=== PATIENT | female | born 1975 | race Caucasian/White ===

== ENCOUNTER 2021-01-06 14:20 | Observation (INO) ==
[2021-01-06] MEDS ORDERED: OPTIRAY 350 500ml IV ONE (14:44)
--- NOTE | 2021-01-06 14:44 | CT Scan Report ---
CT head/brain wo con CLINICAL HISTORY: Stroke Like Symptoms COMPARISON STUDY: No previous studies for comparison. TECHNIQUE: Axial CT of the brain is performed from the vertex to the skull base. IV contrast was not administered for this examination. A dose lowering technique was utilized adhering to the principles of ALARA. CT DOSE: 614.27 mGy.cm FINDINGS: No intra or extra-axial mass lesions are visualized. There is no CT evidence of acute cortical infarc tion. There is no evidence of midline shift. There is no acute hemorrhage. No calvarial fractures ar e visualized. There is no evidence of pathologic ventricular dilatation. There is no evidence of acute sinusitis IMPRESSION: No acute intracranial findings ACT 112: Negative or not required by law. Electronically signed by: Bruno Helm M.D. 01/06/2021 2:42 PM
--- NOTE | 2021-01-06 15:11 | CT Scan Report ---
CT angio neck with con, CT angio head w con CLINICAL HISTORY: 45 years-old Female with Stroke Like Symptoms. Acute strokelike symptoms COMPARISON STUDY: Head CT of same day TECHNIQUE: Following the IV administration of 106 mL of Optiray, CT angiogram of the head and neck wa s performed from the aortic arch to the skull apex. Images are reviewed in the axial, sagittal, and c oronal planes. 3-D MIPS images are created and assessed. IV contrast was administered without complic ation. All measurements were calculated based on NASCET criteria. A dose lowering technique was util ized adhering to the principles of ALARA. CT DOSE: 619.07 mGy.cm FINDINGS: Imaged opacified pulmonary artery is unremarkable. Three-vessel morphology of the thoracic aortic arc h. Patency of the innominate and imaged subclavian arteries. The common and internal carotid arteries are also widely patent. The middle and anterior cerebral arteries are patent. Codominant and widely patent vertebral arteries. The basilar and posterior cerebral arteries are also patent. Cerebral veno us sinuses are patent. There is no abnormal intracranial enhancement. No pneumothorax. Unremarkable soft tissues. Mild polypoid mucosal thickening of the left maxillary si nus. No acute fracture. IMPRESSION:Unremarkable CTA of the head and neck. ACT 112: Negative or not required by law. The above report was generated using voice recognition software. It may contain grammatical, syntax o r spelling errors. Electronically signed by: Bob Molina M.D. 01/06/2021 3:09 PM
[2021-01-06] MEDS ORDERED: ONDANSETRON INJ 2 MG/ML 2 ML VIAL IV STA (15:40)
[2021-01-06] MEDS ORDERED: SODIUM CHLORIDE 0.9% 1000ML 1,000 ML IV ONE (15:40)
[2021-01-06] MEDS ORDERED: VALPROIC ACID SOLN 500 MG/10 ML UDC PO STA (15:40)
[2021-01-06] MEDS ORDERED: DEXAMETHASONE SOD INJ 4 MG/ML VIAL IV STA (15:40)
[2021-01-06 15:54] LABS: Basophils # (auto) 0.02 K/uL (0-0.2); Basophils % (auto) 0.3 %; Eosinophils # (auto) 0.11 K/uL (0-0.5); Eosinophils % (auto) 1.8 %; Hematocrit (blood only) 34.6 % (37-47); Hemoglobin 11.3 g/dL (12.0-16.0); Immature Granulocytes # (auto) 0.02 K/uL (0.00-0.02); Immature Granulocytes % (auto) 0.3 %; Lymphocytes # (auto) 1.25 K/uL (1.2-3.4); Mean Corpuscular Hemoglobin 27.7 pg (25-34); Mean Corpuscular Hgb Conc 32.7 g/dL (32-36); Mean Corpuscular Volume 84.8 fL (80-100); Mean Platelet Volume 9.9 fL (7.4-10.4); Monocytes # (auto) 0.36 K/uL (0.11-0.59); Monocytes % (auto) 5.8 %; Neutrophils # (auto) 4.48 K/uL (1.4-6.5); Neutrophils % (auto) 71.8 %; Platelet Count 168 K/uL (130-400); RDW Coefficient of Variation 16.2 % (11.5-14.5); RDW Standard Deviation 50.5 fL (36.4-46.3); Red Blood Count 4.08 M/uL (4.2-5.4); White Blood Count 6.24 K/uL (4.8-10.8)
[2021-01-06 16:06] LABS: INR 2.9 (0.9-1.1); Partial Thromboplastin Ratio 1.6; Partial Thromboplastin Time 40.8 Seconds (21.0-31.0); Prothrombin Time 27.1 Seconds (9.0-12.0)
[2021-01-06 16:11] LABS: Alanine Aminotransferase 31 U/L (12-78); Aspartate Aminotransferase 14 U/L (15-37); BUN Creatinine Ratio 9.8 (10-20); Blood Urea Nitrogen 12 mg/dl (7-18); Calcium 8.5 mg/dl (8.5-10.1); Carbon Dioxide 26 mmol/L (21-32); Chloride 107 mmol/L (98-107); Creatinine Clr Calc Pharmacy 69.5 ml/min; Est GFR (African American) 62.4; Est GFR (Non-African American) 53.8; Glucose 144 mg/dl (70-99); Magnesium 1.9 mg/dl (1.8-2.4); Potassium 3.7 mmol/L (3.5-5.1); Sodium 137 mmol/L (136-145)
[2021-01-06 16:16] LABS: Albumin Globulin Ratio 0.8 (0.9-2); Alkaline Phosphatase 80 U/L (45-117); Bilirubin,Total 0.2 mg/dl (0.2-1); Globulin 3.7 gm/dl (2.5-4.0); Total Protein 6.7 gm/dl (6.4-8.2); Troponin I < 0.015 ng/ml (0-0.045)
[2021-01-06] MEDS ORDERED: MoRPHine SULFATE 2 MG/ML CARP IV STA (18:11)
--- NOTE | 2021-01-06 18:33 | History & Physical Report ---
Date of Service January 06, 2021 Assessment & Plan (1) Migraine: Classic migraine with associated left hemiparesis. No evidence of CVA on head CT scan. Head and neck CTA also unremarkable. IV magnesium ordered. Parenteral narcotics as needed. If symptoms persist, will obtain neurological c onsultation and brain MRI Present on Admission?: Yes (2) History of pulmonary embolism: Continue Coumadin therapy. Currently therapeutic with INR 2.9 (3) History of DVT (deep vein thrombosis): Continue Coumadin therapy (4) Hypothyroidism: Synthroid replacement (5) GERD (gastroesophageal reflux disease): Treated with H2 saurav and PPI (6) PTSD (post-traumatic stress disorder): Supportive care DVT prophylaxis: Coumadin therapy Disposition: Hopefully home tomorrowJanuary 07 History of Present Illness Chief Complaint: Migraine headache Primary Care Provider: EVY RICCI 45-year-old female with a history of PFO, old CVA, DVT and PE, Coumadin coagulopathy, hypothyroidism. She presented with a migraine headache that she said is her typical migraine headache but she had some associated left-sided weakness and right facial droop. She was seen in the ED. Head CT scan was negative as was the head and neck CTA. She is therapeutically anticoagulated on Coumadin with INR 2.9. Intravenous magnesium is ordered in the ED along with parenteral narcotics. She is admitted to observation for further evaluation. If her symptoms persist, neurology consultation and brain MRI will be ordered. Hopefully she will improve and she can go home tomorrowJanuary 07. Allergies Allergy/AdvReac Type Severity Reaction Status Date / Time metoclopramide [From Reglan] AdvReac Intermediate CAUSED Verified 01/06/21 15:58 RESTLESS LEG SYNDROME prochlorperazine AdvReac Intermediate caused Unverified 01/06/21 15:58 [From Compazine] restless leg syndrome promethazine [From Phenergan] AdvReac restless Unverified 01/06/21 15:58 leg syndrome Home Medications Medication Instructions Recorded Confirmed Type famotidine 10 mg PO HS 10/07/20 01/06/21 History levothyroxine 75 mcg PO DAILYBB 10/07/20 01/06/21 History pantoprazole [Protonix] 20 mg PO HS 10/07/20 01/06/21 History topiramate 200 mg PO HS 10/07/20 01/06/21 History venlafaxine [Effexor XR] 300 mg PO HS 10/07/20 01/06/21 History lurasidone [Latuda] 20 mg PO PM 01/06/21 01/06/21 History warfarin 5 mg PO 5XWK 01/06/21 01/06/21 History warfarin 15 mg PO 2XWK 01/06/21 01/06/21 History Past Med/Surg History Medical History C. difficile colitis CVA (cerebral vascular accident) GERD (gastroesophageal reflux disease) History of DVT (deep vein thrombosis) History of pulmonary embolism Hypothyroidism Migraine PTSD (post-traumatic stress disorder) Surgical History History of appendectomy History of cholecystectomy S/P patent foramen ovale closure Social History Smoking Status: Never smoker Feels Safe at Home: Yes Review of Systems Review of Systems: All systems reviewed & are unremarkable except as noted in HPI & below Physical Exam Physical Exam: General-alert and oriented x3, no fevers, no chills HEENT-head atraumatic and normocephalic, pupils equal and reactive to light, extraocular muscles intact Neck-no lymphadenopathy or thyromegaly, trachea midline Chest-clear to auscultation percussion. No rales wheezing or rhonchi Cardiac-regular rate and rhythm, normal S1 and S2, no murmurs Abdomen-normal bowel sounds, nontender, no hepatosplenomegaly Extremities-no cyanosis, clubbing, or edema Neuro-no discernible right facial droop at the time of my examination. She does have a mild left hemiparesis which she says is common with her migraine headaches and usually resolves as the headache resolves. Psych-normal affect, normal mood Results & Data Results & Data ([facility]) Vital Signs (Past 12 Hours) Vital Signs Temp Pulse Pulse Resp BP BP Pulse Ox 01/06/21 17:51 100 H 18 100/70 96 01/06/21 16:01 97 H 17 01/06/21 16:00 96 H 17 113/79 01/06/21 15:53 99 H 18 01/06/21 15:46 102 H 18 94/78 L 98 01/06/21 15:31 96 H 16 94/78 L 98 01/06/21 14:25 36.8 C 118 H 20 112/79 97 Laboratory Results 01/06/21 15:43 01/06/21 15:43 Code Status & VTE Plan VTE Prophylaxis Plan VTE Prophylaxis will be ordered: Yes PG Care Time/CCT Total # of Minutes Spent Total Time Spent with Patient: Total time spent is greater than 50% in coor dination of care (as documented) at patient's floor/unit and/or counseling patient: Coding Level of Care Code 37814 OBS Care - Level 3 Diagnoses Migraine G43.901 Intractability: not intractable Migraine type: unspecified Status migrainosus presence: with status migrainosus History of pulmonary embolism Z86.711 History of DVT (deep vein thrombosis) Z86.718 Hypothyroidism E03.9 GERD (gastroesophageal reflux disease) K21.9 PTSD (post-traumatic stress disorder) F43.10 (1) Migraine Intractability: not intractable Migraine type: unspecified Status migrainosus presence: with status migrainosus Qualified Code(s): G43.901 - Migraine, unspecified, not intractable, with status migrainosus
[2021-01-06] MEDS: MAGNESIUM SULFATE / D5W 1 GM/100 ML BAG IV SCH ×2 (18:41→20:57)
--- NOTE | 2021-01-06 20:48 | Emergency Department Note ---
History of Present Illness General Chief complaint: Neuro Symptoms/Deficit Stated complaint: MIGRAINE, LEFT LEG WEAKNESS Time Seen by Provider: 01/06/21 14:28 History of Present Illness Provider complaint: Headache left-sided weakness Onset (ago): minute(s) 30 Location: head, upper extremity, lower extremity and left Radiation: non-radiation Severity: severe Pain Consistency: + constant Maximum Pain Intensity: 9 Current Pain Intensity: 9 Quality: + stabbing, + aching, + sharp and + dull Relieved By: + none Exacerbated By: + none Associated symptoms: + headaches and + weakness; no chest pain, no cough, no fever/chills, no nausea/vomiting, no seizure, no shortness of breath and no syncope 45-year-old female presents emergency department for headache and left-sided weakness. Patient also reports left eye has blurry vision. Patient reports her symptoms began 30 minutes ago while she was shopping at [employer]. Patient is also reporting that she thought she had a facial droop. Patient states she has a history of complex migraines. Patient is on Coumadin. Patient denies any fall. Home Medications Medication Instructions Recorded Confirmed Type famotidine 10 mg PO HS 10/07/20 01/06/21 History levothyroxine 75 mcg PO DAILYBB 10/07/20 01/06/21 History pantoprazole [Protonix] 20 mg PO HS 10/07/20 01/06/21 History topiramate 200 mg PO HS 10/07/20 01/06/21 History venlafaxine [Effexor XR] 300 mg PO HS 10/07/20 01/06/21 History lurasidone [Latuda] 20 mg PO PM 01/06/21 01/06/21 History warfarin 5 mg PO [id number] 01/06/21 01/06/21 History warfarin 15 mg PO 2XWK 01/06/21 01/06/21 History Allergies Allergy/AdvReac Type Severity Reaction Status Date / Time metoclopramide [From Reglan] AdvReac Intermediate CAUSED Verified 01/06/21 15:58 RESTLESS LEG SYNDROME prochlorperazine AdvReac Intermediate caused Unverified 01/06/21 15:58 [From Compazine] restless leg syndrome promethazine [From Phenergan] AdvReac restless Unverified 01/06/21 15:58 leg syndrome Past Med/Surg History Medical History C. difficile colitis CVA (cerebral vascular accident) GERD (gastroesophageal reflux disease) History of DVT (deep vein thrombosis) History of pulmonary embolism Hypothyroidism Migraine PTSD (post-traumatic stress disorder) Surgical History History of appendectomy History of cholecystectomy S/P patent foramen ovale closure Social History Smoking Status: Never smoker Hx Alcohol Use: No Hx Substance Use: No Preferred Language: [place] Communication Ability: Effective Molecular Physicist Required: No Beliefs That Will Affect Care: None Current Living Situation: Spouse Current Living Situation Comment: Feels Safe at Home: Yes Assistive Devices: Contacts, Hearing Aid - Bilateral and Walker Review of Systems A total of 10 systems reviewed and were otherwise negative Physical Exam Vital Signs Vital Signs - 24 hr 01/06/21 14:25 01/06/21 15:31 01/06/21 15:46 Temperature 36.8 C Temperature Source Temporal Artery Scan Pulse Rate 118 H 96 H Pulse Rate [Right Brachial] 102 H Pulse Rate from SpO2 Sensor 95 H Pulse Rhythm [Right Brachial] Regular Respiratory Rate 20 16 18 Respiratory Effort / Characteristics Non-Labored Respiratory Depth Normal Blood Pressure 112/79 94/78 L Blood Pressure [Left Radial Artery] 94/78 L Blood Pressure Mean 90 83 Blood Pressure Mean [Left Radial Artery] 83 Blood Pressure Position [Left Radial Artery] Pulse Oximetry 97 98 98 Oxygen Delivery Method Room Air Room Air Sepsis Recent Fever Within 48 Hours No Sepsis New/Unexplained Change in Mental Status No Sepsis Action Taken by Nursing No Action Required 01/06/21 15:53 01/06/21 16:00 01/06/21 16:01 Temperature Temperature Source Pulse Rate 99 H 96 H 97 H Pulse Rate [Right Brachial] Pulse Rate from SpO2 Sensor Pulse Rhythm [Right Brachial] Respiratory Rate 18 17 17 Respiratory Effort / Characteristics Respiratory Depth Blood Pressure 113/79 Blood Pressure [Left Radial Artery] Blood Pressure Mean 90 Blood Pressure Mean [Left Radial Artery] Blood Pressure Position [Left Radial Artery] Pulse Oximetry Oxygen Delivery Method Sepsis Recent Fever Within 48 Hours Sepsis New/Unexplained Change in Mental Status Sepsis Action Taken by Nursing 01/06/21 17:51 Temperature Temperature Source Pulse Rate Pulse Rate [Right Brachial] 100 H Pulse Rate from SpO2 Sensor Pulse Rhythm [Right Brachial] Respiratory Rate 18 Respiratory Effort / Characteristics Non-Labored Spontaneous Respiratory Depth Normal Blood Pressure Blood Pressure [Left Radial Artery] 100/70 Blood Pressure Mean Blood Pressure Mean [Left Radial Artery] 80 Blood Pressure Position [Left Radial Artery] Lying Pulse Oximetry 96 Oxygen Delivery Method Room Air Sepsis Recent Fever Within 48 Hours Sepsis New/Unexplained Change in Mental Status Sepsis Action Taken by Nursing Physical Exam HENT: Exam performed. -Head: Normocephalic and atraumatic. -Right Ear: External ear normal. No mastoid tenderness. -Left Ear: External ear normal. No mastoid tenderness. -Mouth/Throat: The oropharynx is clear and moist. No trismus in the jaw. No dental abscesses or uvula swelling. No oropharyngeal exudate or tonsillar abscesses. EYES: Conjunctivae and EOM are normal. Pupils are equal, round, and reactive to light. Right eye exhibits no discharge. Left eye exhibits no discharge. No scleral icterus. NECK: Normal range of motion. Neck supple. No JVD present. No spinous process tenderness present. No carotid bruit present. No rigidity. No tracheal deviation and normal range of motion present. No Brudzinski's sign and no Kernig's sign noted. CV: Normal rate, regular rhythm, normal heart sounds and intact distal pulses. There is no peripheral edema. Palpable radial pulses bue. PULM/CHEST: Effort normal and breath sounds normal. No respiratory distress. No stridor. She has no wheezes. She has no rales. -Chest Wall: She exhibits no tenderness. ABD: The abdomen is soft. Bowel sounds are normal. She has no distension. No mass is present. There is no tenderness. There is no rebound, no guarding, no Real's sign and no tenderness at McBurney's point. Rovsig negative MUSC/SKEL: Normal range of motion. There is no peripheral edema, tenderness or deformity. LYMPH: No cervical adenopathy. NEURO:NIHSS: 6 (5a:1 6a:3 7:2) SKIN: Skin is warm and dry. She is not diaphoretic. PSYCH: She has a normal mood and affect. Behavior is normal. Judgment and thought content normal. Course Course 1428: The patient was evaluated in room B5. A complete history and physical exam was performed Cardiac monitoring: An order was placed for continuous cardiac monitoring. The monitor shows a rate of 90 and sinus rhythm Code stroke called on the patient. Patient is saying she does not want a CT scan but I explained to her that given her symptoms started 30 minutes ago, she is on anticoagulation and has a history of stroke, and she has an NIH stroke scale of [address] would be performed. 1500: CT of the head within normal limits. Dr. Maddy Decker teleneurology will evaluate the patient. 1534: Dr. Maddy Decker teleneurology recommends no TPA at this time given the patient's elevated INR. He also thinks that the patient is most likely suffering from a complex migraine. He does recommend that the patient be admitted to the hospital though for continued evaluation. He does recommend given the patient's Decadron 10 mg now and then 6 mg every 8 hours until the headache resolved. He also recommends valproic acid 500 mg every 8 hours. Patient will be admitted to the [facility]ist team. 1820: Patient's is at bedside and states she is very upset that the patient got CT scans of her head when she stated she did not want them. I explained to her given the patient's symptoms CT scans were indicated to make sure that the patient not have an acute stroke. The states that "we know when she is having a stroke and when she is not". Patient awaiting bed placement. Administered Medications Discontinued Medications Dexamethasone (Dexamethasone Sod Inj 4 Mg/Ml Vial) 10 mg IV NOW STA Stop: 01/06/21 15:41 Last Admin: 01/06/21 15:58 Dose: 10 mg Documented by: [id number] Sodium Chloride (Nss 1000ml) 1,000 mls @ 999 mls/hr IV .Q1H1M ONE Stop: 01/06/21 16:40 Last Infusion: 01/06/21 17:13 Dose: 0 mls/hr Documented by: [id number] Admin: 01/06/21 15:58 Dose: 999 mls/hr Documented by: [id number] Magnesium Sulfate/Dextrose (Magnesium Sulfate / D5w) 1 gm in 100 mls @ 50 mls/hr IV Q2H EVELIN Stop: 01/06/21 22:14 Last Infusion: 01/06/21 22:46 Dose: 0 mls/hr Documented by: [id number] Admin: 01/06/21 20:57 Dose: 50 mls/hr Documented by: [id number] Infusion: 01/06/21 20:57 Dose: 0 mls/hr Documented by: [id number] Admin: 01/06/21 18:41 Dose: 50 mls/hr Documented by: [id number] Ioversol (Optiray 350 500ml) 106 ml IV ONCE ONE Stop: 01/06/21 14:45 Last Admin: 01/06/21 14:45 Dose: 106 ml Documented by: [id number] Morphine Sulfate (Morphine Sulfate 2 Mg/Ml Carp) 2 mg IV NOW STA Stop: 01/06/21 18:12 Last Admin: 01/06/21 18:41 Dose: 2 mg Documented by: [id number] Ondansetron HCl (Ondansetron Inj 2 Mg/Ml 2 Ml Vial) 4 mg IV NOW STA Stop: 01/06/21 15:41 Last Admin: 01/06/21 15:58 Dose: 4 mg Documented by: [id number] Valproic Acid (Valproic Acid Soln 500 Mg/10 Ml Udc) 500 mg PO NOW STA Stop: 01/06/21 15:41 Last Admin: 01/06/21 16:03 Dose: 500 mg Documented by: [id number] Critical Care Time Critical Care Time: Yes Total Critical Care Time: 66 I have personally spent greater than 66 minutes of critical care time in the direct management of this patient. This includes bedside care, interpretation of diagnostic studies, and testing, discussion with consultants, patient, and family members, and other required patient management activities. This 66 minutes is in excess of all separately billable procedures. Medical Decision Making Laboratory Data Result diagrams: 01/06/21 15:43 01/06/21 15:43 Lab Results 01/06/21 01/06/21 01/06/21 Range/Units 15:02 15:43 15:43 WBC 6.24 (4.8-10.8) K/uL RBC 4.08 L (4.2-5.4) M/uL Hgb 11.3 L (12.0-16.0) g/dL Hct 34.6 L (37-47) % MCV 84.8 (80-100) fL MCH 27.7 (25-34) pg MCHC 32.7 (32-36) g/dL RDW Std Deviation 50.5 H (36.4-46.3) fL RDW Coeff of Wilmer 16.2 H (11.5-14.5) % Plt Count 168 (130-400) K/uL MPV 9.9 (7.4-10.4) fL Immature Gran % (Auto) 0.3 % Neut % (Auto) 71.8 % Lymph % (Auto) 20.0 % [place] % (Auto) 5.8 % Eos % (Auto) 1.8 % Baso % (Auto) 0.3 % Neut # (Auto) 4.48 (1.4-6.5) K/uL Lymph # (Auto) 1.25 (1.2-3.4) K/uL [place] # (Auto) 0.36 (0.11-0.59) K/uL Eos # (Auto) 0.11 (0-0.5) K/uL Baso # (Auto) 0.02 (0-0.2) K/uL Immature Gran # (Auto) 0.02 (0.00-0.02) K/uL PT (9.0-12.0) Seconds POC INR 3.9 H (0.9-1.1) INR (0.9-1.1) APTT (21.0-31.0) Seconds PTT Ratio Sodium (136-145) mmol/L Potassium (3.5-5.1) mmol/L Chloride (98-107) mmol/L Carbon Dioxide (21-32) mmol/L Anion Gap (3-11) BUN (7-18) mg/dl Creatinine (0.6-1.2) mg/dl Est Cr Clr Drug Dosing ml/min Est GFR ( Amer) Est GFR (Non-Af Amer) BUN/Creatinine Ratio (10-20) Glucose (70-99) mg/dl Calcium (8.5-10.1) mg/dl Magnesium (1.8-2.4) mg/dl Total Bilirubin (0.2-1) mg/dl AST (15-37) U/L ALT (12-78) U/L Alkaline Phosphatase (45-117) U/L Troponin I (0-0.045) ng/ml Total Protein (6.4-8.2) gm/dl Albumin (3.4-5.0) gm/dl Globulin (2.5-4.0) gm/dl Albumin/Globulin Ratio (0.9-2) Blood Type O Positive Antibody Screen NEGATIVE 01/06/21 01/06/21 Range/Units 15:43 15:43 WBC (4.8-10.8) K/uL RBC (4.2-5.4) M/uL Hgb (12.0-16.0) g/dL Hct (37-47) % MCV (80-100) fL MCH (25-34) pg MCHC (32-36) g/dL RDW Std Deviation (36.4-46.3) fL RDW Coeff of Wilmer (11.5-14.5) % Plt Count (130-400) K/uL MPV (7.4-10.4) fL Immature Gran % (Auto) % Neut % (Auto) % Lymph % (Auto) % [place] % (Auto) % Eos % (Auto) % Baso % (Auto) % Neut # (Auto) (1.4-6.5) K/uL Lymph # (Auto) (1.2-3.4) K/uL [place] # (Auto) (0.11-0.59) K/uL Eos # (Auto) (0-0.5) K/uL Baso # (Auto) (0-0.2) K/uL Immature Gran # (Auto) (0.00-0.02) K/uL PT 27.1 H (9.0-12.0) Seconds POC INR (0.9-1.1) INR 2.9 H (0.9-1.1) APTT 40.8 H (21.0-31.0) Seconds PTT Ratio 1.6 Sodium 137 (136-145) mmol/L Potassium 3.7 (3.5-5.1) mmol/L Chloride 107 (98-107) mmol/L Carbon Dioxide 26 (21-32) mmol/L Anion Gap 4.0 (3-11) BUN 12 (7-18) mg/dl Creatinine 1.22 H (0.6-1.2) mg/dl Est Cr Clr Drug Dosing 69.5 ml/min Est GFR ( Amer) 62.4 Est GFR (Non-Af Amer) 53.8 BUN/Creatinine Ratio 9.8 L (10-20) Glucose 144 H (70-99) mg/dl Calcium 8.5 (8.5-10.1) mg/dl Magnesium 1.9 (1.8-2.4) mg/dl Total Bilirubin 0.2 (0.2-1) mg/dl AST 14 L (15-37) U/L ALT 31 (12-78) U/L Alkaline Phosphatase 80 (45-117) U/L Troponin I < 0.015 (0-0.045) ng/ml Total Protein 6.7 (6.4-8.2) gm/dl Albumin 3.0 L (3.4-5.0) gm/dl Globulin 3.7 (2.5-4.0) gm/dl Albumin/Globulin Ratio 0.8 L (0.9-2) Blood Type Antibody Screen Imaging Data Radiologist's Impression: Head CT 01/06/21 14:33 CT head/brain wo con CLINICAL HISTORY: Stroke Like Symptoms COMPARISON STUDY: No previous studies for comparison. TECHNIQUE: Axial CT of the brain is performed from the vertex to the skull base. IV contrast was not administered for this examination. A dose lowering technique was utilized adhering to the principles of ALARA. CT DOSE: 614.27 mGy.cm FINDINGS: No intra or extra-axial mass lesions are visualized. There is no CT evidence of acute cortical infarction. There is no evidence of midline shift. There is no acute hemorrhage. No calvarial fractures are visualized. There is no evidence of pathologic ventricular dilatation. There is no evidence of acute sinusitis IMPRESSION: No acute intracranial findings ACT 112: Negative or not required by law. Electronically signed by: Bruno Helm M.D. 01/06/2021 2:42 PM Head CTA 01/06/21 14:33 CT angio neck with con, CT angio head w con CLINICAL HISTORY: 45 years-old Female with Stroke Like Symptoms. Acute strokelike symptoms COMPARISON STUDY: Head CT of same day TECHNIQUE: Following the IV administration of 106 mL of Optiray, CT angiogram of the head and neck was performed from the aortic arch to the skull apex. Images are reviewed in the axial, sagittal, and coronal planes. 3-D MIPS images are created and assessed. IV contrast was administered without complication. All measurements were calculated based on NASCET criteria. A dose lowering technique was utilized adhering to the principles of ALARA. CT DOSE: 619.07 mGy.cm FINDINGS: Imaged opacified pulmonary artery is unremarkable. Three-vessel morphology of the thoracic aortic arch. Patency of the innominate and imaged subclavian arteries. The common and internal carotid arteries are also widely patent. The middle and anterior cerebral arteries are patent. Codominant and widely patent vertebral arteries. The basilar and posterior cerebral arteries are also patent. Cerebral venous sinuses are patent. There is no abnormal intracranial enhancement. No pneumothorax. Unremarkable soft tissues. Mild polypoid mucosal thickening of the left maxillary sinus. No acute fracture. IMPRESSION:Unremarkable CTA of the head and neck. ACT 112: Negative or not required by law. The above report was generated using voice recognition software. It may contain grammatical, syntax or spelling errors. Electronically signed by: Bob Molina M.D. 01/06/2021 3:09 PM Neck CTA 01/06/21 14:33 CT angio neck with con, CT angio head w con CLINICAL HISTORY: 45 years-old Female with Stroke Like Symptoms. Acute strokelike symptoms COMPARISON STUDY: Head CT of same day TECHNIQUE: Following the IV administration of 106 mL of Optiray, CT angiogram of the head and neck was performed from the aortic arch to the skull apex. Images are reviewed in the axial, sagittal, and coronal planes. 3-D MIPS images are created and assessed. IV contrast was administered without complication. All measurements were calculated based on NASCET criteria. A dose lowering technique was utilized adhering to the principles of ALARA. CT DOSE: 619.07 mGy.cm FINDINGS: Imaged opacified pulmonary artery is unremarkable. Three-vessel morphology of the thoracic aortic arch. Patency of the innominate and imaged subclavian arteries. The common and internal carotid arteries are also widely patent. The middle and anterior cerebral arteries are patent. Codominant and widely patent vertebral arteries. The basilar and posterior cerebral arteries are also patent. Cerebral venous sinuses are patent. There is no abnormal intracranial enhancement. No pneumothorax. Unremarkable soft tissues. Mild polypoid mucosal thickening of the left maxillary sinus. No acute fracture. IMPRESSION:Unremarkable CTA of the head and neck. ACT 112: Negative or not required by law. The above report was generated using voice recognition software. It may contain grammatical, syntax or spelling errors. Electronically signed by: Bob Molina M.D. 01/06/2021 3:09 PM ECG Data Indication: + other (code stroke) Rate (beats per minute): 96 Rhythm: + normal sinus ECG Intervals/blocks: + Normal QRS, + Normal [place] and + Normal QT-c ECG ST segments: + Normal ST segments [facility] Narrative 1428: The patient was evaluated in room B5. A complete history and physical exam was performed Cardiac monitoring: An order was placed for continuous cardiac monitoring. The monitor shows a rate of 90 and sinus rhythm Code stroke called on the patient. Patient is saying she does not want a CT scan but I explained to her that given her symptoms started 30 minutes ago, she is on anticoagulation and has a history of stroke, and she has an NIH stroke scale of [address] would be performed. 1500: CT of the head within normal limits. Dr. Maddy Decker teleneurology will evaluate the patient. 1534: Dr. Maddy Decker teleneurology recommends no TPA at this time given the patient's elevated INR. He also thinks that the patient is most likely suffering from a complex migraine. He does recommend that the patient be admitted to the hospital though for continued evaluation. He does recommend given the patient's Decadron 10 mg now and then 6 mg every 8 hours until the headache resolved. He also recommends valproic acid 500 mg every 8 hours. Patient will be admitted to the [facility] hospitalist team. 1820: Patient's is at bedside and states she is very upset that the patient got CT scans of her head when she stated she did not want them. I explained to her given the patient's symptoms CT scans were indicated to make sure that the patient not have an acute stroke. The states that "we know when she is having a stroke and when she is not". Patient awaiting bed placement. Impression & Plan Migraine, Acute left-sided weakness Discharge Plan Visit Data Chief Complaint: Neuro Symptoms/Deficit Stated Complaint: MIGRAINE, LEFT LEG WEAKNESS ED Provider: Rajesh Durbin Discharge Problem: Migraine, Acute left-sided weakness Patient Disposition: Admitted As Inpatient Discharge Instructions Interventions: ED Discharge Assessment Last Done: 01/06/21 21:54 Discharge Problem: Migraine Qualifiers: Migraine type: unspecified Status migrainosus presence: without status migrainosus Intractability: intractable Qualified Code(s): G43.919 - Migraine, unspecified, intractable, without status migrainosus
[2021-01-06 21:09] LABS: Influenza A virus by PCR Negative (Neg); Influenza B virus by PCR Negative (Neg); RSV by PCR Negative (Neg); SARS CoV2 RNA(COVID-19) InHosp NEGATIVE (Negative)
[2021-01-06] MEDS ORDERED: VENLAFAXINE HCL XR 150 MG CAPXR PO SCH (22:20)
[2021-01-06] MEDS ORDERED: ACETAMINOPHEN 325 MG TAB PO PRN (22:20)
[2021-01-06] MEDS ORDERED: PANTOprazole 40 MG TAB PO SCH (22:20)
[2021-01-06] MEDS ORDERED: FAMOTIDINE 10 MG TABLET PO SCH (22:20)
[2021-01-06] MEDS ORDERED: MoRPHine SULFATE 2 MG/ML CARP IV PRN (22:20)
[2021-01-06] MEDS ORDERED: ALUMINUM/MAGNESIUM SUSP 30 ML UDC PO PRN (22:20)
[2021-01-06] MEDS ORDERED: ONDANSETRON INJ 2 MG/ML 2 ML VIAL IV PRN (22:20)
[2021-01-06] MEDS ORDERED: LURASIDONE HCL 40 MG TAB PO SCH (22:46)
[2021-01-06] MEDS ORDERED: WARFARIN SOD 10 MG TAB PO SCH (22:51)
[2021-01-06] MEDS ORDERED: diphenhydrAMINE 50 MG/ML VIAL IV STA (23:37)
[2021-01-06] MEDS ORDERED: traZODone HCL 100 MG TAB PO SCH (23:50)
[2021-01-07] MEDS: DIVALPROEX EXTENDED RELEASE 500 MG TAB PO SCH ×2 (00:02→07:49)
[2021-01-07] MEDS: dexAMETHasone 6 MG in SYRINGE 0 ML IV SCH ×2 (00:03→07:49)
[2021-01-07] MEDS ORDERED: LEVOTHYROXINE SODIUM 75 MCG TABLET PO SCH (06:30)
[2021-01-07 08:17] LABS: Prothrombin Time 27.6 Seconds (9.0-12.0)
--- NOTE | 2021-01-07 10:06 | Hospitalist Progress Note ---
Date of Service January 07, 2021 Assessment & Plan (1) Migraine: Classic migraine with associated left hemiparesis. No evidence of CVA on head CT scan. Head and neck CTA also unremarkable. Resolved with IV magnesium o. Parenteral narcotics as needed. (2) History of pulmonary embolism: Continue Coumadin therapy. Currently therapeutic with INR 3.0 (3) History of DVT (deep vein thrombosis): Continue Coumadin therapy (4) Hypothyroidism: Synthroid replacement (5) GERD (gastroesophageal reflux disease): Treated with H2 saurav and PPI (6) PTSD (post-traumatic stress disorder): Supportive care DVT prophylaxis: Coumadin therapy Disposition: Home today, January 07 Admission and Anticipated Discharge Date Admission Date: January 06, 2021 Subjective Alert and oriented. Migraine headache has resolved. Left hemiparesis has completely resolved. She is now back to baseline and ready for discharge home. Review of Systems Review of Systems: All systems reviewed & are unremarkable except as noted in HPI & below Physical Exam Physical Exam: General-alert and oriented x3, no fevers, no chills HEENT-head atraumatic and normocephalic, pupils equal and reactive to light, extraocular muscles intact Neck-no lymphadenopathy or thyromegaly, trachea midline Chest-clear to auscultation percussion. No rales wheezing or rhonchi Cardiac-regular rate and rhythm, normal S1 and S2 Abdomen-normal bowel sounds, nontender, no hepatosplenomegaly Extremities-no cyanosis, clubbing, or edema Neuro-cranial nerves II through XII intact, motor and sensory function within normal limits, strength symmetrical , no focal deficits Psych-normal affect, normal mood Results & Data Results & Data ([facility]) Vital Signs (Past 12 Hours) Vital Signs Temp Pulse Pulse Pulse Resp BP BP 01/07/21 07:54 36.8 C 99 H 20 97/64 L 01/07/21 07:42 90 01/07/21 04:12 36.7 C 86 18 106/71 01/07/21 00:44 93 H 01/06/21 22:22 36.7 C 95 H 18 110/72 Pulse Ox 01/07/21 07:54 93 01/07/21 07:42 01/07/21 04:12 94 01/07/21 00:44 01/06/21 22:22 95 Laboratory Results 01/06/21 15:43 01/06/21 15:43 PG Care Time/CCT Total # of Minutes Spent Total Time Spent with Patient: Total time spent is greater than 50% in c oordination of care (as documented) at patient's floor/unit and/or counseling patient: Coding Level of Care Code 04437 Subseq Obs Care Lvl 3 Diagnoses Migraine G43.919 Intractability: intractable Migraine type: unspecified Status migrainosus presence: without status migrainosus History of pulmonary embolism Z86.711 History of DVT (deep vein thrombosis) Z86.718 Hypothyroidism E03.9 GERD (gastroesophageal reflux disease) K21.9 PTSD (post-traumatic stress disorder) F43.10 (1) Migraine Intractability: intractable Migraine type: unspecified Status migrainosus presence: without status migrainosus Qualified Code(s): G43.919 - Migraine, unspecified, intractable, without status migrainosus
--- NOTE | 2021-01-07 13:21 | Discharge Summary ---
Date of Service January 07, 2021 Admission HPI Per Admitting Provider 45-year-old female with a history of PFO, old CVA, DVT and PE, Coumadin coagulopathy, hypothyroidism. She presented with a migraine headache that she said is her typical migraine headache but she had some associated left-sided weakness and right facial droop. She was seen in the ED. Head CT scan was negative as was the head and neck CTA. She is therapeutically anticoagulated on Coumadin with INR 2.9. Intravenous magnesium is ordered in the ED along with parenteral narcotics. She is admitted to observation for further evaluation. If her symptoms persist, neurology consultation and brain MRI will be ordered. Hopefully she will improve and she can go home tomorrow, January 07. Principal Diagnosis Migraine headache with hemiparesis Discharge Data Allergies Allergy/AdvReac Type Severity Reaction Status Date / Time metoclopramide [From Reglan] AdvReac Intermediate CAUSED Verified 01/06/21 15:58 RESTLESS LEG SYNDROME prochlorperazine AdvReac Intermediate caused Unverified 01/06/21 15:58 [From Compazine] restless leg syndrome promethazine [From Phenergan] AdvReac restless Unverified 01/06/21 15:58 leg syndrome Consultations 01/06/21 15:42 ED Decision to Admit Stat Ordered Studies 01/06/21 14:33 CT angio head w con Stat CT angio neck with con Stat CT head/brain wo con Stat Hospital Course (1) Migraine: Classic migraine with associated left hemiparesis. No evidence of CVA on head CT scan. Head and neck CTA also unremarkable. Resolved with IV magnesium o. Parenteral narcotics as needed. (2) History of pulmonary embolism: Continue Coumadin therapy. Currently therapeutic with INR 3.0 (3) History of DVT (deep vein thrombosis): Continue Coumadin therapy (4) Hypothyroidism: Synthroid replacement (5) GERD (gastroesophageal reflux disease): Treated with H2 saurav and PPI (6) PTSD (post-traumatic stress disorder): Supportive care DVT prophylaxis: Coumadin therapy Disposition: Home today, January 07 Total Time Total Time Spent Total Time Spent (In Minutes): 35 minutes Total Time Includes: Examination of the Patient, Discharge Planning and Medic ation Reconciliation Discharge Plan Discharge Items Patient Disposition: Home - Self-Care Reason For Visit: MIGRAINE, DUVAL Discharge Diagnosis: migraine headache with hemiparesis Activity: Resume your previous activity Non-emergency contact: Primary Care Provider Call non-emergency contact if: you have any medication questions Follow-up/Referrals: EVY RICCI [Other] (Please follow-up with your primary care provider in 7-10 days. ) Diet: Regular Addtl Attending Provider Instructions: All medications remain the same Pending Studies at Discharge: No Stand-Alone Forms: My [facility] [employer], Smoking Cessation Medications and DC Order Prescriptions: Continued venlafaxine [Effexor XR] 150 mg Capsule,Extended Release 24hr 300 mg PO HS RF: 0 pantoprazole [Protonix] 20 mg Tablet,Delayed Release (Dr/Ec) 20 mg PO HS RF: 0 levothyroxine 75 mcg Tablet 75 mcg PO DAILYBB RF: 0 famotidine 20 mg Tablet 10 mg PO HS RF: 0 topiramate 200 mg Capsule,Extended Release 24hr 200 mg PO HS RF: 0 warfarin 5 mg Tablet 5 mg PO 5XWK RF: 0 warfarin 5 mg Tablet 15 mg PO 2XWK RF: 0 Latuda 20 mg Tablet 20 mg PO PM RF: 0 Discharge Orders: Discharge Order (Routine); Ordered 01/07/21 Ordered By: James Kim Admission Data Admit Date/Time: 01/06/21 18:17 Attending Provider: James Kim Admit Provider: James Kim Other Providers: Riley Nolasco ; [facility] Other Interventions: Discharge Summary Assessment (RN) Last Done: 01/07/21 10:50 Coding Level of Care Code D/C Day Management >30 mins Diagnoses Migraine G43.919 Intractability: intractable Migraine type: unspecified Status migrainosus presence: without status migrainosus History of pulmonary embolism Z86.711 History of DVT (deep vein thrombosis) Z86.718 Hypothyroidism E03.9 GERD (gastroesophageal reflux disease) K21.9 PTSD (post-traumatic stress disorder) F43.10
--- NOTE | 2021-01-07 20:04 | Electrocardiogram Report ---
Test Reason : Blood Pressure : / mmHG Vent. Rate : 096 BPM Atrial Rate : 096 BPM P-R Int : 134 ms QRS Dur : 080 ms QT Int : 352 ms P-R-T Axes : 038 041 043 degrees QTc Int : 444 ms Normal sinus rhythm Normal ECG No previous ECGs available Confirmed by Brock Guevara ([id number]) on 01/07/2021 8:03:50 PM Referred By: REFERRED SELF Confirmed By:Brock Guevara
[2021-01-07] MEDS ORDERED: WARFARIN SOD 7.5 MG TAB PO SCH (21:00)
== END 2021-01-07 11:15 | disposition home or self-care (01) ==
LOC: 2W 14:20 → ED 14:20 → 2W 21:54

== ENCOUNTER 2023-10-11 16:15 | Observation (INO) ==
--- NOTE | 2023-10-11 16:31 | ED Triage Note ---
Date of Service October 11, 2023 Provider in Triage Author: Hillary Coffman History of Present Illness This patient was briefly evaluated while in triage. An abbreviated physical exam was performed. This patient is a 48-year-old Female who presents to the ED for evaluation of TIA symptoms. Feels like the right side of her face is numb and droopy. Left side of her body feels heavy as well. Symptoms started about 15 min ago when she fell in the parking lot b/c of the symptoms. She is on Coumadin. Physical Exam GENERAL: Non-toxic and in no acute distress. HEENT: Pupils equal. No obvious scleral icterus. The patient has a right-sided facial droop. HEART: Regular rate and rhythm. LUNGS: Clear to auscultation. No accessory muscle use. ABDOMEN: Soft, nontender to palpation. NEURO: Alert and oriented. Right-sided facial droop as well as weakness of the left arm. MUSCULOSKELETAL: Having difficulty moving the left arm and has weakness of the left arm on exam. Stroke alert was initiated and the patient was taken directly to CT scan. MDM / Impression Impression Impression: Migraine, Acute left-sided weakness, Stroke-like symptoms
[2023-10-11] MEDS ORDERED: OPTIRAY 320 125ml IV ONE (16:47)
--- NOTE | 2023-10-11 17:01 | Emergency Department Note ---
History of Present Illness General Chief complaint: TIA Symptoms Stated complaint: LT LEG/ARM NUMBNESS, RT FACIAL NUMBNESS, DIZZY Time Seen by Provider: 10/11/23 16:31 History of Present Illness Provider complaint: Headache dizziness 48-year-old female with history of migraine on Coumadin presents emergency department for headache and dizziness. Patient states that she has been having dizziness all day. She reports that she had a chiropractic manipulation of her neck yesterday. She states since then she has been having migraine and dizziness. She states she was feeling dizzy all day and was coming to the emergency department and then fell in the parking lot of the emergency department. Patient is reporting neck pain. She is reporting headache. Home Medications Medication Instructions Recorded Confirmed Type levothyroxine 75 mcg tablet 75 mcg PO DAILYBB 10/07/20 10/11/23 History pantoprazole 20 mg tablet,delayed 20 mg PO HS 10/07/20 10/11/23 History release (Protonix) topiramate 200 mg capsule,extended 200 mg PO HS 10/07/20 10/11/23 History release 24 hr venlafaxine 150 mg 300 mg PO HS 10/07/20 10/11/23 History capsule,extended release 24 hr (Effexor XR) trazodone 50 mg tablet 50 mg PO HS 02/03/21 10/11/23 History aripiprazole 5 mg tablet (Abilify) 5 mg PO HS 11/25/22 10/11/23 History fremanezumab-vfrm 225 mg/1.5 mL 225 mg subcut MONTHLY 01/28/23 10/11/23 History subcutaneous auto-injector (Ajovy) warfarin 10 mg tablet 10 mg PO 2XWK 03/28/23 10/11/23 History warfarin 7.5 mg tablet 7.5 mg PO 5XWK 03/28/23 10/11/23 History promethazine 25 mg rectal 25 mg CO Q6H PRN sedation #12 ea 06/06/23 10/11/23 Rx suppository epinephrine 0.3 mg/0.3 mL 0.3 mg (0.3 mL) IM Q4H PRN 07/17/23 10/11/23 Rx injection, auto-injector anaphylaxis #2 ea alprazolam 0.25 mg tablet 0.25 mg PO DAILY PRN NEEDED PER 09/01/23 10/11/23 History PT ondansetron 4 mg disintegrating 4 mg PO Q6H PRN nausea and 09/18/23 10/11/23 Rx tablet vomiting #15 tabs cholecalciferol (vitamin D3) 25 25 mcg PO HS 10/11/23 10/11/23 History mcg (1,000 unit) capsule (Vitamin D3) Allergies Allergy/AdvReac Type Severity Reaction Status Date / Time metoclopramide [From Reglan] AdvReac Intermediate CAUSED Verified 10/11/23 16:59 RESTLESS LEG SYNDROME prochlorperazine AdvReac Intermediate caused Verified 10/11/23 16:59 [From Compazine] restless leg syndrome promethazine [From Phenergan] AdvReac Intermediate restless Verified 10/11/23 16:59 leg syndrome Past Med/Surg History Medical History History of pulmonary embolism History of DVT (deep vein thrombosis) Hypothyroidism GERD (gastroesophageal reflux disease) PTSD (post-traumatic stress disorder) C. 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 Beliefs That Will Affect Care: None Current Living Situation: Spouse Current Living Situation Comment: Feels Safe at Home: Yes Assistive Devices: None Physical Exam Vital Signs Vital Signs - 24 hr 10/11/23 16:26 10/11/23 16:53 10/11/23 16:54 Temperature 36.7 C Temperature Source Temporal Artery Scan Pulse Rate 91 H 83 84 Pulse Rate from SpO2 Sensor Respiratory Rate 19 16 16 Respiratory Effort / Characteristics Non-Labored Spontaneous Respiratory Depth Normal Blood Pressure 124/97 Blood Pressure Mean 106 Pulse Oximetry 99 Oxygen Delivery Method Room Air Sepsis Recent Fever Within 48 Hours No Sepsis New/Unexplained Change in Mental Status No Sepsis Action Taken by Nursing No Action Required 10/11/23 17:00 10/11/23 17:00 10/11/23 17:04 Temperature Temperature Source Pulse Rate 85 Pulse Rate from SpO2 Sensor Respiratory Rate 19 Respiratory Effort / Characteristics Respiratory Depth Blood Pressure 117/81 Blood Pressure Mean 91 Pulse Oximetry 98 Oxygen Delivery Method Sepsis Recent Fever Within 48 Hours Sepsis New/Unexplained Change in Mental Status Sepsis Action Taken by Nursing 10/11/23 17:12 10/11/23 17:30 10/11/23 17:30 Temperature Temperature Source Pulse Rate 85 85 Pulse Rate from SpO2 Sensor 84 Respiratory Rate 15 Respiratory Effort / Characteristics Respiratory Depth Blood Pressure 133/94 Blood Pressure Mean 101 Pulse Oximetry 100 Oxygen Delivery Method Sepsis Recent Fever Within 48 Hours Sepsis New/Unexplained Change in Mental Status Sepsis Action Taken by Nursing 10/11/23 18:00 10/11/23 18:30 10/11/23 19:10 Temperature Temperature Source Pulse Rate 80 75 Pulse Rate from SpO2 Sensor 80 76 75 Respiratory Rate 18 Respiratory Effort / Characteristics Respiratory Depth Blood Pressure Blood Pressure Mean Pulse Oximetry 100 99 100 Oxygen Delivery Method Sepsis Recent Fever Within 48 Hours Sepsis New/Unexplained Change in Mental Status Sepsis Action Taken by Nursing Physical Exam GENERAL: She is oriented to person, place, and time. She appears well-developed and well-nourished. She does not appear distressed. HENT: Exam performed. -Head: Normocephalic and atraumatic. -Right Ear: External ear normal. No mastoid erythema -Left Ear: External ear normal. No mastoid erythema -Mouth/Throat: The oropharynx is clear and moist. No trismus in the jaw. No dental abscesses or uvula swelling. No oropharyngeal exudate or tonsillar abscesses. EYES: Conjunctivae and EOM are normal. Pupils are equal, round, and reactive to light. Right eye exhibits no discharge. Left eye exhibits no discharge. No scleral icterus. NECK: Normal range of motion. Neck supple. No JVD present. No spinous process tenderness present. No carotid bruit present. No rigidity. No tracheal deviation and normal range of motion present. CV: Normal rate, regular rhythm, normal heart sounds and intact distal pulses. There is no peripheral edema. Palpable radial pulses bue. PULM/CHEST: Effort normal and breath sounds normal. No respiratory distress. No stridor. She has no wheezes. She has no rales. ABD: The abdomen is soft. MUSC/SKEL: Pelvis stable. NEURO: Left upper extremity weakness. Right-sided facial droop. Course Course 1631: The patient was evaluated in room triage 2. Patient was made stroke alert from triage. I evaluated the patient and CT scan and additional CT imaging was ordered given the patient's falls. Patient does have a history of subtherapeutic INRs. 1641: CT of the head shows no ICH 1700: [id number] INR 1.7. Given the patient's left upper extremity weakness and subtherapeutic INR we will contact Brianne telestroke. Unclear if the patient is truly having a stroke, if her symptoms are migraine, or if there is some sort of vascular compromise in her neck given her recent chiropractic manipulation. 1710: I spoke with Dr. Drake Decker teleneurology and she will evaluate the patient on the cart 1840: Vital signs stable. Dr. Juan states that she thinks that the patient is having complex migraine and recommends no TNK. She recommends patient be admitted started on aspirin 81 mg, atorvastatin, have a TIA workup including MRI of the brain and C-spine. She recommends headache cocktail and medications for the patient. Administered Medications Sodium Chloride (Nss) 1,000 mls @ 999 mls/hr IV .Q1H1M ONE Stop: 10/11/23 20:19 Last Admin: 10/11/23 19:41 Dose: 999 mls/hr Documented By: MIHAELA Discontinued Medications Aspirin (Aspirin Chew 324 Mg) 81 mg PO NOW STA Stop: 10/11/23 18:38 Last Admin: 10/11/23 18:52 Dose: 81 mg Documented By: NOHEMY Diphenhydramine HCl (Diphenhydramine 50 Mg/Ml Vial) 25 mg IV NOW STA Stop: 10/11/23 19:20 Last Admin: 10/11/23 19:41 Dose: 25 mg Documented By: MIHAELA Acetaminophen (Ofirmev) 1,000 mg in 100 mls @ 400 mls/hr IV NOW STA Stop: 10/11/23 18:51 Last Infusion: 10/11/23 19:10 Dose: Infused Documented By: Admin: 10/11/23 18:52 Dose: 400 mls/hr Documented By: NOHEMY Ioversol (Optiray 320 125ml) 116 ml IV ONCE ONE Stop: 10/11/23 16:48 Last Admin: 10/11/23 16:47 Dose: 116 ml Documented By: SAMMY Metoclopramide HCl (Metoclopramide Hcl Inj 5 Mg/Ml 2 Ml Vial) 5 mg IV ONE ONE Stop: 10/11/23 19:20 Last Admin: 10/11/23 19:41 Dose: 5 mg Documented By: MIHAELA Ondansetron HCl (Ondansetron Inj 2 Mg/Ml 2 Ml Vial) 4 mg IV NOW STA Stop: 10/11/23 18:38 Last Admin: 10/11/23 18:53 Dose: 4 mg Documented By: NOHEMY Critical Care Time Critical Care Time: Yes Total Critical Care Time: 47 I have personally spent greater than 47 minutes of critical care time in the direct management of this patient. This includes bedside care, interpretation of diagnostic studies, and testing, discussion with consultants, patient, and family members, and other required patient management activities. This 47 minutes is in excess of all separately billable procedures. Medical Decision Making Laboratory Data Attestation: I reviewed the patient's lab results. 10/11/23 16:58 10/11/23 16:58 Lab Results 10/11/23 10/11/23 Range/Units 16:52 16:58 WBC 5.50 (4.8-10.8) K/ul RBC 3.84 L (4.20-5.40) M/uL Hgb 10.7 L (12.0-16.0) g/dl Hct 33.4 L (37.0-47.0) % MCV 87.0 (80.0-100.0) fL MCH 27.9 (25.0-34.0) pg MCHC 32.0 (32.0-36.0) g/dL RDW Std Deviation 44.0 (36.4-46.3) fL RDW Coeff of Wilmer 14.0 (11.5-14.5) % Plt Count 158 (130-400) K/uL MPV 10.1 (9.4-12.4) fL PT 16.7 H (9.0-12.0) Seconds POC INR 1.7 H (0.9-1.1) INR 1.6 H (0.9-1.1) APTT 32 H (21-31) Seconds PTT Ratio 1.1 Sodium 135 L (136-145) mmol/L Potassium 3.8 (3.5-5.1) mmol/L Chloride 105 (98-107) mmol/L Carbon Dioxide 26 (21-32) mmol/L Anion Gap 4 (3-11) BUN 13 (6-23) mg/dl Creatinine 1.12 (0.6-1.2) mg/dl Est Cr Clr Drug Dosing 76.3 ml/min Est GFR ( Amer) 67.7 ml/min Est GFR (Non-Af Amer) 58.5 ml/min BUN/Creatinine Ratio 11.6 (10-20) Glucose 118 H (70-99(Fasting)) mg/dl POC Glucose 118 H (70-99) mg/dl Calcium 8.6 (8.6-10.3) mg/dl Magnesium 1.8 (1.7-2.4) mg/dl Total Bilirubin 0.2 (0.2-1.0) mg/dl AST 16 (13-39) U/L ALT 26 (7-52) U/L Alkaline Phosphatase 94 (34-104) U/L Troponin I High Sens < 2.3 (0-14) pg/ml Total Protein 6.1 (6.0-8.3) gm/dl Albumin 3.6 (3.4-5.0) gm/dl Globulin 2.5 (2.5-4.0) gm/dl Albumin/Globulin Ratio 1.4 (0.9-2) Imaging Data Attestation: I personally reviewed and interpreted this imaging study as follows: My Impression: Chest x-ray negative. Airway clear. No pneumothorax. No consolidation. No cardiomegaly or cephalization.. No free air under the diaphragm. No fractures of the skeletal structures. Radiologist's Impression: Chest X-Ray 10/11/23 16:33 XR chest 1V portable HISTORY: Stroke symptoms. COMPARISON: Chest 03/19/2023. FINDINGS: There are low lung volumes with mild elevation of the right hemidiaphragm. This remains unchanged. The heart remains top normal in size. No focal lung consolidations to suggest a pneumonia. No evidence for pulmonary edema. No acute fractures. IMPRESSION: No significant change compared to the prior study. No acute process. ACT 112: Negative or not required by law. Electronically signed by: Roshan Ross M.D. 10/11/2023 6:[address] 10/11/23 16:33 CT angio head w con, CT head/brain wo con, CT angio neck with con CLINICAL HISTORY: neck pain fall on couamdin had neck adjustment rec TECHNIQUE: Contiguous axial CT images of the head were acquired from the base of the skull to the vertex without intravenous contrast administration. CT angiography of the head and neck was performed following intravenous administration of iodinated contrast. Coronal and sagittal MIPS were obtained from the axial data set and were submitted for review. Automated dose lowering techniques and/or adjustment according to patient size were utilized for this examination. All measurements were calculated based on NASCET criteria. CT DOSE: 3873.61 mGy.cm Comparison: Comparison is made to CT head 03/28/2023 FINDINGS: CT head: There is no acute intracranial hemorrhage or evidence of acute territorial infarction. No shift of the midline structures, mass effect, or extra-axial abnormalities are shown. Punctate encephalomalacia in the right gabriela is unchanged from prior exam. Lungs and soft tissues are unremarkable. CTA Neck: A 3 vessel aortic arch is shown. There is no significant atherosclerotic plaque in the aortic arch or the origins of the innominate, left common carotid, and left subclavian arteries. The common carotid, external carotid, cervical segments of the internal carotid arteries, and the cervical segments of the vertebral arteries are patent without hemodynamically significant stenosis. The vertebral arteries are codominant. CTA Head: The anterior and posterior cerebral circulations are patent. No hemodynamically significant stenosis, aneurysm, dissection, or arteriovenous malformation is shown. IMPRESSION: 1. No acute intracranial hemorrhage, evidence of acute territorial infarction, or other acute intracranial disease process. 2. No occlusion, hemodynamically significant stenosis, or dissection in the major cervical arteries. 3. No occlusion, hemodynamically significant stenosis, aneurysm, dissection, or arteriovenous malformation in the major intracranial arteries. Assessment of stenosis of the internal carotid arteries is based on NASCET criteria. ACT 112: Negative or not required by law. Electronically signed by: Ousmane Hightower M.D. 10/11/2023 5:15 PM Abdomen/Pelvis CT 10/11/23 16:37 CT abd pelvis IV con only CLINICAL HISTORY: fall on coumadin TECHNIQUE: Helical axial images of the abdomen and pelvis were obtained and displayed. Automated dose lowering techniques and/or adjustment according to patient size were utilized for this exam. This exam was performed with intravenous contrast. COMPARISON: None available at the time of this dictation. FINDINGS: Lower chest: No acute abnormality. Liver: Unremarkable. No focal lesions are seen. Gallbladder and biliary tree: Patient is status post cholecystectomy. Focal fatty change is seen at the falciform ligament. No intra- or extrahepatic biliary ductal dilation. Pancreas: Unremarkable, no focal lesions. Spleen: Unremarkable. Adrenals: Unremarkable. Kidneys and ureters: Renal cysts are seen. A right angiomyolipoma is noted. Bladder: Unremarkable. Reproductive organs: Unremarkable. Bowel: Patient is status post appendectomy. Lymph nodes Retroperitoneal: Unremarkable. Pelvic: Unremarkable. Mesenteric: Unremarkable. Peritoneum: Normal. Vessels: Unremarkable. Abdominal wall: Unremarkable. Bones: Unremarkable. IMPRESSION: No acute abnormalities, in particular no evidence of acute fracture or hematoma. ACT 112: Negative or not required by law. Electronically signed by: Ousmane Hightower M.D. 10/11/2023 5:23 PM Neck CTA 10/11/23 16:37 CT angio head w con, CT head/brain wo con, CT angio neck with con CLINICAL HISTORY: neck pain fall on couamdin had neck adjustment rec TECHNIQUE: Contiguous axial CT images of the head were acquired from the base of the skull to the vertex without intravenous contrast administration. CT angiography of the head and neck was performed following intravenous administration of iodinated contrast. Coronal and sagittal MIPS were obtained from the axial data set and were submitted for review. Automated dose lowering techniques and/or adjustment according to patient size were utilized for this examination. All measurements were calculated based on NASCET criteria. CT DOSE: 3873.61 mGy.cm Comparison: Comparison is made to CT head 03/28/2023 FINDINGS: CT head: There is no acute intracranial hemorrhage or evidence of acute territorial infarction. No shift of the midline structures, mass effect, or extra-axial abnormalities are shown. Punctate encephalomalacia in the right gabriela is unchanged from prior exam. Lungs and soft tissues are unremarkable. CTA Neck: A 3 vessel aortic arch is shown. There is no significant atherosclerotic plaque in the aortic arch or the origins of the innominate, left common carotid, and left subclavian arteries. The common carotid, external carotid, cervical segments of the internal carotid arteries, and the cervical segments of the vertebral arteries are patent without hemodynamically significant stenosis. The vertebral arteries are codominant. CTA Head: The anterior and posterior cerebral circulations are patent. No hemodynamically significant stenosis, aneurysm, dissection, or arteriovenous malformation is shown. IMPRESSION: 1. No acute intracranial hemorrhage, evidence of acute territorial infarction, or other acute intracranial disease process. 2. No occlusion, hemodynamically significant stenosis, or dissection in the major cervical arteries. 3. No occlusion, hemodynamically significant stenosis, aneurysm, dissection, or arteriovenous malformation in the major intracranial arteries. Assessment of stenosis of the internal carotid arteries is based on NASCET criteria. ACT 112: Negative or not required by law. Electronically signed by: Ousmane Hightower M.D. 10/11/2023 5:[address] 10/11/23 16:38 CT cervical spine wo con CLINICAL HISTORY: fall TECHNIQUE: Multidetector row helical CT of the cervical spine was performed without administration of intravenous contrast. Coronal and sagittal reformations were obtained. Automated dose lowering techniques and/or adjustment according to patient size were utilized for this exam. Comparison: Comparison is made to CT cervical spine 02/19/2023 FINDINGS: No acute fractures or subluxations are identified. The vertebral body heights and disk spaces are well maintained. The alignment is normal. Soft tissues are unremarkable. IMPRESSION: No evidence of acute bony injury. ACT 112: Negative or not required by law. Electronically signed by: Ousmane Hightower M.D. 10/11/2023 5:18 PM Head CTA 10/11/23 16:38 CT angio head w con, CT head/brain wo con, CT angio neck with con CLINICAL HISTORY: neck pain fall on couamdin had neck adjustment rec TECHNIQUE: Contiguous axial CT images of the head were acquired from the base of the skull to the vertex without intravenous contrast administration. CT angiography of the head and neck was performed following intravenous administration of iodinated contrast. Coronal and sagittal MIPS were obtained from the axial data set and were submitted for review. Automated dose lowering techniques and/or adjustment according to patient size were utilized for this examination. All measurements were calculated based on NASCET criteria. CT DOSE: 3873.61 mGy.cm Comparison: Comparison is made to CT head 03/28/2023 FINDINGS: CT head: There is no acute intracranial hemorrhage or evidence of acute territorial infarction. No shift of the midline structures, mass effect, or extra-axial abnormalities are shown. Punctate encephalomalacia in the right gabriela is unchanged from prior exam. Lungs and soft tissues are unremarkable. CTA Neck: A 3 vessel aortic arch is shown. There is no significant atherosclerotic plaque in the aortic arch or the origins of the innominate, left common carotid, and left subclavian arteries. The common carotid, external carotid, cervical segments of the internal carotid arteries, and the cervical segments of the vertebral arteries are patent without hemodynamically significant stenosis. The vertebral arteries are codominant. CTA Head: The anterior and posterior cerebral circulations are patent. No hemodynamically significant stenosis, aneurysm, dissection, or arteriovenous malformation is shown. IMPRESSION: 1. No acute intracranial hemorrhage, evidence of acute territorial infarction, or other acute intracranial disease process. 2. No occlusion, hemodynamically significant stenosis, or dissection in the major cervical arteries. 3. No occlusion, hemodynamically significant stenosis, aneurysm, dissection, or arteriovenous malformation in the major intracranial arteries. Assessment of stenosis of the internal carotid arteries is based on NASCET criteria. ACT 112: Negative or not required by law. Electronically signed by: Ousmane Hightwoer M.D. 10/11/2023 5:15 PM ECG Data Attestation: I personally reviewed and interpreted this ECG as follows: Rate (beats per minute): 85 Rhythm: + normal sinus ECG Intervals/blocks: + Normal QRS, + Normal CO and + Normal QT-c ECG ST segments: + Normal ST segments MDM Narrative 1631: The patient was evaluated in room triage 2. Patient was made stroke alert from triage. I evaluated the patient and CT scan and additional CT imaging was ordered given the patient's falls. Patient does have a history of subtherapeutic INRs. 1641: CT of the head shows no ICH 1700: [id number] INR 1.7. Given the patient's left upper extremity weakness and subtherapeutic INR we will contact Brianne telestroke. Unclear if the patient is truly having a stroke, if her symptoms are migraine, or if there is some sort of vascular compromise in her neck given her recent chiropractic manipulation. 1710: I spoke with Dr. Drake Decker teleneurology and she will evaluate the patient on the cart 1840: Vital signs stable. Dr. Juan states that she thinks that the patient is having complex migraine and recommends no TNK. She recommends patient be admitted started on aspirin 81 mg, atorvastatin, have a TIA workup including MRI of the brain and C-spine. She recommends headache cocktail and medications for the patient. Impression & Plan Migraine, Acute left-sided weakness, Stroke-like symptoms Discharge Plan Visit Data Chief Complaint: TIA Symptoms Stated Complaint: LT LEG/ARM NUMBNESS, RT FACIAL NUMBNESS, DIZZY ED Provider: Rajesh Durbin Discharge Problem: Migraine, Acute left-sided weakness, Stroke-like symptoms Patient Disposition: Being Evaluated by Hospitalist Forms Stand Alone Forms: [facility] Prescriptions Prescriptions: No Action venlafaxine [Effexor XR] 150 mg Capsule,Extended Release 24hr 300 mg PO HS pantoprazole [Protonix] 20 mg Tablet,Delayed Release (Dr/Ec) 20 mg PO HS levothyroxine 75 mcg Tablet 75 mcg PO DAILYBB topiramate 200 mg Capsule,Extended Release 24hr 200 mg PO HS aripiprazole [Abilify] 5 mg tablet 5 mg PO HS Ajovy Autoinjector 225 mg/1.5 mL Auto-Injector 225 mg SUBCUT MONTHLY Rx Instructions: AROUND THE OF THE MONTH. warfarin 10 mg Tablet 10 mg PO 2XWK Rx Instructions: MONDAY & MONDAY EVENINGS warfarin 7.5 mg Tablet 7.5 mg PO 5XWK Rx Instructions: SUN, MON, WED, TH, & FRI EVENINGS promethazine 25 mg suppository 25 mg CO Q6H PRN (Reason: sedation) Qty: 12 0RF alprazolam 0.25 mg tablet 0.25 mg PO DAILY PRN (Reason: NEEDED PER PT) trazodone 50 mg Tablet 50 mg PO HS epinephrine 0.3 mg/0.3 mL auto-injector 0.3 mg IM Q4H PRN (Reason: anaphylaxis) Qty: 2 0RF ondansetron 4 mg tablet,disintegrating 4 mg PO Q6H PRN (Reason: nausea and vomiting) Qty: 15 0RF cholecalciferol (vitamin D3) [Vitamin D3] 25 mcg (1,000 unit) Capsule 25 mcg PO HS Referrals Referrals: Dionne Fletcher MD [Primary Care Provider] -
[2023-10-11 17:08] LABS: Hematocrit (blood only) 33.4 % (37.0-47.0); Hemoglobin 10.7 g/dl (12.0-16.0); Mean Corpuscular Hemoglobin 27.9 pg (25.0-34.0); Mean Platelet Volume 10.1 fL (9.4-12.4); Platelet Count 158 K/uL (130-400); Red Blood Count 3.84 M/uL (4.20-5.40)
[2023-10-11 17:17] LABS: INR 1.6 (0.9-1.1); Partial Thromboplastin Ratio 1.1; Partial Thromboplastin Time 32 Seconds (21-31); Prothrombin Time 16.7 Seconds (9.0-12.0)
--- NOTE | 2023-10-11 17:17 | CT Scan Report ---
CT angio head w con, CT head/brain wo con, CT angio neck with con CLINICAL HISTORY: neck pain fall on couamdin had neck adjustment rec TECHNIQUE: Contiguous axial CT images of the head were acquired from the base of the skull to the jose alfredo charbel without intravenous contrast administration. CT angiography of the head and neck was performed f ollowing intravenous administration of iodinated contrast. Coronal and sagittal MIPS were obtained fr om the axial data set and were submitted for review. Automated dose lowering techniques and/or adjus tment according to patient size were utilized for this examination. All measurements were calculated based on NASCET criteria. CT DOSE: 3873.61 mGy.cm Comparison: Comparison is made to CT head 03/28/2023 FINDINGS: CT head: There is no acute intracranial hemorrhage or evidence of acute territorial infarction. No sh ift of the midline structures, mass effect, or extra-axial abnormalities are shown. Punctate encephal omalacia in the right gabriela is unchanged from prior exam. Lungs and soft tissues are unremarkable. CTA Neck: A 3 vessel aortic arch is shown. There is no significant atherosclerotic plaque in the aor tic arch or the origins of the innominate, left common carotid, and left subclavian arteries. The co mmon carotid, external carotid, cervical segments of the internal carotid arteries, and the cervical segments of the vertebral arteries are patent without hemodynamically significant stenosis. The verte bral arteries are codominant. CTA Head: The anterior and posterior cerebral circulations are patent. No hemodynamically significan t stenosis, aneurysm, dissection, or arteriovenous malformation is shown. IMPRESSION: 1. No acute intracranial hemorrhage, evidence of acute territorial infarction, or other acute intrac ranial disease process. 2. No occlusion, hemodynamically significant stenosis, or dissection in the major cervical arteries. 3. No occlusion, hemodynamically significant stenosis, aneurysm, dissection, or arteriovenous malfor mation in the major intracranial arteries. Assessment of stenosis of the internal carotid arteries is based on NASCET criteria. ACT 112: Negative or not required by law. Electronically signed by: Ousmane Hightower M.D. 10/11/2023 5:15 PM
--- NOTE | 2023-10-11 17:19 | CT Scan Report ---
CT cervical spine wo con CLINICAL HISTORY: fall TECHNIQUE: Multidetector row helical CT of the cervical spine was performed without administration of intravenous contrast. Coronal and sagittal reformations were obtained. Automated dose lowering techn iques and/or adjustment according to patient size were utilized for this exam. Comparison: Comparison is made to CT cervical spine 02/19/2023 FINDINGS: No acute fractures or subluxations are identified. The vertebral body heights and disk spaces are wel l maintained. The alignment is normal. Soft tissues are unremarkable. IMPRESSION: No evidence of acute bony injury. ACT 112: Negative or not required by law. Electronically signed by: Ousmane Hightower M.D. 10/11/2023 5:18 PM
[2023-10-11 17:22] LABS: Albumin Level 3.6 gm/dl (3.4-5.0); Anion Gap 4 (3-11); Bilirubin,Total 0.2 mg/dl (0.2-1.0); Calcium 8.6 mg/dl (8.6-10.3); Carbon Dioxide 26 mmol/L (21-32); Chloride 105 mmol/L (98-107); Magnesium 1.8 mg/dl (1.7-2.4); Potassium 3.8 mmol/L (3.5-5.1); Sodium 135 mmol/L (136-145)
--- NOTE | 2023-10-11 17:24 | CT Scan Report ---
CT abd pelvis IV con only CLINICAL HISTORY: fall on coumadin TECHNIQUE: Helical axial images of the abdomen and pelvis were obtained and displayed. Automated dose lowering techniques and/or adjustment according to patient size were utilized for this exam. This e xam was performed with intravenous contrast. COMPARISON: None available at the time of this dictation. FINDINGS: Lower chest: No acute abnormality. Liver: Unremarkable. No focal lesions are seen. Gallbladder and biliary tree: Patient is status post cholecystectomy. Focal fatty change is seen at t he falciform ligament. No intra- or extrahepatic biliary ductal dilation. Pancreas: Unremarkable, no focal lesions. Spleen: Unremarkable. Adrenals: Unremarkable. Kidneys and ureters: Renal cysts are seen. A right angiomyolipoma is noted. Bladder: Unremarkable. Reproductive organs: Unremarkable. Bowel: Patient is status post appendectomy. Lymph nodes Retroperitoneal: Unremarkable. Pelvic: Unremarkable. Mesenteric: Unremarkable. Peritoneum: Normal. Vessels: Unremarkable. Abdominal wall: Unremarkable. Bones: Unremarkable. IMPRESSION: No acute abnormalities, in particular no evidence of acute fracture or hematoma. ACT 112: Negative or not required by law. Electronically signed by: Ousmane Hightower M.D. 10/11/2023 5:23 PM
[2023-10-11 17:28] LABS: Alanine Aminotransferase 26 U/L (7-52); Albumin Globulin Ratio 1.4 (0.9-2); Alkaline Phosphatase 94 U/L (34-104); Aspartate Aminotransferase 16 U/L (13-39); BUN Creatinine Ratio 11.6 (10-20); Blood Urea Nitrogen 13 mg/dl (6-23); Creatinine Clr Calc Pharmacy 76.3 ml/min; Est GFR (African American) 67.7 ml/min; Est GFR (Non-African American) 58.5 ml/min; Globulin 2.5 gm/dl (2.5-4.0); Glucose 118 mg/dl (70-99(Fasting)); Total Protein 6.1 gm/dl (6.0-8.3)
[2023-10-11 17:32] LABS: Troponin I High Sensitivity < 2.3 pg/ml (0-14)
[2023-10-11] MEDS ORDERED: ACETAMINOPHEN 1,000 MG/100 ML VIAL IV STA (18:37)
[2023-10-11] MEDS ORDERED: ONDANSETRON INJ 2 MG/ML 2 ML VIAL IV STA (18:37)
[2023-10-11] MEDS ORDERED: ASPIRIN CHEW 324 MG PO STA (18:37)
[2023-10-11] MEDS ORDERED: ATORVASTATIN 40 MG TAB PO SCH (18:45)
--- NOTE | 2023-10-11 18:59 | XRay Report ---
XR chest 1V portable HISTORY: Stroke symptoms. COMPARISON: Chest 03/19/2023. FINDINGS: There are low lung volumes with mild elevation of the right hemidiaphragm. This remains unc hanged. The heart remains top normal in size. No focal lung consolidations to suggest a pneumonia. No evidence for pulmonary edema. No acute fractures. IMPRESSION: No significant change compared to the prior study. No acute process. ACT 112: Negative or not required by law. Electronically signed by: Roshan Ross M.D. 10/11/2023 6:58 PM
[2023-10-11] MEDS ORDERED: METOCLOPRAMIDE HCL INJ 5 MG/ML 2 ML VIAL IV ONE (19:19)
[2023-10-11] MEDS ORDERED: SODIUM CHLORIDE 0.9% 1,000 ML IV ONE (19:19)
[2023-10-11] MEDS ORDERED: diphenhydrAMINE 50 MG/ML VIAL IV STA (19:19)
--- NOTE | 2023-10-11 19:42 | History & Physical Report ---
Date of Service October 11, 2023 Assessment & Plan (1) Stroke-like symptoms: Plan: 48yo female with history of prior CVA, migraine presenting with acute onset of dizziness, reported right sided facial droop and left sided weakness of her UE and LE. Symptoms have since resolved but patient now with persistent migraine, some word finding difficulty and dizziness. Imaging including CT Head, CTA head and neck is unremarkable. Likely secondary to complex migraine, possibly TIA/CVA as well -Admit to medical with telemetry -Neuro checks and NIHSS per protocol -Maintain aspiration and fall precautions -Check MRI brain -Check HgbA1C and Lipid panel -Speech therapy, PT and OT evaluations appreciated -Continue ASA 81mg po daily -Continue Atorvastatin 80mg po daily (2) History of DVT (deep vein thrombosis): Plan: Patient on Coumadin. INR is subtherapeutic at 1.6 -Continue Coumadin -INR with AM labs - may need additional dosing (3) GERD (gastroesophageal reflux disease): Plan: Chronic. Stable -Continue Protonix 20mg po qHS (4) Hypothyroidism: Plan: Chronic. Last TSH on record from 2020 -Check TSH with AM labs -Continue Synthroid at home dose for now (5) PTSD (post-traumatic stress disorder): Plan: Chronic, stable. Patient with PTSD, Anxiety and depression as well. Moods stable. -Continue Xanax PRN Continue Abilify -Continue Trazodone -Continue Venlafaxine History of Present Illness Chief Complaint: left sided weakness Primary Care Provider: Dionne Fletcher MD Whit Pina is a 48yo female with history of prior DVT/PE on Coumadin anticoagulation, Hypothyroidism, GERD, PTSD and Migraine presenting with neur ologic complaints. Patient reports that she was in a parking lot of a furniture store this afternoon around 16:00 when she developed dizziness and left sided numbness and weakness of her arm and leg and a right sided facial droop. She reports falling in the parking lot. Her neurologic complaints have resolved. Now with severe migraine headache and some word finding difficulty which can be typical with her migraines. Pain in posterior head and neck. She did see a chiropractor and had manipulation performed on her neck yesterday and reports dizziness since. Patient denies fevers, chills, chest pain, cough, SOB, abdominal pain, nausea, vomiting or diarrhea. No additional complaints at this time. In the ER she is afebrile, HD stable. Code stroke was called - patient thought to be having a complex migraine. No TNKase recommended. ER Course: ASA 81mg Tylenol 1gm Zofran 4mg IV Benadryl 25mg IV Reglan 5mg IV NSS x 1L Atorvastatin 80mg po Zofran 4mg IV Abilify 5mg Protonix 20mg Venlafaxine 300mg Coumadin 7.5mg Trazodone 50mg Allergies Allergy/AdvReac Type Severity Reaction Status Date / Time metoclopramide [From Reglan] AdvReac Intermediate CAUSED Verified 10/11/23 16:59 RESTLESS LEG SYNDROME prochlorperazine AdvReac Intermediate caused Verified 10/11/23 16:59 [From Compazine] restless leg syndrome promethazine [From Phenergan] AdvReac Intermediate restless Verified 10/11/23 16:59 leg syndrome Home Medications Medication Instructions Recorded Confirmed Type levothyroxine 75 mcg tablet 75 mcg PO DAILYBB 10/07/20 10/11/23 History pantoprazole 20 mg tablet,delayed 20 mg PO HS 10/07/20 10/11/23 History release (Protonix) topiramate 200 mg capsule,extended 200 mg PO HS 10/07/20 10/11/23 History release 24 hr venlafaxine 150 mg 300 mg PO HS 10/07/20 10/11/23 History capsule,extended release 24 hr (Effexor XR) trazodone 50 mg tablet 50 mg PO HS 02/03/21 10/11/23 History aripiprazole 5 mg tablet (Abilify) 5 mg PO HS 11/25/22 10/11/23 History fremanezumab-vfrm 225 mg/1.5 mL 225 mg subcut MONTHLY 01/28/23 10/11/23 History subcutaneous auto-injector (Ajovy) warfarin 10 mg tablet 10 mg PO 2XWK 03/28/23 10/11/23 History warfarin 7.5 mg tablet 7.5 mg PO 5XWK 03/28/23 10/11/23 History promethazine 25 mg rectal 25 mg DE Q6H PRN sedation #12 ea 06/06/23 10/11/23 Rx suppository epinephrine 0.3 mg/0.3 mL 0.3 mg (0.3 mL) IM Q4H PRN 07/17/23 10/11/23 Rx injection, auto-injector anaphylaxis #2 ea alprazolam 0.25 mg tablet 0.25 mg PO DAILY PRN NEEDED PER 09/01/23 10/11/23 History PT ondansetron 4 mg disintegrating 4 mg PO Q6H PRN nausea and 09/18/23 10/11/23 Rx tablet vomiting #15 tabs cholecalciferol (vitamin D3) 25 25 mcg PO HS 10/11/23 10/11/23 History mcg (1,000 unit) capsule (Vitamin D3) Past Med/Surg History Medical History (Updated 10/11/23 @ 23:41 by Brenda Newberry DO) History of pulmonary embolism History of DVT (deep vein thrombosis) Hypothyroidism GERD (gastroesophageal reflux disease) PTSD (post-traumatic stress disorder) C. difficile colitis CVA (cerebral vascular accident) Migraine Surgical History History of mastectomy S/P ROSALES-BSO S/P patent foramen ovale closure History of cholecystectomy History of appendectomy Social History Smoking Status: Never smoker Hx Alcohol Use: No Hx Substance Use: No Preferred Language: Yoruba Communication Ability: Effective Sulfur Burner Required: No Beliefs That Will Affect Care: None Current Living Situation: Spouse Current Living Situation Comment: Feels Safe at Home: Yes Safety Concerns: Feels Safe At This Time Assistive Devices: Hearing Aid - Left, Hearing Aid - Right and Walker Review of Systems Review of Systems: All systems reviewed & are unremarkable except as noted in HPI & below Physical Exam Physical Exam: General: patient resting comfortably, NAD, non-toxic in appearance, AA&O x 4 Skin: warm, dry, intact, no rashes or lesions HEENT: NC/AT, PERRL, EOMI, anicteric sclera, conjunctiva without injection, external ear normal to inspection and nontender, nares patent, moist mucus membranes, dentition intact, no oropharyngeal lesions, neck supple, trachea midline, no LAD, no thyromegaly, no JVD Heart: +S1/S2, regular, no m/r/g Lungs: equal air entry bilaterally, no rales/rhonchi/wheezes Abd: +BS, soft, NT/ND, no masses/organomegaly/ascites Ext: warm, 2+ pulses in UE/LE bilaterally, no clubbing/cyanosis or edema Neuro: nonfocal, patient AA&O x 4, speech intact, no facial droop, CN II - XII intact, moving all extremities on command with equal strength 5/5 Some photophobia and phonophobia Results & Data Results & Data Vital Signs (Past 12 Hours) Vital Signs Temp Pulse Resp BP Pulse Ox O2 Del Method 10/11/23 19:10 75 100 10/11/23 18:30 80 18 99 10/11/23 18:00 100 10/11/23 17:30 85 15 100 10/11/23 17:30 133/94 10/11/23 17:12 85 10/11/23 17:04 98 10/11/23 17:00 85 19 10/11/23 17:00 117/81 10/11/23 16:54 84 16 10/11/23 16:53 83 16 10/11/23 16:26 36.7 C 91 H 19 124/97 99 Room Air Laboratory Results Laboratory Results WBC 5.50 K/ul (4.8-10.8) 10/11/23 16:58 RBC 3.84 M/uL (4.20-5.40) L 10/11/23 16:58 Hgb 10.7 g/dl (12.0-16.0) L 10/11/23 16:58 Hct 33.4 % (37.0-47.0) L 10/11/23 16:58 MCV 87.0 fL (80.0-100.0) 10/11/23 16:58 MCH 27.9 pg (25.0-34.0) 10/11/23 16:58 MCHC 32.0 g/dL (32.0-36.0) 10/11/23 16:58 RDW Std Deviation 44.0 fL (36.4-46.3) 10/11/23 16:58 RDW Coeff of Wilmer 14.0 % (11.5-14.5) 10/11/23 16:58 Plt Count 158 K/uL (130-400) 10/11/23 16:58 MPV 10.1 fL (9.4-12.4) 10/11/23 16:58 PT 16.7 Seconds (9.0-12.0) H 10/11/23 16:58 POC INR 1.7 (0.9-1.1) H 10/11/23 16:58 INR 1.6 (0.9-1.1) H 10/11/23 16:58 APTT 32 Seconds (21-31) H 10/11/23 16:58 PTT Ratio 1.1 10/11/23 16:58 Sodium 135 mmol/L (136-145) L 10/11/23 16:58 Potassium 3.8 mmol/L (3.5-5.1) 10/11/23 16:58 Chloride 105 mmol/L (98-107) 10/11/23 16:58 Carbon Dioxide 26 mmol/L (21-32) 10/11/23 16:58 Anion Gap 4 (3-11) 10/11/23 16:58 BUN 13 mg/dl (6-23) 10/11/23 16:58 Creatinine 1.12 mg/dl (0.6-1.2) 10/11/23 16:58 Est Cr Clr Drug Dosing 76.3 ml/min 10/11/23 16:58 Est GFR ( Amer) 67.7 ml/min 10/11/23 16:58 Est GFR (Non-Af Amer) 58.5 ml/min 10/11/23 16:58 BUN/Creatinine Ratio 11.6 (10-20) 10/11/23 16:58 Glucose 118 mg/dl (70-99(Fasting)) H 10/11/23 16:58 POC Glucose 118 mg/dl (70-99) H 10/11/23 16:52 Calcium 8.6 mg/dl (8.6-10.3) 10/11/23 16:58 Magnesium 1.8 mg/dl (1.7-2.4) 10/11/23 16:58 Total Bilirubin 0.2 mg/dl (0.2-1.0) 10/11/23 16:58 AST 16 U/L (13-39) 10/11/23 16:58 ALT 26 U/L (7-52) 10/11/23 16:58 Alkaline Phosphatase 94 U/L (34-104) 10/11/23 16:58 Troponin I High Sens < 2.3 pg/ml (0-14) 10/11/23 16:58 Total Protein 6.1 gm/dl (6.0-8.3) 10/11/23 16:58 Albumin 3.6 gm/dl (3.4-5.0) 10/11/23 16:58 Globulin 2.5 gm/dl (2.5-4.0) 10/11/23 16:58 Albumin/Globulin Ratio 1.4 (0.9-2) 10/11/23 16:58 Impressions Chest X-Ray 10/11/23 16:33 XR chest 1V portable HISTORY: Stroke symptoms. COMPARISON: Chest 03/19/2023. FINDINGS: There are low lung volumes with mild elevation of the right hemidiaphragm. This remains unchanged. The heart remains top normal in size. No focal lung consolidations to suggest a pneumonia. No evidence for pulmonary edema. No acute fractures. IMPRESSION: No significant change compared to the prior study. No acute process. ACT 112: Negative or not required by law. Electronically signed by: Roshan Ross M.D. 10/11/2023 6:[address] 10/11/23 16:33 CT angio head w con, CT head/brain wo con, CT angio neck with con CLINICAL HISTORY: neck pain fall on couamdin had neck adjustment rec TECHNIQUE: Contiguous axial CT images of the head were acquired from the base of the skull to the vertex without intravenous contrast administration. CT angiography of the head and neck was performed following intravenous administration of iodinated contrast. Coronal and sagittal MIPS were obtained from the axial data set and were submitted for review. Automated dose lowering techniques and/or adjustment according to patient size were utilized for this e xamination. All measurements were calculated based on NASCET criteria. CT DOSE: 3873.61 mGy.cm Comparison: Comparison is made to CT head 03/28/2023 FINDINGS: CT head: There is no acute intracranial hemorrhage or evidence of acute territorial infarction. No shift of the midline structures, mass effect, or extra-axial abnormalities are shown. Punctate encephalomalacia in the right gabriela is unchanged from prior exam. Lungs and soft tissues are unremarkable. CTA Neck: A 3 vessel aortic arch is shown. There is no significant atherosclerotic plaque in the aortic arch or the origins of the innominate, left common carotid, and left subclavian arteries. The common carotid, external carotid, cervical segments of the internal carotid arteries, and the cervical segments of the vertebral arteries are patent without hemodynamically significant stenosis. The vertebral arteries are codominant. CTA Head: The anterior and posterior cerebral circulations are patent. No hemodynamically significant stenosis, aneurysm, dissection, or arteriovenous malformation is shown. IMPRESSION: 1. No acute intracranial hemorrhage, evidence of acute territorial infarction, or other acute intracranial disease process. 2. No occlusion, hemodynamically significant stenosis, or dissection in the major cervical arteries. 3. No occlusion, hemodynamically significant stenosis, aneurysm, dissection, or arteriovenous malformation in the major intracranial arteries. Assessment of stenosis of the internal carotid arteries is based on NASCET criteria. ACT 112: Negative or not required by law. Electronically signed by: Ousmane Hightower M.D. 10/11/2023 5:15 PM Abdomen/Pelvis CT 10/11/23 16:37 CT abd pelvis IV con only CLINICAL HISTORY: fall on coumadin TECHNIQUE: Helical axial images of the abdomen and pelvis were obtained and displayed. Automated dose lowering techniques and/or adjustment according to patient size were utilized for this exam. This exam was performed with intravenous contrast. COMPARISON: None available at the time of this dictation. FINDINGS: Lower chest: No acute abnormality. Liver: Unremarkable. No focal lesions are seen. Gallbladder and biliary tree: Patient is status post cholecystectomy. Focal fatty change is seen at the falciform ligament. No intra- or extrahepatic biliary ductal dilation. Pancreas: Unremarkable, no focal lesions. Spleen: Unremarkable. Adrenals: Unremarkable. Kidneys and ureters: Renal cysts are seen. A right angiomyolipoma is noted. Bladder: Unremarkable. Reproductive organs: Unremarkable. Bowel: Patient is status post appendectomy. Lymph nodes Retroperitoneal: Unremarkable. Pelvic: Unremarkable. Mesenteric: Unremarkable. Peritoneum: Normal. Vessels: Unremarkable. Abdominal wall: Unremarkable. Bones: Unremarkable. IMPRESSION: No acute abnormalities, in particular no evidence of acute fracture or hematoma. ACT 112: Negative or not required by law. Electronically signed by: Ousmane Hightower M.D. 10/11/2023 5:23 PM Neck CTA 10/11/23 16:37 CT angio head w con, CT head/brain wo con, CT angio neck with con CLINICAL HISTORY: neck pain fall on couamdin had neck adjustment rec TECHNIQUE: Contiguous axial CT images of the head were acquired from the base of the skull to the vertex without intravenous contrast administration. CT angiography of the head and neck was performed following intravenous administration of iodinated contrast. Coronal and sagittal MIPS were obtained from the axial data set and were submitted for review. Automated dose lowering techniques and/or adjustment according to patient size were utilized for this examination. All measurements were calculated based on NASCET criteria. CT DOSE: 3873.61 mGy.cm Comparison: Comparison is made to CT head 03/28/2023 FINDINGS: CT head: There is no acute intracranial hemorrhage or evidence of acute territorial infarction. No shift of the midline structures, mass effect, or extra-axial abnormalities are shown. Punctate encephalomalacia in the right gabriela is unchanged from prior exam. Lungs and soft tissues are unremarkable. CTA Neck: A 3 vessel aortic arch is shown. There is no significant atherosclerotic plaque in the aortic arch or the origins of the innominate, left common carotid, and left subclavian arteries. The common carotid, external carotid, cervical segments of the internal carotid arteries, and the cervical segments of the vertebral arteries are patent without hemodynamically significant stenosis. The vertebral arteries are codominant. CTA Head: The anterior and posterior cerebral circulations are patent. No hemodynamically significant stenosis, aneurysm, dissection, or arteriovenous malformation is shown. IMPRESSION: 1. No acute intracranial hemorrhage, evidence of acute territorial infarction, or other acute intracranial disease process. 2. No occlusion, hemodynamically significant stenosis, or dissection in the major cervical arteries. 3. No occlusion, hemodynamically significant stenosis, aneurysm, dissection, or arteriovenous malformation in the major intracranial arteries. Assessment of stenosis of the internal carotid arteries is based on NASCET criteria. ACT 112: Negative or not required by law. Electronically signed by: Ousmane Hightower M.D. 10/11/2023 5:[address] 10/11/23 16:38 CT cervical spine wo con CLINICAL HISTORY: fall TECHNIQUE: Multidetector row helical CT of the cervical spine was performed without administration of intravenous contrast. Coronal and sagittal reformations were obtained. Automated dose lowering techniques and/or adjustment according to patient size were utilized for this exam. Comparison: Comparison is made to CT cervical spine 02/19/2023 FINDINGS: No acute fractures or subluxations are identified. The vertebral body heights and disk spaces are well maintained. The alignment is normal. Soft tissues are unremarkable. IMPRESSION: No evidence of acute bony injury. ACT 112: Negative or not required by law. Electronically signed by: Ousmane Hightower M.D. 10/11/2023 5:18 PM Head CTA 10/11/23 16:38 CT angio head w con, CT head/brain wo con, CT angio neck with con CLINICAL HISTORY: neck pain fall on couamdin had neck adjustment rec TECHNIQUE: Contiguous axial CT images of the head were acquired from the base of the skull to the vertex without intravenous contrast administration. CT angiography of the head and neck was performed following intravenous administration of iodinated contrast. Coronal and sagittal MIPS were obtained from the axial data set and were submitted for review. Automated dose lowering techniques and/or adjustment according to patient size were utilized for this examination. All measurements were calculated based on NASCET criteria. CT DOSE: 3873.61 mGy.cm Comparison: Comparison is made to CT head 03/28/2023 FINDINGS: CT head: There is no acute intracranial hemorrhage or evidence of acute monty torial infarction. No shift of the midline structures, mass effect, or extra- axial abnormalities are shown. Punctate encephalomalacia in the right gabriela is unchanged from prior exam. Lungs and soft tissues are unremarkable. CTA Neck: A 3 vessel aortic arch is shown. There is no significant atherosclerotic plaque in the aortic arch or the origins of the innominate, left common carotid, and left subclavian arteries. The common carotid, external carotid, cervical segments of the internal carotid arteries, and the cervical segments of the vertebral arteries are patent without hemodynamically significant stenosis. The vertebral arteries are codominant. CTA Head: The anterior and posterior cerebral circulations are patent. No hemodynamically significant stenosis, aneurysm, dissection, or arteriovenous malformation is shown. IMPRESSION: 1. No acute intracranial hemorrhage, evidence of acute territorial infarction, or other acute intracranial disease process. 2. No occlusion, hemodynamically significant stenosis, or dissection in the major cervical arteries. 3. No occlusion, hemodynamically significant stenosis, aneurysm, dissection, or arteriovenous malformation in the major intracranial arteries. Assessment of stenosis of the internal carotid arteries is based on NASCET criteria. ACT 112: Negative or not required by law. Electronically signed by: Ousmane Hightower M.D. 10/11/2023 5:15 PM ECG Additional Comments: EKG with NSR at 85bpm, normal axis, WM=656, QRS=90, OIu=744. No acute ischemic changes Code Status & VTE Plan VTE Prophylaxis Plan VTE Prophylaxis will be ordered: Yes PG Care Time/CCT Total # of Minutes Spent Total Time Spent with Patient: Total time spent is greater than 50% in coordination of care (as documented) at patient's floor/unit and/or counseling patient: Coding Level of Care Code 39128 INT INP/OBS CARE 3/75MIN Diagnoses Stroke-like symptoms R29.90 History of DVT (deep vein thrombosis) Z86.718 GERD (gastroesophageal reflux disease) K21.9 Hypothyroidism E03.9 PTSD (post-traumatic stress disorder) F43.10
[2023-10-11] MEDS ORDERED: PHARMACIST DISCHARGE MED REC CONSULT PRN (21:31)
[2023-10-11] MEDS ORDERED: PANTOprazole 40 MG TAB PO SCH (21:31)
[2023-10-11] MEDS ORDERED: ONDANSETRON INJ 2 MG/ML 2 ML VIAL IV PRN (21:31)
[2023-10-11] MEDS ORDERED: ALPRAZolam 0.25 MG TABLET PO PRN (21:31)
[2023-10-11] MEDS ORDERED: ARIPiprazole 5 MG TAB PO SCH (21:31)
[2023-10-11] MEDS ORDERED: VENLAFAXINE HCL XR 150 MG CAPXR PO SCH (21:31)
[2023-10-11] MEDS ORDERED: ACETAMINOPHEN 325 MG TAB PO PRN (21:31)
[2023-10-11] MEDS ORDERED: traZODone HCL 50 MG TAB PO SCH (21:31)
[2023-10-11] MEDS ORDERED: PROMETHAZINE HCL 25 MG SUPP PR PRN (21:31)
[2023-10-11] MEDS ORDERED: WARFARIN SOD 7.5 MG TAB PO SCH (21:45)
[2023-10-11] MEDS ORDERED: GADOBUTROL 65ML VIAL IV ONE (23:46)
--- NOTE | 2023-10-12 01:00 | Magnetic Resonance Report ---
Exam(s): MRI HEAD W/WO Contrast IV Amt: 11cc gadavist EXAM: MR Head Without and With Intravenous Contrast CLINICAL HISTORY: Reason for exam: headache, possible TIA. TECHNIQUE: Magnetic resonance images of the head/brain without and with intravenous contrast in multiple planes. CONTRAST: Patient received 11cc gadavist of IV contrast COMPARISON: CT brain 10/11/2023. MRI brain 03/02/2021. FINDINGS: Brain: Unremarkable. No mass. No hemorrhage. No acute infarct. Ventricles: Unremarkable. No ventriculomegaly. Bones/joints: Unremarkable. No acute fracture. Sinuses: Mucous retention cyst within the left maxillary sinus measuring 2.8 cm. Remainder of the paranasal sinuses are clear . No acute sinusitis. Mastoid air cells: Unremarkable as visualized. Normal bilateral mastoid air cells and bilateral IAC region. Orbits: Unremarkable as visualized. IMPRESSION: 1. Normal unenhanced and IV contrast enhanced MRI of the brain. Specifically, no acute stroke or intracranial hemorrhage. No enhancing intracranial lesions seen. 2. Left maxillary sinus retention cyst as described. Remainder of the paranasal sinuses and mastoids are clear. Electronically signed by: Ila Correa MD 10/12/23 00:59 AM
[2023-10-12 04:41] LABS: Basophils # (auto) 0.03 K/uL (0.00-0.20); Basophils % (auto) 0.6 %; Eosinophils # (auto) 0.13 K/uL (0.00-0.50); Eosinophils % (auto) 2.8 %; Hematocrit (blood only) 36.6 % (37.0-47.0); Hemoglobin 11.5 g/dl (12.0-16.0); Immature Granulocytes # (auto) 0.02 K/uL (0.01-0.20); Immature Granulocytes % (auto) 0.4 %; Lymphocytes # (auto) 1.01 K/uL (1.20-3.40); Lymphocytes % (auto) 21.6 %; Mean Corpuscular Hemoglobin 27.6 pg (25.0-34.0); Mean Corpuscular Hgb Conc 31.4 g/dL (32.0-36.0); Mean Corpuscular Volume 87.8 fL (80.0-100.0); Mean Platelet Volume 9.9 fL (9.4-12.4); Monocytes # (auto) 0.45 K/uL (0.11-0.59); Monocytes % (auto) 9.6 %; Neutrophils # (auto) 3.03 K/uL (1.40-6.50); Platelet Count 145 K/uL (130-400); RDW Coefficient of Variation 14.1 % (11.5-14.5); RDW Standard Deviation 44.9 fL (36.4-46.3); Red Blood Count 4.17 M/uL (4.20-5.40); White Blood Count 4.67 K/ul (4.8-10.8)
[2023-10-12 05:00] LABS: BUN Creatinine Ratio 9.3 (10-20); Calcium 8.5 mg/dl (8.6-10.3); Chol HDL Ratio 3.4 (0-5); Creatinine Clr Calc Pharmacy 68.9 ml/min; Est GFR (African American) 63.6 ml/min; Est GFR (Non-African American) 54.9 ml/min; Potassium 3.8 mmol/L (3.5-5.1)
[2023-10-12 05:08] LABS: INR 1.6 (0.9-1.1); Prothrombin Time 16.7 Seconds (9.0-12.0)
[2023-10-12 05:14] LABS: Thyroid Stimulating Hormone 3.036 uIu/ml (0.300-4.500)
[2023-10-12] MEDS ORDERED: LEVOTHYROXINE SODIUM 75 MCG TABLET PO SCH (06:30)
[2023-10-12 07:24] LABS: Estimated Average Glucose 163 mg/dl; Hemoglobin A1C 7.3 % (4.5-5.6)
[2023-10-12] MEDS ORDERED: diphenhydrAMINE 50 MG/ML VIAL IV STA ×2 (08:29→13:31)
[2023-10-12] MEDS ORDERED: ATORVASTATIN 40 MG TAB PO SCH (09:00)
[2023-10-12] MEDS: METOCLOPRAMIDE HCL INJ 5 MG/ML 2 ML VIAL IV SCH ×2 (09:19→14:49)
[2023-10-12 11:31] VITALS: BP 95/58; RESP 18; TEMP 98.6; O2SAT 97
--- NOTE | 2023-10-12 11:40 | Electrocardiogram Report ---
Test Reason : Blood Pressure : / mmHG Vent. Rate : 085 BPM Atrial Rate : 085 BPM P-R Int : 160 ms QRS Dur : 090 ms QT Int : 374 ms P-R-T Axes : 053 050 062 degrees QTc Int : 445 ms Normal sinus rhythm Normal ECG When compared with ECG of 26-JUL-2023 09:50, No significant change was found Confirmed by Supa Mitchell ([id number]) on 10/12/2023 11:40:11 AM Referred By: REFERRED SELF Confirmed By:Supa Mitchell
[2023-10-12] MEDS ORDERED: METOCLOPRAMIDE HCL INJ 5 MG/ML 2 ML VIAL IV STA (13:31)
[2023-10-12 14:40] VITALS: PULSE 105
--- NOTE | 2023-10-12 16:03 | Discharge Summary ---
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 Patient reports that she was in a parking lot of a furniture store this afternoon around 16:00 when she developed dizziness and left sided numbness and weakness of her arm and leg and a right sided facial droop. She reports falling in the parking lot. Her neurologic complaints have resolved. Now with severe migraine headache and some word finding difficulty which can be typical with her migraines. Pain in posterior head and neck. She did see a chiropractor and had manipulation performed on her neck yesterday and reports dizziness since. Patient denies fevers, chills, chest pain, cough, SOB, abdominal pain, nausea, vomiting or diarrhea. No additional complaints at this time. In the ER she is afebrile, HD stable. Code stroke was called - patient thought to be having a complex migraine. No TNKase recommended. ER Course: ASA 81mg Tylenol 1gm Zofran 4mg IV Benadryl 25mg IV Reglan 5mg IV NSS x 1L Atorvastatin 80mg po Zofran 4mg IV Abilify 5mg Protonix 20mg Venlafaxine 300mg Coumadin 7.5mg Trazodone 50mg Principal Diagnosis Complicated migraine Discharge Exam In general she is awake and alert pleasant no distress. HEENT normocephalic atraumatic mucous membranes moist. Breathing unlabored no accessory muscle use good effort. Skin shows no rashes no pallor or icterus. Neuro without focal deficits. Discharge Data Allergies Allergy/AdvReac Type Severity Reaction Status Date / Time metoclopramide [From Reglan] AdvReac Intermediate CAUSED Verified 10/11/23 16:59 RESTLESS LEG SYNDROME prochlorperazine AdvReac Intermediate caused Verified 10/11/23 16:59 [From Compazine] restless leg syndrome promethazine [From Phenergan] AdvReac Intermediate restless Verified 10/11/23 16:59 leg syndrome Consultations 10/11/23 18:43 ED Decision to Admit Stat Ordered Studies 10/11/23 16:33 CT head/brain wo con Stat 10/11/23 16:37 CT abd pelvis IV con only Stat CT angio neck with con Stat 10/11/23 16:38 CT angio head w con Stat CT cervical spine wo con Stat 10/11/23 21:31 MR brain wo/w con Routine Diabetes Follow up Diabetes Follow-up Needed for Newly Diagnosed Diabetes Hospital Course (1) Migraine: Presented with dizziness, right facial numbness and left arm numbness, followed by headache. Stroke workup very reassuring. Appears to be most consistent with complicated migraine. After starting to discuss this with patient, her arrived and noted that this is absolutely the patient's pattern for complicated migraine. Symptoms had entirely resolved, patient would very much like to go home, appears to be stable for home. No medication changes at this time. She [facility], but would like referral for a new evaluation and hopefully potential for improved controlwill see if we can get her seen with [facility]. Total Time Total Time Spent Total Time Spent (In Minutes): Less than 30 Discharge Plan Discharge Items Patient Disposition: Home - Self-Care Reason For Visit: POSSIBLE TIA Discharge Diagnosis: Complex/atypical migraine Activity: Resume your previous activity Non-emergency contact: Primary Care Provider Call non-emergency contact if: you have any medication questions and your symptoms worsen Follow-up/Referrals: Pearl Rodriguez MD [Physician] - 10/20/23 11:00 am (Pt with complex/atypical migraines) Dionne Fletcher MD [Primary Care Provider] - Diet: Heart Healthy Addtl Attending Provider Instructions: You were admitted to the hospital for stroke-like symptoms. You were given IV migraine treatment. A discharge summary will be sent to your primary care physician to ensure continuity of care. Please bring this discharge summary with you to your next office appointment so that your provider can review it at that time. Follow-up appointments: Make a follow-up appointment with your PCP within the next week. It is very important that you follow up with them shortly after discharge from the hospital. We have requested a follow-up appointment with Pearl Rodriguez MD. Please call their office if you do not hear from them at . Keep all your follow-up appointments as already scheduled. If you cannot make an appointment, notify your provider. Medications: Your medication list has been reviewed and reconciled upon discharge to ensure accuracy and continuity of care. An updated list of all your medications is included with your hospital discharge paperwork. Please review this list closely, and make note of any changes. If you have any issues filling these prescriptions, please call [phone] and ask to leave a message for Dr. Enoc Nicholas. Take your medications as instructed; do not skip a dose of your medicines. Make sure all of your doctors know every medicine you are taking (including ebet-uni-qbronkt medicines, vitamins, and supplements). Call your primary care provider before taking any new medicines (including hjnj-yzc-hivtbav medicines, vitamins, and supplements), because some of these may interact with your current medications, or may make your symptoms worse. Tell your primary care provider if you cannot afford your medications. CONTACT YOUR PRIMARY CARE PROVIDER if you experience any of the following: Increase in headache frequency or intensity Difficulty following your treatment plan, or difficulty taking medications CALL 911 OR GO TO THE EMERGENCY DEPARTMENT if you experience any of the following: Sudden, severe abdominal pain or nausea/vomiting Severe chest pain, or chest pain that radiates (moves) to your jaw or arm Sudden, severe shortness of breath or difficulty breathing Thank you for allowing us to participate in your care. Pending Studies at Discharge: No Stand-Alone Forms: [facility] Medications and DC Order Prescriptions: Continued venlafaxine [Effexor XR] 150 mg Capsule,Extended Release 24hr 300 mg PO HS pantoprazole [Protonix] 20 mg Tablet,Delayed Release (Dr/Ec) 20 mg PO HS levothyroxine 75 mcg Tablet 75 mcg PO DAILYBB topiramate 200 mg Capsule,Extended Release 24hr 200 mg PO HS aripiprazole [Abilify] 5 mg tablet 5 mg PO HS Ajovy Autoinjector 225 mg/1.5 mL Auto-Injector 225 mg SUBCUT MONTHLY Rx Instructions: AROUND THE OF THE MONTH. warfarin 10 mg Tablet 10 mg PO 2XWK Rx Instructions: MONDAY & MONDAY EVENINGS warfarin 7.5 mg Tablet 7.5 mg PO 5XWK Rx Instructions: SUN, MON, WED, THURS, & FRI EVENINGS promethazine 25 mg suppository 25 mg DE Q6H PRN (Reason: sedation) Qty: 12 0RF alprazolam 0.25 mg tablet 0.25 mg PO DAILY PRN (Reason: NEEDED PER PT) trazodone 50 mg Tablet 50 mg PO HS epinephrine 0.3 mg/0.3 mL auto-injector 0.3 mg IM Q4H PRN (Reason: anaphylaxis) Qty: 2 0RF ondansetron 4 mg tablet,disintegrating 4 mg PO Q6H PRN (Reason: nausea and vomiting) Qty: 15 0RF cholecalciferol (vitamin D3) [Vitamin D3] 25 mcg (1,000 unit) Capsule 25 mcg PO HS Discharge Orders: Discharge Order (Routine); Ordered 10/12/23 Ordered By: Enoc [place]/Other Patient Handouts: Type 2 Diabetes Admission Data Admit Date/Time: 10/11/23 19:41 Attending Provider: Selwyn Segura Admit Provider: Brenda Newberry Primary Care Provider: Dionne Fletcher Other Providers: Avni Chand; [facility] Other Interventions: Discharge Summary Assessment (RN) Last Done: 10/12/23 14:10 Coding Level of Care Code 97876 IN/OBS DISCH 30 MIN/LESS Diagnoses Migraine G43.909
[2023-10-14] MEDS ORDERED: WARFARIN SOD 10 MG TAB PO SCH (16:00)
== END 2023-10-12 14:50 | disposition home or self-care (01) ==
LOC: 2W 16:15 → ED 16:15 → SUATTDRO 19:41 → 2W 20:59

== ENCOUNTER 2024-08-22 11:37 | Observation (INO) ==
--- NOTE | 2024-08-22 11:59 | Emergency Department Note ---
History of Present Illness General Chief complaint: Leg Injury/Pain Stated complaint: BLOOD CLOT IN LEG, LT LEG PAIN Time Seen by Provider: 08/22/24 11:57 History of Present Illness This is a 49-year-old female who presents to the emergency department via private vehicle with complaints of "left calf pain". The patient notes that about 3 hours ago she began with left posterior calf pain. No trauma. No injury. She is concerned that this could represent a DVT as she notes that she accidentally forgot to take the warfarin over the past few days. She notes that the pill was not in her typical pill bottle/case. She estimates no warfarin over the past 3 days. She did not realize this until today. She did not take today's dose. 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 Remotely she notes a history of a CVA in 2009 with left-sided symptoms at that time. The patient denies any weakness today. No fevers or chills. No chest pain or shortness of breath. Home Medications Medication Instructions Recorded Confirmed Type topiramate 200 mg capsule,extended 200 mg PO HS 10/07/20 08/22/24 History release 24 hr venlafaxine 150 mg 300 mg PO HS 10/07/20 08/22/24 History capsule,extended release 24 hr (Effexor XR) epinephrine 0.3 mg/0.3 mL 0.3 mg (0.3 mL) IM Q4H PRN 07/17/23 08/22/24 Rx injection, auto-injector anaphylaxis #2 ea alprazolam 0.25 mg tablet 0.25 mg PO DAILY PRN Anxiety 09/01/23 08/22/24 History ondansetron 4 mg disintegrating 4 mg PO Q6H PRN nausea and 09/18/23 08/22/24 Rx tablet vomiting #15 tabs dicyclomine 20 mg tablet 40 mg PO TID PRN Diarrhea 03/23/24 08/22/24 History diphenoxylate-atropine 2.5 1 tab PO QID PRN Diarrhea 03/23/24 08/22/24 History mg-0.025 mg tablet ezetimibe 10 mg tablet 10 mg PO HS 03/23/24 08/22/24 History famotidine 40 mg tablet 20 mg PO HS 03/23/24 08/22/24 History semaglutide 0.25 mg or 0.5 mg (2 0.5 mg subcut WK 03/23/24 08/22/24 History mg/3 mL) subcutaneous pen injector (Ozempic) warfarin 5 mg tablet See Rx Instructions .Route .COMPLEX 03/23/24 08/22/24 History aripiprazole 5 mg tablet 5 mg PO HS 06/04/24 08/22/24 History galcanezumab-gnlm 120 mg/mL 120 mg subcut MONTHLY 06/04/24 08/22/24 History subcutaneous pen injector (Emgality Pen) levothyroxine 75 mcg tablet 75 mcg PO DAILYBB 06/04/24 08/22/24 History (Synthroid) lidocaine 5 % topical patch 1 patch topical DAILY #15 ea 07/15/24 08/22/24 Rx (Lidoderm) Allergies Allergy/AdvReac Type Severity Reaction Status Date / Time shellfish derived Allergy Severe Swelling Unverified 08/22/24 17:05 of Lip/Tongue/Throat prochlorperazine AdvReac Intermediate caused Verified 08/22/24 17:05 [From Compazine] restless leg syndrome promethazine [From Phenergan] AdvReac Intermediate restless Verified 08/22/24 17:05 leg syndrome Past Med/Surg History Problem List (Updated 08/22/24 @ 21:03 by Myron Beatty PA-C) Pain of left calf (Acute) Stroke-like symptoms (Acute) PTSD (post-traumatic stress disorder) GERD (gastroesophageal reflux disease) Hypothyroidism History of DVT (deep vein thrombosis) (Acute) Medical History Stroke-like symptoms History of pulmonary embolism C. difficile colitis CVA (cerebral vascular accident) Migraine Surgical History History of mastectomy S/P ROSALES-BSO S/P patent foramen ovale closure History of cholecystectomy History of appendectomy Social History Smoking Status: Never smoker Hx Alcohol Use: No Hx Substance Use: No Preferred Language: Syrian Communication Ability: Effective Loss Prevention Associate Required: No Beliefs That Will Affect Care: None Current Living Situation: Spouse Current Living Situation Comment: Feels Safe at Home: Yes Assistive Devices: Walker and Wheelchair Review of Systems A total of 10 systems reviewed and were otherwise negative Physical Exam Vital Signs Vital Signs - 24 hr 08/22/24 11:49 08/22/24 14:49 08/22/24 15:09 Temperature 36.3 C L Temperature Source Temporal Artery Scan Pulse Rate 100 H 88 Pulse Rate [Apical] 89 Pulse Rhythm [Apical] Pulse Strength [Apical] Respiratory Rate 20 16 Respiratory Effort / Characteristics Non-Labored Spontaneous Respiratory Depth Normal Respiratory Pattern Regular Blood Pressure 112/81 Blood Pressure [Left Arm] 106/74 Blood Pressure Mean 91 Blood Pressure Mean [Left Arm] 84 Blood Pressure Position Sitting Pulse Oximetry 100 100 Oxygen Delivery Method Room Air Sepsis Recent Fever Within 48 Hours No Sepsis New/Unexplained Change in Mental Status No Sepsis Action Taken by Nursing No Action Required 08/22/24 15:12 Temperature 36.8 C Temperature Source Oral Pulse Rate Pulse Rate [Apical] 90 Pulse Rhythm [Apical] Regular Pulse Strength [Apical] Normal Respiratory Rate 18 Respiratory Effort / Characteristics Non-Labored Spontaneous Respiratory Depth Normal Respiratory Pattern Blood Pressure Blood Pressure [Left Arm] 93/58 L Blood Pressure Mean Blood Pressure Mean [Left Arm] 69 Blood Pressure Position Pulse Oximetry 99 Oxygen Delivery Method Room Air Sepsis Recent Fever Within 48 Hours Sepsis New/Unexplained Change in Mental Status Sepsis Action Taken by Nursing VITAL SIGNS - Vital signs and nursing notes were reviewed. Stable and afebrile. GENERAL -49-year-old female appearing her stated age who is in no acute distress. Communicates well with provider and answers questions appropriately. SKIN - Without rashes. HEAD - NC/AT. EYES - PERRL with EOMI bilaterally. Sclera anicteric. EARS - No deformities of external structures noted on gross examination bilaterally. . External auditory canals without discharge or otorrhea. Tympanic membranes pearly monroe without retraction or bulging. No fluid or purulent material visualized behind the TM. Handle of malleus, umbo, cone of light, pars tensa/flaccid all easily visualized. NOSE - Midline and without cyanosis. No epistaxis or purulent drainage noted. Septum midline without deviation or septal hematoma noted. MOUTH/OROPHARYNX - Without perioral cyanosis. Buccal mucosa pink and moist and without leukoplakia. Tongue midline with equal elevation of palate bilaterally. No tonsillar hypertrophy, erythema, or exudates noted. Good dentition noted. NECK - Neck with FROM. No nuchal rigidity. LUNGS - Chest wall symmetric without accessory muscle use, intercostals retractions, or central cyanosis. Normal vesicular breath sounds CTA B/L. No wheezes, rales, or rhonchi appreciated. CARDIAC - RRR EXTREMITIES - No clubbing or peripheral cyanosis. Mild left posterior calf tenderness. +5/5 strength noted in UE/LE bilaterally. L calf with mild TTP. Overall soft. No bony TTP. NEUROLOGIC - Cranial nerves grossly intact. PSYCH -alert, oriented and pleasant on exam Course Administered Medications Discontinued Medications Acetaminophen (Acetaminophen 500 Mg Tab) 500 mg PO NOW STA Stop: 08/22/24 12:09 Last Admin: 08/22/24 12:13 Dose: 500 mg Documented By: VINCENT Diphenhydramine HCl (Diphenhydramine 50 Mg/Ml Vial) 25 mg IV NOW STA Stop: 08/22/24 12:54 Last Admin: 08/22/24 12:59 Dose: Not Given Documented By: VINCENT Diphenhydramine HCl (Diphenhydramine 50 Mg/Ml Vial) 50 mg IV NOW STA Stop: 08/22/24 12:58 Last Admin: 08/22/24 12:59 Dose: 50 mg Documented By: VINCENT Diphenhydramine HCl (Diphenhydramine 50 Mg/Ml Vial) 50 mg IV NOW STA Stop: 08/22/24 16:54 Last Admin: 08/22/24 17:36 Dose: 50 mg Documented By: JESS Prochlorperazine (Compazine) 1 mls @ 1 mls/min IV ONE ONE Stop: 08/22/24 12:54 Last Admin: 08/22/24 12:57 Dose: 1 mls/min Documented By: VINCENT Prochlorperazine 10 mg/ (Syringe) 10 mls @ 5 mls/min IV ONE ONE Stop: 08/22/24 16:52 Last Admin: 08/22/24 17:34 Dose: 5 mls/min Documented By: JESS Sodium Chloride (Nss) 1,000 mls @ 999 mls/hr IV .Q1H1M ONE Stop: 08/22/24 17:54 Last Infusion: 08/22/24 20:12 Dose: Infused Documented By: Admin: 08/22/24 17:16 Dose: 999 mls/hr Documented By: GGG Ioversol (Optiray 320 125ml) 120 ml IV ONCE ONE Stop: 08/22/24 14:49 Last Admin: 08/22/24 14:48 Dose: 120 ml Documented By: REX Ondansetron HCl (Ondansetron Inj 2 Mg/Ml 2 Ml Vial) 4 mg IV NOW STA Stop: 08/22/24 14:51 Last Admin: 08/22/24 14:53 Dose: 4 mg Documented By: VINCENT Medical Decision Making Laboratory Data 08/22/24 12:29 08/22/24 12:29 Lab Results 08/22/24 Range/Units 12: WBC 7.76 (4.8-10.8) K/ul RBC 4.45 (4.20-5.40) M/uL Hgb 13.7 (12.0-16.0) g/dl Hct 41.0 (37.0-47.0) % MCV 92.1 (80.0-100.0) fL MCH 30.8 (25.0-34.0) pg MCHC 33.4 (32.0-36.0) g/dL RDW Std Deviation 45.5 (36.4-46.3) fL RDW Coeff of Wilmer 13.3 (11.5-14.5) % Plt Count 188 (130-400) K/uL MPV 9.8 (9.4-12.4) fL Immature Gran % (Auto) 0.4 % Neut % (Auto) 73.9 % Lymph % (Auto) 17.5 % Titus % (Auto) 5.4 % Eos % (Auto) 2.3 % Baso % (Auto) 0.5 % Neut # (Auto) 5.73 (1.40-6.50) K/uL Lymph # (Auto) 1.36 (1.20-3.40) K/uL Titus # (Auto) 0.42 (0.11-0.59) K/uL Eos # (Auto) 0.18 (0.00-0.50) K/uL Baso # (Auto) 0.04 (0.00-0.20) K/uL Immature Gran # (Auto) 0.03 (0.01-0.20) K/uL PT 21.1 H (9.0-12.0) Seconds INR 2.1 H (0.9-1.1) APTT 36 H (21-31) Seconds PTT Ratio 1.3 Sodium 139 (136-145) mmol/L Potassium 3.5 (3.5-5.1) mmol/L Chloride 108 H (98-107) mmol/L Carbon Dioxide 25 (21-32) mmol/L Anion Gap 6 (3-11) BUN 18 (6-23) mg/dl Creatinine 1.27 H (0.6-1.2) mg/dl Est Cr Clr Drug Dosing 61.7 ml/min eGFR 52.16 BUN/Creatinine Ratio 14.2 (10-20) Glucose 88 (70-99(Fasting)) mg/dl Calcium 8.6 (8.6-10.3) mg/dl Total Bilirubin 0.3 (0.2-1.0) mg/dl AST 19 (13-39) U/L ALT 34 (7-52) U/L Alkaline Phosphatase 103 (34-104) U/L Total Protein 7.4 (6.0-8.3) gm/dl Albumin 4.3 (3.4-5.0) gm/dl Globulin 3.1 (2.5-4.0) gm/dl Albumin/Globulin Ratio 1.4 (0.9-2) Imaging Data Radiologist's Impression: Venous Doppler Study 08/22/24 11:58 LEFT LOWER EXTREMITY VENOUS DOPPLER HISTORY: Acute pain is filling of the left lower leg L calf pain, hx dvt, missed doses of anticoagulant COMPARISON STUDY: None FINDINGS: There is normal compressibility, flow, and augmentation within the left lower extremity deep venous system. IMPRESSION: No DVT within the left lower extremity. ACT 112: Negative or not required by law. Electronically signed by: Neymar Molina M.D. 08/22/2024 1:51 PM Head CTA 08/22/24 14:35 CT angio head wo/w CLINICAL HISTORY: 49 years-old Female with L leg weakness, R eye droop, hx CVA L side. Acute stroke like symptoms COMPARISON STUDY: CT neck the same day, CT head 06/01/2024 TECHNIQUE: Unenhanced axial CT scan of the brain is performed. Subsequently, following the IV administration of 120 cc of Optiray, CT angiogram of the brain was performed from the skull base to the vertex. Images are reviewed in the axial, sagittal, and coronal planes. 3-D MIPS images are created and assessed. IV contrast was administered without complication. All measurements were obtained according to NASCET criteria. A dose lowering technique was utilized adhering to the principles of ALARA. CT DOSE: 1079.14 mGy.cm FINDINGS: CT BRAIN: There is no acute intracranial hemorrhage, midline shift, hydrocephalus, intracranial mass, territorial ischemia or abnormal extra-axial collections. No abnormal intra-axial or extra-axial enhancement. Mastoid air cells and middle ear cavities are clear. No calvarial fracture. Paranasal sinuses are clear. CT ANGIOGRAM OF THE BRAIN: The imaged bilateral internal carotid arteries are patent. The bilateral anterior and middle cerebral arteries are also patent. The vertebrobasilar system and posterior cerebral arteries are widely patent. There is no aneurysm, high-grade stenosis, or proximal branch occlusion identified. Dural sinuses appear patent. IMPRESSION: 1. No acute intracranial abnormality. 2. Unremarkable CTA of the head. ACT 112: Negative or not required by law. The above report was generated using voice recognition software. It may contain grammatical, syntax or spelling errors. Electronically signed by: Neymar Molina M.D. 08/22/2024 3:10 PM Neck CTA 08/22/24 14:35 CT angio neck with con CLINICAL HISTORY: L leg weakness, R eye droop, hx CVA L side TECHNIQUE: CT angiography of the neck was performed following intravenous administration of iodinated contrast. Coronal and sagittal MIPS were obtained from the axial data set and were submitted for review. Automated dose lowering techniques and/or adjustment according to patient size were utilized for this examination. All measurements were calculated based on NASCET criteria. Comparison: Comparison is made to CTA neck 10/11/2023 FINDINGS: Lungs and soft tissues are unremarkable. CTA Neck: A 3 vessel aortic arch is shown. There is no significant atherosclerotic plaque in the aortic arch or the origins of the innominate, left common carotid, and left subclavian arteries. The common carotid, external carotid, cervical segments of the internal carotid arteries, and the cervical segments of the vertebral arteries are patent without hemodynamically significant stenosis. The left vertebral artery is dominant. IMPRESSION: No occlusion, hemodynamically significant stenosis, or dissection in the major cervical arteries. Assessment of stenosis of the internal carotid arteries is based on NASCET criteria. ACT 112: Negative or not required by law. Electronically signed by: Ousmane Hightower M.D. 08/22/2024 3:06 PM MDM Narrative Patient was seen and evaluated as above in room D9. Review was performed of triage nursing notes and vital signs. I did review pertinent previous visits and patient history. After obtaining a thorough history and physical examination the above work up was performed. Pt notes LLE pain, in the calf. Hx of DVT noted. IV access was established and US LLE doppler was ordered. This was neg for DVT. I was notified by staff that the patient noted left leg began to feel weak around 12:42 PM during her time here. This is the same leg where she noted left calf pain. I went to bedside and the patient noted that in addition to the left calf discomfort she felt like the left leg was heavy and was beginning to feel weak in that same leg. She also noted nausea. She states that this feels identical to how her migraines present. She states that typically she will develop left leg weakness followed by nausea and then a headache. She believes that Compazine plus Benadryl at the present time will be effective as she states that is the typical medication regimen that provides relief. This does seem consistent with previous treatments provided in the past. Pt notes no issue with compazine + benadryl despite allergy list. On assessment the patient now does have some weakness of the left leg. Sensory intact. There is no other weakness seen on examination. The upper extremities are normal. No facial droop. I did discuss with the patient the time sensitive nature of her symptoms and did offer to proceed with the stroke alert protocol and image if need be. The patient respectfully declined, noting that she believes treatment for the migraine at this time would be appropriate with the compazine + benadryl noting the symptoms feel typical and identical to previous migraines. Will proceed with treatment course outlined above. Labs with normal CBC, INR of 2.1, Mild elev in chloride at 108, Cr 1.27 similar to prev, and normal LFTs. 1430: Pt notes L leg still weak but nausea resolved. Now notes R eye droop. I will call stroke alert noting progression of symptoms and no change with tx of her initial migraine symptoms. CT angio head and neck will be performed. It is felt that the benefit outweighs risk. These images returned negative per radiologist. 1459: I spoke with Dr. Friedman, neurologist at [facility]. Will proceed with the telestroke eval. An EKG was performed. This reveals normal sinus rhythm at a rate of 88 bpm. QTc 442. QRS 90. There is no ST elevation on this rhythm tracing. I spoke to Dr. Friedman again following his evaluation of the patient. He recommends MR brain and wait until brain MR results before resuming warfarin. Admit to hospital. No TNK at this time and CT negative at this time. I spoke to the hospitalist. Please refer to further documentation regarding her stay. In the evaluation and management of this patient the following differential diagnoses were entertained: DVT, rhabdomyolysis, CVA, TIA, CO exposure, electrolyte disturbance, among others. Impression & Plan Pain of left calf, History of DVT (deep vein thrombosis), Stroke-like symptoms Discharge Plan Visit Data Chief Complaint: Leg Injury/Pain Stated Complaint: BLOOD CLOT IN LEG, LT LEG PAIN ED Provider: Zak Bhagat ED Midlevel Provider: Myron Beatty Discharge Problem: Pain of left calf, History of DVT (deep vein thrombosis), Stroke-like symptoms Patient Disposition: Admitted As Inpatient Condition: Good Discharge Instructions Interventions: ED Discharge Assessment Last Done: 08/22/24 17:48
[2024-08-22] MEDS: ACETAMINOPHEN 500 MG TAB PO STA (12:13)
[2024-08-22 12:46] LABS: Basophils # (auto) 0.04 K/uL (0.00-0.20); Basophils % (auto) 0.5 %; Eosinophils # (auto) 0.18 K/uL (0.00-0.50); Eosinophils % (auto) 2.3 %; Hemoglobin 13.7 g/dl (12.0-16.0); Immature Granulocytes # (auto) 0.03 K/uL (0.01-0.20); Immature Granulocytes % (auto) 0.4 %; Lymphocytes # (auto) 1.36 K/uL (1.20-3.40); Lymphocytes % (auto) 17.5 %; Mean Corpuscular Hemoglobin 30.8 pg (25.0-34.0); Mean Corpuscular Hgb Conc 33.4 g/dL (32.0-36.0); Mean Corpuscular Volume 92.1 fL (80.0-100.0); Mean Platelet Volume 9.8 fL (9.4-12.4); Monocytes # (auto) 0.42 K/uL (0.11-0.59); Monocytes % (auto) 5.4 %; Neutrophils # (auto) 5.73 K/uL (1.40-6.50); Neutrophils % (auto) 73.9 %; Platelet Count 188 K/uL (130-400); RDW Coefficient of Variation 13.3 % (11.5-14.5); RDW Standard Deviation 45.5 fL (36.4-46.3); Red Blood Count 4.45 M/uL (4.20-5.40); White Blood Count 7.76 K/ul (4.8-10.8)
[2024-08-22] MEDS: PROCHLORPERAZINE 1 ML IV ONE (12:57)
[2024-08-22] MEDS: diphenhydrAMINE 50 MG/ML VIAL IV STA ×3 (12:59→17:36)
[2024-08-22 13:04] LABS: Albumin Globulin Ratio 1.4 (0.9-2); Albumin Level 4.3 gm/dl (3.4-5.0); BUN Creatinine Ratio 14.2 (10-20); Bilirubin,Total 0.3 mg/dl (0.2-1.0); Calcium 8.6 mg/dl (8.6-10.3); Creatinine Clr Calc Pharmacy 61.7 ml/min; Globulin 3.1 gm/dl (2.5-4.0); Potassium 3.5 mmol/L (3.5-5.1); Total Protein 7.4 gm/dl (6.0-8.3)
[2024-08-22 13:15] LABS: INR 2.1 (0.9-1.1); Partial Thromboplastin Ratio 1.3; Partial Thromboplastin Time 36 Seconds (21-31); Prothrombin Time 21.1 Seconds (9.0-12.0)
--- NOTE | 2024-08-22 13:53 | Ultrasound Report ---
LEFT LOWER EXTREMITY VENOUS DOPPLER HISTORY: Acute pain is filling of the left lower leg L calf pain, hx dvt, missed doses of anticoagul ant COMPARISON STUDY: None FINDINGS: There is normal compressibility, flow, and augmentation within the left lower extremity peter p venous system. IMPRESSION: No DVT within the left lower extremity. ACT 112: Negative or not required by law. Electronically signed by: Neymar Molina M.D. 08/22/2024 1:51 PM
[2024-08-22] MEDS: OPTIRAY 320 125ml IV ONE (14:48)
[2024-08-22] MEDS: ONDANSETRON INJ 2 MG/ML 2 ML VIAL IV STA (14:53)
--- NOTE | 2024-08-22 15:11 | CT Scan Report ---
CT angio neck with con CLINICAL HISTORY: L leg weakness, R eye droop, hx CVA L side TECHNIQUE: CT angiography of the neck was performed following intravenous administration of iodinated contrast. Coronal and sagittal MIPS were obtained from the axial data set and were submitted for rev iew. Automated dose lowering techniques and/or adjustment according to patient size were utilized fo r this examination. All measurements were calculated based on NASCET criteria. Comparison: Comparison is made to CTA neck 10/11/2023 FINDINGS: Lungs and soft tissues are unremarkable. CTA Neck: A 3 vessel aortic arch is shown. There is no significant atherosclerotic plaque in the aor tic arch or the origins of the innominate, left common carotid, and left subclavian arteries. The co mmon carotid, external carotid, cervical segments of the internal carotid arteries, and the cervical segments of the vertebral arteries are patent without hemodynamically significant stenosis. The left vertebral artery is dominant. IMPRESSION: No occlusion, hemodynamically significant stenosis, or dissection in the major cervical arteries. Assessment of stenosis of the internal carotid arteries is based on NASCET criteria. ACT 112: Negative or not required by law. Electronically signed by: Ousmane Hightower M.D. 08/22/2024 3:06 PM
--- NOTE | 2024-08-22 15:17 | CT Scan Report ---
CT angio head wo/w CLINICAL HISTORY: 49 years-old Female with L leg weakness, R eye droop, hx CVA L side. Acute strok e like symptoms COMPARISON STUDY: CT neck the same day, CT head 06/01/2024 TECHNIQUE: Unenhanced axial CT scan of the brain is performed. Subsequently, following the IV adminis tration of 120 cc of Optiray, CT angiogram of the brain was performed from the skull base to the vert ex. Images are reviewed in the axial, sagittal, and coronal planes. 3-D MIPS images are created and a ssessed. IV contrast was administered without complication. All measurements were obtained according to NASCET criteria. A dose lowering technique was utilized adhering to the principles of ALARA. CT DOSE: 1079.14 mGy.cm FINDINGS: CT BRAIN: There is no acute intracranial hemorrhage, midline shift, hydrocephalus, intracranial mass, territori al ischemia or abnormal extra-axial collections. No abnormal intra-axial or extra-axial enhancement. Mastoid air cells and middle ear cavities are clear. No calvarial fracture. Paranasal sinuses are cl ear. CT ANGIOGRAM OF THE BRAIN: The imaged bilateral internal carotid arteries are patent. The bilateral anterior and middle cerebral arteries are also patent. The vertebrobasilar system and posterior cerebral arteries are widely tapia nt. There is no aneurysm, high-grade stenosis, or proximal branch occlusion identified. Dural sinuses appear patent. IMPRESSION: 1. No acute intracranial abnormality. 2. Unremarkable CTA of the head. ACT 112: Negative or not required by law. The above report was generated using voice recognition software. It may contain grammatical, syntax o r spelling errors. Electronically signed by: Neymar Molina M.D. 08/22/2024 3:10 PM
--- NOTE | 2024-08-22 16:52 | History & Physical Report ---
Date of Service August 22, 2024 Assessment & Plan (1) Stroke-like symptoms: Plan: Suspect most likely recrudescence of her prior stroke symptoms vs. complex migraine despite clear lack of headache at this time given recurrent history of very similar symptoms. No subjective current LUE weakness although this sometimes occurs later and she does have a mild pronator drift on this side. Unable to move her LLE at time of admission with mild right eye dropping NSS 1L bolus to see if this helps her BP with her symptoms If brain MRI negative for acute stroke no plan on further stroke workup pending clinical course Plan VTE Prophylaxis - warfarin Diet - heart healthy Disposition - observation to med/tele Admission and Anticipated Discharge Date Admission Date: August 22, 2024 History of Present Illness Chief Complaint: Left leg weakness Primary Care Provider: Dionne Fletcher MD Whit Pina is a 49 year old female who presents to the ER with left calf pain and concern for DVT. This was after missing her warfarin for a couple of days but US ruled this out in the ER. However while in the emergency room she started noticing her left leg was weak and she was unable to move this. This has occurred on multiple prior occasions, initially diagnosed with a stroke but subsequent intermittent episodes suspected to be related to her migraines although she is currently not having a headache and her usually abortive medication with Compazine and acetaminophen have not helped while in the ER. She has associated right eye dropping which has already started to improve when seen. Telestroke alert was called and neurologist recommended admission for brain MRI. She denies any speech, hearing or vision disturbance. No numbness or pain. These are the same symptoms she had with her prior stroke and complex migraines. Allergies Allergy/AdvReac Type Severity Reaction Status Date / Time shellfish derived Allergy Severe Swelling Unverified 08/22/24 17:05 of Lip/Tongue/Throat prochlorperazine AdvReac Intermediate caused Verified 08/22/24 17:05 [From Compazine] restless leg syndrome promethazine [From Phenergan] AdvReac Intermediate restless Verified 08/22/24 17:05 leg syndrome Home Medications Medication Instructions Recorded Confirmed Type topiramate 200 mg capsule,extended 200 mg PO HS 10/07/20 08/22/24 History release 24 hr venlafaxine 150 mg 300 mg PO HS 10/07/20 08/22/24 History capsule,extended release 24 hr (Effexor XR) epinephrine 0.3 mg/0.3 mL 0.3 mg (0.3 mL) IM Q4H PRN 07/17/23 08/22/24 Rx injection, auto-injector anaphylaxis #2 ea alprazolam 0.25 mg tablet 0.25 mg PO DAILY PRN Anxiety 09/01/23 08/22/24 History ondansetron 4 mg disintegrating 4 mg PO Q6H PRN nausea and 09/18/23 08/22/24 Rx tablet vomiting #15 tabs dicyclomine 20 mg tablet 40 mg PO TID PRN Diarrhea 03/23/24 08/22/24 History diphenoxylate-atropine 2.5 1 tab PO QID PRN Diarrhea 03/23/24 08/22/24 History mg-0.025 mg tablet ezetimibe 10 mg tablet 10 mg PO HS 03/23/24 08/22/24 History famotidine 40 mg tablet 20 mg PO HS 03/23/24 08/22/24 History semaglutide 0.25 mg or 0.5 mg (2 0.5 mg subcut WK 03/23/24 08/22/24 History mg/3 mL) subcutaneous pen injector (Ozempic) warfarin 5 mg tablet See Rx Instructions .Route .COMPLEX 03/23/24 08/22/24 History aripiprazole 5 mg tablet 5 mg PO HS 06/04/24 08/22/24 History galcanezumab-gnlm 120 mg/mL 120 mg subcut MONTHLY 06/04/24 08/22/24 History subcutaneous pen injector (Emgality Pen) levothyroxine 75 mcg tablet 75 mcg PO DAILYBB 06/04/24 08/22/24 History (Synthroid) lidocaine 5 % topical patch 1 patch topical DAILY #15 ea 07/15/24 08/22/24 Rx (Lidoderm) Past Med/Surg History Problem List (Updated 08/22/24 @ 21:03 by Myron Beatty PA-C) Pain of left calf (Acute) Stroke-like symptoms (Acute) PTSD (post-traumatic stress disorder) GERD (gastroesophageal reflux disease) Hypothyroidism History of DVT (deep vein thrombosis) (Acute) Medical History Stroke-like symptoms History of pulmonary embolism C. difficile colitis CVA (cerebral vascular accident) Migraine Surgical History History of mastectomy S/P ROSALES-BSO S/P patent foramen ovale closure History of cholecystectomy History of appendectomy Social History Smoking Status: Never smoker Hx Alcohol Use: No Hx Substance Use: No Preferred Language: R[place] Communication Ability: Effective Respiratory Care Program Director Required: No Beliefs That Will Affect Care: None Current Living Situation: Spouse Current Living Situation Comment: Feels Safe at Home: Yes Safety Concerns: Feels Safe At This Time Assistive Devices: Glasses Review of Systems Review of Systems: All systems reviewed & are unremarkable except as noted in HPI & below Physical Exam Constitutional: WD/WN, vitals as above Eyes: + eyelid abnormality (mild dropping of r ight eyelid); no conjunctival abnormality ENMT: external ear and nose normal, oropharynx normal Respiratory: normal respiratory effort, lungs clear to auscultation Cardiovascular: RRR, no murmur, no edema Gastrointestinal (Abdomen): normal bowel sounds, soft, nontender, no hepatosplenomegaly Skin: no rashes, warm and dry Neurologic: + focal motor deficit (unable to hip fle x, knee flex, ankle plantar/dorsiflex MRC 0) and awake; + does not move all extremities Psychiatric: A+Ox3, euthymic affect Results & Data Results & Data Vital Signs (Past 12 Hours) Vital Signs Temp Pulse Pulse Resp BP BP Pulse Ox 08/22/24 15:12 36.8 C 90 18 93/58 L 99 08/22/24 15:09 88 08/22/24 14:49 89 16 106/74 100 08/22/24 11:49 36.3 C L 100 H 20 112/81 100 O2 Del Method 08/22/24 15:12 Room Air 08/22/24 15:09 08/22/24 14:49 08/22/24 11:49 Room Air Laboratory Results Abnormal lab results 08/22/24 Range/Units 12:29 PT 21.1 H (9.0-12.0) Seconds INR 2.1 H (0.9-1.1) APTT 36 H (21-31) Seconds Chloride 108 H (98-107) mmol/L Creatinine 1.27 H (0.6-1.2) mg/dl Diagnostic Findings CT angio head wo/w CLINICAL HISTORY: 49 years-old Female with L leg weakness, R eye droop, hx CVA L side. Acute stroke like symptoms COMPARISON STUDY: CT neck the same day, CT head 06/01/2024 TECHNIQUE: Unenhanced axial CT scan of the brain is performed. Subsequently, following the IV administration of 120 cc of Optiray, CT angiogram of the brain was performed from the skull base to the vertex. Images are reviewed in the axial, sagittal, and coronal planes. 3-D MIPS images are created and assessed. IV contrast was administered without complication. All measurements were obtained according to NASCET criteria. A dose lowering technique was utilized adhering to the principles of ALARA. CT DOSE: 1079.14 mGy.cm FINDINGS: CT BRAIN: There is no acute intracranial hemorrhage, midline shift, hydrocephalus, intracranial mass, territorial ischemia or abnormal extra-axial collections. No abnormal intra-axial or extra-axial enhancement. Mastoid air cells and middle ear cavities are clear. No calvarial fracture. Paranasal sinuses are clear. CT ANGIOGRAM OF THE BRAIN: The imaged bilateral internal carotid arteries are patent. The bilateral anterior and middle cerebral arteries are also patent. The vertebrobasilar system and posterior cerebral arteries are widely patent. There is no aneurysm, high-grade stenosis, or proximal branch occlusion identified. Dural sinuses appear patent. IMPRESSION: 1. No acute intracranial abnormality. 2. Unremarkable CTA of the head. CT angio neck with con CLINICAL HISTORY: L leg weakness, R eye droop, hx CVA L side TECHNIQUE: CT angiography of the neck was performed following intravenous administration of iodinated contrast. Coronal and sagittal MIPS were obtained from the axial data set and were submitted for review. Automated dose lowering techniques and/or adjustment according to patient size were utilized for this examination. All measurements were calculated based on NASCET criteria. Comparison: Comparison is made to CTA neck 10/11/2023 FINDINGS: Lungs and soft tissues are unremarkable. CTA Neck: A 3 vessel aortic arch is shown. There is no significant atherosclerotic plaque in the aortic arch or the origins of the innominate, left common carotid, and left subclavian arteries. The common carotid, external carotid, cervical segments of the internal carotid arteries, and the cervical segments of the vertebral arteries are patent without hemodynamically significant stenosis. The left vertebral artery is dominant. IMPRESSION: No occlusion, hemodynamically significant stenosis, or dissection in the major cervical arteries. LEFT LOWER EXTREMITY VENOUS DOPPLER HISTORY: Acute pain is filling of the left lower leg L calf pain, hx dvt, missed doses of anticoagulant COMPARISON STUDY: None FINDINGS: There is normal compressibility, flow, and augmentation within the left lower extremity deep venous system. IMPRESSION: No DVT within the left lower extremity. Medications Administered ER Medications Given: Acetaminophen 500mg PO Compazine 5mg IV Diphenhydramine 50mg IV Ondansetron 4mg IV ECG Rate (beats per minute): 88 Rhythm: normal sinus Findings: no acute ischemic change Comparison ECG Date: from (December 09, 2023) Change: no significant change Code Status & VTE Plan Code Status Full VTE Prophylaxis Plan VTE Prophylaxis will be ordered: Yes PG Care Time/CCT Total # of Minutes Spent Total Time Spent with Patient: Total time spent is greater than 50% in coordination of care (as documented) at patient's floor/unit and/or counseling patient: Coding Level of Care Code 90688 INT INP/OBS CARE 2/55MIN Diagnoses Stroke-like symptoms R29.90
[2024-08-22] MEDS: SODIUM CHLORIDE 0.9% 1,000 ML IV ONE (17:16)
[2024-08-22] MEDS: PROCHLORPERAZINE 10 MG in SYRINGE 8 ML IV ONE (17:34)
[2024-08-22] MEDS ORDERED: PHARMACIST DISCHARGE MED REC CONSULT PRN (19:27)
--- NOTE | 2024-08-22 19:58 | Magnetic Resonance Report ---
EXAM: MR brain wo con CLINICAL HISTORY: LT leg weakness since noon today, Hx stroke in 2010, on Coumadin, no injury, PT claustrophobic, ran propellers for motion, sent to [facility] TECHNIQUE: Different pulse sequences were performed in different planes for the brain without GD-DTPA injection. Images were sent through PACs for interpretation. COMPARISON: Prior MR dated 10/11/2023. FINDINGS: No hyperacute or acute infarctions could be detected. Old lacunar infarction with microcystic gliosis is seen at the right aspect of the pontine isthmus. It follows CSF signals on different pulse sequences. Few focal signal alterations are seen in the right forceps minor, major and left periventricular regions exhibiting bright signals on T2 and FLAIR WI. Intermediate signals on T1 WI. Findings suggest nonspecific bright objects (NBO) vs. consequences of vasculitis. Normal MRI appearance of the cerebral parenchymal and cerebellar parenchymal signals. Normal MRI appearance of the deep white matter and central monroe matter aggregates. Normal size and configuration of the cerebral ventricles. Normal MRI appearance of different anatomical parts of the brain stem, namely the midbrain and medulla oblongata. Normal MRI appearance of the petrous temporal bones, vestibule cochlear nerves, and cerebellopontine angles with no definite masses. No shift of midline structures. No intracerebral or extra-axial hematomas or masses. Normal MRI appearance of orbital structures, both globes, optic nerves, optic chiasm, optic tracts and optic radiations. A retention cyst is seen at the left maxillary antrum. Other paranasal sinuses are clear. Deviation of the nasal septum to the right side. Bilateral suboccipital lymph nodes are seen. (Reactionary IMPRESSION: 1. No hyperacute or acute infarctions. 2. No intracerebral or extra axial hematoma. 3. Chronic infarction with microcystic gliosis of the right aspect of the pontine isthmus. 4. Imaging findings suggest nonspecific bright objects (NBO) vs. consequences of vasculitis. 5. The reported findings explain the current clinical status. The comparison is consistent with a stationary course. Electronically signed by Mirtha Persaud 08-22-2024 7:58 PM
[2024-08-22] MEDS ORDERED: DICYCLOMINE HCL 20 MG TAB PO PRN (20:37)
[2024-08-22] MEDS ORDERED: ONDANSETRON 4 MG OD TAB PO PRN (20:37)
[2024-08-22] MEDS: VENLAFAXINE HCL XR 150 MG CAPXR PO SCH (22:09)
[2024-08-22] MEDS: WARFARIN SOD 5 MG TAB PO SCH (22:09)
[2024-08-22] MEDS: ARIPiprazole 5 MG TAB PO SCH (22:10)
[2024-08-22] MEDS: EZETIMIBE 10 MG TAB PO SCH (22:10)
[2024-08-22] MEDS: FAMOTIDINE 20 MG TAB PO SCH (22:10)
[2024-08-23] MEDS: diphenhydrAMINE 50 MG/ML VIAL IV STA ×3 (01:25→16:35)
[2024-08-23] MEDS: PROCHLORPERAZINE 10 MG in SYRINGE 8 ML IV PRN (01:26)
[2024-08-23] MEDS: diphenhydrAMINE Capsule 25 MG CAP PO ONE (03:15)
[2024-08-23] MEDS: LEVOTHYROXINE SODIUM 75 MCG TABLET PO SCH (06:27)
[2024-08-23] MEDS: LIDOCAINE 5% 1 PATCH TD SCH (08:17)
--- NOTE | 2024-08-23 08:43 | Electrocardiogram Report ---
Test Reason : Blood Pressure : */* mmHG Vent. Rate : 88 BPM Atrial Rate : 88 BPM P-R Int : 144 ms QRS Dur : 90 ms QT Int : 366 ms P-R-T Axes : 39 26 55 degrees QTcB Int : 442 ms Normal sinus rhythm Normal ECG When compared with ECG of 09-Dec-2023 11:44, No significant change was found Confirmed by Juaquin Valerio ([id number]) on 08/23/2024 8:43:20 AM Referred By: REFERRED SELF Confirmed By: Juaquin Valerio
[2024-08-23 09:10] LABS: Basophils # (auto) 0.04 K/uL (0.00-0.20); Basophils % (auto) 0.7 %; Eosinophils # (auto) 0.11 K/uL (0.00-0.50); Eosinophils % (auto) 1.9 %; Hematocrit (blood only) 41.6 % (37.0-47.0); Hemoglobin 13.6 g/dl (12.0-16.0); Immature Granulocytes # (auto) 0.02 K/uL (0.01-0.20); Immature Granulocytes % (auto) 0.3 %; Lymphocytes # (auto) 1.01 K/uL (1.20-3.40); Lymphocytes % (auto) 17.6 %; Mean Corpuscular Hemoglobin 29.8 pg (25.0-34.0); Mean Corpuscular Hgb Conc 32.7 g/dL (32.0-36.0); Mean Corpuscular Volume 91.2 fL (80.0-100.0); Monocytes # (auto) 0.34 K/uL (0.11-0.59); Monocytes % (auto) 5.9 %; Neutrophils # (auto) 4.22 K/uL (1.40-6.50); Neutrophils % (auto) 73.6 %; Platelet Count 160 K/uL (130-400); RDW Coefficient of Variation 13.5 % (11.5-14.5); RDW Standard Deviation 45.1 fL (36.4-46.3); Red Blood Count 4.56 M/uL (4.20-5.40); White Blood Count 5.74 K/ul (4.8-10.8)
[2024-08-23 09:19] LABS: BUN Creatinine Ratio 14.3 (10-20); Chol HDL Ratio 3.2 (0-5); Creatinine Clr Calc Pharmacy 80.3 ml/min; Potassium 3.8 mmol/L (3.5-5.1)
[2024-08-23] MEDS: ALPRAZolam 0.25 MG TABLET PO PRN (10:31)
[2024-08-23 10:55] LABS: Estimated Average Glucose 137 mg/dl; Hemoglobin A1C 6.4 % (4.5-5.6)
[2024-08-23 12:28] VITALS: RESP 16
[2024-08-23] MEDS ORDERED: methylPREDNISolone 125 MG/2 ML VIAL IV STA ×2 (13:03→15:09)
[2024-08-23] MEDS: methylPREDNISolone 125 MG in SYRINGE 0 ML IV ONE (14:11)
[2024-08-23] MEDS: methylPREDNISolone 125 MG in SYRINGE 0 ML IV STA (15:40)
[2024-08-23 15:44] VITALS: TEMP 97.9; O2SAT 96
[2024-08-23] MEDS ORDERED: WARFARIN SOD 5 MG TAB PO SCH (16:00)
[2024-08-23] MEDS ORDERED: STROKE PATIENT DISCHARGE STA (19:08)
[2024-08-23 19:52] VITALS: BP 110/78; PULSE 85
--- OUTSIDE RECORDS SUMMARY | 2024-08-23 23:35 | External Medical Summary ---
Author Name Unknown Address Unknown Organization [facility] [address] [id number] Laboratory Report Ordering Provider Test Date Status Vianey Leslie 08/02/2024 15:53:00 Final Observation Date Value Abnormality Reference (Units ) Status Glucose [Mass/volume] in Serum or Plasma 08/02/2024 16:31:31 106 Above high normal 50-99 (mg/dL) Final The Reference Range listed i s for fasting blood Glucose only. Urea nitrogen [Mass/volume] in Serum or Plasma 08/02/2024 16:31:31 11 8-25 (mg/dL) Final Creatinine [Mass/volume] in Serum or Plasma 08/02/2024 16:31:31 0.91 0.45-1.00 (mg/dL) Fin al eGFR is calculated by the CK D-EPI
Creatinine equation (2020). *
eGFR
(mL/min/1.73) Category/Term
>or= 90 G1/Normal or high
60-89 G2/Mildly Decreased
45-59 G3a/Mildly to moderately decreased
30-44 G3b/Moderately to severely decreased
15-29 G4/Severely decreased
<15 G5/Kidney Failure
*Note New 2020 equation. For more information on GFR and estimating equations,
visit: http://[email or web address].org/professionals/kdoqi/[email or web address] GLOMERULAR FILTRATION RATE/1 .73 SQ M.PREDICTED:ARVRAT:PT:SER/PLAS/BLD:QN:CREATININE AND CYSTATIN C-BASED FORMULA (CKD-EPI 2020) 08/02/2024 16:31:32 78 >=60 (mL/min/1.73 m2) Final Urea nitrogen/Creatinine [Ma ss Ratio] in Serum or Plasma 08/02/2024 16:31:31 12 10-20 Final Sodium [Moles/volume] in Serum or Plasma 08/02/2024 16:31:31 139 132-145 (mmol/L) Final Potassium [Moles/volume] in Serum or Gio sma 08/02/2024 16:31:31 4.2 3.5-5.1 (mmol/L) Final Specimen SLIGHTLY hemolyzed, results may be compromised Chloride [Moles/volume] in S cyndie or Plasma 08/02/2024 16:31:31 108 97-109 (mmol/L) Final Bicarbonate [Moles/volume] i n Plasma 08/02/2024 16:31:31 22.6 22.0-29.0 (mmol/L) Fi nal Anion gap 3 in Serum or Plasma 08/02/2024 16:31:31 8 5-15 (mmol/L) Final Osmolality of Serum or Plasm a by calculation 08/02/2024 16:31:31 277 275-300 (mOsm/kg) Fin al Calcium [Mass/volume] in Ser um or Plasma 08/02/2024 16:31:31 9.3 8.5-10.5 (mg/dL) Zahra l Performing Location [facility] [address] [place] [address]
--- OUTSIDE RECORDS SUMMARY | 2024-08-23 23:35 | External Medical Summary ---
Author Name Unknown Address Unknown Organization [facility] [address] [facility] [address] Laboratory Report Ordering Provider Test Date Status Vianey Leslie 08/02/2024 15:53:00 Final Observation Date Value Abnormality Reference (Units ) Status Leukocytes [#/volume] in Blood by Automated count 08/02/2024 16:01:55 14.92 Above high normal 3.85-10.15 (K/uL) Final Erythrocytes [#/volume] in Blood by Automated count 08/02/2024 16:01:55 4.46 3.90-5.11 (M/uL) Final Hemoglobin [Mass/volume] in Blood 08/02/2024 16:01:55 13.5 11.4-15.1 (g/dL) Final Hematocrit [Volume Fraction] of Blood by Automated count 08/02/2024 16:01:55 40.8 34.9-44.0 (%) Final MCV [Entitic volume] by Automated count 08/02/2024 16:01:55 91.5 78.3-97.5 (fL) Final MCH [Entitic mass] by Automated count 08/02/2024 16:01:55 30.3 27.8-33.0 (pg) Final MCHC [Mass/volume] by Automated count 08/02/2024 16:01:55 33.1 32.3-36.7 (g/dL) Final Erythrocyte distribution width [Ratio] by Automated count 08/02/2024 16:01:55 13.2 11.4-15.0 (%) Final Erythrocyte distribution width [Entitic volume] by Automated count 08/02/2024 16:01:55 44.2 36.4-46.3 (fL) Final Platelets [#/volume] in Blood by Automated count 08/02/2024 16:01:55 205 160-400 (K/uL) Final Platelet mean volume [Entitic volume] in Blood by Automated count 08/02/2024 16:01:55 10.4 Above high normal 7.0-10.3 (fL) Final Nucleated erythrocytes/100 cells in Bone marrow by Manual count 08/02/2024 16:01:55 0.0 0.0-1.0 (%) Final Nucleated erythrocytes [#/volume] in Blood by Manual count 08/02/2024 16:01:55 0.00 (K/uL) Final Performing Location [facility] [address] [address]
--- OUTSIDE RECORDS SUMMARY | 2024-08-23 23:35 | External Medical Summary | Continuity of Care Document ---
Author Name Unknown Organization [facility] Address [address] [place] [id number] Care Team Providers Care Race Board Attendant Name Role Phone Jayy Grey Primary Care Physician [phone] [id number] Date(s): 08/02/24 - 08/02/24 [facility] Department of Emergency Medicine [address] [place] [address] [phone] Encounter Diagnosis Migraine headache(Discharge Diagnosis) - 08/03/24 Discharge Disposition: Home or Self Care Attending Physician: MD Winters Kelly Rose Allergies, Adverse Reactions, Alerts Substance Criticality Severity Reaction Reaction Severity Status Iron Unable to assess criticality Mild Low blood pressure Dizziness Active Functional Status 08/02/24 Speech Pattern Clear 08/02/24 History of Fall in Last 3 Months Ahuja Y es Presence of Secondary Diagnosis Ahuja No Use of Ambulatory Aid Ahuja None/bedrest /nurse assist IV/Heparin Lock Fall Risk Ahuja No Gait/Transferring Fall Risk Ahuja Normal /bedrest/immobile Mental Status Fall Risk Ahuja Oriented t o own ability Ahuja Fall Risk Score 25 Ahuja Fall Risk Low Risk Medications ARIPiprazole 5 mg oral tablet Start: 08/02/24 5:31:00 PM EST, 1 tab, PO, Daily Start Date: 08/02/24 Status: Ordered levothyroxine 75 mcg (0.075 mg) oral tablet Start: 08/02/24 5:32:00 PM EST, 1 tab, PO, Daily Start Date: 08/02/24 Status: Ordered pantoprazole 20 mg oral delayed release tablet Start: 08/02/24 5:32:00 PM EST, 1 tab, PO, Daily Start Date: 08/02/24 Status: Ordered Qulipta Start: 08/02/24 5:45:00 PM EST, 1 tab, PO, Daily Start Date: 08/02/24 Status: Ordered Testosterone (Eqv-AndroGel Packets) 50 mg/5 g (1%) transdermal gel Start: 12/04/23 4:06:00 PM EDT, See Instructions, Half a pump on each arm daily. Start Date: 12/04/23 Status: Ordered topiramate 50 mg oral tablet Start: 08/02/24 5:32:00 PM EST, 1 tab, PO, Daily Start Date: 08/02/24 Status: Ordered venlafaxine 150 mg oral capsule, extended release Start: 08/02/24 5:37:00 PM EST, 2 cap, PO, Daily Start Date: 08/02/24 Status: Ordered warfarin 10 mg oral tablet Start: 12/04/23 4:04:00 PM EDT, 1 tab, PO, on Monday and Monday (7.5mg all other days) Start Date: 12/04/23 Status: Ordered warfarin 7.5 mg oral tablet Start: 08/02/24 5:43:00 PM EST, 1 tab, PO, on Monday, Monday, , Monday, and Monday (10mgon Monday and Monday) Start Date: 08/02/24 Status: Ordered Problem List Condition Confirmation Course Effective Dates Status H ealth Status Informant Stroke Confirmed Active Hypothyroidism Confirmed Active Migraines Confirmed Active PTSD (post-traumatic stress disorder) Confirmed Active Diagnosis Diagnosis Type Effective Dates Health Status inical Service Informant Migraine headache Discharge Diagnosis 08/03/24 Non-Specified Results Laboratory List Name Date Automated Differential. 08/02/24 Basic Metabolic Panel. (BMP.) 08/02/24 CBC w/ Diff. 08/02/24 PT. (PT (with INR).) 08/02/24 Most recent to oldest [Reference Range]: 1 eGFR CKD-EPI [>=60 mL/min/1.73 m2] 78 mL /min/1.73 m2 (08/02/24 3:53 PM) Estimated CrCl 86.60 mL/min (08/02/24 4:31 PM) BUN/Creat Ratio [10-20] 12 (08/02/24 3:53 PM) Osmolality Calc [275-300 mOsm/kg] 277 mO sm/kg (08/02/24 3:53 PM) RDW-CV [11.4-15.0 %] 13.2 % (08/02/24 3:53 PM) RDW-SD [36.4-46.3 fL] 44.2 fL (08/02/24 3:53 PM) Nuc RBC Relative Count [0.0-1.0 %] 0.0 % (08/02/24 3:53 PM) Nuc RBC Abs Count 0.00 K/uL *NA* (08/02/24 3:53 PM) CO2 [22.0-29.0 mmol/L] 22.6 mmol/L (08/02/24 3:53 PM) MPV [7.0-10.3 fL] 10.4 fL *HI* (08/02/24 3:53 PM) Immature Gran% 0.3 % *NA* (08/02/24 3:53 PM) Neut% 84.6 % *NA* (08/02/24 3:53 PM) Lymph% 9.7 % *NA* (08/02/24 3:53 PM) Andrews% 5.2 % *NA* (08/02/24 3:53 PM) Baso% 0.1 % *NA* (08/02/24 3:53 PM) Eos% 0.1 % *NA* (08/02/24 3:53 PM) Immat Gran, Abs [0.00-0.03 K/uL] 0.05 K/ uL *HI* (08/02/24 3:53 PM) Neut, Abs [1.52-6.68 K/uL] 12.62 K/uL *HI* (08/02/24 3:53 PM) Lymph, Abs [1.10-3.30 K/uL] 1.44 K/uL (08/02/24 3:53 PM) Andrews, Abs [0.22-0.78 K/uL] 0.78 K/uL (08/02/24 3:53 PM) Baso, Abs [0.00-0.05 K/uL] 0.02 K/uL (08/02/24 3:53 PM) Eos, Abs [0.00-0.40 K/uL] 0.01 K/uL (08/02/24 3:53 PM) Anion Gap [5-15 mmol/L] 8 mmol/L (08/02/24 3:53 PM) BUN [8-25 mg/dL] 11 mg/dL (08/02/24 3:53 PM) Ca [8.5-10.5 mg/dL] 9.3 mg/dL (08/02/24 3:53 PM) Cl- [97-109 mmol/L] 108 mmol/L (08/02/24 3:53 PM) Cret [0.45-1.00 mg/dL] 0.91 mg/dL 1 (08/02/24 3:53 PM) Glu [50-99 mg/dL] 106 mg/dL 2 *HI* (08/02/24 3:53 PM) Hct [34.9-44.0 %] 40.8 % (08/02/24 3:53 PM) Hgb [11.4-15.1 g/dL] 13.5 g/dL (08/02/24 3:53 PM) INR 2.30 3 *NA* (08/02/24 3:53 PM) K [3.5-5.1 mmol/L] 4.2 mmol/L 4 (08/02/24 3:53 PM) MCH [27.8-33.0 pg] 30.3 pg (08/02/24 3:53 PM) MCHC [32.3-36.7 g/dL] 33.1 g/dL (08/02/24 3:53 PM) MCV [78.3-97.5 fL] 91.5 fL (08/02/24 3:53 PM) Na [132-145 mmol/L] 139 mmol/L (08/02/24 3:53 PM) Plts [160-400 K/uL] 205 K/uL (08/02/24 3:53 PM) PT [10.4-12.5 seconds] 26.9 seconds *HI* (08/02/24 3:53 PM) RBC [3.90-5.11 M/uL] 4.46 M/uL (08/02/24 3:53 PM) WBC [3.85-10.15 K/uL] 14.92 K/uL *HI* (08/02/24 3:53 PM) 1Result Comment: eGFR is calculated by the CKD-EPI Creatinine equation (2020). * eGFR (mL/min/1.73) Category/Term >or= 90 G1/Normal or high 60-89 G2/Mildly Decreased 45-59 G3a/Mildly to moderately decreased 30-44 G3b/Moderately to severely decreased 15-29 G4/Severely decreased <15 G5/Kidney Failure *Note New 2020 equation. For more information on GFR and estimating equations, visit: http://www.kidney.org/professionals/kdoqi/gfr.cfm 2Interpretive Data: The Reference Range listed is for fasting blood Glucose only. 3Interpretive Data: INR of 1.5 - 2.0 = 18.1- 24.1 Seconds 2.0 - 3.0 = 24.1 - 36.0 Seconds 2.5 - 3.5 = 30.0 - 41.9 Seconds 5.0 = 59.6 Seconds Recommended INR range for coumadin therapy for most clinical situations is 2.0-3.0. The INR range for high risk situations such as mechanical prosthetic heart valve is 2.5-3.5. 4Result Comment: Specimen SLIGHTLY hemolyzed, results may be compromised Radiology Reports * Exam Date Time Procedure Performing Provider Status 08/02/24 4:[address] Spine Cervical w/o Contrast Supa eJter; Final Notes: (CT Spine Cervical w/o Contrast) Reason For Exam: head injury CT Spine Cervical w/o Contrast EXAMINATION: CT OF THE HEAD AND CERVICAL SPINE WITHOUT CONTRAST CLINICAL HISTORY: head injury, on warfarin COMPARISON: CT head exam done on 12/15/2022 TECHNIQUE: Routine CT of the head and cervical spine was performed without intravenous contrast, coronal and sagittal reconstructions. DOSE: Total Reported Dose Length Product (DLP) = 985.42 mGy.cm FINDINGS: BRAIN: Cerebral parenchyma: Espinoza-white differentiation is maintained. No acute hemorrhage. Extra-axial spaces: No extra-axial fluid collection Ventricles: Ventricles are normal in size Mass effect: No midline shift Basal cisterns: Unremarkable Posterior fossa: Cerebellar tonsil is normal in position. Chronic lacunar infarct in the right gabriela, unchanged. Calvarium: No acute displaced fracture Visualized paranasal sinuses/mastoid: Mucus retention cyst/polyp in the left maxillary sinus Visualized orbits: Unremarkable CERVICAL SPINE: Alignment: Unremarkable Vertebrae: Vertebral body heights are maintained. No acute displaced fracture Prevertebral space: Unremarkable Extraspinal neck soft tissue structures: Unremarkable Thyroid: Unremarkable Lung apices: Clear IMPRESSION: 1. No acute intracranial abnormality. 2. No acute displaced cervical spine fracture. [place] Act 112: This study does not meet the requirements of [place] Act 112. Workstation ID: [id number] Final Dictated by:DO Cazares Kyaw N Dictated DT/TM:08/02/2024 4:25 Signed by:DO Cazares Kyaw N Signed (Electronic Signature):08/02/2024 4:24 p * Exam Date Time Procedure Performing Provider Status 08/02/24 4:[address] Brain/Head w/o Contrast Shon Bender; Final Notes: (CT Brain/Head w/o Contrast) Reason For Exam: head injury, on warfarin CT Brain/Head w/o Contrast EXAMINATION: CT OF THE HEAD AND CERVICAL SPINE WITHOUT CONTRAST CLINICAL HISTORY: head injury, on warfarin COMPARISON: CT head exam done on 12/15/2022 TECHNIQUE: Routine CT of the head and cervical spine was performed without intravenous contrast, coronal and sagittal reconstructions. DOSE: Total Reported Dose Length Product (DLP) = 985.42 mGy.cm FINDINGS: BRAIN: Cerebral parenchyma: Espinoza-white differentiation is maintained. No acute hemorrhage. Extra-axial spaces: No extra-axial fluid collection Ventricles: Ventricles are normal in size Mass effect: No midline shift Basal cisterns: Unremarkable Posterior fossa: Cerebellar tonsil is normal in position. Chronic lacunar infarct in the right gabriela, unchanged. Calvarium: No acute displaced fracture Visualized paranasal sinuses/mastoid: Mucus retention cyst/polyp in the left maxillary sinus Visualized orbits: Unremarkable CERVICAL SPINE: Alignment: Unremarkable Vertebrae: Vertebral body heights are maintained. No acute displaced fracture Prevertebral space: Unremarkable Extraspinal neck soft tissue structures: Unremarkable Thyroid: Unremarkable Lung apices: Clear IMPRESSION: 1. No acute intracranial abnormality. 2. No acute displaced cervical spine fracture. [place] Act 112: This study does not meet the requirements of [place] Act 112. Workstation ID: [id number] Final Dictated by:DO Cazares Kyaw N Dictated DT/TM:08/02/2024 4:25 Signed by:DO Cazares Kyaw N Signed (Electronic Signature):08/02/2024 4:24 p Vital Signs Most recent to oldest [Reference Range]: 1 2 3 Height 154.94 cm (08/02/24 3:22 PM) Patient Weight 109.7 kg (08/02/24 3:22 PM) Body Mass Index 45.7 kg/m2 (08/02/24 7:46 PM) 45.7 kg/m2 (08/02/24 3:22 PM) Temperature [36.5-37.9 DegC] 36.1 DegC *LOW* (08/02/24 3:22 PM) Heart Rate 98 bpm (08/02/24 7:46 PM) 94 bpm (08/02/24 7:08 PM) 100 bpm (08/02/24 6:00 PM) Respiratory Rate 16 br/min (08/02/24 7:46 PM) 16 br/min (08/02/24 7:08 PM) 18 br/min (08/02/24 6:00 PM) Blood Pressure 128/82mmHg (08/02/24 7:46 PM) 125/80mmHg (08/02/24 7:08 PM) 122/86mmHg (08/02/24 6:00 PM) Mean Blood Pressure 93 mmHg (08/02/24 7:08 PM) 96 mmHg (08/02/24 6:00 PM) 98 mmHg (08/02/24 5:30 PM) Cuff Pulse Pressure 46 mmHg (08/02/24 7:46 PM) 45 mmHg (08/02/24 7:08 PM) 36 mmHg (08/02/24 6:00 PM) Social History Social History Type Response Smoking Status Never smoked cigaret jonathon Sex Female Sex Representation Female (finding) Emergency department Summary note * MD Vianey, Mariama Bui: PERFORM, MODIFY Event Display: ED Summary Authored Date: [id number] Basic Information Time Seen: MD Winters Kelly Rose 08/02/2024 15:28 Chief Complaint CC slip and fall while squatting down onto the toilet hitting head against wall. -LOC. +ACs for past CVA and PEs. +Nausea and dizziness History of Present Illness Patient is a 49-year-old female with past medical history of stroke, hypothyroidism, chronic migraines, PTSD,unprovoked DVT and PE on Coumadinwho presents because of the fall. Patient was in the sheets bathroom when she slipped on water and fell backward hitting her head. Did not lose consci ousness. She endorses pain in the back of her head wherethe head strike wasbut also endorses more of a generalized headache that feels more typical of her migraines which she gets almost daily. She had 1 episode of emesis denies vision change numbness tingling weakness does endorse a spinning sensation but has been able to ambulate. She is on Coumadin last INR check was last month was 2.3. Goal is 2-3. She deniesnumbness tingling weakness. Does have some neck pain which is primarilylateral on the left side. Denies other injuries. Physical Exam Vitals & Measurements T:36.1C HR:103(Monitored) RR:17 BP:129/95 SpO2:100% Oxygen Therapy:Room Air HT:154.94cm WT:109.700kg(Dosing) WT:109.7kg BMI:45.7 General: Appears well, no acute distress HEENT:head atraumatic, normocephalic, no midline C spine ttp Resp: normal respiratory effort CV: warm extremities, no LE edema Abd: no distension Neuro: AOx3, moves all extremities Orientation: Alert and oriented x 3 Speech: Speech is normal, no aphasia or dysarthria Cranial nerves: Face is symmetric, EOMI, pupils equal and reactive Strength: 5/5 strength in BL upper andlower extremities, no pronator drift Sensory: Sensation intact to light touch in bilateral upper and lower extremities Cerebellar: FNF intact in BL upper extremities Gait: Deferred Psych:Mood and affect appropriate Medical Decision Making 49-year-old female on Coumadin presents after head injury. She had a fall from standingll backward hitting her head did not lose consciousness. Has since had a headacheand developed more generalized migraine type headache as well and she gets migraines daily. Denies vision change numbness ting or weakness but does endorse some dizziness had 1 episode of emesis. On exam she does look somewhat uncomfortable but nontoxic-appearing. She is neurologically intact with GCS 15. I really do not appreciate any hematoma or swelling in thehead. I am concerned for potential intracranial hemorrhage given she is anticoagulated. Will obtain CT head and C-spine JOSEY. Will check INRas well as some basic labs. If CT head is negative will treatheadache withmigraine cocktail. Patient's CT head is negative foracuteinjury. INR is 2.3 which is reassuring. Repeat assessment patient continues to have a migraine type headacheand is now having visual aura which is typical of her migraines. I did give herReglan Benadryl Toradol. Afterward she washavingmore resolution of the headache but ongoing oral so then I did give heradditional dose of Benadryl and magnesium after which she felt much improved. Diddiscuss reasons to return to the ED includingnew neurologic symptoms givenpossibility of delayed bleeding on Coumadin. Given patient is feeling improved with negative CT we will discharge. Medication Reconciliation Unchanged ARIPiprazole fremanezumab (Ajovy Autoinjector 225 mg/1.5 mL subcutaneous solution)Every Month. levothyroxine (Synthroid) pantoprazole (Protonix) testosterone (Testosterone (Eqv-AndroGel Packets) 50 mg/5 g (1%) transdermal gel) topiramate (Topamax) traZODone venlafaxine (Effexor) warfarin (warfarin 10 mg oral tablet)1 tab PO Daily. warfarin (warfarin 7.5 mg oral tablet)1 tab PO Daily. Problem List/Past Medical History Ongoing Hypothyroidism Migraines PTSD (post-traumatic stress disorder) Stroke Allergies Iron (Mild)Low blood pressure, Dizziness Diagnostic Results I reviewed and interpreted the CT of the head which, by my read, shows no obvious acute intracranial process. Electronic Signature on File Electronically Reviewed/Signed by: Mariama Winters MD Author Signature Dt/Tm:08/02/2024 07:46 PM Emergency Medicine [facility] Patient Care team information Care Team Personnel Name: DO Grey Daniel E Position: Referring Member Role: Primary Care Provider Address: [address] [place], [place] [address] [id number] Name: Micah Whitfield Position: Admissions II-C Name: CE Galloway Lindsey Position: RN - C Member Role: Direct Care Nurse Name: MD Winters Kelly Rose Position: Physician - Emerg Med SA Member Role: * Quality Review (1 day after created) Address: [address] [place] [address] Name: CE Butts Christopher Position: RN - C Member Role: Registered Nurse Care Team Related Persons Name: EVY ZAZUETA
--- OUTSIDE RECORDS SUMMARY | 2024-08-23 23:35 | External Medical Summary ---
Author Name Unknown Address Unknown Organization [facility] [place] [facility] [place] [facility] [address] [facility] [id number] Laboratory Report Ordering Provider Test Date Status Vianey Leslie 08/02/2024 15:53:00 Final Observation Date Value Abnormality Reference (Units ) Status Prothrombin time (PT) 08/02/2024 16:18:29 26.9 Above high normal 10.4-12.5 (seconds) Final INR in Platelet poor plasma by Coagulation assay 08/02/2024 16:18:29 2.30 Final INR of 1.5 - 2.0 = 18.1- 24. 1 Seconds
2.0 - 3.0 = 24.1 - 36.0 Seconds
2.5 - 3.5 = 30.0 - 41.9 Seconds
5.0 = 59.6 Seconds

Recommended INR range for coumadin therapy for most clinical
situations is 2.0-3.0. The INR range for high risk
situations such as mechanical prosthetic heart valve is 2.5-3.5. Performing Location [facility] – [place] [employer] [facility] [facility] [address] [facility] [id number]
--- OUTSIDE RECORDS SUMMARY | 2024-08-23 23:35 | External Medical Summary ---
Author Name Unknown Address Unknown Organization [facility] [place] [employer] [facility] [place] [employer] [facility] [address] [facility] [address] Laboratory Report Ordering Provider Test Date Status Vianey Leslie 08/02/2024 15:53:00 Final Observation Date Value Abnormality Reference (Units ) Status Neutrophils/100 leukocytes in Blood by Automated count 08/02/2024 16:01:55 84.6 (%) Final Lymphocytes/100 leukocytes in Blood by Automated count 08/02/2024 16:01:55 9.7 (%) Final Monocytes/100 leukocytes in Blood by Automated count 08/02/2024 16:01:55 5.2 (%) Final Eosinophils/100 leukocytes in Blood by Automated count 08/02/2024 16:01:55 0.1 (%) Final Basophils/100 leukocytes in Blood by Automated count 08/02/2024 16:01:55 0.1 (%) Final Immature granulocytes/100 leukocytes in Blood 08/02/2024 16:01:55 0.3 (%) Final Neutrophils [#/volume] in Blood by Automated count 08/02/2024 16:01:55 12.62 Above high normal 1.52-6.68 (K/uL) Final Lymphocytes [#/volume] in Blood by Automated count 08/02/2024 16:01:55 1.44 1.10-3.30 (K/uL) Final Monocytes [#/volume] in Blood by Automated count 08/02/2024 16:01:55 0.78 0.22-0.78 (K/uL) Final Eosinophils [#/volume] in Blood by Automated count 08/02/2024 16:01:55 0.01 0.00-0.40 (K/uL) Final Basophils [#/volume] in Blood by Automated count 08/02/2024 16:01:55 0.02 0.00-0.05 (K/uL) Final Immature granulocytes [#/volume] in Blood by Automated count 08/02/2024 16:01:55 0.05 Above high normal 0.00-0.03 (K/uL) Final Performing Location [facility] [place] [employer] [facility] [address] [facility] [address]
[2024-08-24] MEDS ORDERED: WARFARIN SOD 7.5 MG TAB PO SCH (16:00)
--- NOTE | 2024-08-25 20:52 | Discharge Summary ---
Discharge Summary Date of Service August 23, 2024 Principal Dx & Hospital Course #1 = Principal Diagnosis (1) Stroke-like symptoms: Suspect most likely recrudescence of her prior stroke symptoms vs. complex migraine despite clear lack of headache at this time given recurrent history of very similar symptoms. No subjective current LUE weakness although this sometimes occurs later and she does have a mild pronator drift on this side. Unable to move her LLE at time of admission with mild right eye dropping NSS 1L bolus to see if this helps her BP with her symptoms If brain MRI negative for acute stroke no plan on further stroke workup. Patient reported feeling much better. Patient was discharged as she was symptom free. D/W neurology: will discharge on steroid taper. Admission HPI Per Admitting Provider Whit Pina is a 49 year old female who presents to the ER with left calf pain and concern for DVT. This was after missing her warfarin for a couple of days but US ruled this out in the ER. However while in the emergency room she started noticing her left leg was weak and she was unable to move this. This has occurred on multiple prior occasions, initially diagnosed with a stroke but subsequent intermittent episodes suspected to be related to her migraines although she is currently not having a headache and her usually abortive medication with Compazine and acetaminophen have not helped while in the ER. She has associated right eye dropping which has already started to improve when seen. Telestroke alert was called and neurologist recommended admission for brain MRI. She denies any speech, hearing or vision disturbance. No numbness or pain. These are the same symptoms she had with her prior stroke and complex migraines. Discharge Exam Constitutional WD/WN, vitals as above + morbidly obese Respiratory normal respiratory effort, lungs clear to auscultation Cardiovascular RRR, no murmur, no edema Gastrointestinal (Abdomen) normal bowel sounds, soft, nontender, no hepatosplenomegaly Neurologic moves all extremities and awake; no focal motor deficits and not confused Speech / Cognition: normal speech Motor/Sensory: no tremor Psychiatric A+Ox3, euthymic affect Discharge Plan Discharge Items Patient Disposition: Home - Self-Care Reason For Visit: STROKE LIKE SYMPTOMS Discharge Diagnosis: complex migraine Condition on Discharge: Good Activity: Resume your previous activity Non-emergency contact: Primary Care Provider Call non-emergency contact if: you have any medication questions Follow-up/Referrals: Dionne Fletcher MD [Primary Care Provider] - Diet: Regular Addtl Attending Provider Instructions: A discharge summary will be sent to your primary care physician to ensure continuity of care. Please bring this discharge summary with you to your next office appointment so that your provider can review it at that time. Follow-up appointments: Make a follow-up appointment with your PCP within the next week. It is very important that you follow up with them shortly after discharge from the hospital. Keep all your follow-up appointments as already scheduled. If you cannot make an appointment, notify your provider. Medications: Your medication list has been reviewed and reconciled upon discharge to ensure accuracy and continuity of care. An updated list of all your medications is included with your hospital discharge paperwork. Please review this list closely, and make note of any changes. Take your medications as instructed; do not skip a dose of your medicines. Make sure all of your doctors know every medicine you are taking (including btoi-ero-vlryyom medicines, vitamins, and supplements). Call your primary care provider before taking any new medicines (including afob-kkj-cpmwdwv medicines, vitamins, and supplements), because some of these may interact with your current medications, or may make your symptoms worse. Tell your primary care provider if you cannot afford your medications. CONTACT YOUR PRIMARY CARE PROVIDER if you experience any of the following: Increase in headache frequency or intensity Difficulty following your treatment plan, or difficulty taking medications CALL 911 OR GO TO THE EMERGENCY DEPARTMENT if you experience any of the following: Sudden, severe abdominal pain or nausea/vomiting Severe chest pain, or chest pain that radiates (moves) to your jaw or arm Sudden, severe shortness of breath or difficulty breathing Pending Studies at Discharge: No Stand-Alone Forms: My [facility] Pegg'd, Smoking Cessation Medications and DC Order Prescriptions: Continued venlafaxine [Effexor XR] 150 mg Capsule,Extended Release 24hr 300 mg PO HS topiramate 200 mg Capsule,Extended Release 24hr 200 mg PO HS alprazolam 0.25 mg tablet 0.25 mg PO DAILY PRN (Reason: Anxiety) epinephrine 0.3 mg/0.3 mL auto-injector 0.3 mg IM Q4H PRN (Reason: anaphylaxis) Qty: 2 0RF ondansetron 4 mg tablet,disintegrating 4 mg PO Q6H PRN (Reason: nausea and vomiting) Qty: 15 0RF famotidine 40 mg tablet 20 mg PO HS diphenoxylate-atropine 2.5-0.025 mg tablet 1 tab PO QID PRN (Reason: Diarrhea) dicyclomine 20 mg tablet 40 mg PO TID PRN (Reason: Diarrhea) warfarin 5 mg Tablet See Rx Instructions .ROUTE .COMPLEX Rx Instructions: Take 7.5mg by mouth Tues/Sat and 10mg by mouth all other days in the evenings. ezetimibe 10 mg tablet 10 mg PO HS Ozempic 0.25 mg or 0.5 mg (2 mg/3 mL) pen injector 0.5 mg SUBCUT WK Rx Instructions: Mondays lidocaine [Lidoderm] 5 % adhesive patch,medicated 1 patch topical DAILY Qty: 15 0RF Rx Instructions: leave on most painful area for up to 12 hrs levothyroxine [Synthroid] 75 mcg tablet 75 mcg PO DAILYBB aripiprazole 5 mg Tablet 5 mg PO HS Emgality Pen 120 mg/mL pen injector 120 mg SUBCUT MONTHLY No Action enoxaparin [Lovenox] 40 mg/0.4 mL Syringe 40 mg subcut Q12 3 Days Qty: 2.4 0RF diazepam 5 mg Tablet 5 mg PO BID PRN (Reason: Headache or muscle spasm) Qty: 10 0RF methylprednisolone [Medrol (Severiano)] 4 mg tablets,dose pack 4 mg PO UD Qty: 21 0RF Rx Instructions: Follow instructions on pack prochlorperazine maleate [Compazine] 10 mg tablet 10 mg PO Q8H PRN (Reason: nausea and vomiting or migraine headache) Qty: 20 0RF diphenhydramine HCl [Benadryl] 25 mg capsule 25 mg PO Q8H PRN (Reason: nausea and vomiting or migraine headache) Qty: 20 0RF Rx Instructions: Hpyx-kwp-ztuchsy Discharge Orders: Discharge Order (Routine); Ordered 08/23/24 Ordered By: Adeel Cleveland/Other Patient Handouts: A1C Admission Data Admit Date/Time: 08/22/24 16:18 Attending Provider: Adeel Molina Admit Provider: Riley Nolasco Primary Care Provider: Dionne Fletcher Other Providers: Riley Nolasco; [facility]; Seok,Ascencion H. Other Interventions: Discharge Summary Assessment (RN) Last Done: 08/23/24 19:50 Hospital Stay Data Consultations 08/22/24 16:51 ED Decision to Admit Stat 08/23/24 08:55 Consult Neurology Routine Diagnostic Imagining Performed 08/22/24 11:58 US venous doppler LE LT Stat 08/22/24 14:35 CT angio head wo/w Stat CT angio neck with con Stat 08/22/24 16:20 MRI Brain [MR brain wo con] Stat Pending Results Patient Have Any Pending Studies at Discharge: No Discharge Instructions Given to Patient (Per Discharging Provider) A discharge summary will be sent to your primary care physician to ensure continuity of care. Please bring this discharge summary with you to your next office appointment so that your provider can review it at that time. Follow-up appointments: Make a follow-up appointment with your PCP within the next week. It is very important that you follow up with them shortly after discharge from the hospital. Keep all your follow-up appointments as already scheduled. If you cannot make an appointment, notify your provider. Medications: Your medication list has been reviewed and reconciled upon discharge to ensure accuracy and continuity of care. An updated list of all your medications is included with your hospital discharge paperwork. Please review this list closely, and make note of any changes. Take your medications as instructed; do not skip a dose of your medicines. Make sure all of your doctors know every medicine you are taking (including afry-zjo-qznzrze medicines, vitamins, and supplements). Call your primary care provider before taking any new medicines (including qzex-oni-urqmfvd medicines, vitamins, and supplements), because some of these may interact with your current medications, or may make your symptoms worse. Tell your primary care provider if you cannot afford your medications. CONTACT YOUR PRIMARY CARE PROVIDER if you experience any of the following: Increase in headache frequency or intensity Difficulty following your treatment plan, or difficulty taking medications CALL 911 OR GO TO THE EMERGENCY DEPARTMENT if you experience any of the following: Sudden, severe abdominal pain or nausea/vomiting Severe chest pain, or chest pain that radiates (moves) to your jaw or arm Sudden, severe shortness of breath or difficulty breathing Total Time Total Time Spent Total Time Spent (In Minutes): 32 Coding Level of Care Code 47436 INP/OBS DISCH >30 MIN Diagnoses Stroke-like symptoms R29.90
== END 2024-08-23 20:22 | disposition home or self-care (01) ==
LOC: 2N 11:37 → ED 11:37 → SUATTDRO 16:18 → 2N 17:48

== ENCOUNTER 2024-08-25 01:30 | Inpatient (IN) ==
[2024-08-25] MEDS ORDERED: ONDANSETRON INJ 2 MG/ML 2 ML VIAL IV PRN (01:56)
--- NOTE | 2024-08-25 02:11 | History & Physical Report ---
Date of Service August 25, 2024 Assessment & Plan (1) Complicated migraine: Plan: -Patient with a history of complex migraines and was recently discharged on 08/23/2024 with similar symptoms. Was sent home on prednisone. -Patient was seen at [facility] for migraine with left-sided weakness. -Patient had a CT, MRI, and MRI which were negative on 08/22/2024. -MRI did show chronic infarction with microcystic gliosis of the right aspect of the pontine isthmus. Also showed NBO versus consequences of vasculitis. -CBC and CMP benign. Slight leukocytosis though most likely secondary to recent steroid use. -Patient was given migraine cocktail at [facility] which slight improvement. -Previous improvements with IV Benadryl and Compazine. Given at time of admission. -Will do IV Benadryl and Compazine every 6 hours as needed for migraine headaches. -Recommend patient hold Qulipta, as likely have gotten worse since starting this medication. -Continue Topamax 100 mg twice daily. -Also would recommend holding Ozempic. As this may be contributing factor. -Will get ECHO in the AM with bubble study. -Neurology consulted. Appreciate recommendations. (2) Stroke-like symptoms: Plan: -Left-sided weakness, most likely secondary to migraine has had a negative workup on 08/22/2024. -Will defer to neurology regarding further workup (3) Hypothyroidism: Plan: -Will continue on levothyroxine. -TSH ordered and pending at time of admission. (4) History of DVT (deep vein thrombosis): Plan: -History of DVT and PE. -Continue on warfarin. -INR 1.3 at time of admission. (5) PTSD (post-traumatic stress disorder): Plan: -Continue home medications. -Abilify, trazodone, venlafaxine, and Xanax as needed (6) GERD (gastroesophageal reflux disease): Plan: -Continue home medications. -Pepcid 20 mg at night. Plan Fluids: None Nutrition: Heart healthy Code status: Full code DVT ppx: Warfarin Consults: Neurology Dispo: PCU/telemetry Admission and Anticipated Discharge Date Admission Date: August 25, 2024 History of Present Illness Chief Complaint: Complex migraines Primary Care Provider: Dionne Fletcher MD Patient is a 49-year-old female who has a past medical history of complex migraine, history of CVA, history of PE and DVT on warfarin daily, who presents to the hospital as a direct transfer from [facility]. Patient states that around 1 PM on 08/24 she started to have a migraine with left-sided weakness. She had associated nausea and vomiting. Denies any fevers, chills, abdominal pain, urinary symptoms, changes in bowel movements. States that light makes it worse. Patient was recently seen here and was discharged on 08/23/2024 for similar episodes. She had a full stroke workup including CT, CTAs, and MRI which were negative. She was sent home with prednisone. She has been taking prednisone but it has not helped much. Patient states that the headache is at the top of her head rating down to her thighs bilaterally. She also had 2 episodes of complete paralysis of her left lower extremity yesterday as well. Of note patient states that majority of her worsening headache started with Qulipta, which was started at the [place] neurologist a few weeks ago. Allergies Allergy/AdvReac Type Severity Reaction Status Date / Time shellfish derived Allergy Severe Swelling Unverified 08/22/24 17:05 of Lip/Tongue/Throat prochlorperazine AdvReac Intermediate caused Verified 08/22/24 17:05 [From Compazine] restless leg syndrome promethazine [From Phenergan] AdvReac Intermediate restless Verified 08/22/24 17:05 leg syndrome Home Medications Medication Instructions Recorded Confirmed Type topiramate 200 mg capsule,extended 200 mg PO HS 10/07/20 08/22/24 History release 24 hr venlafaxine 150 mg 300 mg PO HS 10/07/20 08/22/24 History capsule,extended release 24 hr (Effexor XR) epinephrine 0.3 mg/0.3 mL 0.3 mg (0.3 mL) IM Q4H PRN 07/17/23 08/22/24 Rx injection, auto-injector anaphylaxis #2 ea alprazolam 0.25 mg tablet 0.25 mg PO DAILY PRN Anxiety 09/01/23 08/22/24 History ondansetron 4 mg disintegrating 4 mg PO Q6H PRN nausea and 09/18/23 08/22/24 Rx tablet vomiting #15 tabs dicyclomine 20 mg tablet 40 mg PO TID PRN Diarrhea 03/23/24 08/22/24 History diphenoxylate-atropine 2.5 1 tab PO QID PRN Diarrhea 03/23/24 08/22/24 History mg-0.025 mg tablet ezetimibe 10 mg tablet 10 mg PO HS 03/23/24 08/22/24 History famotidine 40 mg tablet 20 mg PO HS 03/23/24 08/22/24 History semaglutide 0.25 mg or 0.5 mg (2 0.5 mg subcut WK 03/23/24 08/22/24 History mg/3 mL) subcutaneous pen injector (Ozempic) warfarin 5 mg tablet See Rx Instructions .Route .COMPLEX 03/23/24 08/22/24 History aripiprazole 5 mg tablet 5 mg PO HS 06/04/24 08/22/24 History galcanezumab-gnlm 120 mg/mL 120 mg subcut MONTHLY 06/04/24 08/22/24 History subcutaneous pen injector (Emgality Pen) levothyroxine 75 mcg tablet 75 mcg PO DAILYBB 06/04/24 08/22/24 History (Synthroid) lidocaine 5 % topical patch 1 patch topical DAILY #15 ea 07/15/24 08/22/24 Rx (Lidoderm) prednisone 20 mg tablet 40 mg (2 x 20 mg) PO DAILY #6 tabs 08/23/24 Rx Past Med/Surg History Problem List (Updated 08/25/24 @ 10:45 by Ascencion De Jesus MD) Migraine syndrome Complicated migraine Pain of left calf (Acute) Stroke-like symptoms (Acute) PTSD (post-traumatic stress disorder) GERD (gastroesophageal reflux disease) Hypothyroidism History of DVT (deep vein thrombosis) (Acute) Medical History Stroke-like symptoms History of pulmonary embolism C. difficile colitis CVA (cerebral vascular accident) Migraine Surgical History History of mastectomy S/P ROSALES-BSO S/P patent foramen ovale closure History of cholecystectomy History of appendectomy Social History Smoking Status: Never smoker Hx Alcohol Use: No Hx Substance Use: No Preferred Language: Cape Verdean Communication Ability: Effective Supply Chain Technician Required: No Beliefs That Will Affect Care: None Current Living Situation: Spouse Current Living Situation Comment: Has baby at home Other Information That Helps Us Care for You: No Feels Safe at Home: Yes Safety Concerns: Feels Safe At This Time Assistive Devices: Glasses Review of Systems Review of Systems: All systems reviewed & are unremarkable except as noted in Subjective Physical Exam Constitutional: WD/WN, vitals as above Eyes: + eyelid abnormality (mild dropping of r ight eyelid); no conjunctival abnormality ENMT: external ear and nose normal, oropharynx normal Respiratory: normal respiratory effort, lungs clear to auscultation Cardiovascular: RRR, no murmur, no edema Gastrointestinal (Abdomen): normal bowel sounds, soft, nontender, no hepatosplenomegaly Skin: no rashes, warm and dry Neurologic: + focal motor deficit (unable to hip fle x, knee flex, ankle plantar/dorsiflex) and awake; + does not move all extremities Psychiatric: A+Ox3, euthymic affect Results & Data Results & Data Vital Signs (Past 12 Hours) Vital Signs Temp Pulse Pulse Resp BP Pulse Ox O2 Del Method 08/25/24 02:01 74 08/25/24 01:29 Room Air 08/25/24 01:29 36.4 C L 84 20 107/70 93 Room Air Supervising Physician Co-Signing Physician Notes Attending addendum: I have physically seen this patient, have supervised the medical residents activities, and agree with the H&P unless as otherwise noted. Assessment and Plan: Complicated migraine/status migrainosus- Patient had recently been discharged from [facility] on 08/23 after requesting to leave, on oral prednisone Workup included a CT scan head, CTA head and neck MRI brain all of which were negative on 08/22 Patient presented to the emergency department at [facility], received several doses, IV Benadryl, Compazine did not have significant improvement She was transferred to [facility] for evaluation by neurology Continue with Topamax Hold Ozempic as a possible trigger of worsening headaches Consult neurology The patient will be admitted to telemetry for serial cardiac enzymes, serial EKG's, cardiac rhythm monitoring and a 2-D echocardiogram with Dopplers. No acute findings on examination
[2024-08-25] MEDS: PROCHLORPERAZINE 10 MG in SYRINGE 8 ML IV ONE (02:49)
[2024-08-25] MEDS: diphenhydrAMINE 50 MG/ML VIAL IV STA (02:49)
[2024-08-25 03:05] LABS: Hematocrit (blood only) 39.4 % (37.0-47.0); Hemoglobin 12.8 g/dl (12.0-16.0); Mean Corpuscular Hemoglobin 29.8 pg (25.0-34.0); Mean Corpuscular Hgb Conc 32.5 g/dL (32.0-36.0); Mean Corpuscular Volume 91.8 fL (80.0-100.0); Mean Platelet Volume 10.1 fL (9.4-12.4); Platelet Count 164 K/uL (130-400); RDW Coefficient of Variation 13.4 % (11.5-14.5); RDW Standard Deviation 45.5 fL (36.4-46.3); Red Blood Count 4.29 M/uL (4.20-5.40); White Blood Count 10.83 K/ul (4.8-10.8)
[2024-08-25 03:11] LABS: INR 1.3 (0.9-1.1); Prothrombin Time 14.2 Seconds (9.0-12.0)
[2024-08-25 03:22] LABS: Albumin Globulin Ratio 1.3 (0.9-2); Albumin Level 3.7 gm/dl (3.4-5.0); BUN Creatinine Ratio 21.5 (10-20); Basophils # (auto) 0.01 K/uL (0.00-0.20); Basophils % (auto) 0.1 %; Bilirubin,Total 0.3 mg/dl (0.2-1.0); Calcium 8.6 mg/dl (8.6-10.3); Creatinine Clr Calc Pharmacy 88.1 ml/min; Globulin 2.9 gm/dl (2.5-4.0); Immature Granulocytes % (auto) 0.9 %; Lymphocytes # (auto) 0.63 K/uL (1.20-3.40); Lymphocytes % (auto) 5.8 %; Magnesium 2.4 mg/dl (1.7-2.4); Monocytes # (auto) 0.15 K/uL (0.11-0.59); Monocytes % (auto) 1.4 %; Neutrophils # (auto) 9.94 K/uL (1.40-6.50); Neutrophils % (auto) 91.8 %; Potassium 4.4 mmol/L (3.5-5.1); Total Protein 6.6 gm/dl (6.0-8.3)
[2024-08-25 03:36] LABS: Thyroid Stimulating Hormone 1.058 uIu/ml (0.300-4.500)
[2024-08-25] MEDS: LEVOTHYROXINE SODIUM 75 MCG TABLET PO SCH (05:56)
[2024-08-25] MEDS: TOPIRAMATE 100 MG TAB PO SCH (07:41)
[2024-08-25] MEDS: PROCHLORPERAZINE 10 MG in SYRINGE 8 ML IV PRN (09:20)
[2024-08-25] MEDS: diphenhydrAMINE 50 MG/ML VIAL IV PRN (09:20)
--- NOTE | 2024-08-25 10:46 | Neurology Consultation ---
Date of Consultation August 25, 2024 Assessment & Plan (1) Migraine syndrome: History of Present Illness Attending Physician: Adeel Molina History of Present Illness S: this morning sleeping comfortably. NAD. pt states her headache is same as yesterday but clinically does not appears to be in pain or distress. mri recently noted negative. pt still says her rt leg is weak. admission HPI: Patient is a 49-year-old female who has a past medical history of complex migraine, history of CVA, history of PE and DVT on warfarin daily, who presents to the hospital as a direct transfer from [facility]. Patient states that around 1 PM on 08/24 she started to have a migraine with left-sided weakness. She had associated nausea and vomiting. Denies any fevers, chills, abdominal pain, urinary symptoms, changes in bowel movements. States that light makes it worse. Patient was recently seen here and was discharged on 08/23/2024 for similar episodes. She had a full stroke workup including CT, CTAs, and MRI which were negative. She was sent home with prednisone. She has been taking prednisone but it has not helped much. Patient states that the headache is at the top of her head rating down to her thighs bilaterally. She also had 2 episodes of complete paralysis of her left lower extremity yesterday as well. Of note patient states that majority of her worsening headache started with Qulipta, which was started at the [place] neurologist a few weeks ago. Allergies Allergy/AdvReac Type Severity Reaction Status Date / Time shellfish derived Allergy Severe Swelling Unverified 08/22/24 17:05 of Lip/Tongue/Throat prochlorperazine AdvReac Intermediate caused Verified 08/22/24 17:05 [From Compazine] restless leg syndrome promethazine [From Phenergan] AdvReac Intermediate restless Verified 08/22/24 17:05 leg syndrome Home Medications Medication Instructions Recorded Confirmed Type topiramate 200 mg capsule,extended 200 mg PO HS 10/07/20 08/22/24 History release 24 hr venlafaxine 150 mg 300 mg PO HS 10/07/20 08/22/24 History capsule,extended release 24 hr (Effexor XR) epinephrine 0.3 mg/0.3 mL 0.3 mg (0.3 mL) IM Q4H PRN 07/17/23 08/22/24 Rx injection, auto-injector anaphylaxis #2 ea alprazolam 0.25 mg tablet 0.25 mg PO DAILY PRN Anxiety 09/01/23 08/22/24 History ondansetron 4 mg disintegrating 4 mg PO Q6H PRN nausea and 09/18/23 08/22/24 Rx tablet vomiting #15 tabs dicyclomine 20 mg tablet 40 mg PO TID PRN Diarrhea 03/23/24 08/22/24 History diphenoxylate-atropine 2.5 1 tab PO QID PRN Diarrhea 03/23/24 08/22/24 History mg-0.025 mg tablet ezetimibe 10 mg tablet 10 mg PO HS 03/23/24 08/22/24 History famotidine 40 mg tablet 20 mg PO HS 03/23/24 08/22/24 History semaglutide 0.25 mg or 0.5 mg (2 0.5 mg subcut WK 03/23/24 08/22/24 History mg/3 mL) subcutaneous pen injector (Ozempic) warfarin 5 mg tablet See Rx Instructions .Route .COMPLEX 03/23/24 08/22/24 History aripiprazole 5 mg tablet 5 mg PO HS 06/04/24 08/22/24 History galcanezumab-gnlm 120 mg/mL 120 mg subcut MONTHLY 06/04/24 08/22/24 History subcutaneous pen injector (Emgality Pen) levothyroxine 75 mcg tablet 75 mcg PO DAILYBB 06/04/24 08/22/24 History (Synthroid) lidocaine 5 % topical patch 1 patch topical DAILY #15 ea 07/15/24 08/22/24 Rx (Lidoderm) prednisone 20 mg tablet 40 mg (2 x 20 mg) PO DAILY #6 tabs 08/23/24 Rx Patient History Medical History Stroke-like symptoms History of pulmonary embolism C. difficile colitis CVA (cerebral vascular accident) Migraine Surgical History History of mastectomy S/P ROSALES-BSO S/P patent foramen ovale closure History of cholecystectomy History of appendectomy Social History Smoking Status: Never smoker Hx Alcohol Use: No Hx Substance Use: No Preferred Language: Bruneian Communication Ability: Effective Civil Clerk Required: No Beliefs That Will Affect Care: None Current Living Situation: Spouse Current Living Situation Comment: Has baby at home Other Information That Helps Us Care for You: No Feels Safe at Home: Yes Safety Concerns: Feels Safe At This Time Assistive Devices: Glasses Exam (Neuro) Physical Exam: HEENT: normocephalic grossly Neuro: Mental: AOx4, fluent speech, normal comprehension, no apraxia, no L/R confusion, no neglect, NAD. CN: PERRL, Full EOM, symmetric face, Motor: No abnormal movements, normal tone, 5/5 t/o bilaterally upper limbs. RLE: 5/5 t/o. LLE: no effort, pt stating can't move much, +Marcano sign (this is when pt is not given effort to raise the weak leg with no body tilt). Coord: intact grossly. Impression: 49 yo female with reported migraine breakthrough with left side weakness. Although pt is reporting same pain level as yesterday (04/20), she is definitely NOT having severe pain or in distress. Do NOT patience after the pain number, clinical impression is more important. I do not feel she has severe migraine at this point and she appears comfortable. she agrees that some hydration and sleep will resolve her migraine. her left side subjective weakness appears to be functional and non-organic in nature, psychological in nature. i do not feel this is complicated migraine or hemiplegic migraine. Recommendations: -reassured pt. from neuro stand point, no further work up needed. continue outpt meds as now. plenty of IVF. I do not feel there is need for additional med as pt does not appears to be in distress. call again if new question. positive reinforcement and maybe physical therapy as needed as outpt. Chart reviewed I have spent more than 50% educating patient about potential diagnosis and neurological evaluation and coordinating care with patient's treatment team. Total time spent (including chart review and coordination of care): 45 min (this includes chart review). Results & Data Vital Signs (Past 12 Hours) Vital Signs Temp Pulse Pulse Resp BP Pulse Ox O2 Del Method 08/25/24 07:38 36.6 C 90 18 113/76 93 Room Air 08/25/24 03:43 36.5 C 70 18 130/72 95 Room Air 08/25/24 02:01 74 08/25/24 01:29 Room Air 08/25/24 01:29 36.4 C L 84 20 107/70 93 Room Air PG Care Time/CCT Total # of Minutes Spent Total Time Spent with Patient: Total time spent is greater than 50% in coordination of care (as documented) at patient's floor/unit and/or counseling patient: Coding Level of Care Code 45667 IN/OBS CONSULT LVL 3,45M Diagnoses Migraine syndrome G43.909
[2024-08-25] MEDS: ACETAMINOPHEN 325 MG TAB PO PRN (11:58)
[2024-08-25] MEDS: ALPRAZolam 0.25 MG TABLET PO PRN (11:58)
[2024-08-25] MEDS: WARFARIN SOD 10 MG TAB PO SCH (16:41)
--- NOTE | 2024-08-25 17:00 | XCELERA ---
[id number] [id number]
--- NOTE | 2024-08-25 19:14 | Billing Data ---
Date of Service August 25, 2024 Coding Level of Care Code 61848 INT INP/OBS CARE
[2024-08-25] MEDS: VENLAFAXINE HCL XR 150 MG CAPXR PO SCH (19:58)
[2024-08-25] MEDS: FAMOTIDINE 20 MG TAB PO SCH (19:59)
[2024-08-25] MEDS: ARIPiprazole 5 MG TAB PO SCH (19:59)
[2024-08-25] MEDS: EZETIMIBE 10 MG TAB PO SCH (19:59)
--- NOTE | 2024-08-26 06:08 | Electrocardiogram Report ---
Test Reason : Blood Pressure : */* mmHG Vent. Rate : 81 BPM Atrial Rate : 81 BPM P-R Int : 136 ms QRS Dur : 90 ms QT Int : 382 ms P-R-T Axes : 111 131 115 degrees QTcB Int : 443 ms Normal sinus rhythm Right axis deviation Limb lead reversal Abnormal ECG When compared with ECG of 22-Aug-2024 14:56, Limb lead reversal is now present Confirmed by Brock Guevara ([id number]) on 08/26/2024 6:07:58 AM Referred By: REFERRED SELF Confirmed By: Brock Guevara
[2024-08-26 11:35] LABS: Albumin Globulin Ratio 1.3 (0.9-2); Albumin Level 3.6 gm/dl (3.4-5.0); BUN Creatinine Ratio 23.2 (10-20); Bilirubin,Total 0.3 mg/dl (0.2-1.0); Calcium 8.7 mg/dl (8.6-10.3); Creatinine Clr Calc Pharmacy 65.2 ml/min; Globulin 2.7 gm/dl (2.5-4.0); Potassium 3.2 mmol/L (3.5-5.1); Total Protein 6.3 gm/dl (6.0-8.3)
[2024-08-26 11:44] LABS: INR 1.2 (0.9-1.1); Prothrombin Time 12.4 Seconds (9.0-12.0)
[2024-08-26] MEDS: SODIUM CHLORIDE 0.9% 1,000 ML IV ONE (13:34)
[2024-08-26] MEDS: POTASSIUM CHLORIDE CRTAB 20 MEQ TABCR PO STA (13:34)
[2024-08-26] MEDS: ENOXAPARIN INJ 40 MG/0.4 ML SYR SQ SCH (13:35)
--- NOTE | 2024-08-26 14:15 | Hospitalist Progress Note ---
Date of Service August 26, 2024 Assessment & Plan (1) Complicated migraine: Plan: With a history of complex migraines and was recently discharged on 08/23/2024 with similar symptoms. Was sent home on prednisone. She was seen at [facility] for migraine with left-sided weakness and had a CT, MRI which were negative on 08/22/2024. MRI brain here did show chronic infarction with microcystic gliosis of the right aspect of the pontine isthmus. Also showed NBO versus consequences of vasculitis. Slight leukocytosis though most likely secondary to recent steroid use. With some improvement but ongoing daily migraine despite use of as needed IV Benadryl and Compazine every 6 hours Start dexamethasone 6 mg IV twice daily Start Valium 5 mg p.o. twice daily as needed for possible tension headache in the neck as a trigger for migraine Recommend patient hold Qulipta, as likely have gotten worse since starting this medication. Continue Topamax 100 mg twice daily for prophylaxis Also would recommend holding Ozempic. As this may be contributing factor. Neurology consulted. Appreciate recommendations-suggests this is psychogenic and no further changes in management recommended Patient follows with neurology as an outpatient with the [place]-she may benefit from seeing Dr. Rodirguez at the headache clinic at [facility] if her [facility] will allow this Give 1 L IV normal saline especially given mild rise in creatinine and with hypokalemia-replace oral potassium chloride (2) Stroke-like symptoms: Plan: Left-sided weakness, most likely secondary to migraine has had a negative workup on 08/22/2024. (3) Hypothyroidism: Plan: Will continue on levothyroxine at current dose, TSH is normal (4) History of DVT (deep vein thrombosis): Plan: History of DVT and PE on several occasions now on chronic warfarin INR 1.3 at time of admission-she has not missed any doses of Coumadin lately that she knows of Ordered PT/INR for today-came back again low at 1.2 Bridged with Lovenox 40 Mg SQ twice daily until INR therapeutic Follow INR in the morning and continue same home regimen especially since starting steroids as this will raise the INR (5) PTSD (post-traumatic stress disorder): Plan: No acute issues, continue home medications with Abilify, venlafaxine, and Xanax as needed (6) GERD (gastroesophageal reflux disease): Plan: Continue Pepcid (7) Hypokalemia: Plan: Replace with oral potassium chloride as above Follow BMP and magnesium in the morning Plan DVT ppx: Warfarin, adding bridging Lovenox SQ Dispo: Continued stay but can downgrade to medical/surgical unit, hopeful for discharge to home tomorrow morning if migraine improved Admission and Anticipated Discharge Date Admission Date: August 25, 2024 Subjective Patient reports ongoing 7 out of 10 migraine headache with some nausea and photophobia and phonophobia. Also with pain in the back of her head into her neck. She reports Valium has helped her in the past. She was on a course of steroids last week and does not think that that helped much. She is hoping that with getting sleep she will be able to get rid of her headache but has not been able to get much sleep here on the telemetry unit. She is able to eat and drink but has not been eating and drinking as much the last few days. She has had migraines in the past similar to this that went on for many days and were associated with left-sided weakness Telemetry with normal sinus rhythm with rates in the 70s to 80s Physical Exam Constitutional: WD/WN, vitals as above + morbidly obese Eyes: PERRL, conjunctivae normal, anicteric sclerae ENMT: external ear and nose normal, oropharynx normal Respiratory: normal respiratory effort, lungs clear to auscultation Cardiovascular: RRR, no murmur, no edema Gastrointestinal (Abdomen): normal bowel sounds, soft, nontender, no hepatosplenomegaly Neurologic: PERRL, EOMI, accommodation nl, no face palsy, no dysarthria + focal motor deficit (Left lower extremity with minimal effort) Motor/Sensory: no tremor Results & Data Results & Data Vital Signs (Past 12 Hours) Vital Signs Temp Pulse Pulse Resp BP Pulse Ox O2 Del Method 08/26/24 11:28 36.5 C 81 17 112/82 97 Room Air 08/26/24 08:31 Room Air 08/26/24 07:37 36.6 C 69 19 117/83 97 Room Air 08/26/24 07:28 75 08/26/24 03:54 36.6 C 69 18 108/77 96 Room Air Laboratory Results BMP, LFTs, INR reviewed Diagnostic Findings Echocardiogram reviewed PG Care Time/CCT Total # of Minutes Spent Total Time Spent with Patient: Total time spent is greater than 50% in coordination of care (as documented) at patient's floor/unit and/or counseling patient: Coding Level of Care Code 38946 SUB INP/OBS CARE 2/35MIN Diagnoses Complicated migraine G43.109 Stroke-like symptoms R29.90 Hypothyroidism E03.9 History of DVT (deep vein thrombosis) Z86.718 PTSD (post-traumatic stress disorder) F43.10 GERD (gastroesophageal reflux disease) K21.9 Hypokalemia E87.6
[2024-08-26] MEDS: dexAMETHasone 6 MG in SYRINGE 0 ML IV SCH (14:52)
[2024-08-26] MEDS: diazePAM 5 MG TABLET PO PRN (17:03)
[2024-08-26 19:47] VITALS: O2SAT 94
[2024-08-27 07:20] VITALS: BP 110/77; PULSE 82; RESP 16; TEMP 97.9
[2024-08-27 08:09] LABS: Potassium 4.2 mmol/L (3.5-5.1)
[2024-08-27 08:10] LABS: BUN Creatinine Ratio 29.9 (10-20); Calcium 8.9 mg/dl (8.6-10.3); Creatinine Clr Calc Pharmacy 93.4 ml/min; Magnesium 2.1 mg/dl (1.7-2.4)
[2024-08-27 08:17] LABS: INR 1.3 (0.9-1.1); Prothrombin Time 14.1 Seconds (9.0-12.0)
--- NOTE | 2024-08-27 09:46 | Discharge Summary ---
Discharge Summary Date of Service August 27, 2024 Principal Dx & Hospital Course #1 = Principal Diagnosis (1) Complicated migraine: With a history of complex migraines and was recently discharged on 08/23/2024 with similar symptoms. Was sent home on prednisone. She was seen at [facility] for migraine with left-sided weakness and had a CT, MRI which were negative on 08/22/2024. MRI brain here did show chronic infarction with microcystic gliosis of the right aspect of the pontine isthmus. Also showed NBO versus consequences of vasculitis. Slight leukocytosis though most likely secondary to recent steroid use. Initially treated here with IV benadryl and compazine without much improvement. Was then given IVFs, IV decadron, and po valium for tension component of headache in posterior neck--> had significant relief. Dc to home on Medrol dose severiano, prn valium, and prn compazine/benadryl Continue Topamax 100 mg twice daily for prophylaxis Stay hydrated and she was able to catch up on sleep here Neurology consulted. Appreciate recommendations-suggests this is psychogenic and no further changes in management recommended Patient follows with neurology as an outpatient with the [place]-she may benefit from seeing Dr. Rodriguez at the headache clinic at [facility]-gave contact info to schedule appt (2) Stroke-like symptoms: Left-sided weakness, most likely secondary to migraine has had a negative workup on 08/22/2024. Now completely resolved on day of discharge as migraine also resolved (3) Hypothyroidism: Will continue on levothyroxine at current dose, TSH is normal (4) History of DVT (deep vein thrombosis): History of DVT and PE on several occasions now on chronic warfarin INR 1.3 at time of admission-she has not missed any doses of Coumadin lately that she knows of PT/INR remained low at 1.2, and then 1.3 again on day of discharge Continue to bridge with Lovenox 40 Mg SQ twice daily until INR therapeutic-check INR at [place] clinic in 2 days and then stop Lovenox once INR therapeutic Continue same Coumadin home regimen especially since starting steroids as this will raise the INR (5) PTSD (post-traumatic stress disorder): No acute issues, continue home medications with Abilify, venlafaxine, and Xanax as needed (6) GERD (gastroesophageal reflux disease): Continue Pepcid (7) Hypokalemia: Replaced with oral potassium chloride and resolved Mildly elevated ALT here in the 50s--> unclear reason why but could be from medication side effect perhaps. Advised checking CMP in 1 week with PCP Plan DVT ppx: Warfarin, bridging Lovenox SQ Dispo: stable for dc to home, much improved Notes For Next Care Provider Check PT/INR in 2 days Check CMP in 1 week Medication Changes From Visit Added Medrol Dose severiano Added compazine and benadryl, valium prn Admission HPI Per Admitting Provider Patient is a 49-year-old female who has a past medical history of complex migraine, history of CVA, history of PE and DVT on warfarin daily, who presents to the hospital as a direct transfer from [facility]. Patient states that around 1 PM on 08/24 she started to have a migraine with left-sided weakness. She had associated nausea and vomiting. Denies any fevers, chills, abdominal pain, urinary symptoms, changes in bowel movements. States that light makes it worse. Patient was recently seen here and was discharged on 08/23/2024 for similar episodes. She had a full stroke workup including CT, CTAs, and MRI which were negative. She was sent home with prednisone. She has been taking prednisone but it has not helped much. Patient states that the headache is at the top of her head rating down to her thighs bilaterally. She also had 2 episodes of complete paralysis of her left lower extremity yesterday as well. Of note patient states that majority of her worsening headache started with [facility]. Discharge Exam Constitutional WD/WN, vitals as above + morbidly obese Respiratory normal respiratory effort, lungs clear to auscultation Cardiovascular RRR, no murmur, no edema Gastrointestinal (Abdomen) normal bowel sounds, soft, nontender, no hepatosplenomegaly Neurologic moves all extremities and awake; no focal motor deficits and not confused Speech / Cognition: normal speech Motor/Sensory: no tremor Psychiatric A+Ox3, euthymic affect Discharge Plan Discharge Items Patient Disposition: Home - Self-Care Reason For Visit: COMPLICATED MIGRAINE Discharge Diagnosis: Complicated migraine Condition on Discharge: Good Activity: As commented below Bathing: No limitations Exercise/Sports: Gradually increase as tolerated Driving/Machine Use: No driving while taking Valium or Compazine Non-emergency contact: Primary Care Provider Call non-emergency contact if: you have any medication questions, your symptoms worsen and your pain is not controlled Follow-up/Referrals: Pearl Rodriguez MD [Physician] - (Consider making and appointment with Dr. Rodriguez of the [facility] headache clinic.) Dionne Fletcher MD [Primary Care Provider] - (Follow-up within 1 to 2 weeks) Diet: Regular Addtl Attending Provider Instructions: You were admitted for a complicated migraine which is now improved. Please finish out the course of steroids. You can continue to take oral Compazine and Benadryl as needed. You can also take oral Valium as needed. Please consider following up with Dr. Rodriguez of the [facility] headache clinic. Your INR remains low at 1.3. Please have your INR checked in 2 days and remain on Lovenox bridging until your INR is in the goal range again. Please also have a complete metabolic panel checked at that time to make sure your electrolytes, kidney function, and liver enzymes are normal as you had some minor abnormalities and these in the hospital. Pending Studies at Discharge: No Stand-Alone Forms: My [facility] [employer], Smoking Cessation Medications and DC Order Prescriptions: New enoxaparin [Lovenox] 40 mg/0.4 mL Syringe 40 mg subcut Q12 3 Days Qty: 2.4 0RF diazepam 5 mg Tablet 5 mg PO BID PRN (Reason: Headache or muscle spasm) Qty: 10 0RF methylprednisolone [Medrol (Severiano)] 4 mg tablets,dose pack 4 mg PO UD Qty: 21 0RF Rx Instructions: Follow instructions on pack prochlorperazine maleate [Compazine] 10 mg tablet 10 mg PO Q8H PRN (Reason: nausea and vomiting or migraine headache) Qty: 20 0RF diphenhydramine HCl [Benadryl] 25 mg capsule 25 mg PO Q8H PRN (Reason: nausea and vomiting or migraine headache) Qty: 20 0RF Rx Instructions: [id number] Continued venlafaxine [Effexor XR] 150 mg Capsule,Extended Release 24hr 300 mg PO HS topiramate 200 mg Capsule,Extended Release 24hr 200 mg PO HS alprazolam 0.25 mg tablet 0.25 mg PO DAILY PRN (Reason: Anxiety) epinephrine 0.3 mg/0.3 mL auto-injector 0.3 mg IM Q4H PRN (Reason: anaphylaxis) Qty: 2 0RF ondansetron 4 mg tablet,disintegrating 4 mg PO Q6H PRN (Reason: nausea and vomiting) Qty: 15 0RF famotidine 40 mg tablet 20 mg PO HS diphenoxylate-atropine 2.5-0.025 mg tablet 1 tab PO QID PRN (Reason: Diarrhea) dicyclomine 20 mg tablet 40 mg PO TID PRN (Reason: Diarrhea) warfarin 5 mg Tablet See Rx Instructions .ROUTE .COMPLEX Rx Instructions: Take 7.5mg by mouth /Mon and 10mg by mouth all other days in the evenings. ezetimibe 10 mg tablet 10 mg PO HS Ozempic 0.25 mg or 0.5 mg (2 mg/3 mL) pen injector 0.5 mg SUBCUT WK Rx Instructions: Mondays lidocaine [Lidoderm] 5 % adhesive patch,medicated 1 patch topical DAILY Qty: 15 0RF Rx Instructions: leave on most painful area for up to 12 hrs levothyroxine [Synthroid] 75 mcg tablet 75 mcg PO DAILYBB aripiprazole 5 mg Tablet 5 mg PO HS Emgality Pen 120 mg/mL pen injector 120 mg SUBCUT MONTHLY Discontinued prednisone 20 mg tablet 40 mg PO DAILY Qty: 6 0RF Rx Instructions: for 3 days in the morning. Discharge Orders: Discharge Order (Routine); Ordered 08/27/24 Ordered By: Rufina Hung Admission Data Admit Date/Time: 08/25/24 01:56 Attending Provider: Rufina Hung Admit Provider: Riaz Tillman Primary Care Provider: Dionne Fletcher Other Providers: [facility]; Bo Baxter; Naldo Velasquez; Ingrid Mckeon; Tammy Haro; Adamaris Clemente; [facility] Stay Data Consultations 08/25/24 03:32 Consult Neurology Routine Pending Results Patient Have Any Pending Studies at Discharge: No Discharge Instructions Given to Patient (Per Discharging Provider) You were admitted for a complicated migraine which is now improved. Please finish out the course of steroids. You can continue to take oral Compazine and Benadryl as needed. You can also take oral Valium as needed. Please consider following up with Dr. Rodriguez of the [facility] headache clinic. Your INR remains low at 1.3. Please have your INR checked in 2 days and remain on Lovenox bridging until your INR is in the goal range again. Please also have a complete metabolic panel checked at that time to make sure your electrolytes, kidney function, and liver enzymes are normal as you had some minor abnormalities and these in the hospital. Total Time Total Time Spent Total Time Spent (In Minutes): 35 min Total Time Includes: Examination of the Patient, Discharge Planning and Medication Reconciliation Coding Level of Care Code 33421 INP/OBS DISCH >30 MIN Diagnoses Complicated migraine G43.109 Stroke-like symptoms R29.90 Hypothyroidism E03.9 History of DVT (deep vein thrombosis) Z86.718 PTSD (post-traumatic stress disorder) F43.10 GERD (gastroesophageal reflux disease) K21.9 Hypokalemia E87.6
[2024-08-27] MEDS ORDERED: WARFARIN SOD 7.5 MG TAB PO SCH (16:00)
== END 2024-08-27 11:04 | disposition home or self-care (01) | DRG 103 ==
LOC: 2S → SUATTDRO 01:56 → PREINTOOBSV 23:56 → 3N 08-26 18:16

== ENCOUNTER 2025-07-20 15:50 | Inpatient (IN) ==
--- NOTE | 2025-07-20 16:31 | Emergency Department Note ---
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 She notes severe migraine over the past two weeks. She states normally she requires admission for this. She notes she was here yesterday and felt minimal improvement. She has severe photophobia. She states that nothing is really different with this migraine than previous. She states that she just seems unable to get relief from her typical medications. She states that she does not want imaging. She notes compliance with her Warfarin. She denies possibility of . They deny fever or chills. No cough or congestion. Denies chest pain or palpitations. No shortness of breath. They deny abdominal pain. No urinary complaints. No recent changes in bowel movements. Patient denies recent changes in medications or OTC supplements. Patient offers no other complaints, today. ADDITIONAL HISTORY OBTAINED: Per HPI Chronic Medical/Social Conditions Affecting Care: Per HPI PAST MEDICAL HISTORY: See Below PAST SURGICAL HISTORY: See Below FAMILY HISTORY: See Below SOCIAL HISTORY: See Below HOME MEDICATIONS: See Below ALLERGIES: See Below VITALS: See Below PHYSICAL EXAMINATION: GENERAL: Alert, well developed, well nourished, no acute distress HEAD: Normocephalic, atraumatic EYES: EOM's intact, sclera anicteric, conjunctiva clear, PERRL OROPHARYNX: Airway patent and mucous membranes moist LUNGS: No respiratory distress, normal respiratory rate and effort HEART: Well perfused, regular rate ABDOMEN: Abdomen non-distended SKIN: Normal color, dry EXTREMITIES: No gross deformities, no edema NEURO: Alert, oriented x3, appropriate for age, moves all four extremities, normal speech, 5/5 strength, normal coordination MEDICAL DECISION MAKING: Differential diagnoses includes but not limited to migraine, cluster headache, tension type headache, ICH, CVA, dural sinus thrombosis In summary, this is a 50 year old female who presented with migraine. Differential as above. Nursing notes and pertinent past medical records reviewed. Vital signs reviewed and the patient is afebrile and HDS. History and presentation revealed known history of migraines. Her history is complicated by prior CVA and chronic anticoagulation. I would also consider ICH as an etiology of her worsening migraine but felt to be less likely. Doubt significant intracranial thrombosis given chronic anticoagulation. Physical examination revealed as above. As a result of my initial evaluation, IV access was established and the patient was placed on CCRM. Therapeutics ordered include migraine cocktail per the patient's request. I did discuss with the patient that I thought a CT head would be important given ongoing migraine in the setting of anticoagulation. Patient states that she would like to avoid imaging at any possibility. She currently declines CT head. IV access was established and the patient was placed on CCRM. Therapeutics ordered include IVFR, IV Mag, Compazine and Benadryl. Decadron given to prevent rebound. Diagnostics interpreted by me include cardiac monitoring as listed below: -Cardiac Monitoring: An order was placed for continuous cardiac monitoring. The monitor shows a rate of 70-100s with regular rhythm. Patient completed laboratory studies and imaging. Results independently interpreted by me are minimal leukocytosis. No significant anemia or thrombocytopenia.. The patient was managed with 2 rounds of a migraine cocktail without any improvement. Patient states normally when her migraines become this severe that she requires admission to the hospital. Patient currently has an intractable migraine. Will offer the patient inpatient management. Patient agreeable to this. Ultimately, the decision was made to admit the patient for intractable migraine. I discussed the case with the hospitalist service via telephone/[employer] and they are agreeable to admit the patient to their services by Dr. Newberry. Based on the above, including the patient's age, coexisting illnesses, labs, imaging, and exam findings the decision to treat as an inpatient. I discussed the patient with the hospitalist team who recommended admission to their services. They received the medications, treatments, interventions indicated above and their condition remained stable. I discussed my findings with the patient and their family and they understand and agree with the treatment plan. All patient / family questions were answered to their satisfaction. Consults/Care Managements Discussions: Per [facility] ER treatment provided: See above Procedures:none Critical Care: None The chart was completed utilizing [employer] voice recognition software. Grammatical errors, random word insertions, pronoun errors, and incomplete sentences are an occasional consequence of this system due to software limitations, ambient noise, and hardware issues. Any formal questions or concerns about the content, text, or information contained within the body of this dictation should be directly addressed to the physician for clarification. Past Med/Surg History Problem List (Updated 07/21/25 @ 23:23 by Brian Gupta DO) Intractable migraine (Acute) Hypokalemia due to excessive gastrointestinal loss of potassium (Acute) Intractable migraine (Acute) Anticoagulation goal of INR 2 to 3 (Chronic) Old cerebrovascular accident (CVA) without late effect PTSD (post-traumatic stress disorder) (Chronic) GERD (gastroesophageal reflux disease) (Chronic) Medical History (Updated 07/21/25 @ 23:23 by Brian Gupta DO) Migraine with acute onset aura History of DVT (deep vein thrombosis) History of pulmonary embolism C. difficile colitis Migraine Surgical History History of mastectomy S/P ROSALES-BSO S/P patent foramen ovale closure History of cholecystectomy History of appendectomy Social History Smoking Status: Never smoker Second Hand Exposure: No; Do You Dip or Chew Tobacco: No; Hx Alcohol Use: No Hx Substance Use: No Preferred Language: Scottish Communication Ability: Effective Highway Patrol [employer] Required: No Beliefs That Will Affect Care: None Current Living Situation: Spouse and Family Current Living Situation Comment: Lives with spouse and child Other Information That Helps Us Care for You: No Feels Safe at Home: Yes Safety Concerns: Feels Safe At This Time Assistive Devices: None Allergies Allergies Allergy/AdvReac Type Severity Reaction Status Date / Time shellfish derived Allergy Severe Swelling Unverified 08/22/24 17:05 of Lip/Tongue/Throat prochlorperazine AdvReac Intermediate caused Verified 08/22/24 17:05 [From Compazine] restless leg syndrome promethazine [From Phenergan] AdvReac Intermediate restless Verified 08/22/24 17:05 leg syndrome Home Meds Home Medications Medication Instructions Recorded Confirmed topiramate 200 mg capsule,extended 200 mg PO HS 10/07/20 07/16/25 release 24 hr venlafaxine 150 mg 300 mg PO HS 10/07/20 07/16/25 capsule,extended release 24 hr (Effexor XR) alprazolam 0.25 mg tablet 0.25 mg PO DAILY PRN Anxiety 09/01/23 07/16/25 dicyclomine 20 mg tablet 40 mg PO TID PRN Diarrhea 03/23/24 07/16/25 famotidine 40 mg tablet 20 mg PO HS 03/23/24 07/16/25 semaglutide 0.25 mg or 0.5 mg (2 0.5 mg subcut WK 03/23/24 07/16/25 mg/3 mL) subcutaneous pen injector (Ozempic) aripiprazole 5 mg tablet 7.5 mg PO HS 06/04/24 07/16/25 galcanezumab-gnlm 120 mg/mL 120 mg subcut MONTHLY 06/04/24 07/16/25 subcutaneous pen injector (Emgality Pen) levothyroxine 75 mcg tablet 75 mcg PO DAILYBB 06/04/24 07/16/25 (Synthroid) diphenhydramine HCl 25 mg capsule 50 mg PO Q8H PRN nausea and 07/16/25 07/16/25 (Benadryl) vomiting or migraine headache lidocaine 5 % topical patch 1 patch topical DAILY PRN Pain 07/16/25 07/16/25 (Lidoderm) warfarin 10 mg tablet 10 mg PO .M,W,T,F,SUN 07/16/25 07/16/25 warfarin 7.5 mg tablet 7.5 mg PO .TUES AND SAT 07/16/25 07/16/25 Previous Rx's Medication Instructions Recorded epinephrine 0.3 mg/0.3 mL 0.3 mg (0.3 mL) IM Q4H PRN 07/17/23 injection, auto-injector anaphylaxis #2 ea ondansetron 4 mg disintegrating 4 mg PO Q6H PRN nausea and 09/18/23 tablet vomiting #15 tabs diazepam 5 mg tablet 5 mg PO BID PRN Headache or muscle 08/27/24 spasm #10 tabs prochlorperazine maleate 10 mg 10 mg PO Q8H PRN nausea and 08/27/24 tablet (Compazine) vomiting or migraine headache #20 tabs Results & Data (ED) Vital Signs Vital Signs - 24 hr 07/20/25 15:52 07/20/25 16:20 07/20/25 17:01 Temperature 36.7 C Temperature Source Oral Pulse Rate 92 H 83 Pulse Rate [Apical] 86 Pulse Rhythm [Apical] Regular Pulse Strength [Apical] Normal Respiratory Rate 20 14 Respiratory Effort / Characteristics Non-Labored Spontaneous Respiratory Depth Normal Respiratory Pattern Regular Blood Pressure 113/83 Blood Pressure [Left Arm] 122/91 Blood Pressure Mean 93 Blood Pressure Mean [Left Arm] 101 Blood Pressure Position [Left Arm] Pulse Oximetry 99 100 Oxygen Delivery Method Room Air Room Air Sepsis Recent Fever Within 48 Hours No Sepsis New/Unexplained Change in Mental Status N/A Sepsis Action Taken by Nursing No Action Required 07/20/25 18:00 07/20/25 20:00 Temperature Temperature Source Pulse Rate Pulse Rate [Apical] 82 78 Pulse Rhythm [Apical] Regular Pulse Strength [Apical] Normal Respiratory Rate 18 20 Respiratory Effort / Characteristics Non-Labored Spontaneous Non-Labored Spontaneous Respiratory Depth Normal Normal Respiratory Pattern Regular Regular Blood Pressure Blood Pressure [Left Arm] 154/106 H 108/78 Blood Pressure Mean Blood Pressure Mean [Left Arm] 122 88 Blood Pressure Position [Left Arm] Lying Pulse Oximetry 100 94 Oxygen Delivery Method Room Air Room Air Sepsis Recent Fever Within 48 Hours Sepsis New/Unexplained Change in Mental Status Sepsis Action Taken by Nursing Laboratory Data 07/20/25 16:32 07/21/25 06:21 Lab Results 07/20/25 07/20/25 Range/Units 16:32 19:14 WBC 12.04 H (4.8-10.8) K/ul RBC 4.61 (4.20-5.40) M/uL Hgb 13.8 (12.0-16.0) g/dl Hct 41.0 (37.0-47.0) % MCV 88.9 (80.0-100.0) fL MCH 29.9 (25.0-34.0) pg MCHC 33.7 (32.0-36.0) g/dL RDW Std Deviation 44.6 (36.4-46.3) fL RDW Coeff of Wilmer 13.8 (11.5-14.5) % Plt Count 177 (130-400) K/uL MPV 9.6 (9.4-12.4) fL Immature Gran % (Auto) 0.4 % Neut % (Auto) 80.9 % Lymph % (Auto) 13.7 % Frio % (Auto) 4.2 % Eos % (Auto) 0.6 % Baso % (Auto) 0.2 % Neut # (Auto) 9.73 H (1.40-6.50) K/uL Lymph # (Auto) 1.65 (1.20-3.40) K/uL Frio # (Auto) 0.51 (0.11-0.59) K/uL Eos # (Auto) 0.07 (0.00-0.50) K/uL Baso # (Auto) 0.03 (0.00-0.20) K/uL Immature Gran # (Auto) 0.05 (0.01-0.20) K/uL PT 23.5 H (9.0-12.0) Seconds INR 2.3 H (0.9-1.1) Sodium 139 (136-145) mmol/L Potassium 3.4 L (3.5-5.1) mmol/L Chloride 105 (98-107) mmol/L Carbon Dioxide 26 (21-32) mmol/L Anion Gap 8 (3-11) BUN 16 (6-23) mg/dl Creatinine 1.21 H (0.6-1.2) mg/dl Est Cr Clr Drug Dosing 60.9 ml/min eGFR 54.94 BUN/Creatinine Ratio 13.2 (10-20) Glucose 96 (70-99(Fasting)) mg/dl Calcium 9.5 (8.6-10.3) mg/dl Magnesium 2.3 (1.7-2.4) mg/dl Urine Color Yellow Urine Appearance Cloudy A (Clear) Urine pH 7.0 (4.5-7.5) Ur Specific [place] 1.008 (1.000-1.030) Urine Protein Negative (Negative) Urine Glucose (UA) Negative (Negative) Urine Ketones Negative (Negative) Urine Blood Trace H (Negative) Urine Nitrite Negative (Negative) Urine Bilirubin Negative (Negative) Urine Urobilinogen Negative (Negative) Ur Leukocyte Esterase 3+ H (Negative) Urine WBC (Auto) >50 H (0-5) /hpf Urine RBC (Auto) 0-2 (0-2) /hpf U Hyaline Cast (Auto) 0-2 (0-2) /lpf U Epithel Cells (Auto) >20 H (0-2) /hpf Urine Bacteria (Auto) 4+ H (None Seen) Urine Comment Administered Medications Aripiprazole (Aripiprazole 5 Mg Tab) 7.5 mg PO HS EVELIN Stop: 08/19/25 21:44 Last Admin: 07/21/25 21:44 Dose: 7.5 mg Documented By: Admin: 07/20/25 22:37 Dose: 7.5 mg Documented By: ana Diazepam (Diazepam 5 Mg Tablet) 5 mg PO BID PRN PRN Reason: Headache or muscle spasm Stop: 08/19/25 21:44 Last Admin: 07/21/25 03:08 Dose: 5 mg Documented By: TAMIE Diphenhydramine HCl (Diphenhydramine 50 Mg/Ml Vial) 50 mg IV Q6H EVELIN Stop: 08/19/25 21:59 Last Admin: 07/21/25 21:34 Dose: 50 mg Documented By: Admin: 07/21/25 16:09 Dose: 50 mg Documented By: Admin: 07/21/25 09:55 Dose: 50 mg Documented By: Admin: 07/21/25 04:10 Dose: 50 mg Documented By: snc Admin: 07/20/25 22:45 Dose: 50 mg Documented By: ana Famotidine (Famotidine 20 Mg Tab) 20 mg PO HS EVELIN Stop: 08/19/25 21:44 Last Admin: 07/21/25 21:35 Dose: 20 mg Documented By: Admin: 07/20/25 22:40 Dose: 20 mg Documented By: ana Prochlorperazine 5 mg/ Syringe 5 mls @ 5 mls/min IV Q6H EVELIN Stop: 08/19/25 21:59 Last Admin: 07/21/25 21:43 Dose: 5 mls/min Documented By: Admin: 07/21/25 16:10 Dose: 5 mls/min Documented By: Admin: 07/21/25 09:57 Dose: 5 mls/min Documented By: Admin: 07/21/25 04:11 Dose: 5 mls/min Documented By: ana Admin: 07/20/25 22:40 Dose: 5 mls/min Documented By: ana Acetaminophen (Ofirmev) 1,000 mg in 100 mls @ 400 mls/hr IV Q8H EVELIN Stop: 07/23/25 21:59 Last Infusion: 07/21/25 21:57 Dose: Infused Documented By: Admin: 07/21/25 21:32 Dose: 400 mls/hr Documented By: Infusion: 07/21/25 14:46 Dose: Infused Documented By: Admin: 07/21/25 14:30 Dose: 400 mls/hr Documented By: Infusion: 07/21/25 06:03 Dose: Infused Documented By: ana Admin: 07/21/25 05:48 Dose: 400 mls/hr Documented By: ana Infusion: 07/20/25 23:07 Dose: Infused Documented By: ana Admin: 07/20/25 22:48 Dose: 400 mls/hr Documented By: ana Ketorolac Tromethamine (Ketorolac Tromethamine 15 Mg/Ml Vial) 10 mg IV Q6H EVELIN Stop: 07/25/25 21:59 Last Admin: 07/21/25 21:33 Dose: 10 mg Documented By: Admin: 07/21/25 16:54 Dose: 10 mg Documented By: Admin: 07/21/25 09:55 Dose: 10 mg Documented By: Admin: 07/21/25 04:11 Dose: 10 mg Documented By: ana Admin: 07/20/25 22:45 Dose: 10 mg Documented By: ana Levothyroxine Sodium (Levothyroxine Sodium 75 Mcg Tablet) 75 mcg PO DAILYBB [facility] Stop: 08/20/25 06:29 Last Admin: 07/21/25 05:47 Dose: 75 mcg Documented By: ana Miscellaneous (Remove Lidoderm Patch) 1 each N/A DAILY@2100 EVELIN Stop: 08/19/25 21:44 Last Admin: 07/21/25 21:00 Dose: Not Given Documented By: Admin: 07/20/25 22:45 Dose: 1 each Documented By: ana Young (Topiramate - Order Awaiting Action) 1 each N/A QS EVELIN Stop: 08/20/25 00:00 Last Admin: 07/21/25 14:52 Dose: Not Given Documented By: Admin: 07/21/25 08:51 Dose: Not Given Documented By: Admin: 07/21/25 00:32 Dose: Not Given Documented By: ana Ondansetron HCl (Ondansetron Inj 2 Mg/Ml 2 Ml Vial) 4 mg IV Q6H PRN PRN Reason: Nausea And Vomiting Stop: 08/19/25 21:44 Last Admin: 07/21/25 16:09 Dose: 4 mg Documented By: SHAYY Venlafaxine HCl (Venlafaxine Hcl Xr 150 Mg Capxr) 300 mg PO HS EVELIN Stop: 08/19/25 21:44 Last Admin: 07/21/25 21:43 Dose: 300 mg Documented By: Admin: 07/20/25 22:38 Dose: 300 mg Documented By: ana Warfarin Sodium (Warfarin Sod 10 Mg Tab) 10 mg PO [id number]@1600 EVELIN Stop: 08/19/25 21:44 Last Admin: 07/21/25 16:53 Dose: 10 mg Documented By: Admin: 07/20/25 22:38 Dose: 10 mg Documented By: ana Discontinued Medications Dexamethasone (Dexamethasone Sod Inj 4 Mg/Ml Vial) 10 mg IV NOW STA Stop: 07/20/25 16:06 Last Admin: 07/20/25 17:22 Dose: 10 mg Documented By: ERICKSON Diazepam (Diazepam 5 Mg Tablet) 5 mg PO NOW ONE Stop: 07/20/25 20:29 Last Admin: 07/20/25 21:26 Dose: 5 mg Documented By: JACQUE Diphenhydramine HCl (Diphenhydramine 50 Mg/Ml Vial) 50 mg IV NOW STA Stop: 07/20/25 16:06 Last Admin: 07/20/25 17:18 Dose: 50 mg Documented By: ERICKSON Diphenhydramine HCl (Diphenhydramine 50 Mg/Ml Vial) 25 mg IV NOW STA Stop: 07/20/25 18:03 Last Admin: 07/20/25 18:20 Dose: 25 mg Documented By: MYCHAL Droperidol (Droperidol 5 Mg/2 Ml Vial) 1.25 mg IV ONE STA Stop: 07/20/25 18:03 Last Admin: 07/20/25 18:24 Dose: 1.25 mg Documented By: MYCHAL Prochlorperazine (Compazine) 1 mls @ 1 mls/min IV ONE ONE Stop: 07/20/25 16:06 Last Admin: 07/20/25 17:26 Dose: 1 mls/min Documented By: ERICKSON Parenteral Electrolytes (Plasma-Lyte A Ph 7.4) 1,000 mls @ 999 mls/hr IV .Q1H1M ONE Stop: 07/20/25 17:05 Last Infusion: 07/20/25 18:43 Dose: Infused Documented By: Admin: 07/20/25 17:29 Dose: 999 mls/hr Documented By: ERICKSON Magnesium Sulfate/Dextrose (Magnesium Sulfate / D5w) 1 gm in 100 mls @ 100 mls/hr IV NOW STA Stop: 07/20/25 17:06 Last Infusion: 07/20/25 18:43 Dose: Infused Documented By: Admin: 07/20/25 17:29 Dose: 100 mls/hr Documented By: ERICKSON Acetaminophen (Ofirmev) 1,000 mg in 100 mls @ 400 mls/hr IV NOW STA Stop: 07/20/25 18:16 Last Infusion: 07/20/25 18:43 Dose: Infused Documented By: Admin: 07/20/25 18:19 Dose: 400 mls/hr Documented By: MYCHAL Potassium Chloride 40 meq/ (Lactated Ringer's) 1,020 mls @ 80 mls/hr IV .[id number] EVELIN Stop: 07/21/25 08:59 Last Infusion: 07/21/25 09:57 Dose: Infused Documented By: Admin: 07/20/25 21:26 Dose: 80 mls/hr Documented By: JACQUE Dexamethasone 6 mg/ Syringe 1.5 mls @ 1 mls/min IV DAILY EVELIN Stop: 08/20/25 08:59 Last Admin: 07/21/25 09:56 Dose: 1 mls/min Documented By: SHAYY Ketorolac Tromethamine (Ketorolac Tromethamine 15 Mg/Ml Vial) 15 mg IV NOW STA Stop: 07/20/25 18:03 Last Admin: 07/20/25 18:22 Dose: 15 mg Documented By: MYCHAL Discharge Plan Visit Data Chief Complaint: Headache Stated Complaint: MIGRAINE PAST 2 WKS ED Provider: Brian Gupta Discharge Problem: Intractable migraine Patient Disposition: Admitted As Inpatient Condition: Fair Discharge Instructions Interventions: ED Discharge Assessment Last Done: 07/20/25 21:47
[2025-07-20 16:53] LABS: Hematocrit (blood only) 41.0 % (37.0-47.0); Hemoglobin 13.8 g/dl (12.0-16.0); Immature Granulocytes # (auto) 0.05 K/uL (0.01-0.20); Immature Granulocytes % (auto) 0.4 %; Mean Corpuscular Hemoglobin 29.9 pg (25.0-34.0); Mean Corpuscular Volume 88.9 fL (80.0-100.0); Platelet Count 177 K/uL (130-400); RDW Standard Deviation 44.6 fL (36.4-46.3); Red Blood Count 4.61 M/uL (4.20-5.40); White Blood Count 12.04 K/ul (4.8-10.8)
[2025-07-20 17:11] LABS: Anion Gap 8.0 (3-11); Blood Urea Nitrogen 16.0 mg/dl (6-23); Calcium 9.5 mg/dl (8.6-10.3); Carbon Dioxide 26.0 mmol/L (21-32); Chloride 105.0 mmol/L (98-107); Creatinine Clr Calc Pharmacy 60.9 ml/min; Glucose 96.0 mg/dl (70-99(Fasting)); Magnesium 2.3 mg/dl (1.7-2.4); Potassium 3.4 mmol/L (3.5-5.1); Sodium 139.0 mmol/L (136-145)
[2025-07-20] MEDS: diphenhydrAMINE 50 MG/ML VIAL IV STA ×2 (17:18→18:20)
[2025-07-20] MEDS: DEXAMETHASONE SOD INJ 4 MG/ML VIAL IV STA (17:22)
[2025-07-20 17:24] LABS: INR 2.3 (0.9-1.1); Prothrombin Time 23.5 Seconds (9.0-12.0)
[2025-07-20] MEDS: PROCHLORPERAZINE 1 ML IV ONE (17:26)
[2025-07-20] MEDS: PLASMA-LYTE A 1,000 ML IV ONE (17:29)
[2025-07-20] MEDS: MAGNESIUM SULFATE / D5W 1 GM/100 ML BAG IV STA (17:29)
[2025-07-20] MEDS: ACETAMINOPHEN 1,000 MG/100 ML VIAL IV STA (18:19)
[2025-07-20] MEDS: KETOROLAC TROMETHAMINE 15 MG/ML VIAL IV STA (18:22)
[2025-07-20] MEDS: DROPERIDOL 5 MG/2 ML VIAL IV STA (18:24)
[2025-07-20 19:40] LABS: Appearance Urine Cloudy (Clear); Bacteria Urine Automated 4+ (None Seen); Cast Urine Automated 0-2 /lpf (0-2); Epithelial Cell Urine Auto >20 /hpf (0-2); Glucose Urine UA Negative (Negative); RBC Urine Automated 0-2 /hpf (0-2); WBC Urine Automated >50 /hpf (0-5)
--- NOTE | 2025-07-20 20:11 | History & Physical Report ---
Date of Service July 20, 2025 Assessment & Plan (1) Intractable migraine: (2) Hypokalemia due to excessive gastrointestinal loss of potassium: (3) Anticoagulation goal of INR 2 to 3: (4) Old cerebrovascular accident (CVA) without late effect: Plan Patient is a 50-year-old female with past medical history of DVT/PE on warfarin, CVA, GERD, frequent migraines. Patient has had an ongoing migraine since 07/16 which has required hospital admission and numerous ER visits, she is again being admitted for an intractable migraine with visual auras and nausea/vomiting. #intractable migraine - ongoing since 07/16. WC 12.04, K+ 3.4, mg 2.3. - Scheduled Compazine 5 Mg IV q6h, Benadryl 50 Mg IV q6h, Toradol 10 Mg IV q6h, Tylenol 1G IV q8h - Decadron 10mg IV in ED, continue with 6mg daily and consider steroid taper on discharge - continue home Valium 5mg po prn - Zofran prn - EKG ordered to assess Qtc - continue topiramate - continue to follow up with headache specialist in outpatient setting #hypokalemia - likely 2/2 GI loses. Renal function at baseline (Cr 1.21). - LR @ 80 ml/hr with 40 meq KCl x1L - trend BMP #asymptomatic bacteruria - UA questionable for infection however much contamin ant with > 20 epithelial cells. Patient asymptomatic. - defer tx on admission - follow urine cultures #Hx DVT/PE - continue warfarin, INR 2.3. #GERD - continue Pepcid #hypothyroidism - continue levothyroxine #mental health - continue Abilify and venlafaxine VTE ppx: continue home warfarin Dispo: med surg Admission and Anticipated Discharge Date Admission Date: 07/20/25 History of Present Illness Chief Complaint: headache Primary Care Provider: Dionne Fletcher MD Patient is a 50-year-old female with past medical history of DVT/PE on warfarin, CVA, GERD, frequent migraines. Patient has had an ongoing migraine since 07/16 which has required hospital admission and numerous ER visits, she is again being admitted for an intractable migraine with visual auras and nausea/vomiting. Patient seen at bedside. Her headache went away after discharge on 07/17 for a few hours however then returned and she came into the ED 07/19. Headache was again treated however then returned after an hour and a half so she returned today 07/20. She does have visual auras of seeing zigzags, popping things, and auditory auras with ringing in her ears. She has had associated nausea and vomiting, vomiting approximately 3-4 times today. She denies any hematemesis. She typically has 1 migraine a week and [facility] She [facility] them on [facility]/16 prior to admission in which they stopped her previously monthly injection and transition her to Emgality. Her last injection was 07/05 of the previous one in which she cannot remember the name. They also noted that they will try Botox in the future. She is also on a triptan and nortriptyline for headaches at home. She denies any dysuria, increase in urinary frequency, or other urinary symptoms regarding her questionable UA. She denies nicotine or alcohol use. She only took her levothyroxine, nortriptyline, and triptan this morning and is due for all of her other home medications. Typically her migraines are resolved with scheduled Compazine 5 mg, Benadryl 50 mg, and Toradol 10 mg. She is still having significant migraine symptoms at time of admission even after IV medication in the ED. She wishes to maintain her full CODE STATUS. Previous medical records reviewed. Patient was admitted to [facility] from 07/16 to 07/17 for an intractable migraine with visual auras and was recommended to follow-up with her headache specialist on discharge. Patient was then seen in the ED 07/19 for migraine and discharged home. She returned 07/20 to the ED. ED course 07/16: dexamethasone 10 mg IV, Benadryl 50 Mg IV x 2, 2L NSS bolus, Compazine 5 Mg IV x2, Tylenol 1G IV, Toradol 30 mg IV, Zofran 4 Mg IV Admission 07/16-07/17: scheduled Compazine and Benadryl q6h, 1g PO tylenol moon q8 ED course 07/19: dexamethasone 10 mg IV, Benadryl 50 Mg IV, droperidol 2.5 mg IV, Compazine 10 Mg IV x2, 1L NSS bolus ED course 07/20: Compazine 5 mg IV, Benadryl 50 Mg IV, Decadron 10 mg IV, magnesium 1G IV, Benadryl 25 mg IV, droperidol 1.25 mg IV, Toradol 15 mg IV, Tylenol 1G IV, Plasma-Lyte 1L bolus Allergies Allergy/AdvReac Type Severity Reaction Status Date / Time shellfish derived Allergy Severe Swelling Unverified 08/22/24 17:05 of Lip/Tongue/Throat prochlorperazine AdvReac Intermediate caused Verified 08/22/24 17:05 [From Compazine] restless leg syndrome promethazine [From Phenergan] AdvReac Intermediate restless Verified 08/22/24 17:05 leg syndrome Home Medications Medication Instructions Recorded Confirmed Type topiramate 200 mg capsule,extended 200 mg PO HS 10/07/20 07/16/25 History release 24 hr venlafaxine 150 mg 300 mg PO HS 10/07/20 07/16/25 History capsule,extended release 24 hr (Effexor XR) epinephrine 0.3 mg/0.3 mL 0.3 mg (0.3 mL) IM Q4H PRN 07/17/23 07/16/25 Rx injection, auto-injector anaphylaxis #2 ea alprazolam 0.25 mg tablet 0.25 mg PO DAILY PRN Anxiety 09/01/23 07/16/25 History ondansetron 4 mg disintegrating 4 mg PO Q6H PRN nausea and 09/18/23 07/16/25 Rx tablet vomiting #15 tabs dicyclomine 20 mg tablet 40 mg PO TID PRN Diarrhea 03/23/24 07/16/25 History famotidine 40 mg tablet 20 mg PO HS 03/23/24 07/16/25 History semaglutide 0.25 mg or 0.5 mg (2 0.5 mg subcut WK 03/23/24 07/16/25 History mg/3 mL) subcutaneous pen injector (Ozempic) aripiprazole 5 mg tablet 7.5 mg PO HS 06/04/24 07/16/25 History galcanezumab-gnlm 120 mg/mL 120 mg subcut MONTHLY 06/04/24 07/16/25 History subcutaneous pen injector (Emgality Pen) levothyroxine 75 mcg tablet 75 mcg PO DAILYBB 06/04/24 07/16/25 History (Synthroid) diazepam 5 mg tablet 5 mg PO BID PRN Headache or muscle 08/27/24 07/16/25 Rx spasm #10 tabs prochlorperazine maleate 10 mg 10 mg PO Q8H PRN nausea and 08/27/24 07/16/25 Rx tablet (Compazine) vomiting or migraine headache #20 tabs diphenhydramine HCl 25 mg capsule 50 mg PO Q8H PRN nausea and 07/16/25 07/16/25 History (Benadryl) vomiting or migraine headache lidocaine 5 % topical patch 1 patch topical DAILY PRN Pain 07/16/25 07/16/25 History (Lidoderm) warfarin 10 mg tablet 10 mg PO .M,W,T,F,SUN 07/16/25 07/16/25 History warfarin 7.5 mg tablet 7.5 mg PO .TUES AND SAT 07/16/25 07/16/25 History Past Med/Surg History Problem List Hypokalemia due to excessive gastrointestinal loss of potassium Migraine (Acute) Intractable migraine (Acute) Anticoagulation goal of INR 2 to 3 (Chronic) Old cerebrovascular accident (CVA) without late effect Migraine with acute onset aura PTSD (post-traumatic stress disorder) (Chronic) GERD (gastroesophageal reflux disease) (Chronic) Medical History History of DVT (deep vein thrombosis) History of pulmonary embolism C. difficile colitis Migraine Surgical History History of mastectomy S/P ROSALES-BSO S/P patent foramen ovale closure History of cholecystectomy History of appendectomy Social History Smoking Status: Never smoker Second Hand Exposure: No; Do You Dip or Chew Tobacco: No; Hx Alcohol Use: No Hx Substance Use: No Preferred Language: Danish Communication Ability: Effective Map Clerk Required: No Beliefs That Will Affect Care: None Current Living Situation: Spouse and Family Current Living Situation Comment: Lives with spouse and child Other Information That Helps Us Care for You: No Feels Safe at Home: Yes Safety Concerns: Feels Safe At This Time Assistive Devices: Glasses, Hearing Aid - Bilateral and Hospital Bed Review of Systems Review of Systems: see HPI Physical Exam Physical Exam: The patient is awake, alert and oriented 3, well developed and well nourished, normocephalic and atraumatic, in no acute distress. Non-toxic appearing. HEENT- EOMI, mucous membranes dry. Hearing grossly intact. Heart-normal S1 and S2. No murmurs, rubs or gallops. Lungs-clear bilaterally, no respiratory distress, no accessory muscle use. Abdomen-normal bowel sounds and soft. No ascites noted. Non-tender. Extremities- no clubbing, cyanosis, or edema. Rheumatologic-normal range of motion. Psychiatric-normal affect. Results & Data Results & Data Vital Signs (Past 12 Hours) Vital Signs Temp Pulse Pulse Resp BP BP Pulse Ox 07/20/25 18:00 82 18 154/106 H 100 07/20/25 17:01 86 14 122/91 100 07/20/25 16:20 83 07/20/25 15:52 36.7 C 92 H 20 113/83 99 O2 Del Method 07/20/25 18:00 Room Air 07/20/25 17:01 Room Air 07/20/25 16:20 07/20/25 15:52 Room Air Laboratory Results reviewed cbc, cmp, pt/inr, mag, ua Diagnostic Findings none ECG Additional Comments: ordered to assess qtc Code Status & VTE Plan Code Status full code VTE Prophylaxis Plan VTE Prophylaxis will be ordered: Yes Supervising Physician Co-Signing Physician Notes Patient seen and examined, chart reviewed, case discussed with KENA Mack and I agree with the assessment and plan as above. Patient with intractable migraine, no relief with medications provided On exam she is resting comfortably, cool towel over her fact, AA&O Skin - no rash HEENT - MMM, PERRL Heart - +S1/S2, regular Lungs - CTA Abd - soft, NT/ND Ext - no edema Labs and images reviewed WBC=12.04 INR=2.3 K=3.4 Cr=1.21 Brain imaging deferred due to patient preference Assessment/Plan - intractable migraine. Patient reports this is similar to prior migraines, no focal findings. -Observation to medical -Dexamethasone -Toradol -Valium -Compazine -Remainder as above -Continue Coumadin - previous DVT, monitor INR PG Care Time/CCT Total # of Minutes Spent Total Time Spent with Patient: Total time spent is greater than 50% in coordination of care (as documented) at patient's floor/unit and/or counseling patient: Coding Level of Care Code 32505 INT INP/OBS CARE MIN Diagnoses Intractable migraine G43.919 Hypokalemia due to excessive gastrointestinal loss of potassium E87.6 Anticoagulation goal of INR 2 to 3 Z51.81; Z79.01 Old cerebrovascular accident (CVA) without late effect Z86.73
[2025-07-20] MEDS: POTASSIUM CHLORIDE 40 MEQ in LACTATED RINGER'S 1,000 ML IV SCH (21:26)
[2025-07-20] MEDS ORDERED: LIDOCAINE 5% 1 PATCH TD PRN (21:45)
[2025-07-20] MEDS ORDERED: POLYETHYLENE (MIRALAX) 17 GM PACK PO PRN (21:45)
[2025-07-20] MEDS ORDERED: DOCUSATE SODIUM 100 MG CAP PO PRN (21:45)
[2025-07-20] MEDS ORDERED: DICYCLOMINE HCL 20 MG TAB PO PRN (21:45)
[2025-07-20] MEDS: ARIPiprazole 5 MG TAB PO SCH (22:37)
[2025-07-20] MEDS: WARFARIN SOD 10 MG TAB PO SCH (22:38)
[2025-07-20] MEDS: VENLAFAXINE HCL XR 150 MG CAPXR PO SCH (22:38)
[2025-07-20] MEDS: FAMOTIDINE 20 MG TAB PO SCH (22:40)
[2025-07-20] MEDS: PROCHLORPERAZINE 5 MG in SYRINGE 4 ML IV SCH (22:40)
[2025-07-20] MEDS: KETOROLAC TROMETHAMINE 15 MG/ML VIAL IV SCH (22:45)
[2025-07-20] MEDS: diphenhydrAMINE 50 MG/ML VIAL IV SCH (22:45)
[2025-07-20] MEDS: REMOVE LIDODERM PATCH SCH (22:45)
[2025-07-20] MEDS: ACETAMINOPHEN 1,000 MG/100 ML VIAL IV SCH (22:48)
[2025-07-21] MEDS: LEVOTHYROXINE SODIUM 75 MCG TABLET PO SCH (05:47)
[2025-07-21 07:19] LABS: Anion Gap 5.0 (3-11); Blood Urea Nitrogen 15.0 mg/dl (6-23); Calcium 8.7 mg/dl (8.6-10.3); Carbon Dioxide 22.0 mmol/L (21-32); Chloride 112.0 mmol/L (98-107); Creatinine Clr Calc Pharmacy 81.2 ml/min; Glucose 103.0 mg/dl (70-99(Fasting)); Potassium 4.5 mmol/L (3.5-5.1); Sodium 139.0 mmol/L (136-145)
--- NOTE | 2025-07-21 08:06 | Hospitalist Progress Note ---
Date of Service July 21, 2025 Assessment & Plan (1) Intractable migraine: (2) Hypokalemia due to excessive gastrointestinal loss of potassium: (3) Anticoagulation goal of INR 2 to 3: Plan In summary this is a 50-year-old female who presents with an intractable migraine #Chronic intractable migraine without current aura Persistent symptoms despite medical therapy, though her pripr admission required ~18-24 hours of consistent treatment before resolution in addition to sleep, the latter of which the patient identifies as a significant trigger for their current presentations as they have a [id number]-fhr child which makes it difficult to obtain restful sleep Continue scheduled Benadryl and Compazine intravenously every 6 hours scheduled, to be administered within a 30-minute interval of each other Continue acetaminophen 1000 mg p.o. every 8 hours scheduled - Continue Valium 5 mg po. twice daily for headache, home medication - Stop Dexamethasone due to lack of evidence for severe migraines and iatrogenic insomnia - Consider MRV brain if unimproved Monitor for new neurologic symptoms Admission and Anticipated Discharge Date Admission Date: July 20, 2025 Subjective Ms. Pereira is a 50-year-old female whose active medical conditions include chronic migraines with associated aura, PTSD, previous CVA without neurologic deficit, previous DVT established on coumadin who presented to the [facility] on 07/20 due to recurrent migraine without visual aura. No acute overnight events; denies any neurologic deficits or auras this morning; continues to have difficulty with sleep which she suspects precipitated her symptoms again leading to her return to the ED Review of Systems Review of Systems: Review of constitutional, cardiovascular, pulmonary, musculoskeletal, neurologic systems was unremarkable other than her persistent headache Physical Exam Physical Exam: General: Adult female in no acute distress Vital Signs: Reviewed HEENT: Pupils equally round and reactive to light; extraocular motion intact Pulmonary: Symmetric chest wall excursion without restriction; clear to auscultation bilaterally Cardiovascular: Regular rate and rhythm without murmurs, rubs, or gallops; S1 and S2 normal; right radial pulse 2+ without notable lower extremity edema Gastrointestinal: Soft, protuberant Neurologic: Cranial nerves II to XII grossly intact; no discernible focal weakness nor paresthesia Results & Data Results & Data Vital Signs (Past 12 Hours) Vital Signs Temp Pulse Pulse Resp BP BP BP 07/21/25 07:09 36.5 C 80 16 101/69 07/20/25 21:47 86 16 108/76 07/20/25 21:45 36.5 C 86 14 102/67 07/20/25 21:45 36.5 C 86 14 07/20/25 20:31 84 Pulse Ox O2 Del Method 07/21/25 07:09 97 Room Air 07/20/25 21:47 97 Room Air 07/20/25 21:45 95 Room Air 07/20/25 21:45 95 Room Air 07/20/25 20:31 Laboratory Results INR 2.6 PG Care Time/CCT Total # of Minutes Spent Total Time Spent with Patient: Total time spent is greater than 50% in coordination of care (as documented) at patient's floor/unit and/or counseling patient: Coding Level of Care Code 70849 SUB INP/OBS CARE 2MIN Diagnoses Intractable chronic migraine with aura with status migrainosus G43.E11 Migraine type: chronic migraine (15 or more days per month) with aura Status migrainosus presence: with status migrainosus Hypokalemia due to excessive gastrointestinal loss of potassium E87.6 Anticoagulation goal of INR 2 to 3 Z51.81; Z79.01 (1) Intractable migraine Migraine type: chronic migraine (15 or more days per month) with aura Status migrainosus presence: with status migrainosus Qualified Code(s): G43.E11 - Chronic migraine with aura, intractable, with status migrainosus
[2025-07-21] MEDS: dexAMETHasone 6 MG in SYRINGE 0 ML IV SCH (09:56)
[2025-07-21] MEDS: ONDANSETRON INJ 2 MG/ML 2 ML VIAL IV PRN (16:09)
--- NOTE | 2025-07-22 08:01 | Hospitalist Progress Note ---
Date of Service July 22, 2025 Assessment & Plan (1) Intractable migraine: (2) Hypokalemia due to excessive gastrointestinal loss of potassium: (3) Anticoagulation goal of INR 2 to 3: Plan In summary this is a 50-year-old female who presents with an intractable migraine #Chronic intractable migraine without current aura Persistent symptoms despite medical therapy, though her pripr admission required ~18-24 hours of consistent treatment before resolution in addition to sleep, the latter of which the patient identifies as a significant trigger for their current presentations as they have a [id number]-[id number] child which makes it difficult to obtain restful sleep; on 07/21 the patient notified her nurse that she has been treated with twice weekly ketamine infusions in the outpatient setting for management of her migraines, though this was not previously known and she has not been able to make an appointment for 2 weeks or so due to her current state Continue scheduled Benadryl and Compazine intravenously every 6 hours scheduled, to be administered within a 30-minute interval of each other Continue acetaminophen 1000 mg p.o. every 8 hours scheduled - Continue Valium 5 mg po. twice daily for headache, home medication - Stop Dexamethasone due to lack of evidence for severe migraines and iatrogenic insomnia - Consider MRV brain if unimproved Monitor for new neurologic symptoms - Consult pain management regarding utility/ability to administer ketamine infusion Admission and Anticipated Discharge Date Admission Date: July 20, 2025 Subjective Ms. Pereira is a 50-year-old female whose active medical conditions include chronic migraines with associated aura, PTSD, previous CVA without neurologic deficit, previous DVT established on coumadin who presented to the [facility] on 07/20 due to recurrent migraine without visual aura. Overnight documentation from nursing staff notes a right facial droop, though there is no additional documentation of nighttime providers being made aware nor assessment by additional medical staff; no other acute overnight events Review of Systems Review of Systems: Review of constitutional, cardiovascular, pulmonary, musculoskeletal, neurologic systems was unremarkable other than her persistent headache Physical Exam Physical Exam: General: Adult female in no acute distress Vital Signs: Reviewed HEENT: Pupils equally round and reactive to light; extraocular motion intact Pulmonary: Symmetric chest wall excursion without restriction; clear to auscultation bilaterally Cardiovascular: Regular rate and rhythm without murmurs, rubs, or gallops; S1 and S2 normal; right radial pulse 2+ without notable lower extremity edema Gastrointestinal: Soft, protuberant Neurologic: Cranial nerves II to XII grossly intact; no discernible focal weakness nor paresthesia Results & Data Results & Data Vital Signs (Past 12 Hours) Vital Signs Temp Pulse Resp BP Pulse Ox O2 Del Method 07/22/25 07:16 36.7 C 80 14 107/74 98 Room Air 07/21/25 23:24 36.6 C 78 16 107/72 97 Room Air PG Care Time/CCT Total # of Minutes Spent Total Time Spent with Patient: Total time spent is greater than 50% in coordination of care (as documented) at patient's floor/unit and/or counseling patient: Coding Level of Care Code 18579 SUB INP/OBS CARE 235MIN Diagnoses Intractable chronic migraine with aura with status migrainosus G43.E11 Migraine type: chronic migraine (15 or more days per month) with aura Status migrainosus presence: with status migrainosus Hypokalemia due to excessive gastrointestinal loss of potassium E87.6 Anticoagulation goal of INR 2 to 3 Z51.81; Z79.01 (1) Intractable migraine Migraine type: chronic migraine (15 or more days per month) with aura Status migrainosus presence: with status migrainosus Qualified Code(s): G43.E11 - Chronic migraine with aura, intractable, with status migrainosus
--- NOTE | 2025-07-22 08:56 | Pain Management Consultation ---
Date of Consultation July 22, 2025 Assessment & Plan (1) Intractable migraine: Plan 1. She is nontender at potential nerve block areas. Nothing to offer interventionally at this time. 2. She will continue current medication regimen. 3. Continue to follow-up with [facility] for chronic migraine treatments. 4. Will sign off on the patient. Please contact with any questions or concerns. History of Present Illness Attending Physician: Ousmane Be, History of Present Illness This is a 50-year-old female with a past medical history of DVT/PE on warfarin, CVA, GERD, frequent migraines. She has been admitted for chronic intractable migraine. She does work with [facility] for treatment of migraines. She was doing fairly well for about 6 months with ketamine infusions every Monday and , monthly CGRP inhibitor, and Fioricet for abortive. There has been discussion towards starting Botox injections and was recently switched to E mgality. She has been having difficulty with relieving this migraine despite 3 emergency room visits and 2 hospital admissions over the past 6 days. She has been receiving IV Compazine, Benadryl, Toradol, and Tylenol. IV Decadron was provided in the ED and she does have Valium to take if needed. She describes a constant deep aching pain behind the right eye. She does also have some neck tightness going into the left occiput. She does have associated light sensitivity, nausea. No extremity weakness or vision changes. Case discussed with Dr. Katia Beyer Allergies Allergy/AdvReac Type Severity Reaction Status Date / Time shellfish derived Allergy Severe Swelling Unverified 08/22/24 17:05 of Lip/Tongue/Throat prochlorperazine AdvReac Intermediate caused Verified 08/22/24 17:05 [From Compazine] restless leg syndrome promethazine [From Phenergan] AdvReac Intermediate restless Verified 08/22/24 17:05 leg syndrome Home Medications Medication Instructions Recorded Confirmed Type topiramate 200 mg capsule,extended 200 mg PO HS 10/07/20 07/16/25 History release 24 hr venlafaxine 150 mg 300 mg PO HS 10/07/20 07/16/25 History capsule,extended release 24 hr (Effexor XR) epinephrine 0.3 mg/0.3 mL 0.3 mg (0.3 mL) IM Q4H PRN 07/17/23 07/16/25 Rx injection, auto-injector anaphylaxis #2 ea alprazolam 0.25 mg tablet 0.25 mg PO DAILY PRN Anxiety 09/01/23 07/16/25 History ondansetron 4 mg disintegrating 4 mg PO Q6H PRN nausea and 09/18/23 07/16/25 Rx tablet vomiting #15 tabs dicyclomine 20 mg tablet 40 mg PO TID PRN Diarrhea 03/23/24 07/16/25 History famotidine 40 mg tablet 20 mg PO HS 03/23/24 07/16/25 History semaglutide 0.25 mg or 0.5 mg (2 0.5 mg subcut WK 03/23/24 07/16/25 History mg/3 mL) subcutaneous pen injector (Ozempic) aripiprazole 5 mg tablet 7.5 mg PO HS 06/04/24 07/16/25 History galcanezumab-gnlm 120 mg/mL 120 mg subcut MONTHLY 06/04/24 07/16/25 History subcutaneous pen injector (Emgality Pen) levothyroxine 75 mcg tablet 75 mcg PO DAILYBB 06/04/24 07/16/25 History (Synthroid) diazepam 5 mg tablet 5 mg PO BID PRN Headache or muscle 08/27/24 07/16/25 Rx spasm #10 tabs prochlorperazine maleate 10 mg 10 mg PO Q8H PRN nausea and 08/27/24 07/16/25 Rx tablet (Compazine) vomiting or migraine headache #20 tabs diphenhydramine HCl 25 mg capsule 50 mg PO Q8H PRN nausea and 07/16/25 07/16/25 History (Benadryl) vomiting or migraine headache lidocaine 5 % topical patch 1 patch topical DAILY PRN Pain 07/16/25 07/16/25 History (Lidoderm) warfarin 10 mg tablet 10 mg PO .M,W,T,F,SUN 07/16/25 07/16/25 History warfarin 7.5 mg tablet 7.5 mg PO .TUES AND SAT 07/16/25 07/16/25 History Patient History Medical History (Updated 07/21/25 @ 23:23 by Brian Gupta DO) Migraine with acute onset aura History of DVT (deep vein thrombosis) History of pulmonary embolism C. difficile colitis Migraine Surgical History History of mastectomy S/P ROSALES-BSO S/P patent foramen ovale closure History of cholecystectomy History of appendectomy Social History (Updated 07/22/25 @ 08:53 by Ingrid Muñoz PA-C) Smoking Status: Never smoker Second Hand Exposure: No; Do You Dip or Chew Tobacco: No; Hx Alcohol Use: No Hx Substance Use: No Preferred Language: French Communication Ability: Effective Crossband Layer Required: No Beliefs That Will Affect Care: None Current Living Situation: Spouse and Family Current Living Situation Comment: Lives with spouse and child (15 month old daughter on 07/2025) Feels Safe at Home: Yes Assistive Devices: None Physical Exam Physical Exam: GENERAL: This is a 50-year-old female in no acute distress. HEAD/FACE: Normocephalic and atraumatic. No tenderness of the supraorbital, supratrochlear, auriculotemporal, greater occipital, lesser occipital nerves. EYES: No drainage or conjunctival injection. ENT: Nose without bleeding or discharge. Oral mucosa moist. NECK: Full ROM without apparent pain. No myofascial spasm noted. RESPIRATORY: Patient with unlabored breathing. No signs of respiratory distress. CHEST/AXILLA: Chest movement symmetrical. No deformities noted. SKIN: [place], warm and dry. No rash noted. MS/EXTREMITY: No swelling, no deformities. Moving extremities appropriately. NEURO: Alert and appears oriented. Speech is fluent. Cranial Nerves are grossly intact. PSYCH: Alert, pleasant, affect is calm Results (Pain Clinic) Diagnostic Review MRI Findings: MR brain wo con CLINICAL HISTORY: LT leg weakness since noon today, Hx stroke in 2009, on Coumadin, no injury, PT claustrophobic, ran propellers for motion, sent to [facility] TECHNIQUE: Different pulse sequences were performed in different planes for the brain without GD-DTPA injection. Images were sent through PACs for interpretation. COMPARISON: Prior MR dated 10/11/2023. FINDINGS: No hyperacute or acute infarctions could be detected. Old lacunar infarction with microcystic gliosis is seen at the right aspect of the pontine isthmus. It follows CSF signals on different pulse sequences. Few focal signal alterations are seen in the right forceps minor, major and left periventricular regions exhibiting bright signals on T2 and FLAIR WI. Intermediate signals on T1 WI. Findings suggest nonspecific bright objects (NBO) vs. consequences of vasculitis. Normal MRI appearance of the cerebral parenchymal and cerebellar parenchymal signals. Normal MRI appearance of the deep white matter and central monroe matter aggregates. Normal size and configuration of the cerebral ventricles. Normal MRI appearance of different anatomical parts of the brain stem, namely the midbrain and medulla oblongata. Normal MRI appearance of the petrous temporal bones, vestibule cochlear nerves, and cerebellopontine angles with no definite masses. No shift of midline structures. No intracerebral or extra-axial hematomas or masses. Normal MRI appearance of orbital structures, both globes, optic nerves, optic chiasm, optic tracts and optic radiations. A retention cyst is seen at the left maxillary antrum. Other paranasal sinuses are clear. Deviation of the nasal septum to the right side. Bilateral suboccipital lymph nodes are seen. (Reactionary IMPRESSION: 1. No hyperacute or acute infarctions. 2. No intracerebral or extra axial hematoma. 3. Chronic infarction with microcystic gliosis of the right aspect of the pontine isthmus. 4. Imaging findings suggest nonspecific bright objects (NBO) vs. consequences of vasculitis. 5. The reported findings explain the current clinical status. The comparison is consistent with a stationary course. Electronically signed by Mirtha Persaud 08-22-2024 7:58 PM
[2025-07-22] MEDS: OPTIRAY 320 125ml IV ONE (12:54)
[2025-07-22] MEDS: SODIUM CHLORIDE 0.9% 500 ML IV ONE (12:56)
--- NOTE | 2025-07-22 13:05 | CT Scan Report ---
CT angio head w con CLINICAL HISTORY: neuro deficit, acute stroke suspected. TECHNIQUE: Unenhanced axial CT scan of the brain is performed. Subsequently, following the IV adminis tration of 120 cc of Optiray, CT angiogram of the brain was performed from the skull base to the vert ex. Images are reviewed in the axial, sagittal, and coronal planes. 3-D MIPS images are created and a ssessed. IV contrast was administered without complication. All measurements were obtained according to NASCET criteria. A dose lowering technique was utilized adhering to the principles of ALARA. COMPARISON STUDY: 08/22/2024 FINDINGS: Distal internal carotid and vertebral arteries are patent bilaterally. Basilar artery is wi jayjay patent. Anterior, middle, and posterior cerebral arteries are patent bilaterally. Cerebral venou s sinuses opacify normally. There is partially visualized mucosal thickening and fluid at the right m axillary sinus. IMPRESSION: 1. Unremarkable CTA of the brain. 2. Right maxillary sinusitis. ACT 112: Negative or not required by law. The above report was generated using voice recognition software. It may contain grammatical, syntax o r spelling errors. Electronically signed by: Kevin Bui M.D. 07/22/2025 1:03 PM
--- NOTE | 2025-07-22 13:05 | CT Scan Report ---
CT SCAN OF THE BRAIN WITHOUT IV CONTRAST CLINICAL HISTORY: Recurrent episodes. Suspected acute stroke. COMPARISON STUDY: 03/19/2024 TECHNIQUE: Unenhanced axial CT scan of the brain was performed from the vertex to the skull base. A dose lowering technique was utilized adhering to the principles of ALARA. CT DOSE: 1304.48 mGy.cm FINDINGS: There are no CT findings to indicate acute cortical infarction. There is a suspected old lacunar infa rct within the right pontomedullary junction. No intra or extra-axial mass lesions are visualized. The ventricular system has a normal size and con figuration for age. There is no hydrocephalus. There is no midline shift. There is no evidence of acu te hemorrhage Inflammatory changes are present within the right maxillary sinus. No calvarial fractures or destructive lesions are visualized. The degree of sulcal prominence is greater than expected for age. Mild atrophy is suspected. IMPRESSION: 1. No acute intracranial findings 2. Old lacunar infarct at the level the right pontomedullary junction 3. Possible mild generalized atrophy 4. Inflammatory changes within the right maxillary sinus ACT 112: Negative or not required by law. Electronically signed by: Bruno Helm M.D. 07/22/2025 1:03 PM
--- NOTE | 2025-07-22 13:11 | CT Scan Report ---
CT ANGIOGRAPHY OF THE NECK WITH CONTRAST CLINICAL HISTORY: neuro deficit, acute stroke suspected COMPARISON STUDY: 08/22/2024 Technique: CT angiography of the carotid and vertebral arteries was obtained using 118 cc Optiray and 3D reconstruction on an independent workstation. NASCET criteria was utilized. Automated exposure c ontrol was utilized for the study. A dose lowering technique was utilized adhering to the principles of ALARA. CT DOSE: Findings: There are nonspecific groundglass airspace opacities within the right medial lung apex. There is bilateral maxillary sinus mucosal disease. There is no pathologic cervical lymphadenopathy. There is no evidence of vertebral artery occlusion dissection or hemodynamically significant stenosis . There is no evidence of carotid artery occlusion dissection or hemodynamically significant stenosis. Incidental note is made of medial/retropharyngeal courses in the upper cervical internal carotids. IMPRESSION: 1. No evidence of occlusion, dissection or hemodynamically significant carotid or vertebral artery st enosis. 2. Nonspecific groundglass airspace opacities within the right medial lung apex 3. Inflammatory changes within the maxillary sinuses ACT 112: Negative or not required by law. Electronically signed by: Bruno Helm M.D. 07/22/2025 1:08 PM
[2025-07-22 13:23] LABS: Hematocrit (blood only) 35.1 % (37.0-47.0); Hemoglobin 11.5 g/dL (12.0-16.0); Immature Granulocytes # (auto) 0.04 K/uL (0.01-0.20); Immature Granulocytes % (auto) 0.5 %; Mean Corpuscular Hemoglobin 29.2 pg (25.0-34.0); Mean Corpuscular Volume 89.1 fL (80.0-100.0); Platelet Count 147 K/uL (130-400); RDW Standard Deviation 45.2 fL (36.4-46.3); Red Blood Count 3.94 M/uL (4.20-5.40); White Blood Count 8.32 K/ul (4.8-10.8)
[2025-07-22 13:43] LABS: Alanine Aminotransferase 24.0 U/L (7-52); Albumin Globulin Ratio 1.2 (0.9-2); Albumin Level 3.2 gm/dl (3.4-5.0); Alkaline Phosphatase 77.0 U/L (34-104); Anion Gap 4.0 (3-11); Bilirubin,Total 0.2 mg/dl (0.2-1.0); Blood Urea Nitrogen 27.0 mg/dl (6-23); Calcium 7.9 mg/dl (8.6-10.3); Carbon Dioxide 24.0 mmol/L (21-32); Chloride 108.0 mmol/L (98-107); Creatinine Clr Calc Pharmacy 61.0 ml/min; Globulin 2.7 gm/dl (2.5-4.0); Glucose 92.0 mg/dl (70-99(Fasting)); Magnesium 2.0 mg/dl (1.7-2.4); Potassium 3.1 mmol/L (3.5-5.1); Sodium 136.0 mmol/L (136-145); Total Protein 5.9 gm/dl (6.0-8.3)
[2025-07-22 13:56] LABS: INR 3.7 (0.9-1.1); Partial Thromboplastin Time 36 Seconds (21-31); Prothrombin Time 36.3 Seconds (9.0-12.0)
[2025-07-22] MEDS ORDERED: WARFARIN SOD 7.5 MG TAB PO SCH (16:00)
[2025-07-23 07:58] LABS: INR 3.0 (0.9-1.1); Prothrombin Time 29.8 Seconds (9.0-12.0)
[2025-07-23] MEDS: VALPROATE SOD 500 MG in DEXTROSE 5% 50 ML IV SCH (18:22)
--- NOTE | 2025-07-23 18:39 | Hospitalist Progress Note ---
Date of Service July 23, 2025 Assessment & Plan (1) Intractable migraine: (2) Hypokalemia due to excessive gastrointestinal loss of potassium: (3) Anticoagulation goal of INR 2 to 3: Plan In summary this is a 50-year-old female who presents with an intractable migraine #Chronic intractable migraine without current aura Persistent symptoms despite medical therapy, though her pripr admission required ~18-24 hours of consistent treatment before resolution in addition to sleep, the latter of which the patient identifies as a significant trigger for their current presentations as they have a [id number] child which makes it difficult to obtain restful sleep; on 07/21 the patient notified her nurse that she has been treated with twice weekly ketamine infusions in the outpatient setting for management of her migraines, though this was not previously known and she has not been able to make an appointment for 2 weeks or so due to her current state Continue scheduled Benadryl and Compazine intravenously every 6 hours Continue acetaminophen 1000 mg p.o. every 8 hours scheduled - Continue Valium 5 mg po. twice daily for headache, home medication - start Depakote 500 mg IV every 6 hours interpolated between the Compazine/Benadryl doses - Consider MRV brain if unimproved Monitor for new neurologic symptoms - pain management consulted 07/22 and signed off, nothing to offer interventionally at this time Admission and Anticipated Discharge Date Admission Date: July 22, 2025 Subjective continues to have a severe migraine a little bit improved however. It does go away temporarily when dosed with Compazine and Benadryl however as soon as that wears off which is in less than 6 hours the headache recurs she is not having any dysesthesias or weakness today she reports having had some success with IV Depakote when hospitalized in the past Physical Exam Physical Exam: vital signs are normal excepting some mild tachycardia occasionally heart rate of 92-95 but mostly in 80s lying in n dark room with a towel wrapped around her head/face breathing is nonlabored face is symmetric speech intact moves 4 extremities Results & Data Results & Data Vital Signs (Past 12 Hours) Vital Signs Temp Pulse Pulse Resp BP Pulse Ox O2 Del Method 07/23/25 15:11 36.8 C 84 18 126/98 95 Room Air 07/23/25 14:20 93 H 07/23/25 11:25 37.0 C 92 H 16 103/79 96 Room Air 07/23/25 07:41 36.6 C 87 16 111/74 97 Room Air 07/23/25 07:11 79 PG Care Time/CCT Total # of Minutes Spent Total Time Spent with Patient: Total time spent is greater than 50% in coordination of care (as documented) at patient's floor/unit and/or counseling patient: Coding Level of Care Code 33114 SUB INP/OBS CARE 2/35MIN Diagnoses Intractable chronic migraine with aura with status migrainosus G43.E11 Migraine type: chronic migraine (15 or more days per month) with aura Status migrainosus presence: with status migrainosus Hypokalemia due to excessive gastrointestinal loss of potassium E87.6 Anticoagulation goal of INR 2 to 3 Z51.81; Z79.01 (1) Intractable migraine Migraine type: chronic migraine (15 or more days per month) with aura Status migrainosus presence: with status migrainosus Qualified Code(s): G43.E11 - Chronic migraine with aura, intractable, with status migrainosus
--- NOTE | 2025-07-23 18:41 | Hospitalist Progress Note ---
Date of Service July 23, 2025 Assessment & Plan (1) Intractable migraine: (2) Hypokalemia due to excessive gastrointestinal loss of potassium: (3) Anticoagulation goal of INR 2 to 3: Plan ADDENDUM to today's prog note: In summary this is a 50-year-old female who presents with an intractable migraine #Chronic intractable migraine without current aura Persistent symptoms despite medical therapy, though her pripr admission required ~18-24 hours of consistent treatment before resolution in addition to sleep, the latter of which the patient identifies as a significant trigger for their current presentations as they have a [id number] child which makes it difficult to obtain restful sleep; on 07/21 the patient notified her nurse that she has been treated with twice weekly ketamine infusions in the outpatient setting for management of her migraines, though this was not previously known and she has not been able to make an appointment for 2 weeks or so due to her current state Continue scheduled Benadryl and Compazine intravenously every 6 hours Continue acetaminophen 1000 mg p.o. every 8 hours scheduled - Continue Valium 5 mg po. twice daily for headache, home medication - start Depakote 500 mg IV every 6 hours interpolated between the Compazine/Benadryl doses - Consider MRV brain if unimproved Monitor for new neurologic symptoms - pain management consulted 07/22 and signed off, nothing to offer interventionally at this time #Chronic warfarin anticoagulation for recurrent DVTs, PE, stroke in the past. She has a thrombophilia that was not identified on lab testing. INR goal 2.0- 3.0 -INR 3.0 today continue daily INR check -continue home dose of warfarin for today, downtrended from 3.7 so will not reduce dose today Admission and Anticipated Discharge Date Admission Date: July 22, 2025 Results & Data Results & Data Vital Signs (Past 12 Hours) Vital Signs Temp Pulse Pulse Resp BP Pulse Ox O2 Del Method 07/23/25 15:11 36.8 C 84 18 126/98 95 Room Air 07/23/25 14:20 93 H 07/23/25 11:25 37.0 C 92 H 16 103/79 96 Room Air 07/23/25 07:41 36.6 C 87 16 111/74 97 Room Air 07/23/25 07:11 79 PG Care Time/CCT Total # of Minutes Spent Total Time Spent with Patient: Total time spent is greater than 50% in coordination of care (as documented) at patient's floor/unit and/or counseling patient: Coding Level of Care Code None Diagnoses Intractable chronic migraine with aura with status migrainosus G43.E11 Migraine type: chronic migraine (15 or more days per month) with aura Status migrainosus presence: with status migrainosus Hypokalemia due to excessive gastrointestinal loss of potassium E87.6 Anticoagulation goal of INR 2 to 3 Z51.81; Z79.01 (1) Intractable migraine Migraine type: chronic migraine (15 or more days per month) with aura Status migrainosus presence: with status migrainosus Qualified Code(s): G43.E11 - Chronic migraine with aura, intractable, with status migrainosus
[2025-07-23] MEDS: MELATONIN 3 MG TAB PO PRN (20:41)
[2025-07-24 08:10] VITALS: RESP 16
[2025-07-24 08:54] LABS: Anion Gap 5.0 (3-11); Blood Urea Nitrogen 23.0 mg/dl (6-23); Calcium 8.6 mg/dl (8.6-10.3); Carbon Dioxide 26.0 mmol/L (21-32); Chloride 109.0 mmol/L (98-107); Creatinine Clr Calc Pharmacy 70.3 ml/min; Glucose 75.0 mg/dl (70-99(Fasting)); Potassium 4.3 mmol/L (3.5-5.1); Sodium 140.0 mmol/L (136-145)
[2025-07-24 09:15] LABS: INR 2.9 (0.9-1.1); Prothrombin Time 29.1 Seconds (9.0-12.0)
[2025-07-24 11:53] VITALS: BP 98/74; TEMP 98.2; O2SAT 97
--- NOTE | 2025-07-24 13:07 | Discharge Summary ---
Discharge Summary Date of Service July 24, 2025 Principal Dx & Hospital Course #1 = Principal Diagnosis (1) Intractable migraine: (2) Hypokalemia due to excessive gastrointestinal loss of potassium: (3) Anticoagulation goal of INR 2 to 3: Plan In summary this is a 50-year-old female who presents with an intractable migraine #Chronic intractable migraine without current aura Persistent symptoms despite medical therapy, though her prior admission required ~18-24 hours of consistent treatment before resolution in addition to sleep, the latter of which the patient identifies as a significant trigger for their current presentations as they have a [id number] child which makes it difficult to obtain restful sleep; on 07/21 the patient notified her nurse that she has been treated with twice weekly ketamine infusions in the outpatient setting for management of her migraines, though this was not previously known and she has not been able to make an appointment for 2 weeks or so due to her current state treated with scheduled Benadryl and Compazine intravenously every 6 hours which seemed to help at least until it wore off Continued acetaminophen 1000 mg p.o. every 8 hours scheduled - Continued Valium 5 mg po. 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 Headache had improved though not completely resolved. Resumed her usual home medications which include emgality, topamax, muscle relaxers, venlafaxine, BZDs, aripiprazole. - she has not done botox because her warfarin would have to be interrupted - she will follow up with her neurologist at the [place] #Chronic warfarin anticoagulation for recurrent DVTs, PE, stroke in the past. She has a thrombophilia that was not identified on lab testing. INR goal 2.0- 3.0 -INR remained in therapeutic range on her usual dose of warfarin Admission HPI Per Admitting Provider Patient is a 50-year-old female with past medical history of DVT/PE on warfarin, CVA, GERD, frequent migraines. Patient has had an ongoing migraine since 07/16 which has required hospital admission and numerous ER visits, she is again being admitted for an intractable migraine with visual auras and nausea/vomiting. Patient seen at bedside. Her headache went away after discharge on 07/17 for a few hours however then returned and she came into the ED 07/19. Headache was again treated however then returned after an hour and a half so she returned today 07/20. She does have visual auras of seeing zigzags, popping things, and auditory auras with ringing in her ears. She has had associated nausea and vomiting, vomiting approximately 3-4 times today. She denies any hematemesis. She typically has 1 migraine a week and [facility] She [facility] them on 07/16 prior to admission in which they stopped her previously monthly injection and transition her to Emgality. Her last injection was 07/05 of the previous one in which she cannot remember the name. They also noted that they will try Botox in the future. She is also on a triptan and nortriptyline for headaches at home. She denies any dysuria, increase in urinary frequency, or other urinary symptoms regarding her questionable UA. She denies nicotine or alcohol use. She only took her levothyroxine, nortriptyline, and triptan this morning and is due for all of her other home medications. Typically her migraines are resolved with scheduled Compazine 5 mg, Benadryl 50 mg, and Toradol 10 mg. She is still having significant migraine symptoms at time of admission even after IV medication in the ED. She wishes to maintain her full CODE STATUS. Previous medical records reviewed. Patient was admitted to [facility] from 07/16 to 07/17 for an intractable migraine with visual auras and was recommended to follow-up with her headache specialist on discharge. Patient was then seen in the ED 07/19 for migraine and discharged home. She returned 07/20 to the ED. ED course 07/16: dexamethasone 10 mg IV, Benadryl 50 Mg IV x 2, 2L NSS bolus, Compazine 5 Mg IV x2, Tylenol 1G IV, Toradol 30 mg IV, Zofran 4 Mg IV Admission 07/16-07/17: scheduled Compazine and Benadryl q6h, 1g PO tylenol moon q8 ED course 07/19: dexamethasone 10 mg IV, Benadryl 50 Mg IV, droperidol 2.5 mg IV, Compazine 10 Mg IV x2, 1L NSS bolus ED course 07/20: Compazine 5 mg IV, Benadryl 50 Mg IV, Decadron 10 mg IV, magnesium 1G IV, Benadryl 25 mg IV, droperidol 1.25 mg IV, Toradol 15 mg IV, Tylenol 1G IV, Plasma-Lyte 1L bolus Discharge Exam Last 24h vitals reviewed GEN: no acute distress, sitting in bed, dressed in street clothes awake and alert HEENT: pupils equal, sclerae anicteric, moist MM RESP: normal WOB CV: ABD: ND : no rivas SKIN: warm and dry, no generalized rashes NEURO: AOx person, place, and situation. Face symmetric, speech normal, moves 4 ext spontaneously and equally Discharge Plan Discharge Items Patient Disposition: Home - Self-Care Reason For Visit: INTRACTABLE MIGRAINE Discharge Diagnosis: Intractable Migraine Condition on Discharge: Good Activity: Resume your previous activity Non-emergency contact: Primary Care Provider and Neurologist Call non-emergency contact if: you have any medication questions and your symptoms worsen Follow-up/Referrals: Dionne Fletcher MD [Primary Care Provider] - (Please call your primary care provider to schedule a hospital follow-up appointment within 7-10 days) Diet: Regular Addtl Attending Provider Instructions: You were treated for intractable migraine Dexamethasone given in ED didn't seem to help Scheduled compazine and benadryl helped somewhat, the IV depakote didn't seem to provide benefit on top of that Avoidance of sleep disruption is probably the best thing you can do at home, though I understand that's difficult with a toddler INR was 2.9 today so you can continue your usual warfarin dosing Please follow up with your neurologist as planned next week and other specialists It was a pleasure taking care of you in the hospital, Dionne Santiago MD Pending Studies at Discharge: No Stand-Alone Forms: My [employer], Smoking Cessation Medications and DC Order Prescriptions: Continued venlafaxine [Effexor XR] 150 mg Capsule,Extended Release 24hr 300 mg PO HS topiramate 200 mg Capsule,Extended Release 24hr 200 mg PO HS alprazolam 0.25 mg tablet 0.25 mg PO DAILY PRN (Reason: Anxiety) epinephrine 0.3 mg/0.3 mL auto-injector 0.3 mg IM Q4H PRN (Reason: anaphylaxis) Qty: 2 0RF ondansetron 4 mg tablet,disintegrating 4 mg PO Q6H PRN (Reason: nausea and vomiting) Qty: 15 0RF famotidine 40 mg tablet 20 mg PO HS dicyclomine 20 mg tablet 40 mg PO TID PRN (Reason: Diarrhea) Ozempic 0.25 mg or 0.5 mg (2 mg/3 mL) pen injector 0.5 mg SUBCUT WK Rx Instructions: Mondays diazepam 5 mg Tablet 5 mg PO BID PRN (Reason: Headache or muscle spasm) Qty: 10 0RF levothyroxine [Synthroid] 75 mcg tablet 75 mcg PO DAILYBB aripiprazole 5 mg Tablet 5 mg PO HS Emgality Pen 120 mg/mL pen injector 120 mg SUBCUT MONTHLY Rx Instructions: every month diphenhydramine HCl [Benadryl] 25 mg capsule 50 mg PO Q8H PRN (Reason: nausea and vomiting or migraine headache) Rx Instructions: Qvba-gos-nrhckre lidocaine [Lidoderm] 5 % adhesive patch,medicated 1 patch topical DAILY PRN (Reason: Pain) Rx Instructions: leave on most painful area for up to 12 hrs warfarin 10 mg Tablet 10 mg PO .,W,,,SUN warfarin 7.5 mg Tablet 7.5 mg PO .TUES AND SAT No Action cyclobenzaprine 10 mg Tablet 10 mg PO BID PRN (Reason: tension headache) Qty: 10 0RF Discharge Orders: Discharge Order (Routine); Ordered 07/24/25 Ordered By: Dionne Cleveland/Other Patient Handouts: Anticoagulants, Symptoms of Stroke, What Is Ischemic Stroke?, What Is a TIA?, Risk Factors for Stroke Admission Data Admit Date/Time: 07/22/25 08:53 Attending Provider: Dionne Santiago Admit Provider: Brenda Newberry Primary Care Provider: Dionne Fletcher Other Providers: [facility]; Miguel Angel Morelos; Debbie Mack Other Interventions: Discharge Summary Assessment (RN) Last Done: 07/24/25 13:29 Hospital Stay Data Consultations 07/20/25 19:51 ED Decision to Admit Stat 07/21/25 16:39 Consult Pain Management Routine Diagnostic Imagining Performed 07/22/25 12:27 CT angio head w con Stat CT angio neck with con Stat CT head/brain wo con Stat Pending Results Patient Have Any Pending Studies at Discharge: No Discharge Instructions Given to Patient (Per Discharging Provider) You were treated for intractable migraine Dexamethasone given in ED didn't seem to help Scheduled compazine and benadryl helped somewhat, the IV depakote didn't seem to provide benefit on top of that Avoidance of sleep disruption is probably the best thing you can do at home, though I understand that's difficult with a toddler INR was 2.9 today so you can continue your usual warfarin dosing Please follow up with your neurologist as planned next week and other specialists It was a pleasure taking care of you in the hospital, Dionne Santiago MD Total Time Total Time Spent Total Time Spent (In Minutes): <30 Coding Level of Care Code 12145 IN/OBS DISCH 30 MIN/LESS Diagnoses Intractable chronic migraine with aura with status migrainosus G43.E11 Migraine type: chronic migraine (15 or more days per month) with aura Status migrainosus presence: with status migrainosus Hypokalemia due to excessive gastrointestinal loss of potassium E87.6 Anticoagulation goal of INR 2 to 3 Z51.81; Z79.01
--- NOTE | 2025-07-24 13:42 | Electrocardiogram Report ---
Test Reason : Blood Pressure : */* mmHG Vent. Rate : 81 BPM Atrial Rate : 81 BPM P-R Int : 156 ms QRS Dur : 86 ms QT Int : 362 ms P-R-T Axes : 38 19 54 degrees QTcB Int : 420 ms Normal sinus rhythm Normal ECG When compared with ECG of 19-Jul-2025 14:47, (unconfirmed) No significant change was found Confirmed by David Antonio ([id number]) on 07/24/2025 1:41:26 PM Referred By: REFERRED SELF Confirmed By: David Antonio
[2025-07-24 14:00] VITALS: PULSE 92
--- NOTE | 2025-07-25 08:18 | Electrocardiogram Report ---
Test Reason : Blood Pressure : */* mmHG Vent. Rate : 80 BPM Atrial Rate : 80 BPM P-R Int : 142 ms QRS Dur : 88 ms QT Int : 384 ms P-R-T Axes : 41 27 63 degrees QTcB Int : 442 ms Normal sinus rhythm Nonspecific T wave abnormality Abnormal ECG When compared with ECG of 20-Jul-2025 21:32, (unconfirmed) No significant change was found Confirmed by David Antonio ([id number]) on 07/25/2025 8:17:43 AM Referred By: REFERRED SELF Confirmed By: David Antonio
== END 2025-07-24 14:10 | disposition home or self-care (01) | DRG 103 ==
LOC: ED 15:50 → 3W 15:50 → SUATTDRO 20:24 → 3W 21:47 → SUATTDRO 07-22 08:53 → 2N 07-22 13:26
DX: Z86.718 Personal history of other venous thrombosis and embolism; K21.9 Gastro-esophageal reflux disease without esophagitis; Z79.85 Long-term (current) use of injectable non-insulin antidiabetic drugs; Z79.01 Long term (current) use of anticoagulants; F43.10 Post-traumatic stress disorder, unspecified; Z86.73 Personal history of transient ischemic attack (TIA), and cerebral infarction without residual deficits; G43.919 Migraine, unspecified, intractable, without status migrainosus; Z79.890 Hormone replacement therapy; Z86.711 Personal history of pulmonary embolism; E87.6 Hypokalemia; R82.71 Bacteriuria; E03.9 Hypothyroidism, unspecified

== ENCOUNTER 2025-07-25 17:41 | Observation (INO) ==
[2025-07-25 19:11] LABS: Hematocrit (blood only) 41.1 % (37.0-47.0); Hemoglobin 13.6 g/dL (12.0-16.0); Immature Granulocytes # (auto) 0.07 K/uL (0.01-0.20); Immature Granulocytes % (auto) 0.7 %; Mean Corpuscular Hemoglobin 29.2 pg (25.0-34.0); Mean Corpuscular Volume 88.4 fL (80.0-100.0); Platelet Count 184 K/uL (130-400); RDW Standard Deviation 45.0 fL (36.4-46.3); Red Blood Count 4.65 M/uL (4.20-5.40); White Blood Count 10.68 K/ul (4.8-10.8)
[2025-07-25 19:28] LABS: Alanine Aminotransferase 23.0 U/L (7-52); Albumin Globulin Ratio 1.1 (0.9-2); Albumin Level 3.9 gm/dl (3.4-5.0); Alkaline Phosphatase 106.0 U/L (34-104); Anion Gap 9.0 (3-11); Bilirubin,Total 0.4 mg/dl (0.2-1.0); Blood Urea Nitrogen 15.0 mg/dl (6-23); Calcium 9.0 mg/dl (8.6-10.3); Carbon Dioxide 24.0 mmol/L (21-32); Chloride 104.0 mmol/L (98-107); Creatinine Clr Calc Pharmacy 70.7 ml/min; Globulin 3.6 gm/dl (2.5-4.0); Glucose 101.0 mg/dl (70-99(Fasting)); Potassium 3.6 mmol/L (3.5-5.1); Sodium 137.0 mmol/L (136-145); Total Protein 7.5 gm/dl (6.0-8.3)
--- NOTE | 2025-07-25 21:49 | Emergency Department Note ---
History of Present Illness General Chief complaint: Headache Stated complaint: MIGRAINE, HERE BEFORE Time Seen by Provider: 07/25/25 21:33 History of Present Illness Maximum Pain Intensity: 8 This 50-year-old female who left AMA yesterday for ongoing chronic migraine presents back to the ER for migraine. Patient states she had issues in the childcare and left AMA yesterday. She states the Compazine and Modern [employer] commendations worked well for her in the past. Patient does have an allergy noted for Compazine. Patient also complains of pain and swelling to the right bicep area where she had an IV placed while in the hospital. She is on Coumadin. Patient denies chest pain, dyspnea, fever, chills, flulike illness. Home Medications Medication Instructions Recorded Confirmed Type topiramate 200 mg capsule,extended 200 mg PO HS 10/07/20 07/25/25 History release 24 hr venlafaxine 150 mg 300 mg PO HS 10/07/20 07/25/25 History capsule,extended release 24 hr (Effexor XR) epinephrine 0.3 mg/0.3 mL 0.3 mg (0.3 mL) IM Q4H PRN 07/17/23 07/25/25 Rx injection, auto-injector anaphylaxis #2 ea alprazolam 0.25 mg tablet 0.25 mg PO DAILY PRN Anxiety 09/01/23 07/25/25 History ondansetron 4 mg disintegrating 4 mg PO Q6H PRN nausea and 09/18/23 07/25/25 Rx tablet vomiting #15 tabs dicyclomine 20 mg tablet 40 mg PO TID PRN Diarrhea 03/23/24 07/25/25 History famotidine 40 mg tablet 20 mg PO HS 03/23/24 07/25/25 History semaglutide 0.25 mg or 0.5 mg (2 0.5 mg subcut WK 03/23/24 07/25/25 History mg/3 mL) subcutaneous pen injector (Ozempic) aripiprazole 5 mg tablet 5 mg PO HS 06/04/24 07/25/25 History galcanezumab-gnlm 120 mg/mL 120 mg subcut MONTHLY 06/04/24 07/25/25 History subcutaneous pen injector (Emgality Pen) levothyroxine 75 mcg tablet 75 mcg PO DAILYBB 06/04/24 07/25/25 History (Synthroid) diazepam 5 mg tablet 5 mg PO BID PRN Headache or muscle 08/27/24 07/25/25 Rx spasm #10 tabs diphenhydramine HCl 25 mg capsule 50 mg PO Q8H PRN nausea and 07/16/25 07/25/25 History (Benadryl) vomiting or migraine headache lidocaine 5 % topical patch 1 patch topical DAILY PRN Pain 07/16/25 07/25/25 History (Lidoderm) warfarin 10 mg tablet 10 mg PO .M,W,TH,F,SUN 07/16/25 07/25/25 History warfarin 7.5 mg tablet 7.5 mg PO .TUES AND SAT 07/16/25 07/25/25 History Allergies Allergy/AdvReac Type Severity Reaction Status Date / Time shellfish derived Allergy Severe Swelling Unverified 08/22/24 17:05 of Lip/Tongue/Throat prochlorperazine AdvReac Intermediate caused Verified 08/22/24 17:05 [From Compazine] restless leg syndrome promethazine [From Phenergan] AdvReac Intermediate restless Verified 08/22/24 17:05 leg syndrome Past Med/Surg History Problem List (Updated 07/26/25 @ 02:16 by Cherie Siddiqi PA-C) Phlebitis of right upper extremity (Acute) Headache (Acute) Intractable migraine (Acute) Hypokalemia due to excessive gastrointestinal loss of potassium (Acute) Intractable migraine (Acute) Anticoagulation goal of INR 2 to 3 (Chronic) Old cerebrovascular accident (CVA) without late effect PTSD (post-traumatic stress disorder) (Chronic) GERD (gastroesophageal reflux disease) (Chronic) Medical History (Updated 07/26/25 @ 02:16 by Cherie Siddiqi PA-C) Migraine with acute onset aura History of DVT (deep vein thrombosis) History of pulmonary embolism C. difficile colitis Migraine Surgical History History of mastectomy S/P ROSALES-BSO S/P patent foramen ovale closure History of cholecystectomy History of appendectomy Social History (Updated 07/22/25 @ 08:53 by Ingrid Muñoz PA-C) Smoking Status: Never smoker Second Hand Exposure: No; Do You Dip or Chew Tobacco: No; Hx Alcohol Use: No Hx Substance Use: No Preferred Language: Azeri Communication Ability: Effective Agricultural Education Instructor Required: No Beliefs That Will Affect Care: None Current Living Situation: Spouse and Family Current Living Situation Comment: Lives with spouse and child (15 month old daughter on 07/2025) Feels Safe at Home: Yes Assistive Devices: None Review of Systems A total of 10 systems reviewed and were otherwise negative Physical Exam Vital Signs Vital Signs - 24 hr 07/25/25 18:00 07/25/25 19:41 07/25/25 21:49 Temperature 36.5 C Temperature Source Temporal Artery Scan Pulse Rate 106 H Pulse Rate [Finger] 99 H 98 H Pulse Rhythm [Finger] Regular Regular Pulse Strength [Finger] Normal Normal Respiratory Rate 18 20 20 Respiratory Effort / Characteristics Non-Labored Spontaneous Non-Labored Spontaneous Non-Labored Spontaneous Respiratory Depth Normal Normal Normal Respiratory Pattern Regular Regular Regular Blood Pressure 114/80 Blood Pressure [Left Arm] 95/60 L 105/68 Blood Pressure Mean 91 Blood Pressure Mean [Left Arm] 71 80 Blood Pressure Position [Left Arm] Pulse Oximetry 99 100 99 Oxygen Delivery Method Room Air Room Air Room Air Sepsis Recent Fever Within 48 Hours No Sepsis New/Unexplained Change in Mental Status No Sepsis Action Taken by Nursing No Action Required 07/25/25 23:00 Temperature Temperature Source Pulse Rate Pulse Rate [Finger] 90 Pulse Rhythm [Finger] Regular Pulse Strength [Finger] Normal Respiratory Rate 14 Respiratory Effort / Characteristics Non-Labored Respiratory Depth Normal Respiratory Pattern Blood Pressure Blood Pressure [Left Arm] 148/67 H Blood Pressure Mean Blood Pressure Mean [Left Arm] 94 Blood Pressure Position [Left Arm] Lying Pulse Oximetry 97 Oxygen Delivery Method Room Air Sepsis Recent Fever Within 48 Hours Sepsis New/Unexplained Change in Mental Status Sepsis Action Taken by Nursing VITALS: Vitals are noted on the nurse's note and reviewed by myself. Vital signs stable. GENERAL: White female, in no acute distress, nondiaphoretic, well-developed well-nourished. SKIN: Right bicep region with contusion present and slightly erythematous with induration most likely from infiltration from the IV, no palpable abscess, no signs of infection, the rest of the skin was without rashes, erythema, edema, or bruising. There is no tenting of the skin. Capillary reflex less than 2 seconds. HEAD: Normocephalic atraumatic. EARS: External auditory canals clear EYES: Pupils equal round and reactive to light and accommodation. Conjunctivae without injection, sclerae without icterus. Extraocular movements intact. NOSE: Patent, no discharge. MOUTH: Mucous membranes moist. Pharynx without erythema or exudate. Uvula midline. Airway patent. Tongue does not deviate. NECK: Supple without nuchal rigidity. No lymphadenopathy. No thyromegaly. Cervical spine is nontender. No JVD. HEART: Regular rate and rhythm LUNGS: Clear to auscultation bilaterally without wheezes, rales or rhonchi. No retractions or accessory muscle use. ABDOMEN: Positive bowel sounds x 4. Normal tympanic percussion. Soft, nontender, without masses or organomegaly. Real sign negative. No guarding or rebound tenderness. No CVA tenderness MUSCULOSKELETAL: No muscle atrophy, erythema, or edema noted. NEURO: Patient was alert and oriented to person place and time. Normal sensation to light and sharp touch. No focal neurological deficits. Course Administered Medications Lactated Ringer's (Lr) 1,000 mls @ 125 mls/hr IV .Q8H STA Stop: 07/26/25 08:20 Last Admin: 07/26/25 00:48 Dose: 125 mls/hr Documented By: vgr Discontinued Medications Dexamethasone Sodium Phosphate (DexamethasonePf 10 Mg/Ml Vial) 10 mg IV NOW ONE Stop: 07/25/25 23:25 Last Admin: 07/26/25 00:48 Dose: 10 mg Documented By: vgr Diphenhydramine HCl (Diphenhydramine 50 Mg/Ml Vial) 25 mg IV NOW STA Stop: 07/25/25 23:13 Last Admin: 07/25/25 23:21 Dose: 25 mg Documented By: vgr Droperidol (Droperidol 5 Mg/2 Ml Vial) 2.5 mg IV ONE STA Stop: 07/25/25 21:48 Last Admin: 07/25/25 21:57 Dose: 2.5 mg Documented By: chase Sodium Chloride (Nss) 1,000 mls @ 999 mls/hr IV .Q1H1M ONE Stop: 07/25/25 22:47 Last Infusion: 07/25/25 23:24 Dose: Infused Documented By: vgr Admin: 07/25/25 21:57 Dose: 999 mls/hr Documented By: chase Acetaminophen (Ofirmev) 1,000 mg in 100 mls @ 400 mls/hr IV NOW STA Stop: 07/25/25 23:26 Last Infusion: 07/26/25 00:06 Dose: Infused Documented By: idania Admin: 07/25/25 23:21 Dose: 400 mls/hr Documented By: idania Medical Decision Making Medical Records Attestation: I reviewed the patient's medical records. Home Medications Current Medication List: was personally reviewed by me Laboratory Data Attestation: I reviewed the patient's lab results. 07/25/25 18:58 07/25/25 18:58 Lab Results 07/25/25 07/25/25 Range/Units 18:58 21:58 WBC 10.68 (4.8-10.8) K/ul RBC 4.65 (4.20-5.40) M/uL Hgb 13.6 (12.0-16.0) g/dL Hct 41.1 (37.0-47.0) % MCV 88.4 (80.0-100.0) fL MCH 29.2 (25.0-34.0) pg MCHC 33.1 (32.0-36.0) g/dL RDW Std Deviation 45.0 (36.4-46.3) fL RDW Coeff of Wilmer 14.1 (11.5-14.5) % Plt Count 184 (130-400) K/uL MPV 9.5 (9.4-12.4) fL Immature Gran % (Auto) 0.7 % Neut % (Auto) 75.2 % Lymph % (Auto) 17.1 % Delta % (Auto) 5.4 % Eos % (Auto) 1.3 % Baso % (Auto) 0.3 % Neut # (Auto) 8.03 H (1.40-6.50) K/uL Lymph # (Auto) 1.83 (1.20-3.40) K/uL Delta # (Auto) 0.58 (0.11-0.59) K/uL Eos # (Auto) 0.14 (0.00-0.50) K/uL Baso # (Auto) 0.03 (0.00-0.20) K/uL Immature Gran # (Auto) 0.07 (0.01-0.20) K/uL PT 28.2 H (9.0-12.0) Seconds INR 2.8 H (0.9-1.1) APTT 40 H (21-31) Seconds PTT Ratio 1.5 Sodium 137 (136-145) mmol/L Potassium 3.6 (3.5-5.1) mmol/L Chloride 104 (98-107) mmol/L Carbon Dioxide 24 (21-32) mmol/L Anion Gap 9 (3-11) BUN 15 (6-23) mg/dl Creatinine 1.04 (0.6-1.2) mg/dl Est Cr Clr Drug Dosing 70.7 ml/min eGFR 65.89 BUN/Creatinine Ratio 14.4 (10-20) Glucose 101 H (70-99(Fasting)) mg/dl Calcium 9.0 (8.6-10.3) mg/dl Magnesium 2.1 (1.7-2.4) mg/dl Total Bilirubin 0.4 (0.2-1.0) mg/dl AST 14 (13-39) U/L ALT 23 (7-52) U/L Alkaline Phosphatase 106 H (34-104) U/L Total Protein 7.5 (6.0-8.3) gm/dl Albumin 3.9 (3.4-5.0) gm/dl Globulin 3.6 (2.5-4.0) gm/dl Albumin/Globulin Ratio 1.1 (0.9-2) HCG, Qual Negative (Negative) Imaging Data Radiologist's Impression: Venous Doppler Study 07/25/25 21:47 Exam(s): US VENOUS RIGHT UPPER EXTREMITY EXAM: US Duplex Right Upper Extremity Veins CLINICAL HISTORY: Reason for exam: pain/swelling, ? DVT. OTHER: Other Notes: Pain/swelling ? DVT. Pt states currently on blood thinners. Superficial occlusive thrombus seen in RT cephalic vein starting mid upper arm to AC fossa measuring approx 11 .5 cm. Rest of exam wnl's. TECHNIQUE: Real-time duplex ultrasound scan of the right upper extremity veins integrating B-mode two-dimensional vascular structure, Doppler spectral analysis, color flow Doppler imaging and compression. COMPARISON: No relevant prior studies available. FINDINGS: Deep veins: Unremarkable. No DVT in the internal jugular, subclavian, axillary, or brachial veins. The veins demonstrate normal color flow, are normally compressible, with normal phasic flow and/or augmentation response. Superficial veins: Occlusive thrombus seen within the right cephalic vein of the upper arm. This extends to the antecubital fossa. Soft tissues: No acute findings. IMPRESSION: No DVT Superficial thrombophlebitis within the cephalic vein in the upper arm Electronically signed by: Selwyn Thompson MD 07/26/25 01:16 AM MDM Narrative Prior records/ancillary studies reviewed. Additional history obtained from nursing. Triage Nursing notes reviewed. The patient's history was concerning for headache. Differential diagnosis: Etiologies such as migraine headache, meningitis, sinusitis, CO exposure, ICH, SAH, infection, tumor, headache, sinus thrombosis, arterial dissection, as well as others were entertained. Physical examination findings: As above. Non-focal. ER treatment provided: Droperidol and IV fluids ordered Tylenol, Benadryl and Decadron were ordered On reassessment the patient felt better. Diagnostics interpreted by me: The labs Independently Interpreted by myself revealed therapeutic INR, stable H&H Imaging studies: CTA from the other day was reviewed and normal Consultation: A consultation was placed with the hospitalist. The case was discussed and diagnostics were reviewed. The patient was evaluated in the ER for further treatment. This appears to be consistent with ongoing headache. Patient was still in moderate amount of pain and requests admission. Ultrasound was reviewed and read by radiology. Prior imaging was reviewed. Medicine was consulted case discussed. She will be evaluated for admission. By the evaluation outlined above emergent etiologies such as meningitis, sinusitis, CO exposure, ICH, SAH, infection, temporal arteritis, tumor, sinus thrombosis, arterial dissection, as well as others were deemed relatively unlikely. The pt informed about the findings as listed above. All questions were answered and pleased with the treatment. The chart was completed utilizing [employer] Speech voice recognition software. Grammatical errors, random word insertions, pronoun errors, and incomplete sentences are an occassional consequence of this system due to software limitations, ambient noise, and hardware issues. Any formal questions or concerns about the content, text, or information contained within the body of this dictation should be directly addressed to the physician botany laboratory assistant for clarification. Impression & Plan Headache, Phlebitis of right upper extremity Discharge Plan Visit Data Chief Complaint: Headache Stated Complaint: MIGRAINE, HERE BEFORE ED Provider: Supa Ruiz ED Midlevel Provider: Cherie Siddiqi Discharge Problem: Headache, Phlebitis of right upper extremity Patient Disposition: Admitted As Inpatient Condition: Good Discharge Instructions Interventions: ED Discharge Assessment Last Done: 07/26/25 01:22 Discharge Problem: Headache Qualifiers: Headache type: unspecified Headache chronicity pattern: acute headache I ntractability: intractable Qualified Code(s): R51.9 - Headache, unspecified
[2025-07-25] MEDS: DROPERIDOL 5 MG/2 ML VIAL IV STA (21:57)
[2025-07-25] MEDS: SODIUM CHLORIDE 0.9% 1,000 ML IV ONE (21:57)
[2025-07-25 22:02] LABS: Magnesium 2.1 mg/dl (1.7-2.4)
[2025-07-25 22:15] LABS: Pregnancy Test, Serum Negative (Negative)
[2025-07-25 22:34] LABS: INR 2.8 (0.9-1.1); Partial Thromboplastin Time 40 Seconds (21-31); Prothrombin Time 28.2 Seconds (9.0-12.0)
[2025-07-25] MEDS: diphenhydrAMINE 50 MG/ML VIAL IV STA (23:21)
[2025-07-25] MEDS: ACETAMINOPHEN 1,000 MG/100 ML VIAL IV STA (23:21)
--- NOTE | 2025-07-26 00:24 | History & Physical Report ---
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 She was most recently admitted to [facility] from 07/20-07/24/2025 for intractable migraine, and hypokalemia due to excessive GI losses. She presents to the emergency department evening of 07/25 with persistent symptoms of intractable migraine as before. Imaging studies were done on 07/22/2025: CT scan of head showed old lacunar infarct in the right pontine medial junction, and CTA head and neck were normal. Patient had presented similarly last year and was admitted from 08/22- 08/23/2024, with repeat admission 08/25-08/27/2024. From the ED patient received the following: Normal saline 1 L bolus, droperidol 2.5 mg IV, Benadryl 25 mg IV, and Tylenol 1 g IV. I asked her to give dexamethasone 10 mg IV as well. She is referred to the [facility] hospitalist service for further evaluation treatment of intractable migraine. DVT performed the right upper extremity revealed a superficial thrombophlebitis in the cephalic vein. Intractable migraine/anxiety- Patient was just discharged from [facility] after admission from 07/20 to 07/24/2025- Imaging performed from 07/[address] of the head with old lacunar infarct right pontomedullary junction. CTA head and neck were negative. Similar interpretation from CTs performed last year during admission from 08/22-08/23/2024 and 08/25-08/27/2024. MRI brain performed during this admission showed chronic infarction with microcystic gliosis of the right aspect of the pontine isthmus. Findings suggestive of nonspecific NB0, nonspecific right objects, versus consequences of vasculitis. Will order MRI brain with and without contrast for further assessment Emergency department give dexamethasone 10 mg IV as directed Continue dexamethasone 6 mg IV every 12 hours Consult neurology if migraine is persistent in the a.m. Placed on LR at 125 mL/h x 1 L Zofran 4 mg IV every 6 hours as needed Continue venlafaxine, topiramate, diphenhydramine, diazepam, I reviewed problems all, and alprazolam. She is also on Emgality as an outpatient. Admit to monitored bed. Recurrent DVT and PE history- INR therapeutic at 2.8 Will continue warfarin as outpatient dosing. 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 She was most recently admitted to [facility] from 07/20-07/24/2025 for intractable migraine, and hypokalemia due to excessive GI losses. She presents to the emergency department evening of 07/25 with persistent symptoms of intractable migraine as before. Imaging studies were done on 07/22/2025: CT scan of head showed old lacunar infarct in the right pontine medial junction, and CTA head and neck were normal. Patient had presented similarly last year and was admitted from 08/22- 08/23/2024, with repeat admission 08/25-08/27/2024. From the ED patient received the following: Normal saline 1 L bolus, droperidol 2.5 mg IV, Benadryl 25 mg IV, and Tylenol 1 g IV. I asked her to give dexamethasone 10 mg IV as well. She is referred to the [facility] hospitalist service for further evaluation treatment of intractable migraine. Patient did have complaint of some mild tenderness right upper arm, and had a venous Doppler study done which showed superficial thrombophlebitis within the cephalic vein in the upper arm. Allergies Allergy/AdvReac Type Severity Reaction Status Date / Time shellfish derived Allergy Severe Swelling Unverified 08/22/24 17:05 of Lip/Tongue/Throat prochlorperazine AdvReac Intermediate caused Verified 08/22/24 17:05 [From Compazine] restless leg syndrome promethazine [From Phenergan] AdvReac Intermediate restless Verified 08/22/24 17:05 leg syndrome Home Medications Medication Instructions Recorded Confirmed Type topiramate 200 mg capsule,extended 200 mg PO HS 10/07/20 07/25/25 History release 24 hr venlafaxine 150 mg 300 mg PO HS 10/07/20 07/25/25 History capsule,extended release 24 hr (Effexor XR) epinephrine 0.3 mg/0.3 mL 0.3 mg (0.3 mL) IM Q4H PRN 07/17/23 07/25/25 Rx injection, auto-injector anaphylaxis #2 ea alprazolam 0.25 mg tablet 0.25 mg PO DAILY PRN Anxiety 09/01/23 07/25/25 History ondansetron 4 mg disintegrating 4 mg PO Q6H PRN nausea and 09/18/23 07/25/25 Rx tablet vomiting #15 tabs dicyclomine 20 mg tablet 40 mg PO TID PRN Diarrhea 03/23/24 07/25/25 History famotidine 40 mg tablet 20 mg PO HS 03/23/24 07/25/25 History semaglutide 0.25 mg or 0.5 mg (2 0.5 mg subcut WK 03/23/24 07/25/25 History mg/3 mL) subcutaneous pen injector (Ozempic) aripiprazole 5 mg tablet 5 mg PO HS 06/04/24 07/25/25 History galcanezumab-gnlm 120 mg/mL 120 mg subcut MONTHLY 06/04/24 07/25/25 History subcutaneous pen injector (Emgality Pen) levothyroxine 75 mcg tablet 75 mcg PO DAILYBB 06/04/24 07/25/25 History (Synthroid) diazepam 5 mg tablet 5 mg PO BID PRN Headache or muscle 08/27/24 07/25/25 Rx spasm #10 tabs diphenhydramine HCl 25 mg capsule 50 mg PO Q8H PRN nausea and 07/16/25 07/25/25 History (Benadryl) vomiting or migraine headache lidocaine 5 % topical patch 1 patch topical DAILY PRN Pain 07/16/25 07/25/25 History (Lidoderm) warfarin 10 mg tablet 10 mg PO .M,W,TH,F,SUN 07/16/25 07/25/25 History warfarin 7.5 mg tablet 7.5 mg PO .TUES AND SAT 07/16/25 07/25/25 History Past Med/Surg History Problem List (Updated 07/26/25 @ 02:16 by Cherie Siddiqi PA-C) Phlebitis of right upper extremity (Acute) Headache (Acute) Intractable migraine (Acute) Hypokalemia due to excessive gastrointestinal loss of potassium (Acute) Intractable migraine (Acute) Anticoagulation goal of INR 2 to 3 (Chronic) Old cerebrovascular accident (CVA) without late effect PTSD (post-traumatic stress disorder) (Chronic) GERD (gastroesophageal reflux disease) (Chronic) Medical History (Updated 07/26/25 @ 02:16 by Cherie Siddiqi PA-C) Migraine with acute onset aura History of DVT (deep vein thrombosis) History of pulmonary embolism C. difficile colitis Migraine Surgical History History of mastectomy S/P ROSALES-BSO S/P patent foramen ovale closure History of cholecystectomy History of appendectomy Social History (Updated 07/22/25 @ 08:53 by Ingrid Muñoz PA-C) Smoking Status: Never smoker Second Hand Exposure: No; Do You Dip or Chew Tobacco: No; Hx Alcohol Use: No Hx Substance Use: No Preferred Language: Bermudian Communication Ability: Effective Clerk Checker Required: No Beliefs That Will Affect Care: None Current Living Situation: Spouse Current Living Situation Comment: Lives with spouse and child (15 month old daughter on 07/2025) Feels Safe at Home: Yes Assistive Devices: Glasses and Hearing Aid - Bilateral Review of Systems Review of Systems: The patient denies chest pain, palpitations, shortness of breath, dyspnea on exertion, cough, lower extremity swelling, sore throat, fevers, chills, sweats, weight change, fatigue, nausea, vomiting, diarrhea , constipation, abdominal pain, pelvic pain, blood in urine or stool, dysuria, urinary frequency or urgency, memory loss, loss of consciousness, abnormal bruising or bleeding, imbalance, focal weakness, numbness or tingling in left arm or bilateral legs, generalized arthralgias or myalgias, back or neck pain, or night sweats. The review of systems is otherwise negative other than for that already noted above, and at least 10 systems have been reviewed. Physical Exam Physical Exam: The patient is awake, alert and oriented 3, well developed and well nourished, normocephalic and atraumatic, lying in bed with covers over her head to shield light due to migraine HEENT--PERRL, EOMI, mucous membranes and oropharynx dry. Neck--supple. No JVD. No bruits. Thyroid normal, trachea midline, no adenopathy. Heart--normal S1 and S2. No murmurs, rubs or gallops. Lungs--clear bilaterally, no respiratory distress, no accessory muscle use. Abdomen--normal bowel sounds and soft. Nontender. Nondistended, no hernias or masses, no organomegaly. Extremities--right upper extremity with mild tenderness over cephalic vein area. No edema. There are good distal pulses b/l Lower extremities Dermatologic--normal skin turgor, normal color, no abnormal lymph nodes, no rash. Neurologic--cranial nerves II through XII grossly intact. Rheumatologic--normal range of motion. Psychiatric--normal affect. Results & Data Results & Data Vital Signs (Past 12 Hours) Vital Signs Temp Pulse Pulse Resp BP BP Pulse Ox 07/25/25 23:00 90 14 148/67 H 97 07/25/25 21:49 98 H 20 105/68 99 07/25/25 19:41 99 H 20 95/60 L 100 07/25/25 18:00 36.5 C 106 H 18 114/80 99 O2 Del Method 07/25/25 23:00 Room Air 07/25/25 21:49 Room Air 07/25/25 19:41 Room Air 07/25/25 18:00 Room Air Laboratory Results Laboratory Results WBC 10.68 K/ul (4.8-10.8) 07/25/25 18:58 RBC 4.65 M/uL (4.20-5.40) 07/25/25 18:58 Hgb 13.6 g/dL (12.0-16.0) 07/25/25 18:58 Hct 41.1 % (37.0-47.0) 07/25/25 18:58 MCV 88.4 fL (80.0-100.0) 07/25/25 18:58 MCH 29.2 pg (25.0-34.0) 07/25/25 18:58 MCHC 33.1 g/dL (32.0-36.0) 07/25/25 18:58 RDW Std Deviation 45.0 fL (36.4-46.3) 07/25/25 18:58 RDW Coeff of Wilmer 14.1 % (11.5-14.5) 07/25/25 18:58 Plt Count 184 K/uL (130-400) 07/25/25 18:58 MPV 9.5 fL (9.4-12.4) 07/25/25 18:58 Immature Gran % (Auto) 0.7 % 07/25/25 18:58 Neut % (Auto) 75.2 % 07/25/25 18:58 Lymph % (Auto) 17.1 % 07/25/25 18:58 Barry % (Auto) 5.4 % 07/25/25 18:58 Eos % (Auto) 1.3 % 07/25/25 18:58 Baso % (Auto) 0.3 % 07/25/25 18:58 Neut # (Auto) 8.03 K/uL (1.40-6.50) H 07/25/25 18:58 Lymph # (Auto) 1.83 K/uL (1.20-3.40) 07/25/25 18:58 Barry # (Auto) 0.58 K/uL (0.11-0.59) 07/25/25 18:58 Eos # (Auto) 0.14 K/uL (0.00-0.50) 07/25/25 18:58 Baso # (Auto) 0.03 K/uL (0.00-0.20) 07/25/25 18:58 Immature Gran # (Auto) 0.07 K/uL (0.01-0.20) 07/25/25 18:58 PT 28.2 Seconds (9.0-12.0) H 07/25/25 21:58 INR 2.8 (0.9-1.1) H 07/25/25 21:58 APTT 40 Seconds (21-31) H 07/25/25 21:58 PTT Ratio 1.5 07/25/25 21:58 Sodium 137 mmol/L (136-145) 07/25/25 18:58 Potassium 3.6 mmol/L (3.5-5.1) 07/25/25 18:58 Chloride 104 mmol/L (98-107) 07/25/25 18:58 Carbon Dioxide 24 mmol/L (21-32) 07/25/25 18:58 Anion Gap 9 (3-11) 07/25/25 18:58 BUN 15 mg/dl (6-23) 07/25/25 18:58 Creatinine 1.04 mg/dl (0.6-1.2) 07/25/25 18:58 Est Cr Clr Drug Dosing 70.7 ml/min 07/25/25 18:58 eGFR 65.89 07/25/25 18:58 BUN/Creatinine Ratio 14.4 (10-20) 07/25/25 18:58 Glucose 101 mg/dl (70-99(Fasting)) H 07/25/25 18:58 Calcium 9.0 mg/dl (8.6-10.3) 07/25/25 18:58 Magnesium 2.1 mg/dl (1.7-2.4) 07/25/25 18:58 Total Bilirubin 0.4 mg/dl (0.2-1.0) 07/25/25 18:58 AST 14 U/L (13-39) 07/25/25 18:58 ALT 23 U/L (7-52) 07/25/25 18:58 Alkaline Phosphatase 106 U/L (34-104) H 07/25/25 18:58 Total Protein 7.5 gm/dl (6.0-8.3) 07/25/25 18:58 Albumin 3.9 gm/dl (3.4-5.0) 07/25/25 18:58 Globulin 3.6 gm/dl (2.5-4.0) 07/25/25 18:58 Albumin/Globulin Ratio 1.1 (0.9-2) 07/25/25 18:58 HCG, Qual Negative (Negative) 07/25/25 18:58 Impressions Venous Doppler Study 07/25/25 21:47 Exam(s): US VENOUS RIGHT UPPER EXTREMITY EXAM: US Duplex Right Upper Extremity Veins CLINICAL HISTORY: Reason for exam: pain/swelling, ? DVT. OTHER: Other Notes: Pain/swelling ? DVT. Pt states currently on blood thinners. Superficial occlusive thrombus seen in RT cephalic vein starting mid upper arm to AC fossa measuring approx 11 .5 cm. Rest of exam wnl's. TECHNIQUE: Real-time duplex ultrasound scan of the right upper extremity veins integrating B-mode two-dimensional vascular structure, Doppler spectral analysis, color flow Doppler imaging and compression. COMPARISON: No relevant prior studies available. FINDINGS: Deep veins: Unremarkable. No DVT in the internal jugular, subclavian, axillary, or brachial veins. The veins demonstrate normal color flow, are normally compressible, with normal phasic flow and/or augmentation response. Superficial veins: Occlusive thrombus seen within the right cephalic vein of the upper arm. This extends to the antecubital fossa. Soft tissues: No acute findings. IMPRESSION: No DVT Superficial thrombophlebitis within the cephalic vein in the upper arm Electronically signed by: Selwyn Thompson MD 07/26/25 01:16 AM Code Status & VTE Plan Code Status Full code VTE Prophylaxis Plan VTE Prophylaxis will be ordered: Yes PG Care Time/CCT Total # of Minutes Spent Total Time Spent with Patient: Total time spent is greater than 50% in coordination of care (as documented) at patient's floor/unit and/or counseling patient: Coding Level of Care Code 85164 INT INP/OBS CARE 3/75MIN Diagnoses Intractable migraine G43.919 Phlebitis of right upper extremity I80.8 History of pulmonary embolism Z86.711 History of DVT (deep vein thrombosis) Z86.718
[2025-07-26] MEDS: dexAMETHasone**PF** 10 MG/ML VIAL IV ONE (00:48)
[2025-07-26] MEDS: LACTATED RINGER'S 1,000 ML IV STA (00:48)
--- NOTE | 2025-07-26 01:17 | Ultrasound Report ---
Exam(s): US VENOUS RIGHT UPPER EXTREMITY EXAM: US Duplex Right Upper Extremity Veins CLINICAL HISTORY: Reason for exam: pain/swelling, ? DVT. OTHER: Other Notes: Pain/swelling ? DVT. Pt states currently on blood thinners. Superficial occlusive thrombus seen in RT cephalic vein starting mid upper arm to AC fossa measuring approx 11 .5 cm. Rest of exam wnl's. TECHNIQUE: Real-time duplex ultrasound scan of the right upper extremity veins integrating B-mode two-dimensional vascular structure, Doppler spectral analysis, color flow Doppler imaging and compression. COMPARISON: No relevant prior studies available. FINDINGS: Deep veins: Unremarkable. No DVT in the internal jugular, subclavian, axillary, or brachial veins. The veins demonstrate normal color flow, are normally compressible, with normal phasic flow and/or augmentation response. Superficial veins: Occlusive thrombus seen within the right cephalic vein of the upper arm. This extends to the antecubital fossa. Soft tissues: No acute findings. IMPRESSION: No DVT Superficial thrombophlebitis within the cephalic vein in the upper arm Electronically signed by: Selwyn Thompson MD 07/26/25 01:16 AM
[2025-07-26] MEDS ORDERED: DICYCLOMINE HCL 20 MG TAB PO PRN (01:53)
[2025-07-26] MEDS ORDERED: ONDANSETRON 4 MG OD TAB PO PRN (01:53)
[2025-07-26] MEDS ORDERED: diphenhydrAMINE Capsule 25 MG CAP PO PRN (01:53)
[2025-07-26] MEDS ORDERED: ONDANSETRON INJ 2 MG/ML 2 ML VIAL IV PRN (01:53)
[2025-07-26 06:23] LABS: Hematocrit (blood only) 35.2 % (37.0-47.0); Hemoglobin 11.9 g/dL (12.0-16.0); Mean Corpuscular Hemoglobin 29.9 pg (25.0-34.0); Mean Corpuscular Volume 88.4 fL (80.0-100.0); Platelet Count 132 K/uL (130-400); RDW Standard Deviation 44.9 fL (36.4-46.3); Red Blood Count 3.98 M/uL (4.20-5.40); White Blood Count 7.47 K/ul (4.8-10.8)
[2025-07-26] MEDS: LEVOTHYROXINE SODIUM 75 MCG TABLET PO SCH (06:24)
[2025-07-26 06:47] LABS: Alanine Aminotransferase 19.0 U/L (7-52); Albumin Globulin Ratio 1.2 (0.9-2); Albumin Level 3.5 gm/dl (3.4-5.0); Alkaline Phosphatase 87.0 U/L (34-104); Anion Gap 7.0 (3-11); Bilirubin,Total 0.5 mg/dl (0.2-1.0); Blood Urea Nitrogen 14.0 mg/dl (6-23); Calcium 8.8 mg/dl (8.6-10.3); Carbon Dioxide 22.0 mmol/L (21-32); Chloride 109.0 mmol/L (98-107); Creatinine Clr Calc Pharmacy 85.8 ml/min; Globulin 2.9 gm/dl (2.5-4.0); Glucose 159.0 mg/dl (70-99(Fasting)); Potassium 4.5 mmol/L (3.5-5.1); Sodium 138.0 mmol/L (136-145); Total Protein 6.4 gm/dl (6.0-8.3)
[2025-07-26 06:50] LABS: Immature Granulocytes # (auto) 0.05 K/uL (0.01-0.20); Immature Granulocytes % (auto) 0.7 %; RBC Morphology Unremarkable
[2025-07-26 06:52] LABS: INR 2.5 (0.9-1.1); Prothrombin Time 25.2 Seconds (9.0-12.0)
[2025-07-26] MEDS: dexAMETHasone 6 MG in SYRINGE 0 ML IV SCH (07:52)
[2025-07-26 08:03] VITALS: TEMP 98.1
[2025-07-26] MEDS ORDERED: PROCHLORPERAZINE 10 MG in SYRINGE 8 ML IV PRN (08:30)
[2025-07-26] MEDS: GADOBUTROL 30ML VIAL IV ONE (10:38)
--- NOTE | 2025-07-26 11:05 | Magnetic Resonance Report ---
MRI OF THE BRAIN COMBO CLINICAL HISTORY: Migraine headache. COMPARISON STUDY: CT of the brain dated 07/22/2025. MRI of the brain dated 08/22/2024. TECHNIQUE: MRI of the brain was performed utilizing various T1 and T2-weighted sequences in the axial , sagittal, and coronal planes. Contrast-enhanced sequences were acquired following the administratio n of 10 cc of Gadavist. FINDINGS: Brain parenchyma: A small focus of encephalomalacia in the right aspect of the gabriela is unchanged from prior studies and favors a remote insult. There is minimal microangiopathic change. There is no hemo rrhage or mass effect. There is no restricted diffusion to suggest acute ischemia. No enhancing mass lesion is identified on the postcontrast images. Espinoza-white matter differentiation is preserved. No e xtra-axial fluid collection is seen. The cerebellar tonsils are normal in configuration. Ventricles, sulci, and cisterns: Normal in configuration. Pituitary and sella: Unremarkable. Intracranial vasculature: Normal flow voids are maintained at the skull base. Orbits: The bony orbits are grossly intact. Orbital contents are normal in appearance. Sinuses and mastoids: Moderate mucosal thickening is seen within the right maxillary antrum. Mucosal thickening and 2.8 cm retention cyst is seen in the left maxillary sinus. The remaining paranasal sin uses and mastoid air vessels are clear. Calvarium: Unremarkable. Cervical cord: Partially visualized cervical spinal cord is normal in morphology and signal intensity . IMPRESSION: No acute intracranial abnormality. ACT 112: Negative or not required by law. Electronically signed by: Jose Alberto Morales M.D. 07/26/2025 11:03 AM
[2025-07-26 11:11] VITALS: RESP 18
[2025-07-26] MEDS ORDERED: CYCLOBENZAPRINE HCL 10 MG TAB PO PRN (12:25)
[2025-07-26] MEDS: diphenhydrAMINE 50 MG/ML VIAL IV STA (12:41)
[2025-07-26] MEDS: diphenhydrAMINE 50 MG/ML VIAL ONE (12:44)
--- NOTE | 2025-07-26 14:19 | Discharge Summary ---
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 She was most recently admitted to [facility] from 07/20-07/24/2025 for intractable migraine, and hypokalemia due to excessive GI losses. She presents to the emergency department evening of 07/25 with persistent symptoms of intractable migraine as before. Imaging studies were done on 07/22/2025: CT scan of head showed old lacunar infarct in the right pontine medial junction, and CTA head and neck were normal. Patient had presented similarly last year and was admitted from 08/22- 08/23/2024, with repeat admission 08/25-08/27/2024. From the ED patient received the following: Normal saline 1 L bolus, droperidol 2.5 mg IV, Benadryl 25 mg IV, and Tylenol 1 g IV. I asked her to give dexamethasone 10 mg IV as well. She is referred to the [facility] hospitalist service for further evaluation treatment of intractable migraine. DVT performed the right upper extremity revealed a superficial thrombophlebitis in the cephalic vein. Intractable migraine/anxiety- Patient was just discharged from [facility] after admission from 07/20 to 07/24/2025- Imaging performed from 07/[address] of the head with old lacunar infarct right pontomedullary junction. CTA head and neck were negative. Similar interpretation from CTs performed last year during admission from 08/22- 08/23/2024 and 08/25-08/27/2024. MRI brain performed during this admission showed chronic infarction with microcystic gliosis of the right aspect of the pontine isthmus. Findings suggestive of nonspecific NB0, nonspecific right objects, versus consequences of vasculitis. - MRI showed no acute abnormality -After volume expansion, abortive medications with Benadryl, Compazine. Patient had quite significant relief from overall symptoms. She did have some residual facial and upper head tension type symptoms gave her a dose of Flexeril and this improved symptoms. Discharged home to continue with previous medications. Flexeril as needed for tension component of headaches. Recurrent DVT and PE history- INR therapeutic at 2.8 Will continue warfarin as outpatient dosing. 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 She was most recently admitted to [facility] from 07/20-07/24/2025 for intractable migraine, and hypokalemia due to excessive GI losses. She presents to the emergency department evening of 07/25 with persistent symptoms of intractable migraine as before. Imaging studies were done on 07/22/2025: CT scan of head showed old lacunar infarct in the right pontine medial junction, and CTA head and neck were normal. Patient had presented similarly last year and was admitted from 08/22- 08/23/2024, with repeat admission 08/25-08/27/2024. From the ED patient received the following: Normal saline 1 L bolus, droperidol 2.5 mg IV, Benadryl 25 mg IV, and Tylenol 1 g IV. I asked her to give dexamethasone 10 mg IV as well. She is referred to the [facility] hospitalist service for further evaluation treatment of intractable migraine. Patient did have complaint of some mild tenderness right upper arm, and had a venous Doppler study done which showed superficial thrombophlebitis within the cephalic vein in the upper arm. Discharge Exam General: A&Ox3. NAD. Cooperative. HEENT: Atraumatic, normocephalic. Vision and hearing grossly intact. Pupils equal and reactive to light, sclera clear and anicteric Pulm: CTAB A&P. -wheezes, -rales, -rhonchi. No increased work of breathing. No respiratory distress. Cardiac: RRR. -mrg. Radial pulses intact and symmetrical. Abdominal: Nontender, nondistended, soft. BS present. Ext: No Edema, Moves all extremities equally NEURO: A&O as above, no focal deficits Skin: warm, moist. Discharge Plan Discharge Items Patient Disposition: Home - Self-Care Reason For Visit: INTRACTABLE HEADACHE Discharge Diagnosis: Status Migrainus Condition on Discharge: Good Activity: Resume your previous activity Non-emergency contact: Primary Care Provider Call non-emergency contact if: you have any medication questions, your symptoms worsen, your pain is worsening and your pain is concerning for you Follow-up/Referrals: Dionne Fletcher MD [Primary Care Provider] - (Please call your primary care provider to schedule a hospital follow-up appointment within 7-10 days) Diet: Regular Addtl Attending Provider Instructions: Resume prior medications, consider prophylactic migraine/tension headache medications Pending Studies at Discharge: No Stand-Alone Forms: [employer], Smoking Cessation Medications and DC Order Prescriptions: New cyclobenzaprine 10 mg Tablet 10 mg PO BID PRN (Reason: tension headache) Qty: 10 0RF Continued venlafaxine [Effexor XR] 150 mg Capsule,Extended Release 24hr 300 mg PO HS topiramate 200 mg Capsule,Extended Release 24hr 200 mg PO HS alprazolam 0.25 mg tablet 0.25 mg PO DAILY PRN (Reason: Anxiety) epinephrine 0.3 mg/0.3 mL auto-injector 0.3 mg IM Q4H PRN (Reason: anaphylaxis) Qty: 2 0RF ondansetron 4 mg tablet,disintegrating 4 mg PO Q6H PRN (Reason: nausea and vomiting) Qty: 15 0RF famotidine 40 mg tablet 20 mg PO HS dicyclomine 20 mg tablet 40 mg PO TID PRN (Reason: Diarrhea) Ozempic 0.25 mg or 0.5 mg (2 mg/3 mL) pen injector 0.5 mg SUBCUT WK Rx Instructions: Mondays diazepam 5 mg Tablet 5 mg PO BID PRN (Reason: Headache or muscle spasm) Qty: 10 0RF levothyroxine [Synthroid] 75 mcg tablet 75 mcg PO DAILYBB aripiprazole 5 mg Tablet 5 mg PO HS Emgality Pen 120 mg/mL pen injector 120 mg SUBCUT MONTHLY Rx Instructions: every month diphenhydramine HCl [Benadryl] 25 mg capsule 50 mg PO Q8H PRN (Reason: nausea and vomiting or migraine headache) Rx Instructions: [id number] lidocaine [Lidoderm] 5 % adhesive patch,medicated 1 patch topical DAILY PRN (Reason: Pain) Rx Instructions: leave on most painful area for up to 12 hrs warfarin 10 mg Tablet 10 mg PO .M,W,TH,F,SUN warfarin 7.5 mg Tablet 7.5 mg PO .TUES AND SAT Discharge Orders: Discharge Order (Routine); Ordered 07/26/25 Ordered By: Zev Cleveland/Other Patient Handouts: Headache Tension Ch, Migraine Headaches Ch Admission Data Admit Date/Time: 07/26/25 00:24 Attending Provider: Zev Rodrigez Admit Provider: Riaz Tillman Primary Care Provider: Dionne Fletcher Other Providers: Riaz Tillman Other Interventions: Discharge Summary Assessment (RN) Last Done: 07/26/25 14:19 Hospital Stay Data Consultations 07/25/25 23:24 ED Decision to Admit Stat Diagnostic Imagining Performed 07/25/25 21:47 US venous doppler UE RT Stat 07/26/25 00:20 MRI Brain [MR brain wo/w con] Stat Pending Results Patient Have Any Pending Studies at Discharge: No Discharge Instructions Given to Patient (Per Discharging Provider) Resume prior medications, consider prophylactic migraine/tension headache medications Total Time Total Time Spent Total Time Spent (In Minutes): 25 minutes spent at the bedside discussing results and modifications to care plan with patient. Arrangements for prescription on discharge. Reviewing new medications, discharge planning and follow-up coordination Coding Level of Care Code 31999 IN/OBS DISCH 30 MIN/LESS Diagnoses Intractable migraine G43.919 Phlebitis of right upper extremity I80.8
[2025-07-26 15:11] VITALS: BP 108/69; PULSE 86; O2SAT 93
[2025-07-26] MEDS ORDERED: WARFARIN SOD 7.5 MG TAB PO SCH (16:00)
[2025-07-26] MEDS ORDERED: VENLAFAXINE HCL XR 150 MG CAPXR PO SCH (21:00)
[2025-07-26] MEDS ORDERED: FAMOTIDINE 20 MG TAB PO SCH (21:00)
[2025-07-26] MEDS ORDERED: ARIPiprazole 5 MG TAB PO SCH (21:00)
[2025-07-27] MEDS ORDERED: WARFARIN SOD 10 MG TAB PO SCH (16:00)
== END 2025-07-26 15:45 | disposition home or self-care (01) ==
LOC: ED 17:41 → 2N 17:41 → SUATTDRO 07-26 00:24 → 2N 07-26 01:22

== ENCOUNTER 2025-08-02 14:15 | Inpatient (IN) ==
--- NOTE | 2025-08-02 15:10 | Emergency Department Note ---
Impression & Plan Headache, Anticoagulation goal of INR 2 to 3, Intractable migraine ED Provider Note NAME: FRANCISCA MAGALLANES AGE: 50 SEX: F : 1975 ARRIVES VIA: Walk-In INFORMANT: Patient ED PROVIDER(S): Selwyn Yan DO CHIEF COMPLAINT: Headache HPI: Patient is a 42-year-old female who presents to the ER for headache. Patient has a history of migraines as well as CVA, PTSD, GERD and anticoagulated on Coumadin. She notes this has been off and on for over a month. Has been unchanged from her typical migraines. Patient notes that this consistent with her typical migraines and unchanged in any way. She does not want any imaging. She denies any focal weakness or numbness in the arms or legs. No change or loss of vision. No fevers. No neck pain. No chest pain or shortness of breath. No dysuria, urgency or frequency. ADDITIONAL HISTORY OBTAINED: Per HPI Chronic Medical/Social Conditions Affecting Care: Per HPI PAST MEDICAL HISTORY:See Below PAST SURGICAL HISTORY:See Below FAMILY HISTORY:See Below SOCIAL HISTORY:See Below HOME MEDICATIONS:See Below ALLERGIES:See Below VITALS:See Below PHYSICAL EXAMINATION: GENERAL: Sitting up in bed, alert, well appearing, well nourished, no distress, non-toxic EYE EXAM: normal conjunctiva. PERRL and EOM's intact. OROPHARYNX: no exudate, no erythema, lips, buccal mucosa, and tongue normal and mucous membranes are moist NECK: supple, no nuchal rigidity, no adenopathy, non-tender LUNGS: Clear to auscultation. Normal chest wall mechanics HEART: no murmurs, S1 normal and S2 normal ABDOMEN: abdomen soft, non-tender, normo-active bowel sounds, no masses, no rebound or guarding. BACK: Back is symmetrical on inspection and there is no deformity, no midline tenderness, no CVA tenderness. SKIN: no rashes and no bruising UPPER EXTREMITIES: upper extremities are grossly normal. LOWER EXTREMITIES: No pitting edema. NEURO EXAM: Normal sensorium, cranial nerves II-XII intact, normal speech, no weakness of arms, no weakness of legs. No drift. Finger to nose intact. Gross sensation intact. MEDICAL DECISION MAKING: Patient is a 50-year-old female who presents ER for the above-stated complaint. IV was established and blood work was obtained. Labs showed no significant leukocytosis or anemia. INR at 2.2. BMP with a chloride at 109. Patient declined any imaging of her head. She was given IV fluids, Benadryl, Compazine and Toradol at her request. Headache had improved slightly she requested to be admitted and notes that she feels uncomfortable going home. Discussed case with Dr. Lemon for further evaluation management treatment. Consults/Care Managements Discussions: Per MDM Triage Nursing notes reviewed. Limited review of prior medical records performed Vital Signs: reviewed and remarkable for tachy Differential diagnosis: Differential Diagnosis includes but is not limited to headache, tension headache, cluster headache, migraine, subarachnoid hemorrhage, meningitis, mass, central venous thrombus, concussion, trauma and epidural/subdural hemorrhage. ER treatment provided: See below Diagnostics interpreted by me include EKG and cardiac monitoring as listed below: -Cardiac Monitoring: An order was placed for continuous cardiac monitoring. The monitor shows a rate of 95 with sinus rhythm. -ECG: none -Laboratory studies:Interpreted by me as stated above in MDM and shown below. Imaging studies: Xrays: As interpreted by me: None CTs show: Declined CT of the head Procedures: None Critical Care: None Past Med/Surg History Problem List (Updated 08/02/25 @ 18:36 by Selwyn Yan DO) Headache (Acute) Migraine (Acute) Phlebitis of right upper extremity (Acute) Headache (Acute) Intractable migraine (Acute) Hypokalemia due to excessive gastrointestinal loss of potassium (Acute) Intractable migraine (Acute) Anticoagulation goal of INR 2 to 3 (Chronic) Old cerebrovascular accident (CVA) without late effect PTSD (post-traumatic stress disorder) (Chronic) GERD (gastroesophageal reflux disease) (Chronic) Medical History (Updated 08/02/25 @ 18:36 by Selwyn Yan DO) Migraine with acute onset aura History of DVT (deep vein thrombosis) History of pulmonary embolism C. difficile colitis Migraine Surgical History History of mastectomy S/P ROSALES-BSO S/P patent foramen ovale closure History of cholecystectomy History of appendectomy Social History (Updated 07/22/25 @ 08:53 by Ingrid Muñoz PA-C) Smoking Status: Never smoker Second Hand Exposure: No; Do You Dip or Chew Tobacco: No; Hx Alcohol Use: No Hx Substance Use: No Preferred Language: Thai Communication Ability: Effective In[employer] [place] Required: No Beliefs That Will Affect Care: None Current Living Situation: Spouse Current Living Situation Comment: Lives with spouse and child (15 month old daughter on 07/2025) Feels Safe at Home: Yes Assistive Devices: Glasses and Hearing Aid - Bilateral Allergies Allergies Allergy/AdvReac Type Severity Reaction Status Date / Time shellfish derived Allergy Severe Swelling Verified 07/31/25 18:12 of Lip/Tongue/Throat prochlorperazine AdvReac Intermediate caused Verified 07/31/25 18:12 [From Compazine] restless leg syndrome promethazine [From Phenergan] AdvReac Intermediate restless Verified 07/31/25 18:12 leg syndrome Home Meds Home Medications Medication Instructions Recorded Confirmed topiramate 200 mg capsule,extended 200 mg PO HS 10/07/20 08/02/25 release 24 hr venlafaxine 150 mg 300 mg PO HS 10/07/20 08/02/25 capsule,extended release 24 hr (Effexor XR) alprazolam 0.25 mg tablet 0.25 mg PO DAILY PRN Anxiety 09/01/23 08/02/25 famotidine 40 mg tablet 20 mg PO HS 03/23/24 08/02/25 semaglutide 0.25 mg or 0.5 mg (2 0.5 mg subcut WK 03/23/24 08/02/25 mg/3 mL) subcutaneous pen injector (Ozempic) aripiprazole 5 mg tablet 5 mg PO HS 06/04/24 08/02/25 diphenhydramine HCl 25 mg capsule 50 mg PO Q8H PRN nausea and 07/16/25 08/02/25 (Benadryl) vomiting or migraine headache lidocaine 5 % topical patch 1 patch topical DAILY PRN Pain 07/16/25 08/02/25 (Lidoderm) warfarin 10 mg tablet 10 mg PO 5XWK 07/16/25 08/02/25 warfarin 7.5 mg tablet 7.5 mg PO 2XWK 07/16/25 08/02/25 levothyroxine 88 mcg tablet 88 mcg PO DAILYBB 08/02/25 08/02/25 Previous Rx's Medication Instructions Recorded epinephrine 0.3 mg/0.3 mL 0.3 mg (0.3 mL) IM Q4H PRN 07/17/23 injection, auto-injector anaphylaxis #2 ea ondansetron 4 mg disintegrating 4 mg PO Q6H PRN nausea and 09/18/23 tablet vomiting #15 tabs diazepam 5 mg tablet 5 mg PO BID PRN Headache or muscle 08/27/24 spasm #10 tabs cyclobenzaprine 10 mg tablet 10 mg PO BID PRN tension headache 07/26/25 #10 tabs Results & Data (ED) Vital Signs Vital Signs - 24 hr 08/02/25 14:25 08/02/25 15:12 08/02/25 16:08 Temperature 36.8 C Temperature Source Temporal Artery Scan Pulse Rate 101 H 93 H 91 H Pulse Rate [Apical] Pulse Rhythm [Apical] Pulse Strength [Apical] Respiratory Rate 17 18 Respiratory Effort / Characteristics Non-Labored Spontaneous Respiratory Depth Normal Respiratory Pattern Blood Pressure 112/80 Blood Pressure [Left Arm] Blood Pressure Mean 90 Blood Pressure Mean [Left Arm] Blood Pressure Position Sitting Blood Pressure Position [Left Arm] Pulse Oximetry 99 100 Oxygen Delivery Method Room Air Room Air Sepsis Recent Fever Within 48 Hours No Sepsis New/Unexplained Change in Mental Status N/A Sepsis Action Taken by Nursing No Action Required 08/02/25 16:15 08/02/25 18:00 Temperature Temperature Source Pulse Rate Pulse Rate [Apical] 93 H 87 Pulse Rhythm [Apical] Regular Pulse Strength [Apical] Normal Respiratory Rate 19 20 Respiratory Effort / Characteristics Non-Labored Spontaneous Non-Labored Spontaneous Respiratory Depth Normal Respiratory Pattern Regular Blood Pressure Blood Pressure [Left Arm] 128/88 117/76 Blood Pressure Mean Blood Pressure Mean [Left Arm] 101 89 Blood Pressure Position Blood Pressure Position [Left Arm] Lying Sitting Pulse Oximetry 100 99 Oxygen Delivery Method Room Air Room Air Sepsis Recent Fever Within 48 Hours Sepsis New/Unexplained Change in Mental Status Sepsis Action Taken by Nursing Laboratory Data 08/02/25 16:31 08/02/25 16:31 Lab Results 08/02/25 Range/Units 16:31 WBC 6.61 (4.8-10.8) K/ul RBC 4.51 (4.20-5.40) M/uL Hgb 13.2 (12.0-16.0) g/dL Hct 40.7 (37.0-47.0) % MCV 90.2 (80.0-100.0) fL MCH 29.3 (25.0-34.0) pg MCHC 32.4 (32.0-36.0) g/dL RDW Std Deviation 45.6 (36.4-46.3) fL RDW Coeff of Wilmer 14.0 (11.5-14.5) % Plt Count 153 (130-400) K/uL MPV 9.7 (9.4-12.4) fL Immature Gran % (Auto) 0.8 % Neut % (Auto) 69.8 % Lymph % (Auto) 19.2 % [place] % (Auto) 7.6 % Eos % (Auto) 2.1 % Baso % (Auto) 0.5 % Neut # (Auto) 4.62 (1.40-6.50) K/uL Lymph # (Auto) 1.27 (1.20-3.40) K/uL [place] # (Auto) 0.50 (0.11-0.59) K/uL Eos # (Auto) 0.14 (0.00-0.50) K/uL Baso # (Auto) 0.03 (0.00-0.20) K/uL Immature Gran # (Auto) 0.05 (0.01-0.20) K/uL PT 22.0 H (9.0-12.0) Seconds INR 2.2 H (0.9-1.1) Sodium 138 (136-145) mmol/L Potassium 3.8 (3.5-5.1) mmol/L Chloride 109 H (98-107) mmol/L Carbon Dioxide 23 (21-32) mmol/L Anion Gap 6 (3-11) BUN 10 (6-23) mg/dl Creatinine 1.19 (0.6-1.2) mg/dl Est Cr Clr Drug Dosing 64.7 ml/min eGFR 56.05 BUN/Creatinine Ratio 8.4 L (10-20) Glucose 79 (70-99(Fasting)) mg/dl Calcium 8.7 (8.6-10.3) mg/dl Administered Medications Discontinued Medications Dexamethasone Sodium Phosphate (DexamethasonePf 10 Mg/Ml Vial) 10 mg IV NOW ONE Stop: 08/02/25 15:11 Last Admin: 08/02/25 16:18 Dose: 10 mg Documented By: [facility] [place] Diphenhydramine HCl (Diphenhydramine 50 Mg/Ml Vial) 50 mg IV NOW STA Stop: 08/02/25 15:07 Last Admin: 08/02/25 16:18 Dose: 50 mg Documented By: saulo Sodium Chloride (Nss) 1,000 mls @ 999 mls/hr IV .Q1H1M EVELIN Stop: 08/02/25 17:15 Last Admin: 08/02/25 16:17 Dose: 999 mls/hr Documented By: saulo Prochlorperazine (Compazine) 2 mls @ 1 mls/min IV ONE ONE Stop: 08/02/25 15:07 Last Admin: 08/02/25 16:17 Dose: 1 mls/min Documented By: saulo Ketorolac Tromethamine (Ketorolac 30 Mg/Ml Vial) 30 mg IV NOW ONE Stop: 08/02/25 15:07 Last Admin: 08/02/25 16:18 Dose: 30 mg Documented By: saulo Discharge Plan Visit Data Chief Complaint: Headache Stated Complaint: MIGRAINE ED Provider: Selwyn Yan Discharge Problem: Headache, Anticoagulation goal of INR 2 to 3, Intractable migraine Condition: Fair Forms Stand Alone Forms: [facility] Prescriptions Prescriptions: No Action venlafaxine [Effexor XR] 150 mg Capsule,Extended Release 24hr 300 mg PO HS topiramate 200 mg Capsule,Extended Release 24hr 200 mg PO HS alprazolam 0.25 mg tablet 0.25 mg PO DAILY PRN (Reason: Anxiety) epinephrine 0.3 mg/0.3 mL auto-injector 0.3 mg IM Q4H PRN (Reason: anaphylaxis) Qty: 2 0RF ondansetron 4 mg tablet,disintegrating 4 mg PO Q6H PRN (Reason: nausea and vomiting) Qty: 15 0RF famotidine 40 mg tablet 20 mg PO HS Ozempic 0.25 mg or 0.5 mg (2 mg/3 mL) pen injector 0.5 mg SUBCUT WK Rx Instructions: Mondays diazepam 5 mg Tablet 5 mg PO BID PRN (Reason: Headache or muscle spasm) Qty: 10 0RF levothyroxine 88 mcg tablet 88 mcg PO DAILYBB aripiprazole 5 mg Tablet 5 mg PO HS diphenhydramine HCl [Benadryl] 25 mg capsule 50 mg PO Q8H PRN (Reason: nausea and vomiting or migraine headache) Rx Instructions: [id number] lidocaine [Lidoderm] 5 % adhesive patch,medicated 1 patch topical DAILY PRN (Reason: Pain) Rx Instructions: leave on most painful area for up to 12 hrs warfarin 10 mg Tablet 10 mg PO 5XWK Rx Instructions: SUN, MON, WED, THUR, & FRI warfarin 7.5 mg Tablet 7.5 mg PO 2XWK Rx Instructions: TUES & SAT cyclobenzaprine 10 mg Tablet 10 mg PO BID PRN (Reason: tension headache) Qty: 10 0RF Referrals Referrals: Dionne Fletcher MD [Primary Care Provider] - Discharge Problem: Headache Qualifiers: Headache type: unspecified Headache chronicity pattern: unspecified pattern I ntractability: not intractable Qualified Code(s): R51.9 - Headache, unspecified Intractable migraine Qualifiers: Migraine type: unspecified Status migrainosus presence: without status migrainosus Qualified Code(s): G43.919 - Migraine, unspecified, intractable, without status migrainosus
[2025-08-02] MEDS: SODIUM CHLORIDE 0.9% 1,000 ML IV SCH ×2 (16:17→23:21)
[2025-08-02] MEDS: PROCHLORPERAZINE 2 ML IV ONE (16:17)
[2025-08-02] MEDS: dexAMETHasone**PF** 10 MG/ML VIAL IV ONE (16:18)
[2025-08-02] MEDS: diphenhydrAMINE 50 MG/ML VIAL IV STA (16:18)
[2025-08-02] MEDS: KETOROLAC 30 MG/ML VIAL IV ONE (16:18)
[2025-08-02 17:06] LABS: Hematocrit (blood only) 40.7 % (37.0-47.0); Hemoglobin 13.2 g/dL (12.0-16.0); Immature Granulocytes # (auto) 0.05 K/uL (0.01-0.20); Immature Granulocytes % (auto) 0.8 %; Mean Corpuscular Hemoglobin 29.3 pg (25.0-34.0); Mean Corpuscular Volume 90.2 fL (80.0-100.0); Platelet Count 153 K/uL (130-400); RDW Standard Deviation 45.6 fL (36.4-46.3); Red Blood Count 4.51 M/uL (4.20-5.40); White Blood Count 6.61 K/ul (4.8-10.8)
[2025-08-02 17:23] LABS: Anion Gap 6 (3-11); Blood Urea Nitrogen 10 mg/dl (6-23); Calcium 8.7 mg/dl (8.6-10.3); Carbon Dioxide 23 mmol/L (21-32); Chloride 109 mmol/L (98-107); Creatinine Clr Calc Pharmacy 64.7 ml/min; Glucose 79 mg/dl (70-99(Fasting)); Potassium 3.8 mmol/L (3.5-5.1); Sodium 138 mmol/L (136-145)
[2025-08-02 17:32] LABS: INR 2.2 (0.9-1.1); Prothrombin Time 22.0 Seconds (9.0-12.0)
--- NOTE | 2025-08-02 19:43 | History & Physical Report ---
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 #status migraine - -uncertain trigger - she cannot recall any specific inciting food, event, head injury, illness, etc. -multiple ER visits & multiple hospital stays for this without complete relief -s/p dexamethasone along with anti-emetics given in ER -will give mag sulfate 1gm now -will give muscle relaxer now (baclofen) -Nurtec ODT recently added to hospital formulary - will use such -cont IV steroids - solumedrol 40mg BID -make fioricet prn available -anti-emetics prn -patient reports that her dogs bring in ticks from outside into the home -- checked anaplasmosis smear --> negative; checked lyme screen --> negative -with taste disturbance checked COVID/flu/RSV --> negative -with obesity consider LP to r/o pseudotumor cerebri although there is no MRI evidence of such on recent MRI brain -she has not had fevers or other infectious symptoms to suggest meningitis/encephalitis/infectious process -MRV unlikely to provide any benefit - she is already chronically anticoagulated and dural thrombosis is unlikely -if steroids, Nurtec, muscle relaxers, etc are not helpful could try Depakote IV x 1 VS DHE protocol VS pain management consult for Ketamine -will obtain neurology consult while here for any other recs #taste disturbance - -2nd to migraine headache? -checked COVID/flu/RSV --> negative -recent head imaging did not suggest acute sinusitis #prior history of stroke - -right pontine as seen on prior imaging -cont coumadin for secondary prevention #prior history of DVT/PE - -cont coumadin -daily INR #prediabetes - -08/2024 Hba1c 6.4% c/w pre-DM -check another a1c while here -with steroids on board for status migraine plan to check serial BSGs #obesity - -BMI 38 #GERD - -cont pepcid - increase to BID dosing due to steroid use #hypothyroidism - -last TSH was nearly 1 year ago -will repeat while here -cont synthroid #mental health/PTSD - -cont all home meds including topamax which I assume is being used mainly for headache prophylaxis #DVT proph - -coumadin -INR is at goal observation status to start History of Present Illness Chief Complaint: ongoing migraine headache Primary Care Provider: Dionne Fletcher MD 50yo female with history of migraines which started after a right-sided CVA in the , 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 Patient has been admitted to [facility] twice in the last 3 weeks due to the refractory migraine headache. She has had other ER visits for the same thing as well. She reports having relief of headache "for about a day" after her last admission which was 07/25 to 07/26. She reports that a combination of IV benadryl and IV compazine along with other anti-emetics has helped her headaches. It sounds as if she may have tried triptan therapy in the past and most recently was prescribed Nurtec ODT. However, she has not used the Nurtec in at least a couple of weeks. Her migraines are frontal in location, throbbing/sharp, and radiate to the top of the head and back to the occipital region. She has associated nausea, vomiting, photophobia, and phonophobia. About a week ago she did have visual disturbance related to her ongoing headache. She is followed by a headache center at [facility] as well as the [facility] in [place]. Her last imaging was an MRI brain on 07/26/25 which was negative for acute findings (no acute CVA, no ICH, etc). Allergies Allergy/AdvReac Type Severity Reaction Status Date / Time shellfish derived Allergy Severe Swelling Verified 07/31/25 18:12 of Lip/Tongue/Throat prochlorperazine AdvReac Intermediate caused Verified 07/31/25 18:12 [From Compazine] restless leg syndrome promethazine [From Phenergan] AdvReac Intermediate restless Verified 07/31/25 18:12 leg syndrome Home Medications Medication Instructions Recorded Confirmed Type topiramate 200 mg capsule,extended 200 mg PO HS 10/07/20 08/02/25 History release 24 hr venlafaxine 150 mg 300 mg PO HS 10/07/20 08/02/25 History capsule,extended release 24 hr (Effexor XR) epinephrine 0.3 mg/0.3 mL 0.3 mg (0.3 mL) IM Q4H PRN 07/17/23 08/02/25 Rx injection, auto-injector anaphylaxis #2 ea alprazolam 0.25 mg tablet 0.25 mg PO DAILY PRN Anxiety 09/01/23 08/02/25 History ondansetron 4 mg disintegrating 4 mg PO Q6H PRN nausea and 09/18/23 08/02/25 Rx tablet vomiting #15 tabs famotidine 40 mg tablet 20 mg PO HS 03/23/24 08/02/25 History semaglutide 0.25 mg or 0.5 mg (2 0.5 mg subcut WK 03/23/24 08/02/25 History mg/3 mL) subcutaneous pen injector (Ozempic) aripiprazole 5 mg tablet 5 mg PO HS 06/04/24 08/02/25 History diazepam 5 mg tablet 5 mg PO BID PRN Headache or muscle 08/27/24 08/02/25 Rx spasm #10 tabs diphenhydramine HCl 25 mg capsule 50 mg PO Q8H PRN nausea and 07/16/25 08/02/25 History (Benadryl) vomiting or migraine headache lidocaine 5 % topical patch 1 patch topical DAILY PRN Pain 07/16/25 08/02/25 History (Lidoderm) warfarin 10 mg tablet 10 mg PO 5XWK 07/16/25 08/02/25 History warfarin 7.5 mg tablet 7.5 mg PO 2XWK 07/16/25 08/02/25 History cyclobenzaprine 10 mg tablet 10 mg PO BID PRN tension headache 07/26/25 08/02/25 Rx #10 tabs levothyroxine 88 mcg tablet 88 mcg PO DAILYBB 08/02/25 08/02/25 History Past Med/Surg History Problem List (Updated 08/03/25 @ 06:40 by Riley Cordon MD) Prediabetes Smell or taste sensation disturbance Migraine with status migrainosus Headache (Acute) Migraine (Acute) Phlebitis of right upper extremity (Acute) Headache (Acute) Intractable migraine (Acute) Hypokalemia due to excessive gastrointestinal loss of potassium (Acute) Intractable migraine (Acute) Anticoagulation goal of INR 2 to 3 (Chronic) Old cerebrovascular accident (CVA) without late effect PTSD (post-traumatic stress disorder) (Chronic) GERD (gastroesophageal reflux disease) (Chronic) Medical History Migraine with acute onset aura History of DVT (deep vein thrombosis) History of pulmonary embolism C. difficile colitis Migraine Surgical History History of mastectomy S/P ROSALES-BSO S/P patent foramen ovale closure History of cholecystectomy History of appendectomy Family History (Updated 08/03/25 @ 06:32 by Riley Cordon MD) Brother Chronic headaches Social History (Updated 08/03/25 @ 06:32 by Riley Cordon MD) Smoking Status: Never smoker Second Hand Exposure: No; Do You Dip or Chew Tobacco: No; Hx Alcohol Use: No Hx Substance Use: No Preferred Language: Irish Communication Ability: Effective Temp Recruiter Required: No Beliefs That Will Affect Care: None marital status: Current Living Situation: Spouse Current Living Situation Comment: Lives with spouse and child (15 month old daughter) current occupational status: disabled current occupation: was in the [employer] other: lives in [place] Feels Safe at Home: Yes Safety Concerns: Feels Safe At This Time Assistive Devices: Glasses and Hearing Aid - Bilateral Review of Systems Review of Systems: gen - no fevers or chills eyes - double vision during the last hospitalization - has not recurred HENT - taste disturbance for several weeks - "everything tastes sweet"; no URI symptoms; no dysphagia, no sore throat, no ear pain cv - no chest pain pulm - no dyspnea or cough or chest congestion GI - nausea with emesis at times from her headache; no abd pain - no dysuria musculo - no myalgias or arthralgias neuro - daily headaches, often awakening her at night-time, for several weeks; frontal; photophobia/phonophobia; denies limb weakness; denies any current sensory disturbance skin - no rash endo - no diabetes Physical Exam Physical Exam: gen - obese, looks uncomfortable due to her headache, but awake/alert and provides full history eyes - PERRL, EOMI, no nystagmus or reported diplopia HENT - MMM, no lesions, no nasal congestion neck - supple, no meningismus, no lymph nodes, no JVD heart - RRR, s1 s2, no murmur lungs - CTA b/l abd - soft NT ND BS+ ext - no edema, pulses 2+ b/l skin - no rash psych - a/o x 3 neuro - CN 3-12 intact, no facial droop; speech clear/fluent; strength 5/5 x 4 exts; hyper-reflexia LUE/LLE; reflexes RUE/RLE 2+; finger/nose/finger maneuver w/o ataxia Results & Data Results & Data Vital Signs (Past 12 Hours) Vital Signs Temp Pulse Pulse Resp BP BP Pulse Ox 08/02/25 18:00 87 20 117/76 99 08/02/25 16:15 93 H 19 128/88 100 08/02/25 16:08 91 H 08/02/25 15:12 93 H 18 100 08/02/25 14:25 36.8 C 101 H 17 112/80 99 O2 Del Method 08/02/25 18:00 Room Air 08/02/25 16:15 Room Air 08/02/25 16:08 08/02/25 15:12 Room Air 08/02/25 14:25 Room Air Laboratory Results Laboratory Results - last 24 hr 08/02/25 08/02/25 08/02/25 16:31 16:54 19:04 WBC 6.61 RBC 4.51 Hgb 13.2 Hct 40.7 MCV 90.2 MCH 29.3 MCHC 32.4 RDW Std Deviation 45.6 RDW Coeff of Wilmer 14.0 Plt Count 153 MPV 9.7 Immature Gran % (Auto) 0.8 Neut % (Auto) 69.8 Lymph % (Auto) 19.2 Sauk % (Auto) 7.6 Eos % (Auto) 2.1 Baso % (Auto) 0.5 Neut # (Auto) 4.62 Lymph # (Auto) 1.27 Sauk # (Auto) 0.50 Eos # (Auto) 0.14 Baso # (Auto) 0.03 Immature Gran # (Auto) 0.05 ESR 37 H PT 22.0 H INR 2.2 H Sodium 138 Potassium 3.8 Chloride 109 H Carbon Dioxide 23 Anion Gap 6 BUN 10 Creatinine 1.19 Est Cr Clr Drug Dosing 64.7 eGFR 56.05 BUN/Creatinine Ratio 8.4 L Glucose 79 Calcium 8.7 C-Reactive Protein Pending Anaplasma Smear See Comment Lyme Disease Screen Negative SARS-CoV-2 (PCR) NEGATIVE Influenza Type A (PCR) Negative Influenza Type B (PCR) Negative RSV (RT-PCR) Negative Diagnostic Findings MRI brain 07/26 - FINDINGS: Brain parenchyma: A small focus of encephalomalacia in the right aspect of the gabriela is unchanged from prior studies and favors a remote insult. There is minimal microangiopathic change. There is no hemorrhage or mass effect. There is no restricted diffusion to suggest acute ischemia. No enhancing mass lesion is identified on the postcontrast images. Espinoza-white matter differentiation is preserved. No extra-axial fluid collection is seen. The cerebellar tonsils are normal in configuration. Ventricles, sulci, and cisterns: Normal in configuration. Pituitary and sella: Unremarkable. Intracranial vasculature: Normal flow voids are maintained at the skull base. Orbits: The bony orbits are grossly intact. Orbital contents are normal in appearance. Sinuses and mastoids: Moderate mucosal thickening is seen within the right maxillary antrum. Mucosal thickening and 2.8 cm retention cyst is seen in the left maxillary sinus. The remaining paranasal sinuses and mastoid air vessels are clear. Calvarium: Unremarkable. Cervical cord: Partially visualized cervical spinal cord is normal in morphology and signal intensity. IMPRESSION: No acute intracranial abnormality. Code Status & VTE Plan Code Status full code VTE Prophylaxis Plan VTE Prophylaxis will be ordered: Yes PG Care Time/CCT Total # of Minutes Spent Total Time Spent with Patient: Total time spent is greater than 50% in coordination of care (as documented) at patient's floor/unit and/or counseling patient: Coding Level of Care Code 62847 INT INP/OBS CARE 3/75MIN Diagnoses Migraine with status migrainosus G43.901 History of DVT (deep vein thrombosis) Z86.718 History of pulmonary embolism Z86.711 History of CVA (cerebrovascular accident) Z86.73 Smell or taste sensation disturbance R43.9 Prediabetes R73.03
[2025-08-02] MEDS: MAGNESIUM SULFATE / D5W 1 GM/100 ML BAG IV STA (20:20)
[2025-08-02] MEDS: BACLOFEN 10 MG TAB PO STA (20:23)
[2025-08-02 20:45] LABS: Influenza A virus by PCR Negative (Neg); Influenza B virus by PCR Negative (Neg); SARS CoV2 RNA(COVID-19) Ceph NEGATIVE (Negative)
[2025-08-02] MEDS ORDERED: ONDANSETRON INJ 2 MG/ML 2 ML VIAL IV PRN (22:00)
[2025-08-02] MEDS ORDERED: LIDOCAINE 5% 1 PATCH TD PRN (22:00)
[2025-08-02] MEDS ORDERED: BUTALBITAL/ACETAMIN/CAFFEINE TAB PO PRN (22:00)
[2025-08-02] MEDS ORDERED: RIMEGEPANT SULFATE 75 MG OD TAB PO PRN (22:13)
[2025-08-02] MEDS ORDERED: EPINEPHrine INJ 1 MG/ML AMP IM PRN (22:14)
[2025-08-02] MEDS: ACETAMINOPHEN 500 MG TAB PO SCH (23:04)
[2025-08-02] MEDS: FAMOTIDINE 20 MG TAB PO SCH (23:09)
[2025-08-02] MEDS: REMOVE LIDODERM PATCH SCH (23:09)
[2025-08-02] MEDS: ARIPiprazole 5 MG TAB PO SCH (23:09)
[2025-08-02] MEDS: VENLAFAXINE HCL XR 150 MG CAPXR PO SCH (23:09)
[2025-08-02] MEDS: WARFARIN SOD 7.5 MG TAB PO SCH (23:10)
[2025-08-02] MEDS: CYCLOBENZAPRINE HCL 10 MG TAB PO PRN (23:11)
[2025-08-02] MEDS: MELATONIN 3 MG TAB PO PRN (23:11)
[2025-08-03] MEDS: PROCHLORPERAZINE 10 MG in SYRINGE 8 ML IV ONE (01:40)
[2025-08-03] MEDS: TOPIRAMATE 100 MG TAB PO SCH (01:40)
[2025-08-03] MEDS: MAGNESIUM SULFATE / D5W 1 GM/100 ML BAG IV ONE (01:40)
[2025-08-03] MEDS: diphenhydrAMINE 50 MG/ML VIAL IV PRN (01:41)
[2025-08-03] MEDS: LEVOTHYROXINE SODIUM 88 MCG TABLET PO SCH (03:46)
[2025-08-03 07:37] LABS: INR 2.4 (0.9-1.1); Prothrombin Time 24.5 Seconds (9.0-12.0)
[2025-08-03] MEDS: FAMOTIDINE 20 MG TAB PO SCH (09:32)
[2025-08-03 09:35] LABS: Hemoglobin A1C 5.8 % (4.5-5.6)
--- NOTE | 2025-08-03 09:42 | Neurology Consultation ---
Date of Consultation August 03, 2025 Assessment & Plan (1) Migraine with status migrainosus: Intractable migraines for 4 weeks now. Currently responding to Compazine Benadryl and also steroids. Patient sees [facility] neurology with plans to adjust some of her medications and set her up for Botox. (2) Old cerebrovascular accident (CVA) without late effect: Reviewed MRI of the brain and CT scan of the brain does not show acute abnormalities. Old right pontine infarct noted on MRI of the brain. No bleed on CT or MRI. Patient on chronic anticoagulation. (3) History of DVT (deep vein thrombosis): On chronic anticoagulation for this. Plan Intractable headaches/migraines does have some features of tension related to headaches. Patient notices increased frequency and intensity of the headaches but no overall change in pattern. Intensity of the headaches have improved since being admitted and receiving treatment. Plan: - Continue Compazine 10 mg every 6 hours as needed and Benadryl 50 mg daily/as needed as an outpatient since this seems to be helping -Favor continuing steroids. Steroids could be continued as a Medrol Dosepak take as directed as an outpatient -Continue Topamax 200 mg nightly - Add Mag-Ox 400 mg p.o. daily to continue taking as an outpatient - Add riboflavin or B2 400 mg p.o. daily to continue taking as an outpatient -Patient will be obtaining Emgality currently being mailed to her. Once obtains Emgality she is to discontinue Aimovig. - Continue Nurtec/triptan but she is to use it very cautiously. -Reviewed CT scan of the head and MRI of the brain shows no acute abnormalities. -No further hospital neurological workup needed at this time. - She has to follow-up with outpatient neurology [facility] [place] [facility] has [facility] appointment with them early August. For stroke/risk factor stratification/care: - Patient is to continue chronic anticoagulation - Continue glucose control/risk factor control Thank you for the telehealth visit and allowing me to participate in this patient care. Please contact me via TT with any questions. Shorty White MD Neurology Telehealth Consultation Telehealth Information Telehealth Information: I performed this visit using a real-time telehealth connection between my location and the patients originating location ([facility]). After connecting through interactive tele-video, patient was identified by name and date of and/or wristband check.Patient (or authorized healthcare community health program representative) was informed that this was a telemedicine visit and it was being conducted confidentially over secure lines. My office door was closed and no one else was present in the room with me.Patient (or authorized healthcare community health program representative) provided consent to proceed with the visit, expressed an understanding of privacy and security of the telemedicine visit, and gave permission to have a hospital community health program representative in the room in order to assist with the visit and to conduct portions of the visit, as needed. I informed the patient (or authorized healthcare community health program representative) that I reviewed their record and presented the opportunity for them to ask any questions regarding the visit today. The patient agreed to participate. History of Present Illness Reason for Consultation: Intractable headaches/migraine headaches Requesting Physician: Dr. Riley Cordon Attending Physician: Riley Cordon MD History of Present Illness 50-year-old woman presents with intractable headaches for about 4 weeks now patient has a history of stroke and PE on chronic anticoagulation with Coumadin. States that July 11 developed headaches no overall trigger but states that t here were some storm fronts coming in and also felt that she had some sinus symptoms. She takes her Nurtec sumatriptan and Advil at home but this was not helpful. She currently [facility] [place] and there were plans to switch her from Aimovig to Emgality. There were also plans to have her obtain Botox as an outpatient. She describes her headaches as behind the eyes does have some frontal component to her headache radiating to the back/straight to the back. She does get some vision changes at times she might see double and might have some blurry nests specifically with her right eye. At times she might feel that her left leg might feel weak with the headaches. Since being admitted there has been no seizure or any fevers. She denies any sick contacts at home. She tells me that she had a stroke back in 2009 that affected most of her left side. She had some leg weakness and also arm weakness denies any speech issues back then. She does get some right sided facial weakness. At times with these headaches she might get some symptoms which are stroke white. Review of her MRI of the brain which was performed recently shows a right brainstem/pontine infarct which is chronic. There was no acute findings noted on the study. CT scan of the brain was reviewed and shows no bleed/no acute findings. Since she has been admitted she feels that the Compazine prescribed for nausea has helped her. She also takes Benadryl 50 mg which has helped. She is also on steroids which has helped as well. Of the medicines that she has been tried in the past she has been on propranolol and also valproic acid or Depakote. She currently does not take this. She does think that she has taken magnesium supplementation in the past and also riboflavin but does not recall. She states that the intensity has decreased since being admitted to the hospital and now her headaches are 2-3 out of 10. Allergies Allergy/AdvReac Type Severity Reaction Status Date / Time shellfish derived Allergy Severe Swelling Verified 07/31/25 18:12 of Lip/Tongue/Throat prochlorperazine AdvReac Intermediate caused Verified 07/31/25 18:12 [From Compazine] restless leg syndrome promethazine [From Phenergan] AdvReac Intermediate restless Verified 07/31/25 18:12 leg syndrome Home Medications Medication Instructions Recorded Confirmed Type topiramate 200 mg capsule,extended 200 mg PO HS 10/07/20 08/02/25 History release 24 hr venlafaxine 150 mg 300 mg PO HS 10/07/20 08/02/25 History capsule,extended release 24 hr (Effexor XR) epinephrine 0.3 mg/0.3 mL 0.3 mg (0.3 mL) IM Q4H PRN 07/17/23 08/02/25 Rx injection, auto-injector anaphylaxis #2 ea alprazolam 0.25 mg tablet 0.25 mg PO DAILY PRN Anxiety 09/01/23 08/02/25 History ondansetron 4 mg disintegrating 4 mg PO Q6H PRN nausea and 09/18/23 08/02/25 Rx tablet vomiting #15 tabs famotidine 40 mg tablet 20 mg PO HS 03/23/24 08/02/25 History semaglutide 0.25 mg or 0.5 mg (2 0.5 mg subcut WK 03/23/24 08/02/25 History mg/3 mL) subcutaneous pen injector (Ozempic) aripiprazole 5 mg tablet 5 mg PO HS 06/04/24 08/02/25 History diazepam 5 mg tablet 5 mg PO BID PRN Headache or muscle 08/27/24 08/02/25 Rx spasm #10 tabs diphenhydramine HCl 25 mg capsule 50 mg PO Q8H PRN nausea and 07/16/25 08/02/25 History (Benadryl) vomiting or migraine headache lidocaine 5 % topical patch 1 patch topical DAILY PRN Pain 07/16/25 08/02/25 History (Lidoderm) warfarin 10 mg tablet 10 mg PO 5XWK 07/16/25 08/02/25 History warfarin 7.5 mg tablet 7.5 mg PO 2XWK 07/16/25 08/02/25 History cyclobenzaprine 10 mg tablet 10 mg PO BID PRN tension headache 07/26/25 08/02/25 Rx #10 tabs levothyroxine 88 mcg tablet 88 mcg PO DAILYBB 08/02/25 08/02/25 History Patient History Medical History Migraine with acute onset aura History of DVT (deep vein thrombosis) History of pulmonary embolism C. difficile colitis Migraine Surgical History History of mastectomy S/P ROSALES-BSO S/P patent foramen ovale closure History of cholecystectomy History of appendectomy Family History Brother Chronic headaches Social History Smoking Status: Never smoker Second Hand Exposure: No; Do You Dip or Chew Tobacco: No; Hx Alcohol Use: No Hx Substance Use: No Preferred Language: Kosovan Communication Ability: Effective Events Assistant Required: No Beliefs That Will Affect Care: None marital status: Current Living Situation: Spouse Current Living Situation Comment: Lives with spouse and child (15 month old daughter) current occupational status: disabled current occupation: was in the [employer] other: lives in [place] Feels Safe at Home: Yes Safety Concerns: Feels Safe At This Time Assistive Devices: Glasses and Hearing Aid - Bilateral Review of Systems Other than above detailed in the history of present illness she denies any new numbness or tingling denies any facial weakness. Denies any chest pain rashes or moles. Does admit to some blurriness with her vision. Physical Exam Patient is alert and oriented to self place date. She was examined in her hospital bed. Her speech is fluent nondysarthric not aphasic. She was able to read without any difficulty. Comprehension is normal. She was able to apply abstract thinking upon review of the stroke cards. Knowledge base is adequate. Her smile was symmetrical there was no facial symmetry noted. Extraocular muscles were full she was able to look to the sides up and down without difficulty. I did not notice any abnormal movements such as myoclonus or tremors. I did not notice drift upon arm extension. Coordination; [id number] testing was within normal limits there was no dysmetria or overshooting. Gait was deferred for safety. Results & Data Vital Signs (Past 12 Hours) Vital Signs Temp Pulse Pulse Resp BP BP BP 08/03/25 07:47 36.8 C 101 H 20 106/74 08/03/25 04:00 36.6 C 85 18 108/65 08/03/25 00:19 87 08/02/25 23:35 36.5 C 88 18 104/75 08/02/25 22:00 08/02/25 22:00 36.4 C L 87 14 111/75 08/02/25 21:40 83 15 114/81 Pulse Ox Pulse Ox O2 Del Method O2 Del Method 08/03/25 07:47 95 Room Air 08/03/25 04:00 94 Room Air 08/03/25 00:19 08/02/25 23:35 98 Room Air 08/02/25 22:00 98 Room Air 08/02/25 22:00 98 Room Air 08/02/25 21:40 94 Room Air Laboratory Results Reviewed laboratory studies. Diagnostic Findings Reviewed CT scan of the head and MRI of the brain shows no acute abnormalities. Medications Administered Patient on steroids and also receiving Topamax 200 mg every 8 as Benadryl and Compazine. ECG Additional Comments: Reviewed Total Time Total Time Spent Total Time Spent (In Minutes): Total time spent was 75 minutes: Of this 30 minutes was spent with the video audio/exam interview with patient; 45 minutes was spent reviewing chart/laboratory/diagnostics including CT scan of the brain and MRI of the brain images and coordinating care with hospitalist team. (1) Migraine with status migrainosus Intractability: intractable Migraine type: chronic migraine (15 or more days per month) with aura Qualified Code(s): G43.E11 - Chronic migraine with aura, intractable, with status migrainosus
--- NOTE | 2025-08-03 14:37 | Hospitalist Progress Note ---
Date of Service August 03, 2025 Assessment & Plan (1) Migraine with status migrainosus: (2) History of DVT (deep vein thrombosis): (3) History of pulmonary embolism: (4) History of CVA (cerebrovascular accident): (5) Smell or taste sensation disturbance: (6) Prediabetes: Plan 50yo female with history of migraines which started after a right-sided CVA in the , history of DVT/PE on chronic coumadin, history of PFO s/p closure, hypothyroidism, GERD, and PTSD who presents with 3-4 weeks of ongoing migraine headache. #Status migraine Unclear trigger for her current episode: She cannot recall any specific inciting food, event, head injury, illness, etc. Prior triggers have included onions, chocolate, anxiety, latter vitamins, and heat Multiple ER visits & hospitalizations for prior status migraine without complete relief Improving on 08/03 with the following regimen: Solu-Medrol 40 mg IV BID Can continue as a Medrol dose pack upon discharge Compazine 5 mg IV q6h + Benadryl 25 mg IV q6h Note: Patient reported akathisias when taking Compazine alone, but reports Compazine is the only medications that helps alleviate her symptoms Compazine ONLY to be administered with concomitant Benadryl Magnesium oxide 400 mg tablets QAM Riboflavin B2 tablets daily (to start as an outpatient) Additional PRN medications: Fioricet, Nurtec, cyclobenzaprine 10 mg p.o. BID, antiemetics Anaplasmosis smear, Lyme, and COVID, flu, RSV--> negative With obesity, consider LP to r/o pseudotumor cerebri although there is no MRI evidence of such on recent MRI brain She has not had fevers or other infectious symptoms to suggest meningitis/ence phalitis/infectious process MRV unlikely to provide any benefit - she is already chronically anticoagulated and dural thrombosis is unlikely Neurology consult appreciate If steroids, Nurtec, muscle relaxers, etc are not helpful could try Depakote IV x 1 VS DHE protocol VS pain management consult for Ketamine #Taste disturbance Recent head imaging did not suggest acute sinusitis ?Secondary to migraine headache #Prior history of stroke Right pontine as seen on prior imaging Cont coumadin for secondary prevention #Prior history of DVT/PE Cont coumadin Trend daily PT/INR #Pre-diabetes Last A1c 5.8% on 08/03/2025 With steroids on board, recommend serial BSG checks #Obesity BMI 38 #GERD Cont pepcid - increase to BID dosing due to steroid use #Hypothyroidism TSH WNL on arrival Continue Synthroid #Mental health/PTSD Continue all home meds, including topamax which I assume is being used mainly for headache prophylaxis Disposition: Continued stay on MedSurg with telemetry due to lingering migraine symptoms; hopeful discharge home tomorrow 08/04 pending clinical course VTE PPx: Coumadin Admission and Anticipated Discharge Date Admission Date: August 02, 2025 Supervising Physician Co-Signing Physician Notes Attending Attestation: Chart reviewed, care plan d/w PA Roshan Friedman. I agree w/ the jimenez components of his documentation. Appreciate recs by neurology. Riley Cordon MD Subjective Mrs. Pereira reports that her symptoms have improved since she has been in the hospital, but she is not yet back to her baseline. She reports that, prior to coming the hospital, she would have a constant/stabbing headache behind her right eye, that would remain at a 6 out of 10, but occasionally ramped up to an 8 out of 10. Since being in the hospital, she is come down to a 3 out of 10, but still feels like it has been steady and constant throughout the day. She does believe that Compazine and Benadryl together helped to alleviate her headache. However, she is unable to take Compazine independently, as this leads to akathisia's such as restlessness and feeling like she "wants to run out of [her] body". However, she feels like Compazine is the only thing that helps bring the level down. She has taken Nurtec in the past for her migraines, but it was not working this time. Steroids have been helping over the course of her current hospital stay. However, she is still having "zigzagging" across her vision, and reports that yesterday her migraine was so bad that she had difficulty seeing. Patient does report that she has a to attend tomorrow in [place] at 7 PM. She was requesting to stay an additional night to improve her symptoms, as she feels that she could not currently attend the in her current state. ROS: Patient endorses constant migraine headache, pain behind the right eye, visual changes/scotomas, tinnitus, intermittent tingling in the hands, and taste disturbance (new from prior). Patient denies fever, chills, night sweats, dizziness/lightheadedness with ambulation, photophobia, double vision, chest pain, chest palpitations, SOB, cough, abdominal pain, N/V/D, or changes in urinary/bowel habits. Review of Systems Review of Systems: See HPI above Physical Exam Physical Exam: General: no acute distress; non-toxic appearing; cooperative; SpO2 94% on RA HEENT: normocephalic, atraumatic; PERRLA; vision and hearing intact; patient demonstrates ability to protrude and wiggle tongue bilaterally; she reports that sensation is intact and symmetric in the face bilaterally assessed via light touch; temples are NTP Neck: supple; trachea midline Skin: warm, dry without signs of tenting; no cyanosis; no rashes, bruising, lesions, or erythema noted CV: chest wall NTP; RRR; pulses intact and symmetric at radial, DP, and PT Lungs: no acute respiratory distress; symmetrical chest wall expansion; clear breath sounds across all lung justice w/o adventitious sounds; no wheezing ABD: Soft, NTP; BS present; no rebound/guarding; no distention MSK: no tics or fasciculations; no edema noted in the LEs b/l, nonerythematous; 5/5 backer up strength bilaterally Neuro: A&Ox3; normal mood and affect; fluent speech; patient reports sensation is intact and symmetric in the face, upper extremities, lower extremities bilaterally assessed via light touch Results & Data Results & Data Vital Signs (Past 12 Hours) Vital Signs Temp Pulse Pulse Resp BP BP Pulse Ox 08/03/25 12:05 36.8 C 89 20 118/81 94 08/03/25 08:00 94 H 08/03/25 08:00 08/03/25 07:47 36.8 C 101 H 20 106/74 95 08/03/25 04:00 36.6 C 85 18 108/65 94 O2 Del Method 08/03/25 12:05 Room Air 08/03/25 08:00 08/03/25 08:00 Room Air 08/03/25 07:47 Room Air 08/03/25 04:00 Room Air PG Care Time/CCT Total # of Minutes Spent Total Time Spent with Patient: Total time spent is greater than 50% in coordination of care (as documented) at patient's floor/unit and/or counseling patient: Coding [place] [address] SUB INP/OBS CARE 2MIN Patient Type Established Medical Decision Making Moderate Complexity Diagnoses Intractable chronic migraine with aura with status migrainosus G43.E11 Intractability: intractable Migraine type: chronic migraine (15 or more days per month) with aura History of DVT (deep vein thrombosis) Z86.718 History of pulmonary embolism Z86.711 History of CVA (cerebrovascular accident) Z86.73 Smell or taste sensation disturbance R43.9 Prediabetes R73.03 (1) Migraine with status migrainosus Intractability: intractable Migraine type: chronic migraine (15 or more days per month) with aura Qualified Code(s): G43.E11 - Chronic migraine with aura, intractable, with status migrainosus
[2025-08-03] MEDS ORDERED: PROCHLORPERAZINE 5 MG in SYRINGE 4 ML IV PRN (14:50)
[2025-08-03] MEDS ORDERED: PROCHLORPERAZINE 10 MG in SYRINGE 8 ML IV PRN (14:54)
[2025-08-03] MEDS ORDERED: diphenhydrAMINE 50 MG/ML VIAL IV PRN (14:56)
[2025-08-03] MEDS: MAGNESIUM OXIDE 400 MG TAB PO SCH (15:17)
[2025-08-03] MEDS: PROCHLORPERAZINE 5 MG in SYRINGE 4 ML IV PRN (15:17)
[2025-08-03] MEDS: WARFARIN SOD 10 MG TAB PO SCH (17:57)
--- NOTE | 2025-08-04 07:25 | Hospitalist Progress Note ---
Date of Service August 04, 2025 Assessment & Plan (1) Migraine with status migrainosus: Plan In summary this is a 50-year-old female who presents with an intractable migraine #Chronic intractable migraine without current aura Persistent symptoms despite medical therapy, requiring multiple hospitalizations within the past calendar month for control Continue Benadryl and Compazine intravenously every 6 hours scheduled, to be administered within a 30-minute interval of each other - Continue Valium 5 mg po. twice daily for headache, home medication - Considering steroid burst, however there is no strong evidence for this and may cause iatrogenic insomnia leading to worsening symptoms Monitor for new neurologic symptoms - Consult pain management regarding utility/ability to administer ketamine infusion Admission and Anticipated Discharge Date Admission Date: August 03, 2025 Subjective Ms. Pereira is a 50-year-old female whose active medical conditions include chronic migraines with associated aura, PTSD, previous CVA without neurologic deficit, previous DVT established on coumadin who presented to the [facility] on 08/02 due to persistent migraine. No acute overnight events, she has had consistent improvement with her migraine but continues to be bedbound due to this Review of Systems Review of Systems: Review of constitutional, cardiovascular, pulmonary, musculoskeletal, neurologic systems was unremarkable other than her persistent headache Physical Exam Physical Exam: General: Adult female in no acute distress Vital Signs: Reviewed HEENT: Pupils equally round and reactive to light; extraocular motion intact Pulmonary: Symmetric chest wall excursion without restriction; clear to auscultation bilaterally Cardiovascular: Regular rate and rhythm without murmurs, rubs, or gallops; S1 and S2 normal; right radial pulse 2+ without notable lower extremity edema Gastrointestinal: Soft, protuberant Neurologic: Cranial nerves II to XII grossly intact; no discernible focal weakness nor paresthesia Results & Data Results & Data Vital Signs (Past 12 Hours) Vital Signs Temp Pulse Pulse Resp BP BP Pulse Ox 08/04/25 07:16 82 08/04/25 04:00 36.6 C 84 18 136/81 97 08/04/25 00:17 89 08/03/25 23:41 36.9 C 82 18 120/83 95 08/03/25 22:00 08/03/25 19:45 36.8 C 90 18 98/64 L 95 Pulse Ox O2 Del Method O2 Del Method 08/04/25 07:16 08/04/25 04:00 Room Air 08/04/25 00:17 08/03/25 23:41 Room Air 08/03/25 22:00 96 Room Air 08/03/25 19:45 Room Air PG Care Time/CCT Total # of Minutes Spent Total Time Spent with Patient: Total time spent is greater than 50% in coordination of care (as documented) at patient's floor/unit and/or counseling patient: Coding Level of Care Code 52615 SUB INP/OBS CARE 2MIN Diagnoses Intractable chronic migraine with aura with status migrainosus G43.E11 Intractability: intractable Migraine type: chronic migraine (15 or more days per month) with aura (1) Migraine with status migrainosus Intractability: intractable Migraine type: chronic migraine (15 or more days per month) with aura Qualified Code(s): G43.E11 - Chronic migraine with aura, intractable, with status migrainosus
[2025-08-04 08:43] LABS: Hematocrit (blood only) 37.4 % (37.0-47.0); Hemoglobin 12.2 g/dL (12.0-16.0); Mean Corpuscular Hemoglobin 29.3 pg (25.0-34.0); Mean Corpuscular Volume 89.9 fL (80.0-100.0); Platelet Count 173 K/uL (130-400); RDW Standard Deviation 44.9 fL (36.4-46.3); Red Blood Count 4.16 M/uL (4.20-5.40); White Blood Count 14.01 K/ul (4.8-10.8)
[2025-08-04 08:58] LABS: Anion Gap 4.0 (3-11); Blood Urea Nitrogen 19.0 mg/dl (6-23); Calcium 8.3 mg/dl (8.6-10.3); Carbon Dioxide 21.0 mmol/L (21-32); Chloride 113.0 mmol/L (98-107); Creatinine Clr Calc Pharmacy 75.1 ml/min; Glucose 147.0 mg/dl (70-99(Fasting)); Potassium 4.2 mmol/L (3.5-5.1); Sodium 138.0 mmol/L (136-145)
[2025-08-04 09:00] LABS: Immature Granulocytes # (auto) 0.13 K/uL (0.01-0.20); Immature Granulocytes % (auto) 0.9 %
[2025-08-04] MEDS: LORazepam Inj 0.5 MG in SYRINGE 0.25 ML IV STA (11:45)
[2025-08-04 20:37] VITALS: RESP 18
[2025-08-05 11:48] VITALS: TEMP 98.1; O2SAT 97
--- NOTE | 2025-08-05 12:41 | Discharge Summary ---
Discharge Summary Date of Service August 05, 2025 Principal Dx & Hospital Course #1 = Principal Diagnosis (1) Migraine with status migrainosus: Plan In summary this is a 50-year-old female who presents with an intractable migrain e #Chronic intractable migraine without current aura Persistent symptoms despite medical therapy, requiring multiple hospitalizations within the past calendar month for control Continue Benadryl and Compazine intravenously every 6 hours scheduled, to be administered within a 30-minute interval of each other - Continue Valium 5 mg po. 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 Patient has been admitted to [facility] twice in the last 3 weeks due to the refractory migraine headache. She has had other ER visits for the same thing as well. She reports having relief of headache "for about a day" after her last admission which was 07/25 to 07/26. She reports that a combination of IV benadryl and IV compazine along with other anti-emetics has helped her headaches. It sounds as if she may have tried triptan therapy in the past and most recently was prescribed Nurtec ODT. However, she has not used the Nurtec in at least a couple of weeks. Her migraines are frontal in location, throbbing/sharp, and radiate to the top of the head and back to the occipital region. She has associated nausea, vomiting, photophobia, and phonophobia. About a week ago she did have visual disturbance related to her ongoing headache. She is followed by a headache center at [facility] as well as the [facility] in [place]. Her last imaging was an MRI brain on 07/26/25 which was negative for acute findings (no acute CVA, no ICH, etc). Discharge Plan Discharge Items Patient Disposition: Home - Self-Care Reason For Visit: STATUS MIGRAINE Discharge Diagnosis: Status migrainous Condition on Discharge: Fair Activity: Resume your previous activity Non-emergency contact: Primary Care Provider Call non-emergency contact if: you have any medication questions Follow-up/Referrals: Dionne Fletcher MD [Primary Care Provider] - Diet: Regular Addtl Attending Provider Instructions: Recommendations: - Continue Compazine 10 mg every 8 hours as needed and Benadryl 50 mg daily/as needed as an outpatient since this seems to be helping -Medrol Dosepak take as directed as an outpatient -Continue Topamax 200 mg nightly - Mag-Ox 400 mg p.o. daily to continue taking as an outpatient - riboflavin or B2 400 mg p.o. daily to continue taking as an outpatient -Once obtains Emgality, please discontinue Aimovig. - Continue Nurtec/triptan but use it very cautiously. - follow-up with outpatient neurology she sees [place] [facility]y at [place] and has an appointment with them early August. Also followup with PCP in 1-2 weeks. Pending Studies at Discharge: No Stand-Alone Forms: My Porch, Smoking Cessation Medications and DC Order Prescriptions: New magnesium oxide 400 mg (241.3 mg magnesium) Tablet 400 mg PO QAM Qty: 30 0RF prochlorperazine maleate [Compazine] 10 mg tablet 10 mg PO Q8H PRN (Reason: headache) Qty: 30 0RF riboflavin (vitamin B2) 400 mg tablet 400 mg PO DAILY Qty: 30 0RF methylprednisolone [Medrol (Severiano)] 4 mg tablets,dose pack 4 mg PO DAILY Qty: 21 0RF Rx Instructions: Day 1: 24 mg (6 tablets of 4 mg each) Day 2: 20 mg (5 tablets of 4 mg each) Day 3: 16 mg (4 tablets of 4 mg each) Day 4: 12 mg (3 tablets of 4 mg each) Day 5: 8 mg (2 tablets of 4 mg each) Day 6: 4 mg (1 tablet of 4 mg) Continued venlafaxine [Effexor XR] 150 mg Capsule,Extended Release 24hr 300 mg PO HS topiramate 200 mg Capsule,Extended Release 24hr 200 mg PO HS alprazolam 0.25 mg tablet 0.25 mg PO DAILY PRN (Reason: Anxiety) epinephrine 0.3 mg/0.3 mL auto-injector 0.3 mg IM Q4H PRN (Reason: anaphylaxis) Qty: 2 0RF ondansetron 4 mg tablet,disintegrating 4 mg PO Q6H PRN (Reason: nausea and vomiting) Qty: 15 0RF famotidine 40 mg tablet 20 mg PO HS Ozempic 0.25 mg or 0.5 mg (2 mg/3 mL) pen injector 0.5 mg SUBCUT WK Rx Instructions: Mondays diazepam 5 mg Tablet 5 mg PO BID PRN (Reason: Headache or muscle spasm) Qty: 10 0RF levothyroxine 88 mcg tablet 88 mcg PO DAILYBB aripiprazole 5 mg Tablet 5 mg PO HS diphenhydramine HCl [Benadryl] 25 mg capsule 50 mg PO Q8H PRN (Reason: nausea and vomiting or migraine headache) Rx Instructions: Turq-baw-cwsnsby lidocaine [Lidoderm] 5 % adhesive patch,medicated 1 patch topical DAILY PRN (Reason: Pain) Rx Instructions: leave on most painful area for up to 12 hrs warfarin 10 mg Tablet 10 mg PO 5XWK Rx Instructions: MON, MON, MON, , & MON warfarin 7.5 mg Tablet 7.5 mg PO 2XWK Rx Instructions: & MON cyclobenzaprine 10 mg Tablet 10 mg PO BID PRN (Reason: tension headache) Qty: 10 0RF Discharge Orders: Discharge Order (Routine); Ordered 08/05/25 Ordered By: Adeel Molina Admission Data Admit Date/Time: 08/03/25 18:02 Attending Provider: Adeel Molina Admit Provider: Riley Cordon Primary Care Provider: Dionne Fletcher Other Providers: Riley Cordon; Shorty White; [facility] Hospital Stay Data Consultations 08/02/25 17:31 ED Decision to Admit Stat 08/02/25 22:00 Consult Neurology Routine Pending Results Patient Have Any Pending Studies at Discharge: No Discharge Instructions Given to Patient (Per Discharging Provider) Recommendations: - Continue Compazine 10 mg every 8 hours as needed and Benadryl 50 mg daily/as needed as an outpatient since this seems to be helping -Medrol Dosepak take as directed as an outpatient -Continue Topamax 200 mg nightly - Mag-Ox 400 mg p.o. daily to continue taking as an outpatient - riboflavin or B2 400 mg p.o. daily to continue taking as an outpatient -Once obtains Emgality, please discontinue Aimovig. - Continue Nurtec/triptan but use it very cautiously. - follow-up with outpatient neurology she sees [place] at [place] and has an appointment with them early August. Also followup with PCP in 1-2 weeks. Coding Diagnoses Intractable chronic migraine with aura with status migrainosus G43.E11 Migraine type: chronic migraine (15 or more days per month) with aura Intractability: intractable
[2025-08-05 12:59] VITALS: BP 104/72; PULSE 78
== END 2025-08-05 15:34 | disposition home or self-care (01) | DRG 103 ==
LOC: 2N 14:15 → ED 14:15 → 2N 21:40 → SUATTDRO 08-03 18:02

== ENCOUNTER 2025-08-06 12:14 | Inpatient (IN) ==
--- NOTE | 2025-08-06 12:29 | Emergency Department Note ---
History of Present Illness General Chief complaint: Headache Stated complaint: MIGRAINE Time Seen by Provider: 08/06/25 12:21 History of Present Illness Maximum Pain Intensity: 8 This is a 50-year-old female that presents to the emergency department via private vehicle with complaints of "headache". The patient has history of migraine headaches and this feels similar to previous. She notes that she was recently hospitalized for similar. She notes that today for the past 3 hours she has had a frontal headache and flashing of lights in the eyes. This is similar to previous aura. The patient denies any trauma or injury. No fevers or chills. No chest pain or shortness of breath. Current pain 8/10. She denies taking any medicines for the pain today. The patient notes that she did not brain picker the steroids from the pharmacy that were prescribed on discharge. Home Medications Medication Instructions Recorded Confirmed Type topiramate 200 mg capsule,extended 200 mg PO HS 10/07/20 08/06/25 History release 24 hr venlafaxine 150 mg 300 mg PO HS 10/07/20 08/06/25 History capsule,extended release 24 hr (Effexor XR) epinephrine 0.3 mg/0.3 mL 0.3 mg (0.3 mL) IM Q4H PRN 07/17/23 08/06/25 Rx injection, auto-injector anaphylaxis #2 ea alprazolam 0.25 mg tablet 0.25 mg PO DAILY PRN Anxiety 09/01/23 08/06/25 History ondansetron 4 mg disintegrating 4 mg PO Q6H PRN nausea and 09/18/23 08/06/25 Rx tablet vomiting #15 tabs famotidine 40 mg tablet 20 mg PO HS 03/23/24 08/06/25 History semaglutide 0.25 mg or 0.5 mg (2 0.5 mg subcut WK 03/23/24 08/06/25 History mg/3 mL) subcutaneous pen injector (Ozempic) aripiprazole 5 mg tablet 5 mg PO HS 06/04/24 08/06/25 History diazepam 5 mg tablet 5 mg PO BID PRN Headache or muscle 08/27/24 08/06/25 Rx spasm #10 tabs diphenhydramine HCl 25 mg capsule 50 mg PO Q8H PRN nausea and 07/16/25 08/06/25 History (Benadryl) vomiting or migraine headache lidocaine 5 % topical patch 1 patch topical DAILY PRN Pain 07/16/25 08/06/25 History (Lidoderm) warfarin 10 mg tablet 10 mg PO 5XWK 07/16/25 08/06/25 History warfarin 7.5 mg tablet 7.5 mg PO 2XWK 07/16/25 08/06/25 History cyclobenzaprine 10 mg tablet 10 mg PO BID PRN tension headache 07/26/25 08/06/25 Rx #10 tabs levothyroxine 88 mcg tablet 88 mcg PO DAILYBB 08/02/25 08/06/25 History magnesium oxide 400 mg (241.3 mg 400 mg PO QAM #30 tabs 08/05/25 08/06/25 Rx magnesium) tablet methylprednisolone 4 mg tablets in 4 mg PO DAILY #21 ea 08/05/25 08/06/25 Rx a dose pack (Medrol (Severiano)) prochlorperazine maleate 10 mg 10 mg PO Q8H PRN headache #30 tabs 08/05/25 08/06/25 Rx tablet (Compazine) riboflavin (vitamin B2) 400 mg 400 mg PO DAILY #30 tabs 08/05/25 08/06/25 Rx tablet Allergies Allergy/AdvReac Type Severity Reaction Status Date / Time shellfish derived Allergy Severe Swelling Verified 08/06/25 16:00 of Lip/Tongue/Throat prochlorperazine AdvReac Intermediate caused Verified 08/06/25 16:00 [From Compazine] restless leg syndrome promethazine [From Phenergan] AdvReac Intermediate restless Verified 08/06/25 16:00 leg syndrome Past Med/Surg History Problem List (Updated 08/06/25 @ 13:06 by Myron Beatty PA-C) Prediabetes Smell or taste sensation disturbance Migraine with status migrainosus Headache (Acute) Migraine (Acute) Phlebitis of right upper extremity (Acute) Headache (Acute) Intractable migraine (Acute) Hypokalemia due to excessive gastrointestinal loss of potassium (Acute) Intractable migraine (Acute) Anticoagulation goal of INR 2 to 3 (Chronic) Old cerebrovascular accident (CVA) without late effect PTSD (post-traumatic stress disorder) (Chronic) GERD (gastroesophageal reflux disease) (Chronic) Medical History Migraine with acute onset aura History of DVT (deep vein thrombosis) History of pulmonary embolism C. difficile colitis Migraine Surgical History History of mastectomy S/P ROSALES-BSO S/P patent foramen ovale closure History of cholecystectomy History of appendectomy Family History Brother Chronic headaches Social History Smoking Status: Never smoker Second Hand Exposure: No; Do You Dip or Chew Tobacco: No; Tobacco Cessation Education Requested by Patient: No Hx Alcohol Use: No Hx Substance Use: No Preferred Language: Bruneian Communication Ability: Effective Drum Loader And Unloader Required: No Beliefs That Will Affect Care: None marital status: Current Living Situation: Family Current Living Situation Comment: Lives with spouse and child (15 month old daughter) current occupational status: disabled current occupation: was in the [employer] Other Information That Helps Us Care for You: No other: lives in [place] Feels Safe at Home: Yes Safety Concerns: Feels Safe At This Time Assistive Devices: Glasses and Hearing Aid - Bilateral Review of Systems A total of 10 systems reviewed and were otherwise negative Physical Exam Vital Signs Vital Signs - 24 hr 08/06/25 12:14 08/06/25 12:16 08/06/25 12:23 Temperature 36.6 C Temperature Source Temporal Artery Scan Pulse Rate 112 H Pulse Rate [Right Finger] 95 H Pulse Rate from SpO2 Sensor Respiratory Rate 18 20 Blood Pressure 119/63 107/78 Blood Pressure [Right Arm] 103/75 Blood Pressure Mean 81 91 Blood Pressure Mean [Right Arm] 84 Pulse Oximetry 97 97 Oxygen Delivery Method Room Air Room Air Sepsis Recent Fever Within 48 Hours No Sepsis New/Unexplained Change in Mental Status N/A Sepsis Action Taken by Nursing No Action Required 08/06/25 12:23 08/06/25 12:27 08/06/25 12:28 Temperature Temperature Source Pulse Rate 95 H Pulse Rate [Right Finger] Pulse Rate from SpO2 Sensor 96 H Respiratory Rate 12 Blood Pressure 107/78 Blood Pressure [Right Arm] Blood Pressure Mean 91 Blood Pressure Mean [Right Arm] Pulse Oximetry 98 97 Oxygen Delivery Method Room Air Sepsis Recent Fever Within 48 Hours Sepsis New/Unexplained Change in Mental Status Sepsis Action Taken by Nursing 08/06/25 12:30 08/06/25 12:30 08/06/25 12:30 Temperature Temperature Source Pulse Rate 97 H Pulse Rate [Right Finger] Pulse Rate from SpO2 Sensor Respiratory Rate Blood Pressure 103/75 103/75 Blood Pressure [Right Arm] Blood Pressure Mean 85 85 Blood Pressure Mean [Right Arm] Pulse Oximetry Oxygen Delivery Method Sepsis Recent Fever Within 48 Hours Sepsis New/Unexplained Change in Mental Status Sepsis Action Taken by Nursing 08/06/25 12:30 08/06/25 12:30 08/06/25 12:30 Temperature Temperature Source Pulse Rate Pulse Rate [Right Finger] Pulse Rate from SpO2 Sensor Respiratory Rate Blood Pressure 103/75 103/75 103/75 Blood Pressure [Right Arm] Blood Pressure Mean 85 85 85 Blood Pressure Mean [Right Arm] Pulse Oximetry Oxygen Delivery Method Sepsis Recent Fever Within 48 Hours Sepsis New/Unexplained Change in Mental Status Sepsis Action Taken by Nursing 08/06/25 12:30 08/06/25 12:42 08/06/25 12:51 Temperature Temperature Source Pulse Rate 94 H 92 H 102 H Pulse Rate [Right Finger] Pulse Rate from SpO2 Sensor 95 H Respiratory Rate 15 14 16 Blood Pressure Blood Pressure [Right Arm] Blood Pressure Mean Blood Pressure Mean [Right Arm] Pulse Oximetry 97 Oxygen Delivery Method Sepsis Recent Fever Within 48 Hours Sepsis New/Unexplained Change in Mental Status Sepsis Action Taken by Nursing 08/06/25 13:00 08/06/25 13:12 08/06/25 13:21 Temperature Temperature Source Pulse Rate 98 H 94 H 92 H Pulse Rate [Right Finger] Pulse Rate from SpO2 Sensor 93 H Respiratory Rate 15 15 18 Blood Pressure Blood Pressure [Right Arm] Blood Pressure Mean Blood Pressure Mean [Right Arm] Pulse Oximetry 100 Oxygen Delivery Method Sepsis Recent Fever Within 48 Hours Sepsis New/Unexplained Change in Mental Status Sepsis Action Taken by Nursing 08/06/25 13:30 08/06/25 13:42 08/06/25 13:42 Temperature Temperature Source Pulse Rate 95 H Pulse Rate [Right Finger] Pulse Rate from SpO2 Sensor 95 H Respiratory Rate 15 Blood Pressure 104/75 104/75 Blood Pressure [Right Arm] Blood Pressure Mean 89 89 Blood Pressure Mean [Right Arm] Pulse Oximetry 100 Oxygen Delivery Method Sepsis Recent Fever Within 48 Hours Sepsis New/Unexplained Change in Mental Status Sepsis Action Taken by Nursing 08/06/25 13:42 08/06/25 13:42 08/06/25 13:42 Temperature Temperature Source Pulse Rate Pulse Rate [Right Finger] Pulse Rate from SpO2 Sensor Respiratory Rate Blood Pressure 104/75 104/75 104/75 Blood Pressure [Right Arm] Blood Pressure Mean 89 89 89 Blood Pressure Mean [Right Arm] Pulse Oximetry Oxygen Delivery Method Sepsis Recent Fever Within 48 Hours Sepsis New/Unexplained Change in Mental Status Sepsis Action Taken by Nursing 08/06/25 13:42 08/06/25 13:51 08/06/25 14:00 Temperature Temperature Source Pulse Rate 92 H 90 90 Pulse Rate [Right Finger] Pulse Rate from SpO2 Sensor 92 H 91 H 90 Respiratory Rate 14 15 12 Blood Pressure Blood Pressure [Right Arm] Blood Pressure Mean Blood Pressure Mean [Right Arm] Pulse Oximetry 100 99 99 Oxygen Delivery Method Sepsis Recent Fever Within 48 Hours Sepsis New/Unexplained Change in Mental Status Sepsis Action Taken by Nursing 08/06/25 14:01 08/06/25 14:01 08/06/25 14:01 Temperature Temperature Source Pulse Rate Pulse Rate [Right Finger] Pulse Rate from SpO2 Sensor Respiratory Rate Blood Pressure 107/68 107/68 107/68 Blood Pressure [Right Arm] Blood Pressure Mean 78 78 78 Blood Pressure Mean [Right Arm] Pulse Oximetry Oxygen Delivery Method Sepsis Recent Fever Within 48 Hours Sepsis New/Unexplained Change in Mental Status Sepsis Action Taken by Nursing 08/06/25 14:01 08/06/25 14:01 08/06/25 14:12 Temperature Temperature Source Pulse Rate 94 H Pulse Rate [Right Finger] Pulse Rate from SpO2 Sensor 95 H Respiratory Rate 19 Blood Pressure 107/68 107/68 Blood Pressure [Right Arm] Blood Pressure Mean 78 78 Blood Pressure Mean [Right Arm] Pulse Oximetry 98 Oxygen Delivery Method Sepsis Recent Fever Within 48 Hours Sepsis New/Unexplained Change in Mental Status Sepsis Action Taken by Nursing 08/06/25 14:14 08/06/25 14:21 08/06/25 14:30 Temperature Temperature Source Pulse Rate 91 H 89 Pulse Rate [Right Finger] Pulse Rate from SpO2 Sensor 91 H 89 Respiratory Rate 18 16 10 L Blood Pressure Blood Pressure [Right Arm] Blood Pressure Mean Blood Pressure Mean [Right Arm] Pulse Oximetry 99 98 Oxygen Delivery Method Sepsis Recent Fever Within 48 Hours Sepsis New/Unexplained Change in Mental Status Sepsis Action Taken by Nursing 08/06/25 14:30 08/06/25 14:30 08/06/25 14:30 Temperature Temperature Source Pulse Rate Pulse Rate [Right Finger] Pulse Rate from SpO2 Sensor Respiratory Rate Blood Pressure 125/79 125/79 125/79 Blood Pressure [Right Arm] Blood Pressure Mean 101 101 101 Blood Pressure Mean [Right Arm] Pulse Oximetry Oxygen Delivery Method Sepsis Recent Fever Within 48 Hours Sepsis New/Unexplained Change in Mental Status Sepsis Action Taken by Nursing 08/06/25 14:30 08/06/25 14:30 08/06/25 14:42 Temperature Temperature Source Pulse Rate 97 H Pulse Rate [Right Finger] Pulse Rate from SpO2 Sensor 96 H Respiratory Rate 14 Blood Pressure 125/79 125/79 Blood Pressure [Right Arm] Blood Pressure Mean 101 101 Blood Pressure Mean [Right Arm] Pulse Oximetry 99 Oxygen Delivery Method Sepsis Recent Fever Within 48 Hours Sepsis New/Unexplained Change in Mental Status Sepsis Action Taken by Nursing 08/06/25 14:51 08/06/25 15:00 08/06/25 15:00 Temperature Temperature Source Pulse Rate 90 Pulse Rate [Right Finger] Pulse Rate from SpO2 Sensor 91 H Respiratory Rate 24 Blood Pressure 119/87 119/87 Blood Pressure [Right Arm] Blood Pressure Mean 104 104 Blood Pressure Mean [Right Arm] Pulse Oximetry 97 Oxygen Delivery Method Sepsis Recent Fever Within 48 Hours Sepsis New/Unexplained Change in Mental Status Sepsis Action Taken by Nursing 08/06/25 15:00 08/06/25 15:00 08/06/25 15:00 Temperature Temperature Source Pulse Rate 89 Pulse Rate [Right Finger] Pulse Rate from SpO2 Sensor 90 Respiratory Rate 9 L Blood Pressure 119/87 119/87 Blood Pressure [Right Arm] Blood Pressure Mean 104 104 Blood Pressure Mean [Right Arm] Pulse Oximetry 98 Oxygen Delivery Method Sepsis Recent Fever Within 48 Hours Sepsis New/Unexplained Change in Mental Status Sepsis Action Taken by Nursing 08/06/25 15:00 08/06/25 15:00 08/06/25 15:12 Temperature Temperature Source Pulse Rate 86 Pulse Rate [Right Finger] Pulse Rate from SpO2 Sensor 86 Respiratory Rate 19 Blood Pressure 119/87 119/87 Blood Pressure [Right Arm] Blood Pressure Mean 104 104 Blood Pressure Mean [Right Arm] Pulse Oximetry 98 Oxygen Delivery Method Sepsis Recent Fever Within 48 Hours Sepsis New/Unexplained Change in Mental Status Sepsis Action Taken by Nursing 08/06/25 15:21 08/06/25 15:30 08/06/25 15:30 Temperature Temperature Source Pulse Rate 89 88 Pulse Rate [Right Finger] Pulse Rate from SpO2 Sensor 88 87 Respiratory Rate 20 17 Blood Pressure 131/101 H Blood Pressure [Right Arm] Blood Pressure Mean 107 Blood Pressure Mean [Right Arm] Pulse Oximetry 97 97 Oxygen Delivery Method Sepsis Recent Fever Within 48 Hours Sepsis New/Unexplained Change in Mental Status Sepsis Action Taken by Nursing 08/06/25 15:30 08/06/25 15:30 08/06/25 15:30 Temperature Temperature Source Pulse Rate Pulse Rate [Right Finger] Pulse Rate from SpO2 Sensor Respiratory Rate Blood Pressure 131/101 H 131/101 H 131/101 H Blood Pressure [Right Arm] Blood Pressure Mean 107 107 107 Blood Pressure Mean [Right Arm] Pulse Oximetry Oxygen Delivery Method Sepsis Recent Fever Within 48 Hours Sepsis New/Unexplained Change in Mental Status Sepsis Action Taken by Nursing 08/06/25 15:30 08/06/25 15:42 08/06/25 16:00 Temperature Temperature Source Pulse Rate 87 Pulse Rate [Right Finger] 89 Pulse Rate from SpO2 Sensor 87 Respiratory Rate 25 H 18 Blood Pressure 131/101 H Blood Pressure [Right Arm] 114/94 Blood Pressure Mean 107 Blood Pressure Mean [Right Arm] 100 Pulse Oximetry 97 97 Oxygen Delivery Method Room Air Sepsis Recent Fever Within 48 Hours Sepsis New/Unexplained Change in Mental Status Sepsis Action Taken by Nursing 08/06/25 16:40 Temperature Temperature Source Pulse Rate 83 Pulse Rate [Right Finger] Pulse Rate from SpO2 Sensor Respiratory Rate Blood Pressure Blood Pressure [Right Arm] Blood Pressure Mean Blood Pressure Mean [Right Arm] Pulse Oximetry Oxygen Delivery Method Sepsis Recent Fever Within 48 Hours Sepsis New/Unexplained Change in Mental Status Sepsis Action Taken by Nursing VITAL SIGNS - Vital signs and nursing notes were reviewed. Stable, afebrile. GENERAL -50-year-old female appearing her stated age who is in no acute distress. Communicates well with provider and answers questions appropriately. SKIN - Without rashes. No meningeal or petechial rash. HEAD - NC/AT. EYES - PERRL with EOMI bilaterally. Sclera anicteric. EARS - No deformities of external structures noted on gross examination bilaterally. External auditory canals without discharge or otorrhea. Tympanic membranes pearly monroe without retraction or bulging. No fluid or purulent material visualized behind the TM. Handle of malleus, umbo, cone of light, pars tensa/flaccid all easily visualized. NOSE - Midline and without cyanosis. No epistaxis or purulent drainage noted. Septum midline without deviation or septal hematoma noted. MOUTH/OROPHARYNX - Without perioral cyanosis. Buccal mucosa pink and moist and without leukoplakia. Tongue midline with equal elevation of palate bilaterally. No tonsillar hypertrophy, erythema, or exudates noted. Fair dentition noted. NECK - Neck with FROM. Supple to palpation. No lymphadenopathy noted. No nuchal rigidity. LUNGS - Chest wall symmetric without accessory muscle use, intercostals retractions, or central cyanosis. Normal vesicular breath sounds CTA B/L. No wheezes, rales, or rhonchi appreciated. CARDIAC - RRR ABDOMEN - Abdominal contour normal without pulsations or visible masses. BS normoactive all four quadrants. No tenderness, palpable masses, hepatosplenomegaly, or ascites noted. EXTREMITIES - No clubbing or peripheral cyanosis. +5/5 strength noted in UE/LE bilaterally. NEUROLOGIC - Cranial nerves II through XII grossly intact. PSYCH -alert, oriented and pleasant on exam Course Administered Medications Aripiprazole (Aripiprazole 5 Mg Tab) 5 mg PO HS EVELIN Stop: 09/05/25 20:59 Last Admin: 08/06/25 20:53 Dose: 5 mg Documented By: wolfgang Diazepam (Diazepam 5 Mg Tablet) 5 mg PO Q6H PRN PRN Reason: Headache Stop: 09/05/25 20:49 Last Admin: 08/07/25 03:53 Dose: 5 mg Documented By: MARCY Diphenhydramine HCl (Diphenhydramine 50 Mg/Ml Vial) 50 mg IV Q6H PRN PRN Reason: Headache or Pain Stop: 09/05/25 20:12 Last Admin: 08/07/25 01:06 Dose: 50 mg Documented By: wolfgang Famotidine (Famotidine 20 Mg Tab) 20 mg PO HS EVELIN Stop: 09/05/25 20:59 Last Admin: 08/06/25 20:53 Dose: 20 mg Documented By: wolfgang Levothyroxine Sodium (Levothyroxine Sodium 88 Mcg Tablet) 88 mcg PO DAILYBB EVELIN Stop: 09/06/25 06:29 Last Admin: 08/07/25 05:49 Dose: 88 mcg Documented By: wolfgang Miscellaneous (Remove Lidoderm Patch) 1 each N/A DAILY@2100 EVELIN Stop: 09/05/25 20:59 Last Admin: 08/06/25 21:32 Dose: Not Given Documented By: wolfgang Miscellaneous (Order Awaiting Action - Semaglutide) 1 each N/A QS EVELIN Stop: 09/06/25 00:00 Last Admin: 08/07/25 00:01 Dose: Not Given Documented By: wolfgang Prochlorperazine (Prochlorperazine Maleate 10 Mg Tab) 10 mg PO Q6H PRN PRN Reason: headache Stop: 09/05/25 20:12 Last Admin: 08/07/25 01:06 Dose: 10 mg Documented By: wolfgang Topiramate (Topiramate 100 Mg Tab) 100 mg PO BID EVELIN Stop: 09/05/25 20:59 Last Admin: 08/06/25 21:13 Dose: 100 mg Documented By: wolfgang Venlafaxine HCl (Venlafaxine Hcl Xr 150 Mg Capxr) 300 mg PO HS EVELIN Stop: 09/05/25 20:59 Last Admin: 08/06/25 20:53 Dose: 300 mg Documented By: wolfgang Discontinued Medications Dexamethasone Sodium Phosphate (DexamethasonePf 10 Mg/Ml Vial) 10 mg IV NOW ONE Stop: 08/06/25 14:34 Last Admin: 08/06/25 14:40 Dose: 10 mg Documented By: estevan Diazepam (Diazepam Inj 5 Mg/Ml 2 Ml Carp) 5 mg IV NOW STA Stop: 08/06/25 16:30 Last Admin: 08/06/25 16:41 Dose: 5 mg Documented By: estevan Diphenhydramine HCl (Diphenhydramine 50 Mg/Ml Vial) 50 mg IV NOW STA Stop: 08/06/25 12:29 Last Admin: 08/06/25 13:22 Dose: 50 mg Documented By: FELISHA Diphenhydramine HCl (Diphenhydramine 50 Mg/Ml Vial) 50 mg IV NOW STA Stop: 08/06/25 17:46 Last Admin: 08/06/25 18:11 Dose: 50 mg Documented By: IZZY Prochlorperazine (Compazine) 2 mls @ 1 mls/min IV ONE ONE Stop: 08/06/25 12:29 Last Admin: 08/06/25 13:22 Dose: 1 mls/min Documented By: FELISHA Sodium Chloride (Nss) 500 mls @ 999 mls/hr IV .Q31M ONE Stop: 08/06/25 12:58 Last Infusion: 08/06/25 14:36 Dose: Infused Documented By: estevan Admin: 08/06/25 13:22 Dose: 999 mls/hr Documented By: FELISHA Acetaminophen (Ofirmev) 1,000 mg in 100 mls @ 400 mls/hr IV NOW STA Stop: 08/06/25 14:47 Last Infusion: 08/06/25 15:03 Dose: Infused Documented By: estevan Admin: 08/06/25 14:41 Dose: 400 mls/hr Documented By: estevan Magnesium Sulfate/Dextrose (Magnesium Sulfate / D5w) 1 gm in 100 mls @ 100 mls/hr IV NOW STA Stop: 08/06/25 15:32 Last Infusion: 08/06/25 17:04 Dose: Infused Documented By: estevan Admin: 08/06/25 15:15 Dose: 100 mls/hr Documented By: estevan Prochlorperazine 5 mg/ Syringe 5 mls @ 5 mls/min IV ONE ONE Stop: 08/06/25 17:46 Last Admin: 08/06/25 18:11 Dose: 5 mls/min Documented By: IZZY Sodium Chloride (Nss) 500 mls @ 125 mls/hr IV .Q4H EVELIN Stop: 08/07/25 00:12 Last Infusion: 08/07/25 01:22 Dose: Infused Documented By: wolfgang Admin: 08/06/25 20:55 Dose: 125 mls/hr Documented By: wolfgang Potassium Chloride (Potassium Chloride Crtab 20 Meq Tabcr) 40 meq PO NOW STA Stop: 08/06/25 20:14 Last Admin: 08/06/25 20:53 Dose: 40 meq Documented By: wolfgang Rizatriptan Benzoate (Rizatriptan Benzoate 10 Mg Tab) 10 mg PO NOW STA Stop: 08/06/25 16:53 Last Admin: 08/06/25 17:14 Dose: 10 mg Documented By: estevan Medical Decision Making Laboratory Data 08/06/25 13:11 08/06/25 13:11 Lab Results 08/06/25 08/06/25 Range/Units 13:11 16:19 WBC 10.49 (4.8-10.8) K/ul RBC 4.60 (4.20-5.40) M/uL Hgb 13.5 (12.0-16.0) g/dL Hct 40.6 (37.0-47.0) % MCV 88.3 (80.0-100.0) fL MCH 29.3 (25.0-34.0) pg MCHC 33.3 (32.0-36.0) g/dL RDW Std Deviation 45.2 (36.4-46.3) fL RDW Coeff of Wilmer 14.3 (11.5-14.5) % Plt Count 172 (130-400) K/uL MPV 9.2 L (9.4-12.4) fL Immature Gran % (Auto) 0.6 % Neut % (Auto) 80.8 % Lymph % (Auto) 12.4 % Bill[place] % (Auto) 4.3 % Eos % (Auto) 1.5 % Baso % (Auto) 0.4 % Neut # (Auto) 8.48 H (1.40-6.50) K/uL Lymph # (Auto) 1.30 (1.20-3.40) K/uL Bill[place] # (Auto) 0.45 (0.11-0.59) K/uL Eos # (Auto) 0.16 (0.00-0.50) K/uL Baso # (Auto) 0.04 (0.00-0.20) K/uL Immature Gran # (Auto) 0.06 (0.01-0.20) K/uL PT 39.5 H (9.0-12.0) Seconds INR 4.0 H (0.9-1.1) APTT 41 H (21-31) Seconds PTT Ratio 1.5 Sodium 139 (136-145) mmol/L Potassium 3.2 L (3.5-5.1) mmol/L Chloride 105 (98-107) mmol/L Carbon Dioxide 27 (21-32) mmol/L Anion Gap 7 (3-11) BUN 24 H (6-23) mg/dl Creatinine 1.27 H (0.6-1.2) mg/dl Est Cr Clr Drug Dosing 60.5 ml/min eGFR 51.84 BUN/Creatinine Ratio 18.9 (10-20) Glucose 116 H (70-99(Fasting)) mg/dl Calcium 8.9 (8.6-10.3) mg/dl Magnesium 2.0 (1.7-2.4) mg/dl Total Bilirubin 0.3 (0.2-1.0) mg/dl AST 15 (13-39) U/L ALT 39 (7-52) U/L Alkaline Phosphatase 91 (34-104) U/L Total Protein 7.2 (6.0-8.3) gm/dl Albumin 4.1 (3.4-5.0) gm/dl Globulin 3.1 (2.5-4.0) gm/dl Albumin/Globulin Ratio 1.3 (0.9-2) MDM Narrative Patient was seen and evaluated as above in room A04b. Review was performed of triage nursing notes and vital signs. After obtaining a thorough history and physical examination the above work up was performed. Patient presents to us today with a headache. She notes this feels typical of her previous, but does note the flashing of light is lasting a bit longer in her eyes then previous but does note flashing of light is typical as well. No trauma. No injury. She has an NIHSS of 0. No focal neurologic deficit. No fever. Options of care were discussed with the patient. IV access was established. Labs were drawn. I did review the patient's neurology consultation from recent hospitalization dated 08/03/2025. Recommendation was to continue Compazine 10 mg every 6 hours needed and 50 mg daily as needed. I did order IV Compazine IV Benadryl and IV fluids for this patient. She notes that she can tolerate Compazine, which normally works for her just does require some Benadryl with that which was already ordered for her. Imaging was considered but will note she had CT angios of the head and neck area on 07/22/2025 and had a brain MRI on 07/26/2025. Noting the patient stating this is somewhat of previous headaches and without trauma or injury do not believe that imaging at this time is required emergently. Patient was reevaluated 1430headache is minimally improved. I did order IV steroids, IV acetaminophen, IV magnesium. Patient was reevaluated with some improvement but still not feeling much better. I discussed this with the patient and ultimately plan was hospitalization. Case discussed with the hospitalist service. Please refer to further documentation regarding her stay. GCS: 15 In the evaluation and treatment of this patient the following differential diagnoses were entertained: CVA, TIA, intracranial hemorrhage, electrolyte disturbance, among others. Impression & Plan Headache Discharge Plan Visit Data Chief Complaint: Headache Stated Complaint: MIGRAINE ED Provider: Valerie Jeronimo ED Midlevel Provider: Myron Beatty Discharge Problem: Headache Patient Disposition: Admitted As Inpatient Condition: Good Discharge Instructions Interventions: ED Discharge Assessment Last Done: 08/06/25 19:45
[2025-08-06] MEDS: PROCHLORPERAZINE 2 ML IV ONE (13:22)
[2025-08-06] MEDS: SODIUM CHLORIDE 0.9% 500 ML IV ONE (13:22)
[2025-08-06] MEDS: diphenhydrAMINE 50 MG/ML VIAL IV STA ×2 (13:22→18:11)
[2025-08-06 13:26] LABS: Hematocrit (blood only) 40.6 % (37.0-47.0); Hemoglobin 13.5 g/dL (12.0-16.0); Immature Granulocytes # (auto) 0.06 K/uL (0.01-0.20); Immature Granulocytes % (auto) 0.6 %; Mean Corpuscular Hemoglobin 29.3 pg (25.0-34.0); Mean Corpuscular Volume 88.3 fL (80.0-100.0); Platelet Count 172 K/uL (130-400); RDW Standard Deviation 45.2 fL (36.4-46.3); Red Blood Count 4.60 M/uL (4.20-5.40); White Blood Count 10.49 K/ul (4.8-10.8)
[2025-08-06 13:47] LABS: Alanine Aminotransferase 39.0 U/L (7-52); Albumin Globulin Ratio 1.3 (0.9-2); Albumin Level 4.1 gm/dl (3.4-5.0); Alkaline Phosphatase 91.0 U/L (34-104); Anion Gap 7.0 (3-11); Bilirubin,Total 0.3 mg/dl (0.2-1.0); Blood Urea Nitrogen 24.0 mg/dl (6-23); Calcium 8.9 mg/dl (8.6-10.3); Carbon Dioxide 27.0 mmol/L (21-32); Chloride 105.0 mmol/L (98-107); Creatinine Clr Calc Pharmacy 60.5 ml/min; Globulin 3.1 gm/dl (2.5-4.0); Glucose 116.0 mg/dl (70-99(Fasting)); Magnesium 2.0 mg/dl (1.7-2.4); Potassium 3.2 mmol/L (3.5-5.1); Sodium 139.0 mmol/L (136-145); Total Protein 7.2 gm/dl (6.0-8.3)
[2025-08-06] MEDS: dexAMETHasone**PF** 10 MG/ML VIAL IV ONE (14:40)
[2025-08-06] MEDS: ACETAMINOPHEN 1,000 MG/100 ML VIAL IV STA (14:41)
[2025-08-06] MEDS: MAGNESIUM SULFATE / D5W 1 GM/100 ML BAG IV STA (15:15)
--- NOTE | 2025-08-06 16:17 | History & Physical Report ---
Date of Service August 06, 2025 Assessment & Plan (1) Prediabetes: (2) Migraine with status migrainosus: (3) Migraine: (4) Anticoagulation goal of INR 2 to 3: (5) Old cerebrovascular accident (CVA) without late effect: (6) PTSD (post-traumatic stress disorder): (7) GERD (gastroesophageal reflux disease): Plan #Recurrent migraine #Status migrainous #Suspicion for mixed headache etiology, migraine, tension +/- rebound -Status migrainous, starts with typical prodrome. Not responding to typical medications. Initial ER evaluation and treatment with volume expansion, abortive medications with only limited improvement - observation, MedSurg. - Status post dexamethasone-, mag sulfate, will continue with Solu-Medrol taper as this was not continued after her last discharge - Continue with Benadryl/Compazine every 6 hours - Short-term abortive therapy with Valium 5 mg-10mg, expect this will help with the tension/rebound component - Neurochecks #Prediabetes - Monitor blood sugars, within range at this time, monitor closely with steroid taper - A1c 5.8% last week #History of DVT/PE Continue Coumadin, daily INR- #History of stroke -Previous right pontine stroke seen on imaging, continue Coumadin as below #PTSD Continue the Topamax-, no change or further evaluation at this time #FEN - Regular diet #CODE STATUS Full code per her wishes- History of Present Illness Chief Complaint: Migraine Primary Care Provider: Dionne Fletcher MD 50-year-old female history of CVA, PTSD, recurrent migraine with occasional status migrainous prediabetes, presented to the emergency department by private vehicle with a recurrent migraine. Patient states is a very similar episode to what she has had previously was doing well this morning and over the last s everal hours started with a frontal headache with her normal prodrome of scotoma. She used her typical medications but did not start the steroids from her previous hospital stay. Secondary to the persistence of your symptoms she came to the emergency department for evaluation. Otherwise no atypical neuro new or unusual symptoms. No recent illnesses or other medication changes. Pain currently rated at 8/10. Positive photophobia. Scotoma has since resolved. Allergies Allergy/AdvReac Type Severity Reaction Status Date / Time shellfish derived Allergy Severe Swelling Verified 08/06/25 16:00 of Lip/Tongue/Throat prochlorperazine AdvReac Intermediate caused Verified 08/06/25 16:00 [From Compazine] restless leg syndrome promethazine [From Phenergan] AdvReac Intermediate restless Verified 08/06/25 16:00 leg syndrome Home Medications Medication Instructions Recorded Confirmed Type topiramate 200 mg capsule,extended 200 mg PO HS 10/07/20 08/06/25 History release 24 hr venlafaxine 150 mg 300 mg PO HS 10/07/20 08/06/25 History capsule,extended release 24 hr (Effexor XR) epinephrine 0.3 mg/0.3 mL 0.3 mg (0.3 mL) IM Q4H PRN 07/17/23 08/06/25 Rx injection, auto-injector anaphylaxis #2 ea alprazolam 0.25 mg tablet 0.25 mg PO DAILY PRN Anxiety 09/01/23 08/06/25 History ondansetron 4 mg disintegrating 4 mg PO Q6H PRN nausea and 09/18/23 08/06/25 Rx tablet vomiting #15 tabs famotidine 40 mg tablet 20 mg PO HS 03/23/24 08/06/25 History semaglutide 0.25 mg or 0.5 mg (2 0.5 mg subcut WK 03/23/24 08/06/25 History mg/3 mL) subcutaneous pen injector (Ozempic) aripiprazole 5 mg tablet 5 mg PO HS 06/04/24 08/06/25 History diazepam 5 mg tablet 5 mg PO BID PRN Headache or muscle 08/27/24 08/06/25 Rx spasm #10 tabs diphenhydramine HCl 25 mg capsule 50 mg PO Q8H PRN nausea and 07/16/25 08/06/25 History (Benadryl) vomiting or migraine headache lidocaine 5 % topical patch 1 patch topical DAILY PRN Pain 07/16/25 08/06/25 History (Lidoderm) warfarin 10 mg tablet 10 mg PO 5XWK 07/16/25 08/06/25 History warfarin 7.5 mg tablet 7.5 mg PO 2XWK 07/16/25 08/06/25 History cyclobenzaprine 10 mg tablet 10 mg PO BID PRN tension headache 07/26/25 08/06/25 Rx #10 tabs levothyroxine 88 mcg tablet 88 mcg PO DAILYBB 08/02/25 08/06/25 History magnesium oxide 400 mg (241.3 mg 400 mg PO QAM #30 tabs 08/05/25 08/06/25 Rx magnesium) tablet methylprednisolone 4 mg tablets in 4 mg PO DAILY #21 ea 08/05/25 08/06/25 Rx a dose pack (Medrol (Severiano)) prochlorperazine maleate 10 mg 10 mg PO Q8H PRN headache #30 tabs 08/05/25 08/06/25 Rx tablet (Compazine) riboflavin (vitamin B2) 400 mg 400 mg PO DAILY #30 tabs 08/05/25 08/06/25 Rx tablet Past Med/Surg History Problem List (Updated 08/06/25 @ 13:06 by Myron Beatty PA-C) Prediabetes Smell or taste sensation disturbance Migraine with status migrainosus Headache (Acute) Migraine (Acute) Phlebitis of right upper extremity (Acute) Headache (Acute) Intractable migraine (Acute) Hypokalemia due to excessive gastrointestinal loss of potassium (Acute) Intractable migraine (Acute) Anticoagulation goal of INR 2 to 3 (Chronic) Old cerebrovascular accident (CVA) without late effect PTSD (post-traumatic stress disorder) (Chronic) GERD (gastroesophageal reflux disease) (Chronic) Medical History Migraine with acute onset aura History of DVT (deep vein thrombosis) History of pulmonary embolism C. difficile colitis Migraine Surgical History History of mastectomy S/P ROSALES-BSO S/P patent foramen ovale closure History of cholecystectomy History of appendectomy Family History Brother Chronic headaches Social History Smoking Status: Never smoker Second Hand Exposure: No; Do You Dip or Chew Tobacco: No; Hx Alcohol Use: No Hx Substance Use: No Preferred Language: Mosotho Communication Ability: Effective Civil Litigation Attorney Required: No Beliefs That Will Affect Care: None marital status: Current Living Situation: Spouse Current Living Situation Comment: Lives with spouse and child (15 month old daughter) current occupational status: disabled current occupation: was in the [employer] other: lives in [place] Feels Safe at Home: Yes Assistive Devices: None Review of Systems Review of Systems: See HPI otherwise full 10 point review of systems is negative Physical Exam Physical Exam: GEN: Moderate distress, squinting, winces with attempts to roll in the bed HEAD - NC/AT. EYES - PERRL with EOMI bilaterally. Sclera anicteric. MOUTH/OROPHARYNX - MMM No erythema, or exudates noted. NECK - No lymphadenopathy. No nuchal rigidity. no paraspinous spams noted LUNGS - CTA B/L. No wheezes, rales, or rhonchi appreciated. CARDIAC - RRR No M/R/G SKIN - No Rash or discoloration hepatosplenomegaly, or ascites noted. EXTREMITIES - No clubbing or peripheral cyanosis. +5/5 strength noted in UE/LE bilaterally. NEUROLOGIC - Cranial nerves II through XII grossly intact. No focal sensory or motor deficits Results & Data Results & Data Vital Signs (Past 12 Hours) Vital Signs Temp Pulse Pulse Resp BP BP Pulse Ox 08/06/25 15:42 87 25 H 97 08/06/25 15:30 131/101 H 08/06/25 15:30 131/101 H 08/06/25 15:30 131/101 H 08/06/25 15:30 131/101 H 08/06/25 15:30 131/101 H 08/06/25 15:30 88 17 97 08/06/25 15:21 89 20 97 08/06/25 15:12 86 19 98 08/06/25 15:00 119/08/06/25 15:00 11908/06/25 15:00 119/08/06/25 15:00 119/08/06/25 15:00 89 9 L 98 08/06/25 15:00 119/87 08/06/25 15:00 119/08/06/25 14:51 90 24 97 08/06/25 14:42 97 H 14 99 08/06/25 14:30 125/79 08/06/25 14:30 125/79 08/06/25 14:30 125/79 08/06/25 14:30 125/79 08/06/25 14:30 125/79 08/06/25 14:30 89 10 L 98 08/06/25 14:21 91 H 16 99 08/06/25 14:14 18 08/06/25 14:12 94 H 19 98 08/06/25 14:01 107/68 08/06/25 14:01 107/68 08/06/25 14:01 107/68 08/06/25 14:01 107/68 08/06/25 14:01 107/68 08/06/25 14:00 90 12 99 08/06/25 13:51 90 15 99 08/06/25 13:42 92 H 14 100 08/06/25 13:42 104/75 08/06/25 13:42 104/75 08/06/25 13:42 104/75 08/06/25 13:42 104/75 08/06/25 13:42 104/75 08/06/25 13:30 95 H 15 100 08/06/25 13:21 92 H 18 100 08/06/25 13:12 94 H 15 08/06/25 13:00 98 H 15 08/06/25 12:51 102 H 16 08/06/25 12:42 92 H 14 08/06/25 12:30 94 H 15 97 08/06/25 12:30 103/75 08/06/25 12:30 103/75 08/06/25 12:30 103/75 08/06/25 12:30 103/75 08/06/25 12:30 103/75 08/06/25 12:30 97 H 08/06/25 12:28 97 08/06/25 12:27 95 H 12 98 08/06/25 12:23 107/78 08/06/25 12:23 107/78 08/06/25 12:16 36.6 C 112 H 20 119/63 97 08/06/25 12:14 95 H 18 103/75 97 O2 Del Method 08/06/25 15:42 08/06/25 15:30 08/06/25 15:30 08/06/25 15:30 08/06/25 15:30 08/06/25 15:30 08/06/25 15:30 08/06/25 15:21 08/06/25 15:12 08/06/25 15:00 08/06/25 15:00 08/06/25 15:00 08/06/25 15:00 08/06/25 15:00 08/06/25 15:00 08/06/25 15:00 08/06/25 14:51 08/06/25 14:42 08/06/25 14:30 08/06/25 14:30 08/06/25 14:30 08/06/25 14:30 08/06/25 14:30 08/06/25 14:30 08/06/25 14:21 08/06/25 14:14 08/06/25 14:12 08/06/25 14:01 08/06/25 14:01 08/06/25 14:01 08/06/25 14:01 08/06/25 14:01 08/06/25 14:00 08/06/25 13:51 08/06/25 13:42 08/06/25 13:42 08/06/25 13:42 08/06/25 13:42 08/06/25 13:42 08/06/25 13:42 08/06/25 13:30 08/06/25 13:21 08/06/25 13:12 08/06/25 13:00 08/06/25 12:51 08/06/25 12:42 08/06/25 12:30 08/06/25 12:30 08/06/25 12:30 08/06/25 12:30 08/06/25 12:30 08/06/25 12:30 08/06/25 12:30 08/06/25 12:28 Room Air 08/06/25 12:27 08/06/25 12:23 08/06/25 12:23 08/06/25 12:16 Room Air 08/06/25 12:14 Room Air Laboratory Results 08/06/25 13:11 WBC 10.49 RBC 4.60 Hgb 13.5 Hct 40.6 MCV 88.3 MCH 29.3 MCHC 33.3 RDW Std Deviation 45.2 RDW Coeff of Wilmer 14.3 Plt Count 172 MPV 9.2 L Immature Gran % (Auto) 0.6 Neut % (Auto) 80.8 Lymph % (Auto) 12.4 [place] % (Auto) 4.3 Eos % (Auto) 1.5 Baso % (Auto) 0.4 Neut # (Auto) 8.48 H Lymph # (Auto) 1.30 [place] # (Auto) 0.45 Eos # (Auto) 0.16 Baso # (Auto) 0.04 Immature Gran # (Auto) 0.06 Sodium 139 Potassium 3.2 L Chloride 105 Carbon Dioxide 27 Anion Gap 7 BUN 24 H Creatinine 1.27 H Est Cr Clr Drug Dosing 60.5 eGFR 51.84 BUN/Creatinine Ratio 18.9 Glucose 116 H Calcium 8.9 Magnesium 2.0 Total Bilirubin 0.3 AST 15 ALT 39 Alkaline Phosphatase 91 Total Protein 7.2 Albumin 4.1 Globulin 3.1 Albumin/Globulin Ratio 1.3 PG Care Time/CCT Total # of Minutes Spent Total Time Spent with Patient: Total time spent is greater than 50% in coordination of care (as documented) at patient's floor/unit and/or counseling patient: Coding Level of Care Code 89673 INT INP/OBS CARE MIN Diagnoses Prediabetes R73.03 Intractable chronic migraine with aura with status migrainosus G43.E11 Migraine type: chronic migraine (15 or more days per month) with aura Intractability: intractable Migraine G43.909 Anticoagulation goal of INR 2 to 3 Z51.81; Z79.01 Old cerebrovascular accident (CVA) without late effect Z86.73 PTSD (post-traumatic stress disorder) F43.10 GERD (gastroesophageal reflux disease) K21.9 (2) Migraine with status migrainosus Migraine type: chronic migraine (15 or more days per month) with aura Intractability: intractable Qualified Code(s): G43.E11 - Chronic migraine with aura, intractable, with status migrainosus
[2025-08-06 17:11] LABS: INR 4.0 (0.9-1.1); Partial Thromboplastin Time 41 Seconds (21-31); Prothrombin Time 39.5 Seconds (9.0-12.0)
[2025-08-06] MEDS: RIZATRIPTAN BENZOATE 10 MG TAB PO STA (17:14)
[2025-08-06] MEDS: PROCHLORPERAZINE 5 MG in SYRINGE 4 ML IV ONE (18:11)
[2025-08-06] MEDS ORDERED: CYCLOBENZAPRINE HCL 10 MG TAB PO PRN (20:13)
[2025-08-06] MEDS ORDERED: LIDOCAINE 5% 1 PATCH TD PRN (20:13)
[2025-08-06] MEDS ORDERED: EPINEPHrine INJ 1 MG/ML AMP IM PRN (20:19)
[2025-08-06] MEDS: POTASSIUM CHLORIDE CRTAB 20 MEQ TABCR PO STA (20:53)
[2025-08-06] MEDS: VENLAFAXINE HCL XR 150 MG CAPXR PO SCH (20:53)
[2025-08-06] MEDS: ARIPiprazole 5 MG TAB PO SCH (20:53)
[2025-08-06] MEDS: FAMOTIDINE 20 MG TAB PO SCH (20:53)
[2025-08-06] MEDS: SODIUM CHLORIDE 0.9% 500 ML IV SCH (20:55)
[2025-08-06] MEDS: TOPIRAMATE 100 MG TAB PO SCH (21:13)
[2025-08-06] MEDS: REMOVE LIDODERM PATCH SCH (21:32)
[2025-08-07] MEDS: PROCHLORPERAZINE MALEATE 10 MG TAB PO PRN ×2 (01:06→20:16)
[2025-08-07] MEDS: diphenhydrAMINE 50 MG/ML VIAL IV PRN (01:06)
[2025-08-07] MEDS: LEVOTHYROXINE SODIUM 88 MCG TABLET PO SCH (05:49)
[2025-08-07] MEDS: MAGNESIUM OXIDE 400 MG TAB PO SCH (08:02)
[2025-08-07 08:08] LABS: Hematocrit (blood only) 38.4 % (37.0-47.0); Hemoglobin 13.0 g/dL (12.0-16.0); Immature Granulocytes # (auto) 0.09 K/uL (0.01-0.20); Immature Granulocytes % (auto) 0.7 %; Mean Corpuscular Hemoglobin 29.1 pg (25.0-34.0); Mean Corpuscular Volume 86.1 fL (80.0-100.0); Platelet Count 180 K/uL (130-400); RDW Standard Deviation 42.9 fL (36.4-46.3); Red Blood Count 4.46 M/uL (4.20-5.40); White Blood Count 13.04 K/ul (4.8-10.8)
[2025-08-07 08:31] LABS: Anion Gap 8.0 (3-11); Blood Urea Nitrogen 19.0 mg/dl (6-23); Calcium 8.7 mg/dl (8.6-10.3); Carbon Dioxide 20.0 mmol/L (21-32); Chloride 110.0 mmol/L (98-107); Creatinine Clr Calc Pharmacy 92.3 ml/min; Glucose 105.0 mg/dl (70-99(Fasting)); Magnesium 2.2 mg/dl (1.7-2.4); Potassium 4.2 mmol/L (3.5-5.1); Sodium 138.0 mmol/L (136-145)
[2025-08-07 08:34] LABS: INR 3.2 (0.9-1.1); Prothrombin Time 31.3 Seconds (9.0-12.0)
[2025-08-07] MEDS: ACETAMINOPHEN 1,000 MG/100 ML VIAL IV SCH (11:28)
[2025-08-07] MEDS: MAGNESIUM SULFATE / D5W 1 GM/100 ML BAG IV SCH (11:28)
[2025-08-07] MEDS: VALPROATE SOD 500 MG in DEXTROSE 5% 50 ML IV ONE (12:31)
[2025-08-07] MEDS: ONDANSETRON 4 MG OD TAB PO PRN (12:39)
--- NOTE | 2025-08-07 13:11 | Hospitalist Progress Note ---
Date of Service August 07, 2025 Assessment & Plan (1) Prediabetes: (2) Migraine with status migrainosus: (3) Migraine: (4) Anticoagulation goal of INR 2 to 3: (5) Old cerebrovascular accident (CVA) without late effect: (6) PTSD (post-traumatic stress disorder): (7) GERD (gastroesophageal reflux disease): Plan #Recurrent migraine #Status migrainous #Suspicion for mixed headache etiology, migraine, tension +/- rebound -Status migrainous, very refractory over the last month. No clear triggers. Fortunately does not appear to be PRODUCT DEVELOPMENT TECHNICIAN pathology at play. Discussed with patient that often breaking a complicated migraine like this is much more "art meets science" and may require a bit of "educated trial and error"discussed risk/benefit of current plan and she agreed to proceed: Depakote 500 IV twice daily, mag 4g iv x1, Tylenol scheduled, Toradol scheduled, Benadryl and Compazine 3 times daily as needed, continue Valium as needed. Dilaudid nightly as needed, continue Topamax. #Prediabetes - Monitor blood sugars, within range at this time, monitor closely with steroid taper - A1c 5.8% last week #History of DVT/PE Continue Coumadin, daily INR 3.2 today #History of stroke -Previous right pontine stroke seen on imaging, continue Coumadin as below #PTSD Continue the Topamax-, no change or further evaluation at this time #FEN - Regular diet #CODE STATUS Full code per her wishes Admission and Anticipated Discharge Date Admission Date: August 06, 2025 Subjective Still feeling pretty terrible. Headache is actually down to about a 4which she notes is significant improvement, but unfortunately the visual lights/floaters are relentless and far worsewhether her eyes are open or closed. She also notes she has had a very difficult time getting any sleep. Headache has been fairly refractory for about the last month. Review of Systems Review of Systems: All systems reviewed & are unremarkable except as noted in HPI & below Physical Exam Physical Exam: In general she is awake and alert pleasant but appears to be quite uncomfortable from her headache and visual aurashe tries to make eye contact but frequently has to close her eyes or close them to a slit. Breathing unlabored no accessory muscle use good effort. Skin without rashes pallor or icterus. Neuro without focal deficits or lateralizing signs. Results & Data Results & Data Vital Signs (Past 12 Hours) Vital Signs Temp Pulse Pulse Resp BP BP Pulse Ox 08/07/25 12:33 98.4 F 93 H 19 101/71 100 08/07/25 08:32 97.7 F 90 18 110/80 96 08/07/25 05:36 84 08/07/25 03:53 98.6 F 80 16 125/88 95 O2 Del Method 08/07/25 12:33 Room Air 08/07/25 08:32 Room Air 08/07/25 05:36 08/07/25 03:53 Room Air PG Care Time/CCT Total # of Minutes Spent Total Time Spent with Patient: Total time spent is greater than 50% in coordination of care (as documented) at patient's floor/unit and/or counseling patient: Coding Level of Care Code 40252 SUB INP/OBS CARE 3/50MIN Diagnoses Prediabetes R73.03 Intractable chronic migraine with aura with status migrainosus G43.E11 Migraine type: chronic migraine (15 or more days per month) with aura Intractability: intractable Migraine G43.909 Anticoagulation goal of INR 2 to 3 Z51.81; Z79.01 Old cerebrovascular accident (CVA) without late effect Z86.73 PTSD (post-traumatic stress disorder) F43.10 GERD (gastroesophageal reflux disease) K21.9 (2) Migraine with status migrainosus Migraine type: chronic migraine (15 or more days per month) with aura Intractability: intractable Qualified Code(s): G43.E11 - Chronic migraine with aura, intractable, with status migrainosus
[2025-08-07] MEDS: KETOROLAC TROMETHAMINE 15 MG/ML VIAL IV SCH (13:42)
[2025-08-07] MEDS: PROCHLORPERAZINE 10 MG in SYRINGE 8 ML IV PRN (14:05)
[2025-08-07] MEDS: LACTATED RINGER'S 1,000 ML IV ONE (14:57)
--- NOTE | 2025-08-07 15:21 | Hospitalist Progress Note ---
Date of Service August 07, 2025 Assessment & Plan (1) Prediabetes: (2) Migraine with status migrainosus: (3) Migraine: (4) Anticoagulation goal of INR 2 to 3: (5) Old cerebrovascular accident (CVA) without late effect: (6) PTSD (post-traumatic stress disorder): (7) GERD (gastroesophageal reflux disease): Plan #Recurrent migraine #Status migrainous #Suspicion for mixed headache etiology, migraine, tension +/- rebound -Status migrainous, very refractory over the last month. No clear triggers. Fortunately does not appear to be ENVIRONMENTAL ADVISER pathology at play. Discussed with patient that often breaking a complicated migraine like this is much more "art meets science" and may require a bit of "educated trial and error"discussed risk/benefit of current plan and she agreed to proceed: Depakote 500 IV twice daily, mag 4g iv x1, Tylenol scheduled, Toradol scheduled, Benadryl and Compazine 3 times daily as needed, continue Valium as needed. Dilaudid nightly as needed, continue Topamax. - No sustained improvement as of yet, repeat NS bolus, add diazepam 10mg oral x1 - continue benadryl, compazine and steroid taper #KATE - back to baseline this AM #Prediabetes - Monitor blood sugars, within range at this time, monitor closely with steroid taper - A1c 5.8% last week - FSG within goal #History of DVT/PE Continue Coumadin, daily INR 3.2 today #History of stroke -Previous right pontine stroke seen on imaging, continue Coumadin as below #PTSD Continue the Topamax-, no change or further evaluation at this time #FEN - Regular diet #CODE STATUS Full code per her wishes Admission and Anticipated Discharge Date Admission Date: August 06, 2025 Subjective No significant net improvement with interventions through the night. States that she has had a temper from the Benadryl Compazine at times. As well as the diazepam, however relief is brief and she is back to baseline. She is still having the flashing close stay awake . This is consistent with previous but this is more persistent that it has ever been, no new or different symptoms. Results & Data Results & Data Vital Signs (Past 12 Hours) Vital Signs Temp Pulse Pulse Resp BP BP Pulse Ox 08/07/25 14:59 88/59 L 08/07/25 14:58 36.8 C 103 H 18 73/52 L 79/53 L 96 08/07/25 12:33 36.9 C 93 H 19 101/71 100 08/07/25 08:32 36.5 C 90 18 110/80 96 08/07/25 05:36 84 08/07/25 03:53 37 C 80 16 125/88 95 O2 Del Method 08/07/25 14:59 08/07/25 14:58 Room Air 08/07/25 12:33 Room Air 08/07/25 08:32 Room Air 08/07/25 05:36 08/07/25 03:53 Room Air Laboratory Results 08/07/25 08/06/25 07:43 16:19 WBC 13.04 H RBC 4.46 Hgb 13.0 Hct 38.4 MCV 86.1 MCH 29.1 MCHC 33.9 RDW Std Deviation 42.9 RDW Coeff of Wilmer 13.8 Plt Count 180 MPV 9.6 Immature Gran % (Auto) 0.7 Neut % (Auto) 89.7 Lymph % (Auto) 6.7 [place] % (Auto) 2.8 Eos % (Auto) 0.0 Baso % (Auto) 0.1 Neut # (Auto) 11.70 H Lymph # (Auto) 0.87 L [place] # (Auto) 0.37 Eos # (Auto) 0.00 Baso # (Auto) 0.01 Immature Gran # (Auto) 0.09 PT 31.3 H 39.5 H INR 3.2 H 4.0 H APTT 41 H PTT Ratio 1.5 Sodium 138 Potassium 4.2 D Chloride 110 H Carbon Dioxide 20 L Anion Gap 8 BUN 19 Creatinine 0.83 D Est Cr Clr Drug Dosing 92.3 eGFR 86.37 BUN/Creatinine Ratio 22.9 H Glucose 105 H Calcium 8.7 Magnesium 2.2 PG Care Time/CCT Total # of Minutes Spent Total Time Spent with Patient: Total time spent is greater than 50% in coordination of care (as documented) at patient's floor/unit and/or counseling patient: Coding Level of Care Code 74292 SUB INP/OBS CARE 2MIN Diagnoses Prediabetes R73.03 Intractable chronic migraine with aura with status migrainosus G43.E11 Migraine type: chronic migraine (15 or more days per month) with aura Intractability: intractable Migraine G43.909 Anticoagulation goal of INR 2 to 3 Z51.81; Z79.01 Old cerebrovascular accident (CVA) without late effect Z86.73 PTSD (post-traumatic stress disorder) F43.10 GERD (gastroesophageal reflux disease) K21.9 (2) Migraine with status migrainosus Migraine type: chronic migraine (15 or more days per month) with aura Intractability: intractable Qualified Code(s): G43.E11 - Chronic migraine with aura, intractable, with status migrainosus
[2025-08-07] MEDS: LACTATED RINGER'S 1,000 ML IV SCH (16:38)
[2025-08-07] MEDS: WARFARIN SOD 10 MG TAB PO SCH (16:45)
[2025-08-07] MEDS: SODIUM CHLORIDE 0.9% 1,000 ML IV SCH (17:49)
[2025-08-07] MEDS: HYDROmorphone INJ 0.5 MG/0.5 ML SYR IV PRN (19:40)
[2025-08-07] MEDS: VALPROATE SOD 500 MG in DEXTROSE 5% 50 ML IV SCH (20:35)
[2025-08-08 06:54] LABS: Hematocrit (blood only) 36.1 % (37.0-47.0); Hemoglobin 11.6 g/dL (12.0-16.0); Immature Granulocytes # (auto) 0.04 K/uL (0.01-0.20); Immature Granulocytes % (auto) 0.5 %; Mean Corpuscular Hemoglobin 28.6 pg (25.0-34.0); Mean Corpuscular Volume 88.9 fL (80.0-100.0); Platelet Count 157 K/uL (130-400); RDW Standard Deviation 45.9 fL (36.4-46.3); Red Blood Count 4.06 M/uL (4.20-5.40); White Blood Count 7.31 K/ul (4.8-10.8)
[2025-08-08 07:14] LABS: Anion Gap 5.0 (3-11); Blood Urea Nitrogen 23.0 mg/dl (6-23); Calcium 7.6 mg/dl (8.6-10.3); Carbon Dioxide 24.0 mmol/L (21-32); Chloride 110.0 mmol/L (98-107); Creatinine Clr Calc Pharmacy 60.8 ml/min; Glucose 71.0 mg/dl (70-99(Fasting)); Potassium 3.9 mmol/L (3.5-5.1); Sodium 139.0 mmol/L (136-145)
[2025-08-08 07:24] LABS: INR 3.0 (0.9-1.1); Prothrombin Time 29.6 Seconds (9.0-12.0)
[2025-08-08] MEDS: diphenhydrAMINE 50 MG/ML VIAL IV PRN (07:55)
--- NOTE | 2025-08-08 08:42 | Magnetic Resonance Report ---
MR venography head wo con CLINICAL HISTORY: intractable migraine, ?clot COMPARISON STUDY: Brain MRI of 07/26/[address] of 07/22/2025 FINDINGS: Left transverse sinus is smaller than the right, typical anatomic variant. No evidence of o cclusion or thrombus seen at the cerebral venous sinuses. IMPRESSION: No cerebral venous sinus thrombosis is seen. ACT 112: Negative or not required by law. Electronically signed by: Kevin Bui M.D. 08/08/2025 8:39 AM
--- NOTE | 2025-08-08 13:42 | Hospitalist Progress Note ---
Date of Service August 08, 2025 Assessment & Plan (1) Prediabetes: (2) Migraine with status migrainosus: (3) Migraine: (4) Anticoagulation goal of INR 2 to 3: (5) Old cerebrovascular accident (CVA) without late effect: (6) PTSD (post-traumatic stress disorder): (7) GERD (gastroesophageal reflux disease): Plan #Recurrent migraine #Status migrainous #Suspicion for mixed headache etiology, migraine, tension +/- rebound -Status migrainous, very refractory over the last month. No clear triggers. Fortunately does not appear to be WATER MANAGER pathology at play. Discussed with patient that often breaking a complicated migraine like this is much more "art meets science" and may require a bit of "educated trial and error"discussed risk/benefit of current plan and she agreed to proceed: Depakote 500 IV twice daily, mag 4g iv x1, Tylenol scheduled, Toradol scheduled, Benadryl and Compazine 3 times daily as needed, continue Valium as needed. Dilaudid nightly as needed, continue Topamax. - No sustained improvement as of yet, repeat NS bolus, add diazepam 10mg oral x1 - continue benadryl, compazine and steroid taper - sparing use of dilaudid, admit order placed - continue depakote BID - Teleneuro consult for persistent scotoma/aura symptoms #KATE - back to baseline this AM - Variable over the last several visits, slight interval increase, good UOP, continue to monitor #Prediabetes - Monitor blood sugars, within range at this time, monitor closely with steroid taper - A1c 5.8% last week - FSG within goal #History of DVT/PE Continue Coumadin, daily INR 3.0 today #History of stroke -Previous right pontine stroke seen on imaging, continue Coumadin as below #PTSD Continue the Topamax-, no change or further evaluation at this time #FEN - Regular diet #CODE STATUS Full code per her wishes Admission and Anticipated Discharge Date Admission Date: August 06, 2025 Subjective Doing slightly better today. Pain currently rated 6/10. Resolved. Just the onset of the effusion of the foot episodes. States she slept very well for about 5 hours with complete resolution of her symptoms after the Dilaudid dose yesterday evening. We discussed the risk versus benefits of opiates with quite significant worsening of bleeding risk associated in the setting. That overall she is improving. Will continue with the Depakote infusions and monitor closely. Dilaudid for abortive therapy at night reasonable at least for the short-term. She reports persistentce but intermittent improvement in the flashing lights/scotoma. Physical Exam Physical Exam: GEN: Moderate distress, squinting, winces with attempts to roll in the bed HEAD - NC/AT. EYES - PERRL with EOMI bilaterally. Sclera anicteric. MOUTH/OROPHARYNX - MMM No erythema, or exudates noted. NECK - No lymphadenopathy. No nuchal rigidity. no paraspinous spams noted LUNGS - CTA B/L. No wheezes, rales, or rhonchi appreciated. CARDIAC - RRR No M/R/G SKIN - No Rash or discoloration hepatosplenomegaly, or ascites noted. EXTREMITIES - No clubbing or peripheral cyanosis. +5/5 strength noted in UE/LE bilaterally. NEUROLOGIC - Cranial nerves II through XII grossly intact. No focal sensory or motor deficits Results & Data Results & Data Vital Signs (Past 12 Hours) Vital Signs Temp Pulse Resp BP Pulse Ox O2 Del Method 08/08/25 11:42 36.4 C L 81 18 99/65 L 99 Room Air 08/08/25 08:31 36.6 C 64 17 110/78 99 Room Air 08/08/25 02:28 36.3 C L 83 16 133/93 96 Room Air Laboratory Results 08/08/25 05:51 WBC 7.31 RBC 4.06 L Hgb 11.6 L Hct 36.1 L MCV 88.9 MCH 28.6 MCHC 32.1 RDW Std Deviation 45.9 RDW Coeff of Wilmer 14.1 Plt Count 157 MPV 9.7 Immature Gran % (Auto) 0.5 Neut % (Auto) 69.7 Lymph % (Auto) 22.3 [place] % (Auto) 5.7 Eos % (Auto) 1.4 Baso % (Auto) 0.4 Neut # (Auto) 5.09 Lymph # (Auto) 1.63 Stan[place]aus # (Auto) 0.42 Eos # (Auto) 0.10 Baso # (Auto) 0.03 Immature Gran # (Auto) 0.04 PT 29.6 H INR 3.0 H Sodium 139 Potassium 3.9 Chloride 110 H Carbon Dioxide 24 Anion Gap 5 BUN 23 Creatinine 1.26 H D Est Cr Clr Drug Dosing 60.8 eGFR 52.34 BUN/Creatinine Ratio 18.3 Glucose 71 Calcium 7.6 L PG Care Time/CCT Total # of Minutes Spent Total Time Spent with Patient: Total time spent is greater than 50% in coordination of care (as documented) at patient's floor/unit and/or counseling patient: Coding Level of Care Code 46311 SUB INP/OBS CARE 2/35MIN Diagnoses Prediabetes R73.03 Intractable chronic migraine with aura with status migrainosus G43.E11 Migraine type: chronic migraine (15 or more days per month) with aura Intractability: intractable Migraine G43.909 Anticoagulation goal of INR 2 to 3 Z51.81; Z79.01 Old cerebrovascular accident (CVA) without late effect Z86.73 PTSD (post-traumatic stress disorder) F43.10 GERD (gastroesophageal reflux disease) K21.9 (2) Migraine with status migrainosus Migraine type: chronic migraine (15 or more days per month) with aura Intractability: intractable Qualified Code(s): G43.E11 - Chronic migraine with aura, intractable, with status migrainosus
--- NOTE | 2025-08-08 15:42 | Neurology Consultation ---
Date of Consultation August 08, 2025 Assessment & Plan (1) Migraine with status migrainosus: Plan 50-year-old female with medical history significant for prior CVA, prediabetes, PTSD, and recurrent migraines with hospitalization secondary to status migrainosus presented to the emergency room with persistent headache. Combination of Benadryl and Compazine has worked in the past. Instead of as needed dosing, consider scheduled doses of Benadryl 50 mg IV every 12 hours x 4 doses and Compazine 10 mg IV every 6 hours x 4 doses to see if it aborts the headache. Discontinue Depakote which did not help according to the patient Continue Topamax for headache prophylaxis. Patient has been on topiramate since the last 30 years. Continue home medications Magnetic resonance venogram did not show any evidence of cerebral venous thrombosis. Prior imaging reviewed Head CT from 07/22/2025 did not show any acute intracranial pathology. Old lacunar infarct at the level of the right pontomedullary junction. Possible mild generalized atrophy. Inflammatory changes within the right maxillary sinus. CT angiogram of the head and neck on 07/22/2025 did not show hemodynamically significant stenosis MRI of the brain on 07/26/2025 did not show any acute intracranial pathology. EKG showed normal sinus rhythm with nonspecific T wave abnormality 2D echocardiogram on 08/25/2024 showed left ventricle ejection fraction 60 to 65% with no evidence of thrombus or PFO Avoid medications which causes rebound headache Continue medical management per primary team Neurochecks every 4 hours Plan discussed in detail with the patient, nursing staff, and the primary attending Dr. Rain Brothers Time Spent (min) 60 minutes Comment Total time includes patient contact, chart review, counseling, note preparation *Disclaimer: This note was generated using [employer] dictation software. Any typographical errors are unintentional and attributed to errors in voice recognition. If there are any areas of the note that do not make sense, please contact me for clarification. Telehealth Consultation Telehealth Information Telehealth Information: I performed this visit using a real-time telehealth connection between my location and the patients originating location ([facility]). After connecting through interactive tele-video, patient was identified by name and date of and/or wristband check.Patient (or authorized healthcare sales representative consultant) was informed that this was a telemedicine visit and it was being conducted confidentially over secure lines. My office door was closed and no one else was present in the room with me.Patient (or authorized healthcare sales representative consultant) provided consent to proceed with the visit, expressed an understanding of privacy and security of the telemedicine visit, and gave permission to have a hospital sales representative consultant in the room in order to assist with the visit and to conduct portions of the visit, as needed. I informed the patient (or authorized healthcare sales representative consultant) that I reviewed their record and presented the opportunity for them to ask any questions regarding the visit today. The patient agreed to participate. History of Present Illness Reason for Consultation: Intractable migraine Requesting Physician: Zev Rodrigez MD Attending Physician: Zev Rodrigez MD History of Present Illness 50-year-old female with medical history significant for prior CVA, PTSD, and history of recurrent migraines with occasional hospitalization secondary to status migrainosus, history of prediabetes presented to the emergency department on 08/06/2025 because of recurrent headache. Patient was recently discharged from this facility with the similar complaints. Per patient, earlier on the morning of 08/06/2025 she had a severe headache which was in the frontal region. She also saw scotoma and lasted for several hours. Patient was compliant with her home medication regimen but did not started the steroids from a previous hospitalization. The headache persisted associated with nausea so she decided to come to the emergency room via private vehicle. The patient denies any focal weakness, focal paresthesia, chest pain, abdominal pain, or problems with speech or swallowing. Scotoma was resolved but she still has photophobia. No migraine medication regimen was continued and was started on a combination of Compazine and Benadryl as needed inpatient. She was also started on Depakote which did not help according to the patient. Patient also received Dilaudid which did help her sleep. The patient is followed at [facility] and has tried Ajovy and Ubrelvy in the past which did not help. She is waiting for a follow-up with her provider to start Vyepti. Headache is 7/10 at the time of the rounds with photophobia but no scotoma. MRV was done as inpatient which did not show any evidence of cerebral venous sinus thrombosis. Allergies Allergy/AdvReac Type Severity Reaction Status Date / Time shellfish derived Allergy Severe Swelling Verified 08/06/25 16:00 of Lip/Tongue/Throat prochlorperazine AdvReac Intermediate caused Verified 08/06/25 16:00 [From Compazine] restless leg syndrome promethazine [From Phenergan] AdvReac Intermediate restless Verified 08/06/25 16:00 leg syndrome Home Medications Medication Instructions Recorded Confirmed Type topiramate 200 mg capsule,extended 200 mg PO HS 10/07/20 08/06/25 History release 24 hr venlafaxine 150 mg 300 mg PO HS 10/07/20 08/06/25 History capsule,extended release 24 hr (Effexor XR) epinephrine 0.3 mg/0.3 mL 0.3 mg (0.3 mL) IM Q4H PRN 07/17/23 08/06/25 Rx injection, auto-injector anaphylaxis #2 ea alprazolam 0.25 mg tablet 0.25 mg PO DAILY PRN Anxiety 09/01/23 08/06/25 History ondansetron 4 mg disintegrating 4 mg PO Q6H PRN nausea and 09/18/23 08/06/25 Rx tablet vomiting #15 tabs famotidine 40 mg tablet 20 mg PO HS 03/23/24 08/06/25 History semaglutide 0.25 mg or 0.5 mg (2 0.5 mg subcut WK 03/23/24 08/06/25 History mg/3 mL) subcutaneous pen injector (Ozempic) aripiprazole 5 mg tablet 5 mg PO HS 06/04/24 08/06/25 History diazepam 5 mg tablet 5 mg PO BID PRN Headache or muscle 08/27/24 08/06/25 Rx spasm #10 tabs diphenhydramine HCl 25 mg capsule 50 mg PO Q8H PRN nausea and 07/16/25 08/06/25 History (Benadryl) vomiting or migraine headache lidocaine 5 % topical patch 1 patch topical DAILY PRN Pain 07/16/25 08/06/25 History (Lidoderm) warfarin 10 mg tablet 10 mg PO 5XWK 07/16/25 08/06/25 History warfarin 7.5 mg tablet 7.5 mg PO 2XWK 07/16/25 08/06/25 History cyclobenzaprine 10 mg tablet 10 mg PO BID PRN tension headache 07/26/25 08/06/25 Rx #10 tabs levothyroxine 88 mcg tablet 88 mcg PO DAILYBB 08/02/25 08/06/25 History magnesium oxide 400 mg (241.3 mg 400 mg PO QAM #30 tabs 08/05/25 08/06/25 Rx magnesium) tablet methylprednisolone 4 mg tablets in 4 mg PO DAILY #21 ea 08/05/25 08/06/25 Rx a dose pack (Medrol (Severiano)) prochlorperazine maleate 10 mg 10 mg PO Q8H PRN headache #30 tabs 08/05/25 08/06/25 Rx tablet (Compazine) riboflavin (vitamin B2) 400 mg 400 mg PO DAILY #30 tabs 08/05/25 08/06/25 Rx tablet Patient History Medical History Migraine with acute onset aura History of DVT (deep vein thrombosis) History of pulmonary embolism C. difficile colitis Migraine Surgical History History of mastectomy S/P ROSALES-BSO S/P patent foramen ovale closure History of cholecystectomy History of appendectomy Family History Brother Chronic headaches Social History Smoking Status: Never smoker Second Hand Exposure: No; Do You Dip or Chew Tobacco: No; Tobacco Cessation Education Requested by Patient: No Hx Alcohol Use: No Hx Substance Use: No Preferred Language: Uzbek Communication Ability: Effective Record Label Intern Required: No Beliefs That Will Affect Care: None marital status: Current Living Situation: Family Current Living Situation Comment: Lives with spouse and child (15 month old daughter) current occupational status: disabled current occupation: was in the [employer] Other Information That Helps Us Care for You: No other: lives in [place] Feels Safe at Home: Yes Safety Concerns: Feels Safe At This Time Assistive Devices: None Review of Systems Constitutional symptoms, eyes, ears, nose, throat, cardiovascular, respiratory, gastrointestinal, genitourinary, musculoskeletal, endocrine, hematologic, and psychiatric review of systems are negative about the chief complaint, except as detailed in the present illness. Physical Exam Neuro Exam Mentation and Language Alert and oriented to person, place, time and situation. There is no apparent deficit of comprehensionfluent speech without word-finding difficulty or dysarthria. The affect appears appropriate. Cranial Nerves CN 11-X11 intact. Pupils equally round and reactive to light. Extraocular movements intact without nystagmus. Visual justice intact to confrontation. Face symmetrical at rest and with activation with full sensation to light touch and pinprick in V1, V2 and V3 distributions. The tongue protrudes in the midline. The palate elevates symmetrically. There is no tremor or other movements of the face. Motor There is appropriate bulk throughout. Tone is normal. There is no resting tremor or other extraneous movements. Strength is graded 5/5 throughout the upper and lower extremities bilaterally. Sensation Intact to light touch bilaterally Coordination There is no dysmetria with finger nose finger Gait and Station Deferred due to patient safety reasons. Results & Data Vital Signs (Past 12 Hours) Vital Signs Temp Pulse Resp BP Pulse Ox Pulse Ox O2 Del Method 08/08/25 11:42 36.4 C L 81 18 99/65 L 99 Room Air 08/08/25 08:31 99 08/08/25 08:31 36.6 C 64 17 110/78 99 Room Air O2 Del Method 08/08/25 11:42 08/08/25 08:31 Room Air 08/08/25 08:31 Laboratory Results Laboratory Results - last 24 hr 08/08/25 05:51 WBC 7.31 RBC 4.06 L Hgb 11.6 L Hct 36.1 L MCV 88.9 MCH 28.6 MCHC 32.1 RDW Std Deviation 45.9 RDW Coeff of Wilmer 14.1 Plt Count 157 MPV 9.7 Immature Gran % (Auto) 0.5 Neut % (Auto) 69.7 Lymph % (Auto) 22.3 Turner % (Auto) 5.7 Eos % (Auto) 1.4 Baso % (Auto) 0.4 Neut # (Auto) 5.09 Lymph # (Auto) 1.63 Turner # (Auto) 0.42 Eos # (Auto) 0.10 Baso # (Auto) 0.03 Immature Gran # (Auto) 0.04 PT 29.6 H INR 3.0 H Sodium 139 Potassium 3.9 Chloride 110 H Carbon Dioxide 24 Anion Gap 5 BUN 23 Creatinine 1.26 H D Est Cr Clr Drug Dosing 60.8 eGFR 52.34 BUN/Creatinine Ratio 18.3 Glucose 71 Calcium 7.6 L Diagnostic Findings Head/Brain Mag Res Venography 08/08/25 06:07 MR venography head wo con CLINICAL HISTORY: intractable migraine, ?clot COMPARISON STUDY: Brain MRI of 07/26/[address] of 07/22/2025 FINDINGS: Left transverse sinus is smaller than the right, typical anatomic variant. No evidence of occlusion or thrombus seen at the cerebral venous sinuses. IMPRESSION: No cerebral venous sinus thrombosis is seen. ACT 112: Negative or not required by law. Electronically signed by: Kevin Bui M.D. 08/08/2025 8:39 AM MRI OF THE BRAIN COMBO CLINICAL HISTORY: Migraine headache. COMPARISON STUDY: CT of the brain dated 07/22/2025. MRI of the brain dated 08/22/2024. TECHNIQUE: MRI of the brain was performed utilizing various T1 and T2-weighted sequences in the axial, sagittal, and coronal planes. Contrast-enhanced sequences were acquired following the administration of 10 cc of Gadavist. FINDINGS: Brain parenchyma: A small focus of encephalomalacia in the right aspect of the gabriela is unchanged from prior studies and favors a remote insult. There is minimal microangiopathic change. There is no hemorrhage or mass effect. There is no restricted diffusion to suggest acute ischemia. No enhancing mass lesion is identified on the postcontrast images. Espinoza-white matter differentiation is preserved. No extra-axial fluid collection is seen. The cerebellar tonsils are normal in configuration. Ventricles, sulci, and cisterns: Normal in configuration. Pituitary and sella: Unremarkable. Intracranial vasculature: Normal flow voids are maintained at the skull base. Orbits: The bony orbits are grossly intact. Orbital contents are normal in appearance. Sinuses and mastoids: Moderate mucosal thickening is seen within the right maxillary antrum. Mucosal thickening and 2.8 cm retention cyst is seen in the left maxillary sinus. The remaining paranasal sinuses and mastoid air vessels are clear. Calvarium: Unremarkable. Cervical cord: Partially visualized cervical spinal cord is normal in morphology and signal intensity. IMPRESSION: No acute intracranial abnormality. ACT 112: Negative or not required by law. Electronically signed by: Jose Alberto Morales M.D. 07/26/2025 11:03 AM Medications Administered Home Medications Medication Instructions Recorded Confirmed Last Taken topiramate 200 mg capsule,extended 200 mg PO HS 10/07/20 08/06/25 08/05/25 release 24 hr venlafaxine 150 mg 300 mg PO HS 10/07/20 08/06/25 08/05/25 capsule,extended release 24 hr (Effexor XR) epinephrine 0.3 mg/0.3 mL 0.3 mg (0.3 mL) IM Q4H PRN 07/17/23 08/06/25 Unknown injection, auto-injector anaphylaxis #2 ea alprazolam 0.25 mg tablet 0.25 mg PO DAILY PRN Anxiety 09/01/23 08/06/25 Unknown ondansetron 4 mg disintegrating 4 mg PO Q6H PRN nausea and 09/18/23 08/06/25 03/22/24 tablet vomiting #15 tabs famotidine 40 mg tablet 20 mg PO HS 03/23/24 08/06/25 08/05/25 semaglutide 0.25 mg or 0.5 mg (2 0.5 mg subcut WK 03/23/24 08/06/25 08/02/25 mg/3 mL) subcutaneous pen injector (Ozempic) aripiprazole 5 mg tablet 5 mg PO HS 06/04/24 08/06/25 08/05/25 diazepam 5 mg tablet 5 mg PO BID PRN Headache or muscle 08/27/24 08/06/25 Unknown spasm #10 tabs diphenhydramine HCl 25 mg capsule 50 mg PO Q8H PRN nausea and 07/16/25 08/06/25 Unknown (Benadryl) vomiting or migraine headache lidocaine 5 % topical patch 1 patch topical DAILY PRN Pain 07/16/25 08/06/25 Unknown (Lidoderm) warfarin 10 mg tablet 10 mg PO 5XWK 07/16/25 08/06/25 08/06/25 warfarin 7.5 mg tablet 7.5 mg PO 2XWK 07/16/25 08/06/25 08/05/25 cyclobenzaprine 10 mg tablet 10 mg PO BID PRN tension headache 07/26/25 08/06/25 Unknown #10 tabs levothyroxine 88 mcg tablet 88 mcg PO DAILYBB 08/02/25 08/06/25 08/06/25 magnesium oxide 400 mg (241.3 mg 400 mg PO QAM #30 tabs 08/05/25 08/06/25 08/06/25 magnesium) tablet methylprednisolone 4 mg tablets in 4 mg PO DAILY #21 ea 08/05/25 08/06/25 Unknown a dose pack (Medrol (Severiano)) prochlorperazine maleate 10 mg 10 mg PO Q8H PRN headache #30 tabs 08/05/25 08/06/25 Unknown tablet (Compazine) riboflavin (vitamin B2) 400 mg 400 mg PO DAILY #30 tabs 08/05/25 08/06/25 08/06/25 tablet Active Medications Generic Name Dose Route Start Last Admin Trade Name Irene PRN Reason Stop Dose Admin Alprazolam 0.25 mg 08/06/25 20:13 08/07/25 16:44 Alprazolam 0.25 Mg Tablet PO 09/05/25 20:12 0.25 mg DAILY PRN Administration Anxiety Aripiprazole 5 mg 08/06/25 21:00 08/07/25 20:13 Aripiprazole 5 Mg Tab PO 09/05/25 20:59 5 mg HS EVELIN Administration Diazepam 5 mg 08/06/25 20:50 08/08/25 11:16 Diazepam 5 Mg Tablet PO 09/05/25 20:49 5 mg Q6H PRN Administration Headache Diphenhydramine HCl 50 mg 08/06/25 20:13 08/08/25 12:34 Diphenhydramine 50 Mg/Ml Vial IV 09/05/25 20:12 50 mg Q6H PRN Administration Headache or Pain Diphenhydramine HCl 50 mg 08/07/25 11:02 08/08/25 15:29 Diphenhydramine 50 Mg/Ml Vial IV 09/06/25 11:01 50 mg TID PRN Administration migraine Famotidine 20 mg 08/06/25 21:00 08/07/25 20:13 Famotidine 20 Mg Tab PO 09/05/25 20:59 20 mg HS EVELIN Administration Hydromorphone HCl 0.5 mg 08/07/25 11:03 08/07/25 19:40 Hydromorphone Inj 0.5 Mg/0.5 Ml Syr IV 08/21/25 11:02 0.5 mg HS PRN Administration Migraine Headache Valproic Acid 500 mg/ Dextrose 55 mls @ 55 mls/hr 08/07/25 21:00 08/08/25 11:27 IV 09/06/25 20:59 Infused Q12 EVELIN Infusion Acetaminophen 1,000 mg in 100 mls @ 400 mls/hr 08/07/25 11:30 08/08/25 11:30 Ofirmev IV 08/10/25 11:29 Infused Q8H EVELIN Infusion Lactated Ringer's 1,000 mls @ 125 mls/hr 08/07/25 15:30 08/08/25 11:03 Lr IV 08/10/25 15:29 125 mls/hr .Q8H EVELIN Administration Levothyroxine Sodium 88 mcg 08/07/25 06:30 08/08/25 06:02 Levothyroxine Sodium 88 Mcg Tablet PO 09/06/25 06:29 88 mcg DAILYBB EVELIN Administration Miscellaneous 1 each 08/06/25 21:00 08/07/25 20:13 Remove Lidoderm Patch N/A 09/05/25 20:59 Not Given DAILY@2100 [facility] Miscellaneous 1 each 08/07/25 00:00 08/08/25 09:29 Order Awaiting Action - Semaglutide N/A 09/06/25 00:00 Not Given QS EVELIN Ondansetron HCl 4 mg 08/06/25 20:13 08/07/25 12:39 Ondansetron 4 Mg Od Tab PO 09/05/25 20:12 4 mg Q6H PRN Administration nausea and vomiting Prochlorperazine 10 mg 08/07/25 15:29 08/08/25 15:29 Prochlorperazine Maleate 10 Mg Tab PO 09/06/25 17:59 10 mg Q6 PRN Administration migraine Topiramate 100 mg 08/06/25 21:00 08/08/25 08:58 Topiramate 100 Mg Tab PO 09/05/25 20:59 100 mg BID EVELIN Administration Venlafaxine HCl 300 mg 08/06/25 21:00 08/07/25 20:14 Venlafaxine Hcl Xr 150 Mg Capxr PO 09/05/25 20:59 300 mg HS EVELIN Administration Warfarin Sodium 10 mg 08/07/25 16:00 08/07/25 16:45 Warfarin Sod 10 Mg Tab PO 09/06/25 15:59 10 mg [id number] EVELIN Administration ECG Additional Comments: NSR (1) Migraine with status migrainosus Intractability: intractable Migraine type: chronic migraine (15 or more days per month) with aura Qualified Code(s): G43.E11 - Chronic migraine with aura, intractable, with status migrainosus
[2025-08-09 07:25] LABS: INR 3.9 (0.9-1.1); Prothrombin Time 37.9 Seconds (9.0-12.0)
[2025-08-09 08:09] LABS: Hematocrit (blood only) 36.4 % (37.0-47.0); Hemoglobin 11.9 g/dL (12.0-16.0); Immature Granulocytes # (auto) 0.04 K/uL (0.01-0.20); Immature Granulocytes % (auto) 0.8 %; Mean Corpuscular Hemoglobin 29.3 pg (25.0-34.0); Mean Corpuscular Volume 89.7 fL (80.0-100.0); Platelet Count 148 K/uL (130-400); RDW Standard Deviation 46.5 fL (36.4-46.3); Red Blood Count 4.06 M/uL (4.20-5.40); White Blood Count 5.03 K/ul (4.8-10.8)
[2025-08-09 08:16] LABS: Alanine Aminotransferase 27.0 U/L (7-52); Albumin Globulin Ratio 1.5 (0.9-2); Albumin Level 3.5 gm/dl (3.4-5.0); Alkaline Phosphatase 75.0 U/L (34-104); Anion Gap 6.0 (3-11); Bilirubin,Total 0.2 mg/dl (0.2-1.0); Blood Urea Nitrogen 24.0 mg/dl (6-23); Calcium 8.1 mg/dl (8.6-10.3); Carbon Dioxide 25.0 mmol/L (21-32); Chloride 107.0 mmol/L (98-107); Creatinine Clr Calc Pharmacy 63.3 ml/min; Globulin 2.3 gm/dl (2.5-4.0); Glucose 66.0 mg/dl (70-99(Fasting)); Magnesium 2.0 mg/dl (1.7-2.4); Potassium 4.0 mmol/L (3.5-5.1); Sodium 138.0 mmol/L (136-145); Total Protein 5.8 gm/dl (6.0-8.3)
--- NOTE | 2025-08-09 08:50 | Neurology Progress Note ---
Date of Service August 09, 2025 Assessment & Plan (1) Migraine with status migrainosus: Plan 50-year-old female with medical history significant for prior CVA, prediabetes, PTSD, and recurrent migraines with hospitalization secondary to status migrainosus presented to the emergency room with persistent headache. Combination of Benadryl and Compazine has worked in the past. She was started on scheduled doses of Benadryl 50 mg IV every 12 hours x 4 doses and Compazine 10 mg IV every 6 hours x 4 doses to see if it aborts the headache on 08/08/2025. Headache improved since yesterday and patient was able to get some sleep last night. Continue scheduled doses of Benadryl and Compazine for another 24 hours. Continue Topamax for headache prophylaxis. Patient has been on topiramate since the last 30 years. Continue home medications Magnetic resonance venogram did not show any evidence of cerebral venous thrombosis. Prior imaging reviewed Head CT from 07/22/2025 did not show any acute intracranial pathology. Old lacunar infarct at the level of the right pontomedullary junction. Possible mild generalized atrophy. Inflammatory changes within the right maxillary sinus. CT angiogram of the head and neck on 07/22/2025 did not show hemodynamically significant stenosis MRI of the brain on 07/26/2025 did not show any acute intracranial pathology. EKG showed normal sinus rhythm with nonspecific T wave abnormality 2D echocardiogram on 08/25/2024 showed left ventricle ejection fraction 60 to 65% with no evidence of thrombus or PFO Avoid medications which causes rebound headache Continue medical management per primary team Neurochecks every 4 hours Plan discussed in detail with the patient, nursing staff, and also communicated with the primary attending Dr. Rain Brothers Time Spent (min) 30 minutes Comment Total time includes patient contact, chart review, counseling, note preparation *Disclaimer: This note was generated using [employer] software. Any typographical errors are unintentional and attributed to errors in voice recognition. If there are any areas of the note that do not make sense, please contact me for clarification. Subjective Telehealth Information After establishing a telemedicine visit, patient was verified with two unique identifiers. Patient (or authorized healthcare quality assurance representative) acknowledged consent and understanding and gave permission to continue telemedicine session. Headache is better from yesterday but not completely resolved. She did had some sleep last night which is an improvement. Review of Systems Constitutional symptoms, eyes, ears, nose, throat, cardiovascular, respiratory, gastrointestinal, genitourinary, musculoskeletal, endocrine, hematologic, and psychiatric review of systems are negative about the chief complaint, except as detailed in the present illness. Physical Exam Neuro Exam Mentation and Language Alert and oriented to person, place, time and situation. There is no apparent deficit of comprehensionfluent speech without word-finding difficulty or dysarthria. The affect appears appropriate. Cranial Nerves CN 11-X11 intact. Pupils equally round and reactive to light. Extraocular movements intact without nystagmus. Visual justice intact to confrontation. Face symmetrical at rest and with activation with full sensation to light touch and pinprick in V1, V2 and V3 distributions. The tongue protrudes in the midline. The palate elevates symmetrically. There is no tremor or other movements of the face. Motor There is appropriate bulk throughout. Tone is normal. There is no resting tremor or other extraneous movements. Strength is graded 5/5 throughout the upper and lower extremities bilaterally. Sensation Intact to light touch bilaterally Coordination There is no dysmetria with finger nose finger Gait and Station Deferred due to patient safety reasons. Results & Data Vital Signs (Past 12 Hours) Vital Signs Temp Pulse Pulse Resp BP Pulse Ox O2 Del Method 08/09/25 08:17 36.6 C 88 16 113/84 98 Room Air 08/09/25 07:17 Room Air 08/09/25 01:34 36.6 C 80 16 107/73 96 Room Air 08/08/25 22:15 36.5 C 85 16 100/68 93 Room Air 08/08/25 22:02 87 Laboratory Results Laboratory Results - last 24 hr 08/08/25 05:51 WBC 7.31 RBC 4.06 L Hgb 11.6 L Hct 36.1 L MCV 88.9 MCH 28.6 MCHC 32.1 RDW Std Deviation 45.9 RDW Coeff of Wilmer 14.1 Plt Count 157 MPV 9.7 Immature Gran % (Auto) 0.5 Neut % (Auto) 69.7 Lymph % (Auto) 22.3 Hendry % (Auto) 5.7 Eos % (Auto) 1.4 Baso % (Auto) 0.4 Neut # (Auto) 5.09 Lymph # (Auto) 1.63 Hendry # (Auto) 0.42 Eos # (Auto) 0.10 Baso # (Auto) 0.03 Immature Gran # (Auto) 0.04 PT 29.6 H INR 3.0 H Sodium 139 Potassium 3.9 Chloride 110 H Carbon Dioxide 24 Anion Gap 5 BUN 23 Creatinine 1.26 H D Est Cr Clr Drug Dosing 60.8 eGFR 52.34 BUN/Creatinine Ratio 18.3 Glucose 71 Calcium 7.6 L Diagnostic Findings Head/Brain Mag Res Venography 08/08/25 06:07 MR venography head wo con CLINICAL HISTORY: intractable migraine, ?clot COMPARISON STUDY: Brain MRI of 07/26/[address] of 07/22/2025 FINDINGS: Left transverse sinus is smaller than the right, typical anatomic variant. No evidence of occlusion or thrombus seen at the cerebral venous sinuses. IMPRESSION: No cerebral venous sinus thrombosis is seen. ACT 112: Negative or not required by law. Electronically signed by: Kevin Bui M.D. 08/08/2025 8:39 AM MRI OF THE BRAIN COMBO CLINICAL HISTORY: Migraine headache. COMPARISON STUDY: CT of the brain dated 07/22/2025. MRI of the brain dated 08/22/2024. TECHNIQUE: MRI of the brain was performed utilizing various T1 and T2-weighted sequences in the axial, sagittal, and coronal planes. Contrast-enhanced sequences were acquired following the administration of 10 cc of Gadavist. FINDINGS: Brain parenchyma: A small focus of encephalomalacia in the right aspect of the gabriela is unchanged from prior studies and favors a remote insult. There is minimal microangiopathic change. There is no hemorrhage or mass effect. There is no restricted diffusion to suggest acute ischemia. No enhancing mass lesion is identified on the postcontrast images. Espinoza-white matter differentiation is preserved. No extra-axial fluid collection is seen. The cerebellar tonsils are normal in configuration. Ventricles, sulci, and cisterns: Normal in configuration. Pituitary and sella: Unremarkable. Intracranial vasculature: Normal flow voids are maintained at the skull base. Orbits: The bony orbits are grossly intact. Orbital contents are normal in appearance. Sinuses and mastoids: Moderate mucosal thickening is seen within the right maxillary antrum. Mucosal thickening and 2.8 cm retention cyst is seen in the left maxillary sinus. The remaining paranasal sinuses and mastoid air vessels are clear. Calvarium: Unremarkable. Cervical cord: Partially visualized cervical spinal cord is normal in morphology and signal intensity. IMPRESSION: No acute intracranial abnormality. ACT 112: Negative or not required by law. Electronically signed by: Jose Alberto Morales M.D. 07/26/2025 11:03 AM Medications Administered Home Medications Medication Instructions Recorded Confirmed Last Taken topiramate 200 mg capsule,extended 200 mg PO HS 10/07/20 08/06/25 08/05/25 release 24 hr venlafaxine 150 mg 300 mg PO HS 10/07/20 08/06/25 08/05/25 capsule,extended release 24 hr (Effexor XR) epinephrine 0.3 mg/0.3 mL 0.3 mg (0.3 mL) IM Q4H PRN 07/17/23 08/06/25 Unknown injection, auto-injector anaphylaxis #2 ea alprazolam 0.25 mg tablet 0.25 mg PO DAILY PRN Anxiety 09/01/23 08/06/25 Unknown ondansetron 4 mg disintegrating 4 mg PO Q6H PRN nausea and 09/18/23 08/06/25 03/22/24 tablet vomiting #15 tabs famotidine 40 mg tablet 20 mg PO HS 03/23/24 08/06/25 08/05/25 semaglutide 0.25 mg or 0.5 mg (2 0.5 mg subcut WK 03/23/24 08/06/25 08/02/25 mg/3 mL) subcutaneous pen injector (Ozempic) aripiprazole 5 mg tablet 5 mg PO HS 06/04/24 08/06/25 08/05/25 diazepam 5 mg tablet 5 mg PO BID PRN Headache or muscle 08/27/24 08/06/25 Unknown spasm #10 tabs diphenhydramine HCl 25 mg capsule 50 mg PO Q8H PRN nausea and 07/16/25 08/06/25 Unknown (Benadryl) vomiting or migraine headache lidocaine 5 % topical patch 1 patch topical DAILY PRN Pain 07/16/25 08/06/25 Unknown (Lidoderm) warfarin 10 mg tablet 10 mg PO 5XWK 07/16/25 08/06/25 08/06/25 warfarin 7.5 mg tablet 7.5 mg PO 2XWK 07/16/25 08/06/25 08/05/25 cyclobenzaprine 10 mg tablet 10 mg PO BID PRN tension headache 07/26/25 08/06/25 Unknown #10 tabs levothyroxine 88 mcg tablet 88 mcg PO DAILYBB 08/02/25 08/06/25 08/06/25 magnesium oxide 400 mg (241.3 mg 400 mg PO QAM #30 tabs 08/05/25 08/06/25 08/06/25 magnesium) tablet methylprednisolone 4 mg tablets in 4 mg PO DAILY #21 ea 08/05/25 08/06/25 Unknown a dose pack (Medrol (Severiano)) prochlorperazine maleate 10 mg 10 mg PO Q8H PRN headache #30 tabs 08/05/25 08/06/25 Unknown tablet (Compazine) riboflavin (vitamin B2) 400 mg 400 mg PO DAILY #30 tabs 08/05/25 08/06/25 08/06/25 tablet Active Medications Generic Name Dose Route Start Last Admin Trade Name Freq PRN Reason Stop Dose Admin Alprazolam 0.25 mg 08/06/25 20:13 08/07/25 16:44 Alprazolam 0.25 Mg Tablet PO 09/05/25 20:12 0.25 mg DAILY PRN Administration Anxiety Aripiprazole 5 mg 08/06/25 21:00 08/07/25 20:13 Aripiprazole 5 Mg Tab PO 09/05/25 20:59 5 mg HS EVELIN Administration Diazepam 5 mg 08/06/25 20:50 08/08/25 11:16 Diazepam 5 Mg Tablet PO 09/05/25 20:49 5 mg Q6H PRN Administration Headache Diphenhydramine HCl 50 mg 08/06/25 20:13 08/08/25 12:34 Diphenhydramine 50 Mg/Ml Vial IV 09/05/25 20:12 50 mg Q6H PRN Administration Headache or Pain Diphenhydramine HCl 50 mg 08/07/25 11:02 08/08/25 15:29 Diphenhydramine 50 Mg/Ml Vial IV 09/06/25 11:01 50 mg TID PRN Administration migraine Famotidine 20 mg 08/06/25 21:00 08/07/25 20:13 Famotidine 20 Mg Tab PO 09/05/25 20:59 20 mg HS EVELIN Administration Hydromorphone HCl 0.5 mg 08/07/25 11:03 08/07/25 19:40 Hydromorphone Inj 0.5 Mg/0.5 Ml Syr IV 08/21/25 11:02 0.5 mg HS PRN Administration Migraine Headache Valproic Acid 500 mg/ Dextrose 55 mls @ 55 mls/hr 08/07/25 21:00 08/08/25 11:27 IV 09/06/25 20:59 Infused Q12 EVELIN Infusion Acetaminophen 1,000 mg in 100 mls @ 400 mls/hr 08/07/25 11:30 08/08/25 11:30 Ofirmev IV 08/10/25 11:29 Infused Q8H EVELIN Infusion Lactated Ringer's 1,000 mls @ 125 mls/hr 08/07/25 15:30 08/08/25 11:03 Lr IV 08/10/25 15:29 125 mls/hr .Q8H EVELIN Administration Levothyroxine Sodium 88 mcg 08/07/25 06:30 08/08/25 06:02 Levothyroxine Sodium 88 Mcg Tablet PO 09/06/25 06:29 88 mcg DAILYBB EVELIN Administration Miscellaneous 1 each 08/06/25 21:00 08/07/25 20:13 Remove Lidoderm Patch N/A 09/05/25 20:59 Not Given DAILY@2100 EVELIN Miscellaneous 1 each 08/07/25 00:00 08/08/25 09:29 Order Awaiting Action - Semaglutide N/A 09/06/25 00:00 Not Given QS EVELIN Ondansetron HCl 4 mg 08/06/25 20:13 08/07/25 12:39 Ondansetron 4 Mg Od Tab PO 09/05/25 20:12 4 mg Q6H PRN Administration nausea and vomiting Prochlorperazine 10 mg 08/07/25 15:29 08/08/25 15:29 Prochlorperazine Maleate 10 Mg Tab PO 09/06/25 17:59 10 mg Q6 PRN Administration migraine Topiramate 100 mg 08/06/25 21:00 08/08/25 08:58 Topiramate 100 Mg Tab PO 09/05/25 20:59 100 mg BID EVELIN Administration Venlafaxine HCl 300 mg 08/06/25 21:00 08/07/25 20:14 Venlafaxine Hcl Xr 150 Mg Capxr PO 09/05/25 20:59 300 mg HS EVELIN Administration Warfarin Sodium 10 mg 08/07/25 16:00 08/07/25 16:45 Warfarin Sod 10 Mg Tab PO 09/06/25 15:59 10 mg [id number]@1600 EVELIN Administration ECG Additional Comments: NSR (1) Migraine with status migrainosus Intractability: intractable Migraine type: chronic migraine (15 or more days per month) with aura Qualified Code(s): G43.E11 - Chronic migraine with aura, intractable, with status migrainosus
[2025-08-09] MEDS: INFLUENZA VACC TS2025-26(6m+)/PF (IIV3) 0.5mL Syr IM ONE (09:25)
--- NOTE | 2025-08-09 10:50 | Hospitalist Progress Note ---
Date of Service August 09, 2025 Assessment & Plan (1) Prediabetes: (2) Migraine with status migrainosus: (3) Migraine: (4) Anticoagulation goal of INR 2 to 3: (5) Old cerebrovascular accident (CVA) without late effect: (6) PTSD (post-traumatic stress disorder): (7) GERD (gastroesophageal reflux disease): Plan #Recurrent migraine #Status migrainous #Suspicion for mixed headache etiology, migraine, tension +/- rebound -Status migrainous, very refractory over the last month. No clear triggers. Fortunately does not appear to be QUALITY ASSURANCE ASSISTANT pathology at play. Discussed with patient that often breaking a complicated migraine like this is much more "art meets science" and may require a bit of "educated trial and error"discussed risk/benefit of current plan and she agreed to proceed: Depakote 500 IV twice daily, mag 4g iv x1, Tylenol scheduled, Toradol scheduled, Benadryl and Compazine 3 times daily as needed, continue Valium as needed. Dilaudid nightly as needed, continue Topamax. - No sustained improvement as of yet, repeat NS bolus, add diazepam 10mg oral x1 - continue benadryl, compazine and steroid taper - sparing use of dilaudid, admit order placed - continue depakote BID - Teleneuro consult for persistent scotoma/aura symptoms - Continue scheduled Compazine/Benadryl for another 24 hours. [facility] as [facility] for CGRP agent alternative. #KATE - back to baseline this AM - Variable over the last several visits, slight interval increase, good UOP, continue to monitor - Within baseline range #Prediabetes - Monitor blood sugars, within range at this time, monitor closely with steroid taper - A1c 5.8% last week - FSG within goal #History of DVT/PE Continue Coumadin, daily INR 3.9 today, no change to dosing schedule will monitor #History of stroke -Previous right pontine stroke seen on imaging, continue Coumadin as below #PTSD Continue the Topamax-, no change or further evaluation at this time #FEN - Regular diet #CODE STATUS Full code per her wishes Admission and Anticipated Discharge Date Admission Date: August 08, 2025 Subjective Slight interval improvement overnight. Still occasional flashing behind the eyes. But that is improved. Pain currently rated 4/10 on average. She did sleep much better last night. No new or different symptoms. States that she feels she is getting improving relief with each dose of the Compazine and Benadryl. See neurology consultation. Avoid medications likely due to his rebound. Expect a slow but persistent recovery given his current course. No other new or different symptoms. Eating and drinking okay. No problem with eliminations. Physical Exam Physical Exam: GEN: Moderate distress, squinting, winces with attempts to roll in the bed HEAD - NC/AT. EYES - PERRL with EOMI bilaterally. Sclera anicteric. MOUTH/OROPHARYNX - MMM No erythema, or exudates noted. NECK - No lymphadenopathy. No nuchal rigidity. no paraspinous spams noted LUNGS - CTA B/L. No wheezes, rales, or rhonchi appreciated. CARDIAC - RRR No M/R/G SKIN - No Rash or discoloration hepatosplenomegaly, or ascites noted. EXTREMITIES - No clubbing or peripheral cyanosis. +5/5 strength noted in UE/LE bilaterally. NEUROLOGIC - Cranial nerves II through XII grossly intact. No focal sensory or motor deficits Results & Data Results & Data Vital Signs (Past 12 Hours) Vital Signs Temp Pulse Pulse Resp BP Pulse Ox O2 Del Method 08/09/25 10:15 81 08/09/25 08:17 36.6 C 88 16 113/84 98 Room Air 08/09/25 07:17 Room Air 08/09/25 01:34 36.6 C 80 16 107/73 96 Room Air Laboratory Results 08/09/25 08/09/25 06:04 06:03 WBC 5.03 RBC 4.06 L Hgb 11.9 L Hct 36.4 L MCV 89.7 MCH 29.3 MCHC 32.7 RDW Std Deviation 46.5 H RDW Coeff of Wilmer 14.4 Plt Count 148 MPV 9.5 Immature Gran % (Auto) 0.8 Neut % (Auto) 60.8 Lymph % (Auto) 27.4 Towner % (Auto) 7.0 Eos % (Auto) 3.6 Baso % (Auto) 0.4 Neut # (Auto) 3.06 Lymph # (Auto) 1.38 Towner # (Auto) 0.35 Eos # (Auto) 0.18 Baso # (Auto) 0.02 Immature Gran # (Auto) 0.04 PT 37.9 H INR 3.9 H Sodium 138 Potassium 4.0 Chloride 107 Carbon Dioxide 25 Anion Gap 6 BUN 24 H Creatinine 1.21 H Est Cr Clr Drug Dosing 63.3 eGFR 54.94 BUN/Creatinine Ratio 19.8 Glucose 66 L Calcium 8.1 L Magnesium 2.0 Total Bilirubin 0.2 AST 13 ALT 27 Alkaline Phosphatase 75 Total Protein 5.8 L Albumin 3.5 Globulin 2.3 L Albumin/Globulin Ratio 1.5 PG Care Time/CCT Total # of Minutes Spent Total Time Spent with Patient: Total time spent is greater than 50% in coordination of care (as documented) at patient's floor/unit and/or counseling patient: Coding Level of Care Code 08504 SUB INP/OBS CARE MIN Diagnoses Prediabetes R73.03 Intractable chronic migraine with aura with status migrainosus G43.E11 Migraine type: chronic migraine (15 or more days per month) with aura Intractability: intractable Migraine G43.909 Anticoagulation goal of INR 2 to 3 Z51.81; Z79.01 Old cerebrovascular accident (CVA) without late effect Z86.73 PTSD (post-traumatic stress disorder) F43.10 GERD (gastroesophageal reflux disease) K21.9 (2) Migraine with status migrainosus Migraine type: chronic migraine (15 or more days per month) with aura Intractability: intractable Qualified Code(s): G43.E11 - Chronic migraine with aura, intractable, with status migrainosus
[2025-08-09] MEDS ORDERED: WARFARIN SOD 7.5 MG TAB PO SCH (16:00)
[2025-08-10 07:26] LABS: INR 3.3 (0.9-1.1); Prothrombin Time 32.9 Seconds (9.0-12.0)
[2025-08-10 07:51] LABS: Hematocrit (blood only) 38.0 % (37.0-47.0); Hemoglobin 12.3 g/dL (12.0-16.0); Immature Granulocytes # (auto) 0.02 K/uL (0.01-0.20); Immature Granulocytes % (auto) 0.5 %; Mean Corpuscular Hemoglobin 29.1 pg (25.0-34.0); Mean Corpuscular Volume 89.8 fL (80.0-100.0); Platelet Count 146 K/uL (130-400); RDW Standard Deviation 46.7 fL (36.4-46.3); Red Blood Count 4.23 M/uL (4.20-5.40); White Blood Count 4.35 K/ul (4.8-10.8)
[2025-08-10 07:57] LABS: Anion Gap 5.0 (3-11); Blood Urea Nitrogen 20.0 mg/dl (6-23); Calcium 8.3 mg/dl (8.6-10.3); Carbon Dioxide 28.0 mmol/L (21-32); Chloride 105.0 mmol/L (98-107); Creatinine Clr Calc Pharmacy 69.0 ml/min; Glucose 73.0 mg/dl (70-99(Fasting)); Magnesium 2.0 mg/dl (1.7-2.4); Potassium 3.8 mmol/L (3.5-5.1); Sodium 138.0 mmol/L (136-145)
--- NOTE | 2025-08-10 11:25 | Neurology Progress Note ---
Date of Service August 10, 2025 Assessment & Plan (1) Migraine with status migrainosus: Plan 50-year-old female with medical history significant for prior CVA, prediabetes, PTSD, and recurrent migraines with hospitalization secondary to status migrainosus presented to the emergency room with persistent headache. Combination of Benadryl and Compazine has worked in the past. She was started on scheduled doses of Benadryl 50 mg IV every 12 hours x 4 doses and Compazine 10 mg IV every 6 hours x 4 doses to see if it aborts the headache on 08/08/2025. Continue scheduled doses of Benadryl and Compazine for another 24 hours. Could additionally consider DHE protocol: premedication with the compazine followed by 0.5-1mg DHE q8 hours x 24-48 hours or until headache resolution. Continue Topamax for headache prophylaxis. Patient has been on topiramate since the last 30 years. Continue home medications Magnetic resonance venogram did not show any evidence of cerebral venous thrombosis. Prior imaging reviewed Head CT from 07/22/2025 did not show any acute intracranial pathology. Old lacunar infarct at the level of the right pontomedullary junction. Possible mild generalized atrophy. Inflammatory changes within the right maxillary sinus. CT angiogram of the head and neck on 07/22/2025 did not show hemodynamically significant stenosis MRI of the brain on 07/26/2025 did not show any acute intracranial pathology. EKG showed normal sinus rhythm with nonspecific T wave abnormality 2D echocardiogram on 08/25/2024 showed left ventricle ejection fraction 60 to 65% with no evidence of thrombus or PFO Avoid medications which causes rebound headache Continue medical management per primary team Neurochecks every 4 hours Time Spent (min) 30 minutes Comment Total time includes patient contact, chart review, counseling, note preparation *Disclaimer: This note was generated using [employer] software. Any typographical errors are unintentional and attributed to errors in voice recognition. If there are any areas of the note that do not make sense, please contact me for clarification. Subjective Telehealth Information After establishing a telemedicine visit, patient was verified with two unique identifiers. Patient (or authorized healthcare sales representative facility services) acknowledged consent and understanding and gave permission to continue telemedicine session. Headache is better from yesterday but not completely resolved. She did had some sleep last night. Current level of headache is 5/10 with associated photo/phonophobia and nausea but no throbbing, vision changes, focal signs/symptoms. Headache is in middle of head and feels sharp. Not worsened with position changes. Review of Systems unchanged Physical Exam Awake, alert, appears mildly uncomfortable. CN II-XII grossly intact and symmetric No drift, no adventitious movement Intact UE coordination Results & Data Vital Signs (Past 12 Hours) Vital Signs Temp Pulse Pulse Resp BP Pulse Ox O2 Del Method 08/10/25 11:00 36.6 C 82 16 94/71 L 98 Room Air 08/10/25 07:26 36.7 C 89 16 103/72 100 Room Air 08/10/25 07:18 83 08/10/25 02:09 36.7 C 88 16 101/69 95 Room Air Laboratory Results Laboratory Results - last 24 hr 08/08/25 05:51 WBC 7.31 RBC 4.06 L Hgb 11.6 L Hct 36.1 L MCV 88.9 MCH 28.6 MCHC 32.1 RDW Std Deviation 45.9 RDW Coeff of Wilmer 14.1 Plt Count 157 MPV 9.7 Immature Gran % (Auto) 0.5 Neut % (Auto) 69.7 Lymph % (Auto) 22.3 [place] % (Auto) 5.7 Eos % (Auto) 1.4 Baso % (Auto) 0.4 Neut # (Auto) 5.09 Lymph # (Auto) 1.63 [place] # (Auto) 0.42 Eos # (Auto) 0.10 Baso # (Auto) 0.03 Immature Gran # (Auto) 0.04 PT 29.6 H INR 3.0 H Sodium 139 Potassium 3.9 Chloride 110 H Carbon Dioxide 24 Anion Gap 5 BUN 23 Creatinine 1.26 H D Est Cr Clr Drug Dosing 60.8 eGFR 52.34 BUN/Creatinine Ratio 18.3 Glucose 71 Calcium 7.6 L Diagnostic Findings Head/Brain Mag Res Venography 08/08/25 06:07 MR venography head wo con CLINICAL HISTORY: intractable migraine, ?clot COMPARISON STUDY: Brain MRI of 07/26/[address] of 07/22/2025 FINDINGS: Left transverse sinus is smaller than the right, typical anatomic variant. No evidence of occlusion or thrombus seen at the cerebral venous sinuses. IMPRESSION: No cerebral venous sinus thrombosis is seen. ACT 112: Negative or not required by law. Electronically signed by: Kevin Bui M.D. 08/08/2025 8:39 AM MRI OF THE BRAIN COMBO CLINICAL HISTORY: Migraine headache. COMPARISON STUDY: CT of the brain dated 07/22/2025. MRI of the brain dated 08/22/2024. TECHNIQUE: MRI of the brain was performed utilizing various T1 and T2-weighted sequences in the axial, sagittal, and coronal planes. Contrast-enhanced sequences were acquired following the administration of 10 cc of Gadavist. FINDINGS: Brain parenchyma: A small focus of encephalomalacia in the right aspect of the gabriela is unchanged from prior studies and favors a remote insult. There is minimal microangiopathic change. There is no hemorrhage or mass effect. There is no restricted diffusion to suggest acute ischemia. No enhancing mass lesion is identified on the postcontrast images. Espinoza-white matter differentiation is preserved. No extra-axial fluid collection is seen. The cerebellar tonsils are normal in configuration. Ventricles, sulci, and cisterns: Normal in configuration. Pituitary and sella: Unremarkable. Intracranial vasculature: Normal flow voids are maintained at the skull base. Orbits: The bony orbits are grossly intact. Orbital contents are normal in appearance. Sinuses and mastoids: Moderate mucosal thickening is seen within the right maxillary antrum. Mucosal thickening and 2.8 cm retention cyst is seen in the left maxillary sinus. The remaining paranasal sinuses and mastoid air vessels are clear. Calvarium: Unremarkable. Cervical cord: Partially visualized cervical spinal cord is normal in morphology and signal intensity. IMPRESSION: No acute intracranial abnormality. ACT 112: Negative or not required by law. Electronically signed by: Jose Alberto Morales M.D. 07/26/2025 11:03 AM Medications Administered Home Medications Medication Instructions Recorded Confirmed Last Taken topiramate 200 mg capsule,extended 200 mg PO HS 10/07/20 08/06/25 08/05/25 release 24 hr venlafaxine 150 mg 300 mg PO HS 10/07/20 08/06/25 08/05/25 capsule,extended release 24 hr (Effexor XR) epinephrine 0.3 mg/0.3 mL 0.3 mg (0.3 mL) IM Q4H PRN 07/17/23 08/06/25 Unknown injection, auto-injector anaphylaxis #2 ea alprazolam 0.25 mg tablet 0.25 mg PO DAILY PRN Anxiety 09/01/23 08/06/25 Unknown ondansetron 4 mg disintegrating 4 mg PO Q6H PRN nausea and 09/18/23 08/06/25 03/22/24 tablet vomiting #15 tabs famotidine 40 mg tablet 20 mg PO HS 03/23/24 08/06/25 08/05/25 semaglutide 0.25 mg or 0.5 mg (2 0.5 mg subcut WK 03/23/24 08/06/25 08/02/25 mg/3 mL) subcutaneous pen injector (Ozempic) aripiprazole 5 mg tablet 5 mg PO HS 06/04/24 08/06/25 08/05/25 diazepam 5 mg tablet 5 mg PO BID PRN Headache or muscle 08/27/24 08/06/25 Unknown spasm #10 tabs diphenhydramine HCl 25 mg capsule 50 mg PO Q8H PRN nausea and 07/16/25 08/06/25 Unknown (Benadryl) vomiting or migraine headache lidocaine 5 % topical patch 1 patch topical DAILY PRN Pain 07/16/25 08/06/25 Unknown (Lidoderm) warfarin 10 mg tablet 10 mg PO 5XWK 07/16/25 08/06/25 08/06/25 warfarin 7.5 mg tablet 7.5 mg PO 2XWK 07/16/25 08/06/25 08/05/25 cyclobenzaprine 10 mg tablet 10 mg PO BID PRN tension headache 07/26/25 08/06/25 Unknown #10 tabs levothyroxine 88 mcg tablet 88 mcg PO DAILYBB 08/02/25 08/06/25 08/06/25 magnesium oxide 400 mg (241.3 mg 400 mg PO QAM #30 tabs 08/05/25 08/06/25 08/06/25 magnesium) tablet methylprednisolone 4 mg tablets in 4 mg PO DAILY #21 ea 08/05/25 08/06/25 Unknown a dose pack (Medrol (Severiano)) prochlorperazine maleate 10 mg 10 mg PO Q8H PRN headache #30 tabs 08/05/25 08/06/25 Unknown tablet (Compazine) riboflavin (vitamin B2) 400 mg 400 mg PO DAILY #30 tabs 08/05/25 08/06/25 08/06/25 tablet Active Medications Generic Name Dose Route Start Last Admin Trade Name Freq PRN Reason Stop Dose Admin Alprazolam 0.25 mg 08/06/25 20:13 08/07/25 16:44 Alprazolam 0.25 Mg Tablet PO 09/05/25 20:12 0.25 mg DAILY PRN Administration Anxiety Aripiprazole 5 mg 08/06/25 21:00 08/07/25 20:13 Aripiprazole 5 Mg Tab PO 09/05/25 20:59 5 mg HS EVELIN Administration Diazepam 5 mg 08/06/25 20:50 08/08/25 11:16 Diazepam 5 Mg Tablet PO 09/05/25 20:49 5 mg Q6H PRN Administration Headache Diphenhydramine HCl 50 mg 08/06/25 20:13 08/08/25 12:34 Diphenhydramine 50 Mg/Ml Vial IV 09/05/25 20:12 50 mg Q6H PRN Administration Headache or Pain Diphenhydramine HCl 50 mg 08/07/25 11:02 08/08/25 15:29 Diphenhydramine 50 Mg/Ml Vial IV 09/06/25 11:01 50 mg TID PRN Administration migraine Famotidine 20 mg 08/06/25 21:00 08/07/25 20:13 Famotidine 20 Mg Tab PO 09/05/25 20:59 20 mg HS EVELIN Administration Hydromorphone HCl 0.5 mg 08/07/25 11:03 08/07/25 19:40 Hydromorphone Inj 0.5 Mg/0.5 Ml Syr IV 08/21/25 11:02 0.5 mg HS PRN Administration Migraine Headache Valproic Acid 500 mg/ Dextrose 55 mls @ 55 mls/hr 08/07/25 21:00 08/08/25 11:27 IV 09/06/25 20:59 Infused Q12 EVELIN Infusion Acetaminophen 1,000 mg in 100 mls @ 400 mls/hr 08/07/25 11:30 08/08/25 11:30 Ofirmev IV 08/10/25 11:29 Infused Q8H EVELIN Infusion Lactated Ringer's 1,000 mls @ 125 mls/hr 08/07/25 15:30 08/08/25 11:03 Lr IV 08/10/25 15:29 125 mls/hr .Q8H EVELIN Administration Levothyroxine Sodium 88 mcg 08/07/25 06:30 08/08/25 06:02 Levothyroxine Sodium 88 Mcg Tablet PO 09/06/25 06:29 88 mcg DAILYBB EVELIN Administration Miscellaneous 1 each 08/06/25 21:00 08/07/25 20:13 Remove Lidoderm Patch N/A 09/05/25 20:59 Not Given DAILY@2100 [facility] Miscellaneous 1 each 08/07/25 00:00 08/08/25 09:29 Order Awaiting Action - Semaglutide N/A 09/06/25 00:00 Not Given QS [facility] Ondansetron HCl 4 mg 08/06/25 20:13 08/07/25 12:39 Ondansetron 4 Mg Od Tab PO 09/05/25 20:12 4 mg Q6H PRN Administration nausea and vomiting Prochlorperazine 10 mg 08/07/25 15:29 08/08/25 15:29 Prochlorperazine Maleate 10 Mg Tab PO 09/06/25 17:59 10 mg Q6 PRN Administration migraine Topiramate 100 mg 08/06/25 21:00 08/08/25 08:58 Topiramate 100 Mg Tab PO 09/05/25 20:59 100 mg BID EVELIN Administration Venlafaxine HCl 300 mg 08/06/25 21:00 08/07/25 20:14 Venlafaxine Hcl Xr 150 Mg Capxr PO 09/05/25 20:59 300 mg HS EVELIN Administration Warfarin Sodium 10 mg 08/07/25 16:00 08/07/25 16:45 Warfarin Sod 10 Mg Tab PO 09/06/25 15:59 10 mg [id number]@1600 EVELIN Administration ECG Additional Comments: NSR (1) Migraine with status migrainosus Migraine type: chronic migraine (15 or more days per month) with aura Intractability: intractable Qualified Code(s): G43.E11 - Chronic migraine with aura, intractable, with status migrainosus
--- NOTE | 2025-08-10 12:39 | Hospitalist Progress Note ---
Date of Service August 10, 2025 Assessment & Plan (1) Prediabetes: (2) Migraine with status migrainosus: (3) Migraine: (4) Anticoagulation goal of INR 2 to 3: (5) Old cerebrovascular accident (CVA) without late effect: (6) PTSD (post-traumatic stress disorder): (7) GERD (gastroesophageal reflux disease): Plan #Recurrent migraine #Status migrainous #Suspicion for mixed headache etiology, migraine, tension +/- rebound -Status migrainous, very refractory over the last month. No clear triggers. Fortunately does not appear to be [employer] pathology at play. Discussed with patient that often breaking a complicated migraine like this is much more "art meets science" and may require a bit of "educated trial and error"discussed risk/benefit of current plan and she agreed to proceed: Depakote 500 IV twice daily, mag 4g iv x1, Tylenol scheduled, Toradol scheduled, Benadryl and Compazine 3 times daily as needed, continue Valium as needed. Dilaudid nightly as needed, continue Topamax. - No sustained improvement as of yet, repeat NS bolus, add diazepam 10mg oral x1 - continue benadryl, compazine and steroid taper - sparing use of dilaudid, admit order placed - continue depakote BID - Teleneuro consult for persistent scotoma/aura symptoms - Continue scheduled Compazine/Benadryl for another 24 hours. - LIekly to transition to 24-48h infusion of DHE this afternoon, see neurology progress notes. - [facility] CGRP agent alternative. #KATE - back to baseline this AM - Variable over the last several visits, slight interval increase, good UOP, continue to monitor - Within baseline range #Prediabetes - Monitor blood sugars, within range at this time, monitor closely with steroid taper - A1c 5.8% last week - FSG within goal #History of DVT/PE Continue Coumadin, daily INR 3.9 today, no change to dosing schedule will monitor #History of stroke -Previous right pontine stroke seen on imaging, continue Coumadin as below #PTSD Continue the Topamax-, no change or further evaluation at this time #FEN - Regular diet #CODE STATUS Full code per her wishes Admission and Anticipated Discharge Date Admission Date: August 08, 2025 Subjective Some modest improvement this morning. Still having intermittent flares of pain, net overall improvement early on. As of mid-morning things have flared back to modersate to severe. On admit she rated 8/10, was 6/10 the last 48 hours, early this AM was 4/10 but has flared back to 6/10. Neurology offered DHE as a next round therapeutic choice. Pt is considering, next dose round would be about 3pm will revisit at that time. No other new different complaints per patient. Physical Exam Physical Exam: GEN: Moderate distress, squinting, winces with attempts to roll in the bed HEAD - NC/AT. EYES - PERRL with EOMI bilaterally. Sclera anicteric. MOUTH/OROPHARYNX - MMM No erythema, or exudates noted. NECK - No lymphadenopathy. No nuchal rigidity. no paraspinous spams noted LUNGS - CTA B/L. No wheezes, rales, or rhonchi appreciated. CARDIAC - RRR No M/R/G SKIN - No Rash or discoloration hepatosplenomegaly, or ascites noted. EXTREMITIES - No clubbing or peripheral cyanosis. +5/5 strength noted in UE/LE bilaterally. NEUROLOGIC - Cranial nerves II through XII grossly intact. No focal sensory or motor deficits Results & Data Results & Data Vital Signs (Past 12 Hours) Vital Signs Temp Pulse Pulse Resp BP Pulse Ox O2 Del Method 08/10/25 11:00 36.6 C 82 16 94/71 L 98 Room Air 08/10/25 07:26 36.7 C 89 16 103/72 100 Room Air 08/10/25 07:18 83 08/10/25 02:09 36.7 C 88 16 101/69 95 Room Air Laboratory Results 08/10/25 08/10/25 06:24 06:20 WBC 4.35 L RBC 4.23 Hgb 12.3 Hct 38.0 MCV 89.8 MCH 29.1 MCHC 32.4 RDW Std Deviation 46.7 H RDW Coeff of Wilmer 14.3 Plt Count 146 MPV 9.3 L Immature Gran % (Auto) 0.5 Neut % (Auto) 71.3 Lymph % (Auto) 17.2 [place] % (Auto) 7.4 Eos % (Auto) 3.4 Baso % (Auto) 0.2 Neut # (Auto) 3.10 Lymph # (Auto) 0.75 L [place] # (Auto) 0.32 Eos # (Auto) 0.15 Baso # (Auto) 0.01 Immature Gran # (Auto) 0.02 PT 32.9 H INR 3.3 H Sodium 138 Potassium 3.8 Chloride 105 Carbon Dioxide 28 Anion Gap 5 BUN 20 Creatinine 1.11 Est Cr Clr Drug Dosing 69.0 eGFR 60.93 BUN/Creatinine Ratio 18.0 Glucose 73 Calcium 8.3 L Magnesium 2.0 PG Care Time/CCT Total # of Minutes Spent Total Time Spent with Patient: Total time spent is greater than 50% in coordination of care (as documented) at patient's floor/unit and/or counseling patient: Coding Level of Care Code 75169 SUB INP/OBS CARE MIN Diagnoses Prediabetes R73.03 Intractable chronic migraine with aura with status migrainosus G43.E11 Migraine type: chronic migraine (15 or more days per month) with aura Intractability: intractable Migraine G43.909 Anticoagulation goal of INR 2 to 3 Z51.81; Z79.01 Old cerebrovascular accident (CVA) without late effect Z86.73 PTSD (post-traumatic stress disorder) F43.10 GERD (gastroesophageal reflux disease) K21.9 (2) Migraine with status migrainosus Migraine type: chronic migraine (15 or more days per month) with aura Intractability: intractable Qualified Code(s): G43.E11 - Chronic migraine with aura, intractable, with status migrainosus
[2025-08-10] MEDS: DIHYDROERGOTAMINE MESYLATE IV ONE (17:38)
--- NOTE | 2025-08-10 18:00 | Communication Note ---
Date of Service: August 10, 2025 1742: DHE given viam IVP over 3 minutes, I was present at the bedside, some mild nausea present but otherwise transient. VSS, I observed pt at beside for 20 minutes. No furhter sx A/P Uneventful DHE IVP Infusion Zev Rodrigez MD
[2025-08-11 07:59] LABS: INR 2.2 (0.9-1.1); Prothrombin Time 22.1 Seconds (9.0-12.0)
--- NOTE | 2025-08-11 09:38 | Hospitalist Progress Note ---
Date of Service August 11, 2025 Assessment & Plan (1) Prediabetes: (2) Migraine with status migrainosus: (3) Migraine: (4) Anticoagulation goal of INR 2 to 3: (5) Old cerebrovascular accident (CVA) without late effect: (6) PTSD (post-traumatic stress disorder): (7) GERD (gastroesophageal reflux disease): Plan #Recurrent migraine #Status migrainous #Suspicion for mixed headache etiology, migraine, tension +/- rebound -Status migrainous, very refractory over the last month. No clear triggers. Fortunately does not appear to be [employer] REP pathology at play. Discussed with patient that often breaking a complicated migraine like this is much more "art meets science" and may require a bit of "educated trial and error"discussed risk/benefit of current plan and she agreed to proceed: Depakote 500 IV twice daily, mag 4g iv x1, Tylenol scheduled, Toradol scheduled, Benadryl and Compazine 3 times daily as needed, continue Valium as needed. Dilaudid nightly as needed, continue Topamax. - No sustained improvement as of yet, repeat NS bolus, add diazepam 10mg oral x1 - continue benadryl, compazine and steroid taper - sparing use of dilaudid, admit order placed - continue depakote BID - Teleneuro consult for persistent scotoma/aura symptoms - Continue scheduled Compazine/Benadryl for another 24 hours. - dhe infusion per neuro - [facility] as scheduled for CGRP agent alternative. #KATE - back to baseline this AM - Variable over the last several visits, slight interval increase, good UOP, continue to monitor - Within baseline range #Prediabetes - Monitor blood sugars, within range at this time, monitor closely with steroid taper - A1c 5.8% last week - FSG within goal #History of DVT/PE Continue Coumadin, pharmacy for daily dosing. monitor inr #History of stroke -Previous right pontine stroke seen on imaging, continue Coumadin as below #PTSD Continue the Topamax-, no change or further evaluation at this time #FEN - Regular diet #CODE STATUS Full code per her wishes Admission and Anticipated Discharge Date Admission Date: August 08, 2025 Subjective tells me she feels great back to baseline denies headache neurol sx n/v or other symptoms and wants to go home. d/w rn at bedside if neuro has no objection will send home Review of Systems Review of Systems: See HPI otherwise full 10 point review of systems is negative Physical Exam Physical Exam: GEN: Moderate distress, squinting, winces with attempts to roll in the bed HEAD - NC/AT. EYES - PERRL with EOMI bilaterally. Sclera anicteric. MOUTH/OROPHARYNX - MMM No erythema, or exudates noted. NECK - No lymphadenopathy. No nuchal rigidity. no paraspinous spams noted LUNGS - CTA B/L. No wheezes, rales, or rhonchi appreciated. CARDIAC - RRR No M/R/G SKIN - No Rash or discoloration hepatosplenomegaly, or ascites noted. EXTREMITIES - No clubbing or peripheral cyanosis. +5/5 strength noted in UE/LE bilaterally. NEUROLOGIC - Cranial nerves II through XII grossly intact. No focal sensory or motor deficits Results & Data Results & Data Vital Signs (Past 12 Hours) Vital Signs Temp Pulse Pulse Resp BP Pulse Ox O2 Del Method 08/11/25 08:45 36.7 C 84 17 99/66 L 94 Room Air 08/11/25 07:19 87 08/11/25 02:40 36.8 C 86 16 100/70 95 Room Air 08/10/25 22:36 36.8 C 92 H 16 114/75 92 Room Air 08/10/25 22:10 92 H PG Care Time/CCT Total # of Minutes Spent Total Time Spent with Patient: Total time spent is greater than 50% in coordination of care (as documented) at patient's floor/unit and/or counseling patient: Coding Level of Care Code 57031 SUB INP/OBS CARE 2/35MIN Diagnoses Prediabetes R73.03 Intractable chronic migraine with aura with status migrainosus G43.E11 Intractability: intractable Migraine type: chronic migraine (15 or more days per month) with aura Migraine G43.909 Anticoagulation goal of INR 2 to 3 Z51.81; Z79.01 Old cerebrovascular accident (CVA) without late effect Z86.73 PTSD (post-traumatic stress disorder) F43.10 GERD (gastroesophageal reflux disease) K21.9 (2) Migraine with status migrainosus Intractability: intractable Migraine type: chronic migraine (15 or more days per month) with aura Qualified Code(s): G43.E11 - Chronic migraine with aura, intractable, with status migrainosus
--- NOTE | 2025-08-11 11:49 | Discharge Summary ---
Discharge Summary Date of Service August 11, 2025 Principal Dx & Hospital Course #1 = Principal Diagnosis (1) Prediabetes: (2) Migraine with status migrainosus: (3) Migraine: (4) Anticoagulation goal of INR 2 to 3: (5) Old cerebrovascular accident (CVA) without late effect: (6) PTSD (post-traumatic stress disorder): (7) GERD (gastroesophageal reflux disease): RN notified me via text Secure messaging that Dr. Baxter cleared patient for discharge requesting follow-up with [facility] in a couple weeks Plan #Recurrent migraine #Status migrainous #Suspicion for mixed headache etiology, migraine, tension +/- rebound -Status migrainous, very refractory over the last month. No clear triggers. Fortunately does not appear to be [employer] pathology at play. Discussed with patient that often breaking a complicated migraine like this is much more "art meets science" and may require a bit of "educated trial and error"discussed risk/benefit of current plan and she agreed to proceed: Depakote 500 IV twice daily, mag 4g iv x1, Tylenol scheduled, Toradol scheduled, Benadryl and Compazine 3 times daily as needed, continue Valium as needed. Dilaudid nightly as needed, continue Topamax. - No sustained improvement as of yet, repeat NS bolus, add diazepam 10mg oral x1 - continue benadryl, compazine and steroid taper - sparing use of dilaudid, admit order placed - continue depakote BID - Teleneuro consult for persistent scotoma/aura symptoms - Continue scheduled Compazine/Benadryl for another 24 hours. - dhe infusion per neuro - [facility] as [facility] for CGRP agent alternative. #KATE - back to baseline this AM - Variable over the last several visits, slight interval increase, good UOP, continue to monitor - Within baseline range #Prediabetes - Monitor blood sugars, within range at this time, monitor closely with steroid taper - A1c 5.8% last week - FSG within goal #History of DVT/PE Continue Coumadin, pharmacy for daily dosing. monitor inr #History of stroke -Previous right pontine stroke seen on imaging, continue Coumadin as below #PTSD Continue the Topamax-, no change or further evaluation at this time #FEN - Regular diet #CODE STATUS Full code per her wishes Admission HPI Per Admitting Provider 50-year-old female history of CVA, PTSD, recurrent migraine with occasional sta tus migrainous prediabetes, presented to the emergency department by private vehicle with a recurrent migraine. Patient states is a very similar episode to what she has had previously was doing well this morning and over the last several hours started with a frontal headache with her normal prodrome of scotoma. She used her typical medications but did not start the steroids from her previous hospital stay. Secondary to the persistence of your symptoms she came to the emergency department for evaluation. Otherwise no atypical neuro new or unusual symptoms. No recent illnesses or other medication changes. Pain currently rated at 8/10. Positive photophobia. Scotoma has since resolved. Discharge Exam GEN: Moderate distress, squinting, winces with attempts to roll in the bed HEAD - NC/AT. EYES - PERRL with EOMI bilaterally. Sclera anicteric. MOUTH/OROPHARYNX - MMM No erythema, or exudates noted. NECK - No lymphadenopathy. No nuchal rigidity. no paraspinous spams noted LUNGS - CTA B/L. No wheezes, rales, or rhonchi appreciated. CARDIAC - RRR No M/R/G SKIN - No Rash or discoloration hepatosplenomegaly, or ascites noted. EXTREMITIES - No clubbing or peripheral cyanosis. +5/5 strength noted in UE/LE bilaterally. NEUROLOGIC - Cranial nerves II through XII grossly intact. No focal sensory or motor deficits Discharge Plan Discharge Items Patient Disposition: Home - Self-Care Reason For Visit: INTRACTIBLE MIGRAINE Discharge Diagnosis: migraine Condition on Discharge: Good Activity: Resume your previous activity Non-emergency contact: Primary Care Provider and Neurologist Call non-emergency contact if: you have any medication questions, your symptoms worsen, your pain is not controlled, your pain is worsening and your pain is concerning for you Follow-up/Referrals: Dionne Fletcher MD [Primary Care Provider] - Diet: Carb Consistent or DM2, Low Fat and Low Sodium (2gm) Addtl Attending Provider Instructions: follow with your Primary care doctor and neurologist within a week (Dr baxter) Pending Studies at Discharge: No Stand-Alone Forms: [employer] [facility], Smoking Cessation Medications and DC Order Prescriptions: Continued venlafaxine [Effexor XR] 150 mg Capsule,Extended Release 24hr 300 mg PO HS topiramate 200 mg Capsule,Extended Release 24hr 200 mg PO HS alprazolam 0.25 mg tablet 0.25 mg PO DAILY PRN (Reason: Anxiety) epinephrine 0.3 mg/0.3 mL auto-injector 0.3 mg IM Q4H PRN (Reason: anaphylaxis) Qty: 2 0RF ondansetron 4 mg tablet,disintegrating 4 mg PO Q6H PRN (Reason: nausea and vomiting) Qty: 15 0RF famotidine 40 mg tablet 20 mg PO HS Ozempic 0.25 mg or 0.5 mg (2 mg/3 mL) pen injector 0.5 mg SUBCUT WK Rx Instructions: SATURDAYS diazepam 5 mg Tablet 5 mg PO BID PRN (Reason: Headache or muscle spasm) Qty: 10 0RF levothyroxine 88 mcg tablet 88 mcg PO DAILYBB magnesium oxide 400 mg (241.3 mg magnesium) Tablet 400 mg PO QAM Qty: 30 0RF prochlorperazine maleate [Compazine] 10 mg tablet 10 mg PO Q8H PRN (Reason: headache) Qty: 30 0RF riboflavin (vitamin B2) 400 mg tablet 400 mg PO DAILY Qty: 30 0RF methylprednisolone [Medrol (Severiano)] 4 mg tablets,dose pack 4 mg PO DAILY Qty: 21 0RF Rx Instructions: PER PT "NEVER PICKED UP FROM PHARMACY Day 1: 24 mg (6 tablets of 4 mg each) Day 2: 20 mg (5 tablets of 4 mg each) Day 3: 16 mg (4 tablets of 4 mg each) Day 4: 12 mg (3 tablets of 4 mg each) Day 5: 8 mg (2 tablets of 4 mg each) Day 6: 4 mg (1 tablet of 4 mg) aripiprazole 5 mg Tablet 5 mg PO HS diphenhydramine HCl [Benadryl] 25 mg capsule 50 mg PO Q8H PRN (Reason: nausea and vomiting or migraine headache) Rx Instructions: [id number] lidocaine [Lidoderm] 5 % adhesive patch,medicated 1 patch topical DAILY PRN (Reason: Pain) Rx Instructions: leave on most painful area for up to 12 hrs warfarin 10 mg Tablet 10 mg PO 5XWK Rx Instructions: SUN, MON, WED, THUR, & FRI warfarin 7.5 mg Tablet 7.5 mg PO 2XWK Rx Instructions: TUES & SAT cyclobenzaprine 10 mg Tablet 10 mg PO BID PRN (Reason: tension headache) Qty: 10 0RF Discharge Orders: Discharge Order (Routine); Ordered 08/11/25 Ordered By: Vaibhav Bhagat Admission Data Admit Date/Time: 08/08/25 13:45 Attending Provider: Vaibhav Bhagat Admit Provider: Zev Rodrigez Primary Care Provider: Dionne Fletcher Other Providers: Zev Rodrigez; [facility]; Julisa Stern Hospital Stay Data Consultations 08/06/25 15:31 ED Decision to Admit Stat 08/08/25 13:43 Consult Neurology Routine Diagnostic Imagining Performed 08/08/25 06:07 MR venography head wo con Routine Pending Results Patient Have Any Pending Studies at Discharge: No Discharge Instructions Given to Patient (Per Discharging Provider) follow with your Primary care doctor and neurologist within a week (Dr baxter) Total Time Total Time Spent Total Time Spent (In Minutes): 35 Coding Level of Care Code 85958 INP/OBS DISCH >30 MIN Diagnoses Prediabetes R73.03 Intractable chronic migraine with aura with status migrainosus G43.E11 Migraine type: chronic migraine (15 or more days per month) with aura Intractability: intractable Migraine G43.909 Anticoagulation goal of INR 2 to 3 Z51.81; Z79.01 Old cerebrovascular accident (CVA) without late effect Z86.73 PTSD (post-traumatic stress disorder) F43.10 GERD (gastroesophageal reflux disease) K21.9
[2025-08-11 12:00] VITALS: BP 109/82; PULSE 98; RESP 18; TEMP 98.4; O2SAT 97
== END 2025-08-11 13:00 | disposition home or self-care (01) | DRG 103 ==
LOC: 2N 12:14 → ED 12:14 → SUATTDRO 16:54 → 2N 19:45 → SUATTDRO 08-08 13:45

== ENCOUNTER 2025-08-13 15:04 | Inpatient (IN) ==
[2025-08-13] MEDS: DEXAMETHASONE SOD INJ 4 MG/ML VIAL IV STA (16:05)
[2025-08-13] MEDS: diphenhydrAMINE 50 MG/ML VIAL IV STA (16:05)
[2025-08-13] MEDS: PROCHLORPERAZINE 10 MG in SYRINGE 8 ML IV ONE (16:06)
[2025-08-13] MEDS: PLASMA-LYTE A 1,000 ML IV ONE (16:06)
[2025-08-13] MEDS: PROCHLORPERAZINE 5 MG/ML 2 ML VIAL ONE (16:06)
--- NOTE | 2025-08-13 16:27 | Emergency Department Note ---
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 She has been admitted multiple times over the last few months for intractable migraines. She notes that she follows with a [facility] in [place]. She previously has been seen by a [facility]. She notes working [facility]. Her headache is generalized but seems to more temporal. She has no missed any medications. She attempted all measures prior to coming in. They deny fever or chills. No cough or congestion. Denies chest pain or palpitations. No shortness of breath. They deny abdominal pain, nausea and vomiting. No urinary complaints. No recent changes in bowel movements. Patient denies recent changes in medications or OTC supplements. Patient offers no other complaints, today. ADDITIONAL HISTORY OBTAINED: Per HPI Chronic Medical/Social Conditions Affecting Care: Per HPI PAST MEDICAL HISTORY: See Below PAST SURGICAL HISTORY: See Below FAMILY HISTORY: See Below SOCIAL HISTORY: See Below HOME MEDICATIONS: See Below ALLERGIES: See Below VITALS: See Below PHYSICAL EXAMINATION: GENERAL: Alert, well developed, well nourished, no acute distress HEAD: Normocephalic, atraumatic EYES: PERRL, No nystagmus, EOM's intact, sclera anicteric, conjunctiva clear OROPHARYNX: Airway patent and mucous membranes moist LUNGS: No respiratory distress, normal respiratory rate and effort HEART: Well perfused, regular rate ABDOMEN: Abdomen non-distended SKIN: Normal color, dry EXTREMITIES: No gross deformities, no edema NEURO: Alert, oriented x3, appropriate for age, moves all four extremities, normal speech MEDICAL DECISION MAKING: Differential diagnoses includes but not limited to intractable migraine In summary, this is a 50 year old female who presented with migraine. Differential as above. Nursing notes and pertinent past medical records reviewed. Vital signs reviewed and the patient is afebrile and HDS. History and presentation revealed typical migraine per patient. She has a protocol. Patient refuses further imaging. Physical examination revealed as above. As a result of my initial evaluation, patient is well-known to the emergency department for chronic migraines. Patient yet again having another migraine. Will plan to manage her symptoms per her protocol. Results independently interpreted by me are no leukocytosis or anemia There is no significant electrolyte derangements or significant kidney dysfunction from baseline. No changes in LFTs. The patient was managed with IVFR, Decadron, Benadryl and Compazine. I did reevaluate the patient following therapeutics that were ordered. Patient is reporting no improvement in her symptoms. Attempted further relief of IV Tylenol, magnesium and fluids. No improvement. Patient requesting admission. Ultimately, the decision was made to admit the patient for intractable migraines. I discussed the case with the hospitalist service via telephone/[employer] and they are agreeable to admit the patient to their services. Based on the above, including the patient's age, coexisting illnesses, labs, imaging, and exam findings the decision to treat as an inpatient. I discussed the patient with the hospitalist team who recommended admission to their services. They received the medications, treatments, interventions indicated above and their condition remaiend stable. I discussed my findings with the patient and their family and they understand and agree with the treatment plan. All patient / family questions were answered to their satisfaction. Consults/Care Managements Discussions: Per [facility] ER treatment provided: See above Procedures:none Critical Care: None The chart was completed utilizing [employer] Speech voice recognition software. Grammatical errors, random word insertions, pronoun errors, and incomplete sentences are an occasional consequence of this system due to software limitations, ambient noise, and hardware issues. Any formal questions or concerns about the content, text, or information contained within the body of this dictation should be directly addressed to the physician for clarification. Past Med/Surg History Problem List (Updated 08/15/25 @ 11:23 by Brian Gupta DO) Chronic anticoagulation (Acute) Smell or taste sensation disturbance Migraine with status migrainosus (Acute) Headache (Acute) Phlebitis of right upper extremity (Acute) Headache (Acute) Intractable migraine (Acute) Hypokalemia due to excessive gastrointestinal loss of potassium (Acute) Intractable migraine (Acute) Old cerebrovascular accident (CVA) without late effect PTSD (post-traumatic stress disorder) (Chronic) GERD (gastroesophageal reflux disease) (Chronic) Medical History (Updated 08/15/25 @ 11:23 by Brian Gupta DO) Prediabetes Anticoagulation goal of INR 2 to 3 History of CVA (cerebrovascular accident) Hypothyroidism Migraine with acute onset aura History of DVT (deep vein thrombosis) History of pulmonary embolism C. 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 Required: No Beliefs That Will Affect Care: None marital status: Current Living Situation: Family Current Living Situation Comment: Lives with spouse and child (15 month old daughter) current occupational status: disabled current occupation: was in the [employer] Other Information That Helps Us Care for You: No other: lives in [place] Feels Safe at Home: Yes Safety Concerns: Feels Safe At This Time Assistive Devices: None Allergies Allergies Allergy/AdvReac Type Severity Reaction Status Date / Time shellfish derived Allergy Severe Swelling Verified 08/06/25 16:00 of Lip/Tongue/Throat dihydroergotamine AdvReac Intermediate Severe Verified 08/14/25 14:56 headache prochlorperazine AdvReac Intermediate caused Verified 08/06/25 16:00 [From Compazine] restless leg syndrome promethazine [From Phenergan] AdvReac Intermediate restless Verified 08/06/25 16:00 leg syndrome Home Meds Home Medications Medication Instructions Recorded Confirmed topiramate 200 mg capsule,extended 200 mg PO HS 10/07/20 08/13/25 release 24 hr venlafaxine 150 mg 300 mg PO HS 10/07/20 08/13/25 capsule,extended release 24 hr (Effexor XR) alprazolam 0.25 mg tablet 0.25 mg PO DAILY PRN Anxiety 09/01/23 08/13/25 famotidine 40 mg tablet 20 mg PO HS 03/23/24 08/13/25 semaglutide 0.25 mg or 0.5 mg (2 0.5 mg subcut WK 03/23/24 08/13/25 mg/3 mL) subcutaneous pen injector (Ozempic) aripiprazole 5 mg tablet 5 mg PO HS 06/04/24 08/13/25 diphenhydramine HCl 25 mg capsule 50 mg PO Q8H PRN nausea and 07/16/25 08/13/25 (Benadryl) vomiting or migraine headache lidocaine 5 % topical patch 1 patch topical DAILY PRN Pain 07/16/25 08/13/25 (Lidoderm) warfarin 10 mg tablet 10 mg PO 5XWK 07/16/25 08/13/25 warfarin 7.5 mg tablet 7.5 mg PO 2XWK 07/16/25 08/13/25 levothyroxine 88 mcg tablet 88 mcg PO DAILYBB 08/02/25 08/13/25 Previous Rx's Medication Instructions Recorded epinephrine 0.3 mg/0.3 mL 0.3 mg (0.3 mL) IM Q4H PRN 07/17/23 injection, auto-injector anaphylaxis #2 ea ondansetron 4 mg disintegrating 4 mg PO Q6H PRN nausea and 09/18/23 tablet vomiting #15 tabs diazepam 5 mg tablet 5 mg PO BID PRN Headache or muscle 08/27/24 spasm #10 tabs cyclobenzaprine 10 mg tablet 10 mg PO BID PRN tension headache 07/26/25 #10 tabs magnesium oxide 400 mg (241.3 mg 400 mg PO QAM #30 tabs 08/05/25 magnesium) tablet methylprednisolone 4 mg tablets in 4 mg PO DAILY #21 ea 08/05/25 a dose pack (Medrol (Severiano)) prochlorperazine maleate 10 mg 10 mg PO Q8H PRN headache #30 tabs 08/05/25 tablet (Compazine) riboflavin (vitamin B2) 400 mg 400 mg PO DAILY #30 tabs 08/05/25 tablet Results & Data (ED) Vital Signs Vital Signs - 24 hr 08/13/25 15:21 08/13/25 17:18 08/13/25 17:23 Temperature 36.6 C Temperature Source Temporal Artery Scan Pulse Rate 99 H 90 Pulse Rate [Apical] 90 Pulse Rate from SpO2 Sensor Pulse Rhythm [Apical] Regular Pulse Strength [Apical] Normal Respiratory Rate 20 16 Respiratory Effort / Characteristics Non-Labored Spontaneous Non-Labored Spontaneous Respiratory Depth Normal Normal Respiratory Pattern Regular Regular Blood Pressure 120/82 Blood Pressure [Right Arm] 103/82 Blood Pressure Mean 94 Blood Pressure Mean [Right Arm] 89 Blood Pressure Position [Right Arm] Lying Pulse Oximetry 98 98 Oxygen Delivery Method Room Air Room Air Sepsis Recent Fever Within 48 Hours No Sepsis New/Unexplained Change in Mental Status No Sepsis Action Taken by Nursing No Action Required 08/13/25 18:42 Temperature Temperature Source Pulse Rate 88 Pulse Rate [Apical] Pulse Rate from SpO2 Sensor 88 Pulse Rhythm [Apical] Pulse Strength [Apical] Respiratory Rate 19 Respiratory Effort / Characteristics Respiratory Depth Respiratory Pattern Blood Pressure Blood Pressure [Right Arm] Blood Pressure Mean Blood Pressure Mean [Right Arm] Blood Pressure Position [Right Arm] Pulse Oximetry 96 Oxygen Delivery Method Room Air Sepsis Recent Fever Within 48 Hours Sepsis New/Unexplained Change in Mental Status Sepsis Action Taken by Nursing Laboratory Data 08/15/25 06:25 08/15/25 06:25 Lab Results 08/13/25 08/13/25 08/14/25 Range/Units 16:46 19:46 05:30 WBC 7.09 (4.8-10.8) K/ul RBC 4.52 (4.20-5.40) M/uL Hgb 13.4 (12.0-16.0) g/dL Hct 40.9 (37.0-47.0) % MCV 90.5 (80.0-100.0) fL MCH 29.6 (25.0-34.0) pg MCHC 32.8 (32.0-36.0) g/dL RDW Std Deviation 47.0 H (36.4-46.3) fL RDW Coeff of Wilmer 14.2 (11.5-14.5) % Plt Count 145 (130-400) K/uL MPV 9.9 (9.4-12.4) fL Immature Gran % (Auto) 0.7 % Neut % (Auto) 76.5 % Lymph % (Auto) 15.1 % [place] % (Auto) 5.5 % Eos % (Auto) 1.8 % Baso % (Auto) 0.4 % Neut # (Auto) 5.42 (1.40-6.50) K/uL Lymph # (Auto) 1.07 L (1.20-3.40) K/uL [place] # (Auto) 0.39 (0.11-0.59) K/uL Eos # (Auto) 0.13 (0.00-0.50) K/uL Baso # (Auto) 0.03 (0.00-0.20) K/uL Immature Gran # (Auto) 0.05 (0.01-0.20) K/uL PT 15.6 H 15.6 H (9.0-12.0) Seconds INR 1.5 H 1.5 H (0.9-1.1) Sodium 140 (136-145) mmol/L Potassium 3.9 (3.5-5.1) mmol/L Chloride 106 (98-107) mmol/L Carbon Dioxide 24 (21-32) mmol/L Anion Gap 10 (3-11) BUN 13 (6-23) mg/dl Creatinine 1.13 (0.6-1.2) mg/dl Est Cr Clr Drug Dosing 67.8 ml/min eGFR 59.64 BUN/Creatinine Ratio 11.5 (10-20) Glucose 108 H (70-99(Fasting)) mg/dl Calcium 9.1 (8.6-10.3) mg/dl Magnesium 2.0 (1.7-2.4) mg/dl Total Bilirubin 0.3 (0.2-1.0) mg/dl AST 15 (13-39) U/L ALT 26 (7-52) U/L Alkaline Phosphatase 86 (34-104) U/L Total Protein 7.3 (6.0-8.3) gm/dl Albumin 3.7 (3.4-5.0) gm/dl Globulin 3.6 (2.5-4.0) gm/dl Albumin/Globulin Ratio 1.0 (0.9-2) Administered Medications Acetaminophen (Acetaminophen 500 Mg Tab) 1,000 mg PO Q8 [facility] Stop: 09/12/25 21:59 Last Admin: 08/15/25 05:40 Dose: 1,000 mg Documented By: Admin: 08/14/25 21:42 Dose: 1,000 mg Documented By: Admin: 08/14/25 14:35 Dose: Not Given Documented By: Admin: 08/14/25 05:30 Dose: 1,000 mg Documented By: Admin: 08/13/25 21:38 Dose: 1,000 mg Documented By: VIOLET Aripiprazole (Aripiprazole 5 Mg Tab) 5 mg PO HS [facility] Stop: 09/12/25 20:59 Last Admin: 08/14/25 21:41 Dose: 5 mg Documented By: Admin: 08/13/25 21:38 Dose: 5 mg Documented By: VIOLET Diphenhydramine HCl (Diphenhydramine 50 Mg/Ml Vial) 25 mg IV Q6H [facility] Stop: 09/14/25 00:00 Last Admin: 08/15/25 05:38 Dose: 25 mg Documented By: Admin: 08/14/25 23:26 Dose: 25 mg Documented By: VIOLET Famotidine (Famotidine 20 Mg Tab) 20 mg PO HS [facility] Stop: 09/12/25 20:59 Last Admin: 08/14/25 21:41 Dose: 20 mg Documented By: Admin: 08/13/25 21:38 Dose: 20 mg Documented By: VIOLET Prochlorperazine 5 mg/ Syringe 5 mls @ 5 mls/min IV Q6H [facility]ELIN Stop: 09/13/25 17:59 Last Admin: 08/15/25 05:38 Dose: 5 mls/min Documented By: Admin: 08/14/25 23:25 Dose: 5 mls/min Documented By: Admin: 08/14/25 17:53 Dose: 5 mls/min Documented By: NENA Levothyroxine Sodium (Levothyroxine Sodium 88 Mcg Tablet) 88 mcg PO DAILYBB [facility] Stop: 09/13/25 06:29 Last Admin: 08/15/25 05:39 Dose: 88 mcg Documented By: Admin: 08/14/25 05:31 Dose: 88 mcg Documented By: VIOLET Magnesium Oxide (Magnesium Oxide 400 Mg Tab) 400 mg PO QAM [facility] Stop: 09/13/25 08:59 Last Admin: 08/15/25 09:05 Dose: 400 mg Documented By: Admin: 08/14/25 09:26 Dose: 400 mg Documented By: NENA Melatonin (Melatonin 3 Mg Tab) 3 mg PO HS PRN PRN Reason: Sleep Stop: 09/13/25 19:44 Last Admin: 08/14/25 21:41 Dose: 3 mg Documented By: VIOLET Topiramate (Topiramate 100 Mg Tab) 200 mg PO [facility]ELIN Stop: 09/12/25 20:59 Last Admin: 08/14/25 21:40 Dose: 200 mg Documented By: Admin: 08/13/25 21:37 Dose: 200 mg Documented By: VIOLET Venlafaxine HCl (Venlafaxine Hcl Xr 150 Mg Capxr) 300 mg PO HS [facility] Stop: 09/12/25 20:59 Last Admin: 08/14/25 21:41 Dose: 300 mg Documented By: Admin: 08/13/25 21:38 Dose: 300 mg Documented By: VIOLET Warfarin Sodium (Warfarin Sod 10 Mg Tab) 10 mg PO [id number] [facility] Stop: 09/12/25 20:59 Last Admin: 08/13/25 21:35 Dose: 10 mg Documented By: VIOLET Discontinued Medications Dexamethasone (Dexamethasone Sod Inj 4 Mg/Ml Vial) 10 mg IV NOW STA Stop: 08/13/25 15:38 Last Admin: 08/13/25 16:05 Dose: 10 mg Documented By: PARISH Diphenhydramine HCl (Diphenhydramine 50 Mg/Ml Vial) 50 mg IV NOW STA Stop: 08/13/25 15:38 Last Admin: 08/13/25 16:05 Dose: 50 mg Documented By: PARISH Diphenhydramine HCl (Diphenhydramine 50 Mg/Ml Vial) 25 mg IV Q6H [facility]ELIN Stop: 08/14/25 16:46 Last Admin: 08/13/25 22:54 Dose: Not Given Documented By: VIOLET Diphenhydramine HCl (Diphenhydramine 50 Mg/Ml Vial) 50 mg IV Q6H [facility]ELIN Stop: 08/14/25 17:31 Last Admin: 08/14/25 17:53 Dose: 50 mg Documented By: Admin: 08/14/25 11:45 Dose: 50 mg Documented By: Admin: 08/14/25 05:31 Dose: 50 mg Documented By: Admin: 08/13/25 23:53 Dose: 50 mg Documented By: VIOLET Prochlorperazine 10 mg/ (Syringe) 10 mls @ 5 mls/min IV ONE ONE Stop: 08/13/25 15:38 Last Admin: 08/13/25 16:06 Dose: 5 mls/min Documented By: PARISH Parenteral Electrolytes (Plasma-Lyte A Ph 7.4) 1,000 mls @ 999 mls/hr IV .Q1H1M ONE Stop: 08/13/25 16:38 Last Infusion: 08/13/25 18:57 Dose: Infused Documented By: Admin: 08/13/25 16:06 Dose: 999 mls/hr Documented By: PARISH Magnesium Sulfate/Dextrose (Magnesium Sulfate / D5w) 1 gm in 100 mls @ 200 mls/hr IV Q30M EVELIN Stop: 08/13/25 17:50 Last Infusion: 08/13/25 18:44 Dose: Infused Documented By: Admin: 08/13/25 17:45 Dose: 200 mls/hr Documented By: Infusion: 08/13/25 17:44 Dose: Infused Documented By: Admin: 08/13/25 17:06 Dose: 200 mls/hr Documented By: DENY Acetaminophen (Ofirmev) 1,000 mg in 100 mls @ 400 mls/hr IV NOW STA Stop: 08/13/25 17:05 Last Infusion: 08/13/25 17:45 Dose: Infused Documented By: Admin: 08/13/25 17:11 Dose: 400 mls/hr Documented By: DENY Sodium Chloride (Nss) 1,000 mls @ 100 mls/hr IV .Q10H EVELIN Stop: 08/14/25 16:39 Last Infusion: 08/14/25 17:57 Dose: Infused Documented By: Admin: 08/14/25 07:57 Dose: 100 mls/hr Documented By: Infusion: 08/14/25 07:35 Dose: Infused Documented By: Admin: 08/13/25 21:35 Dose: 100 mls/hr Documented By: VIOLET Prochlorperazine 10 mg/ (Syringe) 10 mls @ 5 mls/min IV Q6H [facility]ELIN Stop: 09/13/25 00:00 Last Admin: 08/14/25 11:44 Dose: 5 mls/min Documented By: Admin: 08/14/25 05:31 Dose: 5 mls/min Documented By: Admin: 08/13/25 23:52 Dose: 5 mls/min Documented By: VIOLET Ondansetron HCl (Ondansetron Inj 2 Mg/Ml 2 Ml Vial) 4 mg IV NOW STA Stop: 08/13/25 17:37 Last Admin: 08/13/25 17:45 Dose: 4 mg Documented By: DENY Prochlorperazine (Prochlorperazine 5 Mg/Ml 2 Ml Vial) Confirm Administered Dose 10 mg .ROUTE .STK-MED ONE Stop: 08/13/25 16:00 Last Admin: 08/13/25 16:06 Dose: Not Given Documented By: CAP Discharge Plan Visit Data Chief Complaint: Headache Stated Complaint: MIGRAINE, CANT SEE WELL ED Provider: Brian Gupta Discharge Problem: Intractable migraine, Migraine with status migrainosus, Chronic anticoagulation Patient Disposition: Admitted As Inpatient Condition: Fair Discharge Instructions Interventions: ED Discharge Assessment Last Done: 08/13/25 20:16
[2025-08-13 17:00] LABS: Hematocrit (blood only) 40.9 % (37.0-47.0); Hemoglobin 13.4 g/dL (12.0-16.0); Immature Granulocytes # (auto) 0.05 K/uL (0.01-0.20); Immature Granulocytes % (auto) 0.7 %; Mean Corpuscular Hemoglobin 29.6 pg (25.0-34.0); Mean Corpuscular Volume 90.5 fL (80.0-100.0); Platelet Count 145 K/uL (130-400); RDW Standard Deviation 47.0 fL (36.4-46.3); Red Blood Count 4.52 M/uL (4.20-5.40); White Blood Count 7.09 K/ul (4.8-10.8)
[2025-08-13] MEDS: MAGNESIUM SULFATE / D5W 1 GM/100 ML BAG IV SCH (17:06)
[2025-08-13] MEDS: ACETAMINOPHEN 1,000 MG/100 ML VIAL IV STA (17:11)
[2025-08-13 17:18] LABS: Alanine Aminotransferase 26.0 U/L (7-52); Albumin Globulin Ratio 1.0 (0.9-2); Albumin Level 3.7 gm/dl (3.4-5.0); Alkaline Phosphatase 86.0 U/L (34-104); Anion Gap 10.0 (3-11); Bilirubin,Total 0.3 mg/dl (0.2-1.0); Blood Urea Nitrogen 13.0 mg/dl (6-23); Calcium 9.1 mg/dl (8.6-10.3); Carbon Dioxide 24.0 mmol/L (21-32); Chloride 106.0 mmol/L (98-107); Creatinine Clr Calc Pharmacy 67.8 ml/min; Globulin 3.6 gm/dl (2.5-4.0); Glucose 108.0 mg/dl (70-99(Fasting)); Magnesium 2.0 mg/dl (1.7-2.4); Potassium 3.9 mmol/L (3.5-5.1); Sodium 140.0 mmol/L (136-145); Total Protein 7.3 gm/dl (6.0-8.3)
[2025-08-13] MEDS: ONDANSETRON INJ 2 MG/ML 2 ML VIAL IV STA (17:45)
--- NOTE | 2025-08-13 18:08 | History & Physical Report ---
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 #status migraine - -uncertain trigger -has had only a couple of days in the last month where she felt well -prior imaging including MRI brain and MRV negative for acute findings -CTA head/neck earlier in July both normal -medicines tried to date - -IV steroids -IV magnesium -multiple anti-emetics -- zofran, compazine, phenergan, etc. -multiple muscle relaxers -- baclofen, flexeril, etc. -Nurtec ODT -fioricet prn -tylenol -toradol -IV depakote loading -remains on topamax & magnesium orally for prophylaxis -patient continues to report the most effective regimen is that of compazine IV with benadryl high-dose IV -will order both starting now -she is s/p IV dexamethasone in the ER this evening but steroids have not been previously effective -she has been seen by pain management on prior stay but it was not felt she was a candidate for nerve blocks as she was not tender in typical regions for such -with obesity consider LP to r/o pseudotumor cerebri although there has been no MRI evidence of such on recent MRI brain -she has not had fevers or other infectious symptoms to suggest meningitis/encep halitis/infectious process - but she has had HSV fever blisters in the past and LP could exclude such -if use of compazine/benadryl proves ineffective then trial of DHE protocol -consider neurology consult again -consider pain management consult for ketamine infusion? -consider transfer to [facility] which is where her headache clinic is located #prior history of stroke - -right pontine as seen on prior imaging -cont coumadin for secondary prevention #prior history of DVT/PE - -cont coumadin per home dosing regimen -daily INR #prediabetes - -07/2025 Hba1c 5.8% c/w the mildest of pre-DM -no Rx needed #obesity - -BMI 38 #GERD - -cont pepcid #hypothyroidism - -TSH 0.7 - 07/2025 -cont synthroid #mental health/PTSD - -cont all home meds including topamax #DVT proph - -coumadin -daily INR observation status History of Present Illness Chief Complaint: recurrent headache Primary Care Provider: Dionne Fletcher MD 50yo female with history of migraines which started after a right-sided CVA in the , 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 Patient was initially hospitalized from 07/16 to 07/17 for her status migraine. After some improvement was d/c to home but returned for an acute ER visit on 07/19 for her refractory migraine. She had multiple hospitalizations after including 07/20 to 07/24, same day admit/discharge on 07/26, another admit from 08/02 to 08/05, and most recently from 08/06 to 08/11. During her most recent stay she underwent an MRV which returned negative for dural sinus thrombosis. A combination of IV benadryl and IV compazine improved her headaches down to 1/10. She felt well on the PM of 08/11 and about half the day on 08/12 but her headaches returned last evening. Headaches are frontal in location, behind both eyes, and spread to the back of the head. They are stabbing in quality. She has scomata, and she also sees flashes of light in both eyes. No diplopia. When the headache improves the ocular disturbances improve. She has had nausea but no vomiting. No vertigo. Denies motor or sensory disturbances of the arms or legs. Denies fevers or chills. Rarely gets fever blisters, and has not had one recently. Allergies Allergy/AdvReac Type Severity Reaction Status Date / Time shellfish derived Allergy Severe Swelling Verified 08/06/25 16:00 of Lip/Tongue/Throat prochlorperazine AdvReac Intermediate caused Verified 08/06/25 16:00 [From Compazine] restless leg syndrome promethazine [From Phenergan] AdvReac Intermediate restless Verified 08/06/25 16:00 leg syndrome Home Medications Medication Instructions Recorded Confirmed Type topiramate 200 mg capsule,extended 200 mg PO HS 10/07/20 08/13/25 History release 24 hr venlafaxine 150 mg 300 mg PO HS 10/07/20 08/13/25 History capsule,extended release 24 hr (Effexor XR) epinephrine 0.3 mg/0.3 mL 0.3 mg (0.3 mL) IM Q4H PRN 07/17/23 08/13/25 Rx injection, auto-injector anaphylaxis #2 ea alprazolam 0.25 mg tablet 0.25 mg PO DAILY PRN Anxiety 09/01/23 08/13/25 History ondansetron 4 mg disintegrating 4 mg PO Q6H PRN nausea and 09/18/23 08/13/25 Rx tablet vomiting #15 tabs famotidine 40 mg tablet 20 mg PO HS 03/23/24 08/13/25 History semaglutide 0.25 mg or 0.5 mg (2 0.5 mg subcut WK 03/23/24 08/13/25 History mg/3 mL) subcutaneous pen injector (Ozempic) aripiprazole 5 mg tablet 5 mg PO HS 06/04/24 08/13/25 History diazepam 5 mg tablet 5 mg PO BID PRN Headache or muscle 08/27/24 08/13/25 Rx spasm #10 tabs diphenhydramine HCl 25 mg capsule 50 mg PO Q8H PRN nausea and 07/16/25 08/13/25 History (Benadryl) vomiting or migraine headache lidocaine 5 % topical patch 1 patch topical DAILY PRN Pain 07/16/25 08/13/25 History (Lidoderm) warfarin 10 mg tablet 10 mg PO 5XWK 07/16/25 08/13/25 History warfarin 7.5 mg tablet 7.5 mg PO 2XWK 07/16/25 08/13/25 History cyclobenzaprine 10 mg tablet 10 mg PO BID PRN tension headache 07/26/25 08/13/25 Rx #10 tabs levothyroxine 88 mcg tablet 88 mcg PO DAILYBB 08/02/25 08/13/25 History magnesium oxide 400 mg (241.3 mg 400 mg PO QAM #30 tabs 08/05/25 08/13/25 Rx magnesium) tablet methylprednisolone 4 mg tablets in 4 mg PO DAILY #21 ea 08/05/25 08/13/25 Rx a dose pack (Medrol ([place])) prochlorperazine maleate 10 mg 10 mg PO Q8H PRN headache #30 tabs 08/05/25 08/13/25 Rx tablet (Compazine) riboflavin (vitamin B2) 400 mg 400 mg PO DAILY #30 tabs 08/05/25 08/13/25 Rx tablet Past Med/Surg History Problem List (Updated 08/14/25 @ 03:54 by Riley Cordon MD) Smell or taste sensation disturbance Migraine with status migrainosus Headache (Acute) Migraine (Acute) Phlebitis of right upper extremity (Acute) Headache (Acute) Intractable migraine (Acute) Hypokalemia due to excessive gastrointestinal loss of potassium (Acute) Intractable migraine (Acute) Old cerebrovascular accident (CVA) without late effect PTSD (post-traumatic stress disorder) (Chronic) GERD (gastroesophageal reflux disease) (Chronic) Medical History (Updated 08/14/25 @ 03:54 by Riley Cordon MD) Prediabetes Anticoagulation goal of INR 2 to 3 History of CVA (cerebrovascular accident) Hypothyroidism Migraine with acute onset aura History of DVT (deep vein thrombosis) History of pulmonary embolism C. difficile colitis Migraine Surgical History History of mastectomy S/P ROSALES-BSO S/P patent foramen ovale closure History of cholecystectomy History of appendectomy Family History Brother Chronic headaches Social History Smoking Status: Never smoker Second Hand Exposure: No; Do You Dip or Chew Tobacco: No; Hx Alcohol Use: No Hx Substance Use: No Preferred Language: Occitan Communication Ability: Effective Museum Host/Hostess Required: No Beliefs That Will Affect Care: None marital status: Current Living Situation: Family Current Living Situation Comment: Lives with spouse and child (15 month old daughter) current occupational status: disabled current occupation: was in the [employer] Other Information That Helps Us Care for You: No other: lives in [place] Feels Safe at Home: Yes Safety Concerns: Feels Safe At This Time Assistive Devices: Glasses and Hearing Aid - Bilateral Review of Systems Review of Systems: gen - no fevers or chills, when headaches are improved she is able to eat better eyes - scomata, flashes of light - both eyes; no diplopia HENT - no URI symptoms, no fever blisters CV - no chest pain pulm - no dyspnea or JOHNSON GI - ongoing nausea, no vomiting; no abd pain; no diarrhea - no dysuria musculo - denies myalgias or arthralgias neuro - no motor weakness or sensory loss of arms/legs; +photophobia skin - no rash endo - no diabetes heme - no abnormal bleeding psych - poor sleep due to headaches Physical Exam Physical Exam: gen - looks uncomfortable, lying in bed in dark room and with a piece of clothing over her eyes eyes - PERRL, EOMI, pupils about 2mm in size HENT - TMs clear b/l, nose clear, MMM, no lesions neck - no JVD, no meningismus CV - RRR, s1 s2, no murmur lungs - CTA b/l abd - soft NT ND BS+, no HSM ext - no edema, pulses 2+ b/l neuro - strength 5/5 x 4 exts, sensation intact to light touch b/l arms & legs, no facial droop, no nystagmus, DTRs 2+ b/l although left arm and left leg are more brisk than right arm/leg skin - no rashes psych - a/o x 3 Results & Data Results & Data Vital Signs (Past 12 Hours) Vital Signs Temp Pulse Pulse Resp BP BP Pulse Ox 08/13/25 17:23 90 08/13/25 17:18 90 16 103/82 98 08/13/25 15:21 36.6 C 99 H 20 120/82 98 O2 Del Method 08/13/25 17:23 08/13/25 17:18 Room Air 08/13/25 15:21 Room Air Laboratory Results Laboratory Results - last 24 hr 08/13/25 08/13/25 16:46 19:46 WBC 7.09 RBC 4.52 Hgb 13.4 Hct 40.9 MCV 90.5 MCH 29.6 MCHC 32.8 RDW Std Deviation 47.0 H RDW Coeff of Wilmer 14.2 Plt Count 145 MPV 9.9 Immature Gran % (Auto) 0.7 Neut % (Auto) 76.5 Lymph % (Auto) 15.1 [place] % (Auto) 5.5 Eos % (Auto) 1.8 Baso % (Auto) 0.4 Neut # (Auto) 5.42 Lymph # (Auto) 1.07 L [place] # (Auto) 0.39 Eos # (Auto) 0.13 Baso # (Auto) 0.03 Immature Gran # (Auto) 0.05 PT 15.6 H INR 1.5 H Sodium 140 Potassium 3.9 Chloride 106 Carbon Dioxide 24 Anion Gap 10 BUN 13 Creatinine 1.13 Est Cr Clr Drug Dosing 67.8 eGFR 59.64 BUN/Creatinine Ratio 11.5 Glucose 108 H Calcium 9.1 Magnesium 2.0 Total Bilirubin 0.3 AST 15 ALT 26 Alkaline Phosphatase 86 Total Protein 7.3 Albumin 3.7 Globulin 3.6 Albumin/Globulin Ratio 1.0 PG Care Time/CCT Total # of Minutes Spent Total Time Spent with Patient: Total time spent is greater than 50% in coordination of care (as documented) at patient's floor/unit and/or counseling patient: Coding Level of Care Code 59954 INT INP/OBS CARE 2MIN Diagnoses Intractable chronic migraine with aura with status migrainosus G43.E11 Migraine type: chronic migraine (15 or more days per month) with aura Intractability: intractable History of DVT (deep vein thrombosis) Z86.718 History of pulmonary embolism Z86.711 S/P patent foramen ovale closure Z87.74 GERD (gastroesophageal reflux disease) K21.9 PTSD (post-traumatic stress disorder) F43.10 History of CVA (cerebrovascular accident) Z86.73 Hypothyroidism E03.9 Prediabetes R73.03 (1) Migraine with status migrainosus Migraine type: chronic migraine (15 or more days per month) with aura Intractability: intractable Qualified Code(s): G43.E11 - Chronic migraine with aura, intractable, with status migrainosus
[2025-08-13 20:37] LABS: INR 1.5 (0.9-1.1); Prothrombin Time 15.6 Seconds (9.0-12.0)
[2025-08-13] MEDS ORDERED: LIDOCAINE 5% 1 PATCH TD PRN (20:40)
[2025-08-13] MEDS ORDERED: CYCLOBENZAPRINE HCL 10 MG TAB PO PRN (20:40)
[2025-08-13] MEDS ORDERED: ONDANSETRON INJ 2 MG/ML 2 ML VIAL IV PRN (20:40)
[2025-08-13] MEDS ORDERED: REMOVE LIDODERM PATCH PRN (21:00)
[2025-08-13] MEDS: WARFARIN SOD 10 MG TAB PO SCH (21:35)
[2025-08-13] MEDS: SODIUM CHLORIDE 0.9% 1,000 ML IV SCH (21:35)
[2025-08-13] MEDS: TOPIRAMATE 100 MG TAB PO SCH (21:37)
[2025-08-13] MEDS: ARIPiprazole 5 MG TAB PO SCH (21:38)
[2025-08-13] MEDS: VENLAFAXINE HCL XR 150 MG CAPXR PO SCH (21:38)
[2025-08-13] MEDS: ACETAMINOPHEN 500 MG TAB PO SCH (21:38)
[2025-08-13] MEDS: FAMOTIDINE 20 MG TAB PO SCH (21:38)
[2025-08-13] MEDS: diphenhydrAMINE 50 MG/ML VIAL IV SCH ×2 (22:54→23:53)
[2025-08-13] MEDS: PROCHLORPERAZINE 10 MG in SYRINGE 8 ML IV SCH (23:52)
[2025-08-14] MEDS ORDERED: diphenhydrAMINE 50 MG/ML VIAL IV SCH
[2025-08-14] MEDS: LEVOTHYROXINE SODIUM 88 MCG TABLET PO SCH (05:31)
[2025-08-14 06:16] LABS: INR 1.5 (0.9-1.1); Prothrombin Time 15.6 Seconds (9.0-12.0)
[2025-08-14] MEDS: MAGNESIUM OXIDE 400 MG TAB PO SCH (09:26)
--- NOTE | 2025-08-14 09:30 | Hospitalist Progress Note ---
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 #Status migraine Uncertain trigger Has had only a couple of days in the last month where she felt well Prior imaging including MRI brain and MRV negative for acute findings CTA head/neck earlier in July both normal Medications tried to date: -IV steroids -IV magnesium -Multiple anti-emetics -- zofran, compazine, phenergan, etc. -Multiple muscle relaxers -- baclofen, flexeril, etc. -Nurtec ODT -Fioricet prn -Tylenol -Toradol -IV depakote loading -DHE (adverse reaction; led to "horrific headache") Remains on topamax & magnesium orally for prophylaxis Continue Compazine 5 mg IV with Benadryl 25 mg IV q6h as this has been most effective for treatment of her status migraines in the past She has been seen by pain management on prior stay but it was not felt she was a candidate for nerve blocks as she was not tender in typical regions for such With obesity consider LP to r/o pseudotumor cerebri although there has been no MRI evidence of such on recent MRI brain Discussed LP with patient on 08/14, and she is amenable to LP on 08/15 if he can be arranged Reached out to IR to set up for Wednesday 08/15, and it will depend on her a.m. INR Hold Coumadin She has not had fevers or other infectious symptoms to suggest meningitis/encephalitis/infectious process - but she has had HSV fever blisters in the past (LP could not exclude such) Consider pain management consult for ketamine infusion Note: Patient does follow with ketamine clinic on Tuesdays and , but has been unable to attend over the past month due to recurrent hospitalizations Consider transfer to [facility] which is where her headache clinic is located if refractory to all of above #Prediabetes 07/2025 Hba1c 5.8% c/w the mildest of pre-DM No Rx needed #Obesity BMI 38 #GERD Continue pepcid #Hypothyroidism TSH 0.7 - 07/2025 Continue synthroid #Mental health/PTSD Continue all home meds, including topamax #H/o prior DVT/PE Regular INR goal range: 2-3 INR low at 1.5 on 08/14 Hold Coumadin in setting of potential LP on 08/15 (will depend on a.m. INR level) Check a.m. PT/INR #History of stroke Right pontine as seen on prior imaging Hold Coumadin (as above) Disposition: Continued stay on MedSurg telemetry due to lingering migraine and potential LP tomorrow on 08/15 Admission and Anticipated Discharge Date Admission Date: August 13, 2025 Supervising Physician Co-Signing Physician Notes Attending Attestation - Chart reviewed in detail, care plan d/w ZULEMA Friedman. I agree w/ the jimenez components of his documentation. Agree with plans for LP by IR tomorrow. Hold coumadin. Consider transfer to [facility] if her migraine headache remains refractory. Riley Cordon MD Subjective Mrs. Pereira is doing slightly better this afternoon compared to yesterday. She rates her headache a 4 out of 10 at present, but reports it gets up to a 7 out of 10 intermittently. The IV Compazine and Benadryl have been helping her symptoms, however she would like to switch from Compazine 10 mg IV to 5 mg IV due to the side effects (she tends to get restless legs whenever she takes Compazine). Patient reports her headache is both temporal in nature as well as occipital. It is constant but waxes and wanes with intensity. Additionally she is having visual changes: "Flashes in the eyes" that are "giant round flashes like a car light shining in her eyes". This is different from the "zigzags" she tends to have with migraines. No neck pain. Overall, she reports that she feels like she is "not ready to go home today" as she is still not back to her baseline. Patient used to attend a ketamine clinic at [place] on Tuesdays and , and reports that ketamine tends to help her symptoms; however, she is unable to get to this clinic over the past several weeks due to her recurrent hospitalizations. While patient does not regularly follow with an eye doctor, she last saw an ocular neurologist in July 2024. No prior history of seizures. She does have history of stroke in 2009; no residual unilateral deficits, but does report this event led to increased forgetfulness. When discussing the potential for lumbar puncture, she says she is amenable. She had a prior lumbar puncture around 30 years ago to assess for meningitis; while it did not end up being meningitis, she cannot remember what the lumbar puncture ultimately determines. Patient is open to having an LP to assess for pseudotumor cerebri. ROS: Patient endorses constant headache, visual changes, and nausea. Patient denies fever, chills, night sweats, neck pain, loss of vision, blurry vision, chest pain, chest palpitations, SOB, cough, abdominal pain, vomiting, or change in urinary/bowel habits. Review of Systems Review of Systems: See HPI above Physical Exam Physical Exam: General: no acute distress; pleasant affect; non-toxic appearing; cooperative; SpO2 95% on RA HEENT: normocephalic, atraumatic; PERRLA with EOMs intact; vision and hearing intact Neck: supple; trachea midline Skin: warm, dry without signs of tenting; no cyanosis; no rashes, bruising, lesions, or erythema noted CV: chest wall NTP; RRR; pulses intact and symmetric at radial, DP, and PT Lungs: no acute respiratory distress; symmetrical chest wall expansion; clear breath sounds across all lung justice w/o adventitious sounds; no wheezing ABD: Soft, NTP; BS present; no rebound/guarding; no distention MSK: no tics or fasciculations; no edema noted in the LEs b/l, nonerythematous; 5/5 slasher tender helper strength bilaterally Neuro: A&Ox3; normal mood and affect; fluent speech; sensation intact and symmetric in the LEs b/l Results & Data Results & Data Vital Signs (Past 12 Hours) Vital Signs Temp Pulse Pulse Resp BP Pulse Ox O2 Del Method 08/14/25 08:38 85 12/04/25 08:03 36.6 C 78 20 101/71 95 Room Air 08/14/25 03:00 36.9 C 73 14 107/69 96 Room Air 08/13/25 23:25 36.5 C 88 14 101/70 93 Room Air PG Care Time/CCT Total # of Minutes Spent Total Time Spent with Patient: Total time spent is greater than 50% in coordination of care (as documented) at patient's floor/unit and/or counseling patient: Coding [place] [address] SUB INP/OBS CARE 3/50MIN Patient Type Established Medical Decision Making High Complexity Diagnoses Intractable chronic migraine with aura with status migrainosus G43.E11 Intractability: intractable Migraine type: chronic migraine (15 or more days per month) with aura History of DVT (deep vein thrombosis) Z86.718 History of pulmonary embolism Z86.711 S/P patent foramen ovale closure Z87.74 GERD (gastroesophageal reflux disease) K21.9 PTSD (post-traumatic stress disorder) F43.10 History of CVA (cerebrovascular accident) Z86.73 Hypothyroidism E03.9 Prediabetes R73.03 (1) Migraine with status migrainosus Intractability: intractable Migraine type: chronic migraine (15 or more days per month) with aura Qualified Code(s): G43.E11 - Chronic migraine with aura, intractable, with status migrainosus
[2025-08-14] MEDS ORDERED: PROCHLORPERAZINE 5 MG in SYRINGE 4 ML IV SCH (13:15)
[2025-08-14] MEDS: PROCHLORPERAZINE 5 MG in SYRINGE 4 ML IV SCH (17:53)
[2025-08-14] MEDS: MELATONIN 3 MG TAB PO PRN (21:41)
[2025-08-14] MEDS: diphenhydrAMINE 50 MG/ML VIAL IV SCH (23:26)
[2025-08-15 07:18] LABS: Hematocrit (blood only) 38.2 % (37.0-47.0); Hemoglobin 12.6 g/dL (12.0-16.0); Mean Corpuscular Hemoglobin 30.1 pg (25.0-34.0); Mean Corpuscular Volume 91.4 fL (80.0-100.0); Platelet Count 146 K/uL (130-400); RDW Standard Deviation 46.8 fL (36.4-46.3); Red Blood Count 4.18 M/uL (4.20-5.40); White Blood Count 9.61 K/ul (4.8-10.8)
[2025-08-15 07:35] LABS: Anion Gap 7.0 (3-11); Blood Urea Nitrogen 16.0 mg/dl (6-23); Carbon Dioxide 23.0 mmol/L (21-32); Chloride 110.0 mmol/L (98-107); Creatinine Clr Calc Pharmacy 74.4 ml/min; Glucose 79.0 mg/dl (70-99(Fasting)); Potassium 4.0 mmol/L (3.5-5.1); Sodium 140.0 mmol/L (136-145)
[2025-08-15 07:41] LABS: INR 1.7 (0.9-1.1); Prothrombin Time 17.3 Seconds (9.0-12.0)
[2025-08-15 08:25] LABS: Calcium 8.6 mg/dl (8.6-10.3)
--- NOTE | 2025-08-15 11:40 | Hospitalist Progress Note ---
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 #Status migraine Uncertain trigger Has had only a couple of days in the last month where she felt well Prior imaging including MRI brain and MRV negative for acute findings CTA head/neck earlier in July both normal Medications tried to date: -IV steroids -IV magnesium -Multiple anti-emetics -- zofran, compazine, phenergan, etc. -Multiple muscle relaxers -- baclofen, flexeril, etc. -Nurtec ODT -Fioricet prn -Tylenol -Toradol -IV depakote loading -DHE (adverse reaction; led to "horrific headache") Remains on topamax & magnesium orally for prophylaxis Continue Compazine 5 mg IV with Benadryl 25 mg IV q6h as this has been most effective for treatment of her status migraines in the past Given obesity, lumbar puncture performed on 08/15 r/o pseudotumor cerebri Platelet count okay at 146 Warfarin has been on hold since 08/13; INR is 1.7 on the morning of 08/15 (this was discussed with IR); despite INR >1.5, IR feel comfortable proceeding with LP at current INR level (will defer vitamin K reversal) IR consult appreciated Opening pressure measurement = 12cm (WNL) CSF fluid analysis is still currently pending Reviewed most recent head CT 07/22 and brain MRI 07/26 While prior h/o stroke, no h/o tumors, hydrocephalus, and large ventricles, midline shift, or intracerebral masses; clinically, no AMS Following lumbar puncture, patient should remain on bedrest x min 4 hours, and patient should lay flat for 60 minutes following procedure She has not had fevers or other infectious symptoms to suggest meni ngitis/encephalitis/infectious process - but she has had HSV fever blisters in the past (LP could not exclude such) She has been seen by pain management on prior stay, but it was not felt she was a candidate for nerve blocks as she was not tender in typical regions for such Reached out to pain management on 08/15 regarding potential IV ketamine infusion; however, this would require patient to be transferred to ICU Note: Patient does follow with ketamine clinic on Tuesdays and , but has been unable to attend over the past month due to recurrent hospitalizations ?May also benefit from lidocaine infusion Consider transfer to [facility], which is where her headache clinic is located, if refractory to all of above #Prediabetes 07/2025 Hba1c 5.8% c/w the mildest of pre-DM No Rx needed #Obesity BMI 38 #GERD Continue pepcid #Hypothyroidism TSH 0.7 - 07/2025 Continue synthroid #Mental health/PTSD Continue all home meds, including topamax #H/o prior DVT/PE Regular INR goal range: 2-3 Hold Coumadin in setting of LP Continue to hold min 24h following LP Check a.m. H&H + PT/INR #History of stroke Right pontine as seen on prior imaging Hold Coumadin (as above) Disposition: Continued stay on MedSur telemetry VTE PPx: Coumadin on hold Admission and Anticipated Discharge Date Admission Date: August 14, 2025 Supervising Physician Co-Signing Physician Notes Attending Attestation - Chart reviewed in detail, care plan d/w ZULEMA Friedman. I agree w/ the jimenez components of his documentation. INR this am was 1.7; interventional radiology aware of INR level. Appreciate LP by IR. Opening pressure wnl making pseudotumor cerebri highly unlikely. ZERO WBCs on cell counts; no evidence of any infectious process. Cont Rx of migraine; consider Tx to [facility] if headache remains refr actory. Riley Cordon MD Subjective Mrs. Pereira is seen following her lumbar puncture. She is having a severe headache which she rates a 8 out of 10 she is also feeling quite nauseous. She denies having significant back pain at this time, but does feel like she needs to "crack her back". She is also having some double vision. She is requesting Valium and Tylenol at this time. ROS: Patient endorses severe/intractable headache, nausea, and visual changes (double vision) Patient denies fever overnight, chest pain, SOB, abdominal pain, vomiting, or changes in urinary/bowel habits. Review of Systems Review of Systems: See HPI above Physical Exam Physical Exam: General: no acute distress; pleasant affect; non-toxic appearing; cooperative; SpO2 95% on RA HEENT: normocephalic, atraumatic; PERRLA with EOMs intact; vision and hearing intact Neck: supple; trachea midline Skin: warm, dry without signs of tenting; no cyanosis; no rashes, bruising, lesions, or erythema noted CV: chest wall NTP; RRR; pulses intact and symmetric at radial, DP, and PT Lungs: no acute respiratory distress; symmetrical chest wall expansion; clear breath sounds across all lung justice w/o adventitious sounds; no wheezing ABD: Soft, NTP; BS present; no rebound/guarding; no distention MSK: no tics or fasciculations; no edema noted in the LEs b/l, nonerythematous; 5/5 motor pool clerk strength bilaterally Neuro: A&Ox3; normal mood and affect; fluent speech; sensation intact and symmetric in the LEs b/l Results & Data Results & Data Vital Signs (Past 12 Hours) Vital Signs Temp Pulse Resp BP Pulse Ox O2 Del Method 08/15/25 07:48 36.6 C 77 16 96/65 L 93 Room Air 08/15/25 02:55 36.6 C 84 18 106/72 97 Room Air PG Care Time/CCT Total # of Minutes Spent Total Time Spent with Patient: Total time spent is greater than 50% in coordination of care (as documented) at patient's floor/unit and/or counseling patient: Coding [place] [address] SUB INP/OBS CARE 3/50MIN Patient Type Established Medical Decision Making High Complexity Diagnoses Intractable chronic migraine with aura with status migrainosus G43.901 History of DVT (deep vein thrombosis) Z86.718 History of pulmonary embolism Z86.711 S/P patent foramen ovale closure Z87.74 GERD (gastroesophageal reflux disease) K21.9 PTSD (post-traumatic stress disorder) F43.10 History of CVA (cerebrovascular accident) Z86.73 Hypothyroidism E03.9 Prediabetes R73.03
--- NOTE | 2025-08-15 12:08 | Fluoroscopy Report ---
LUMBAR PUNCTURE CLINICAL HISTORY: Headaches PROCEDURE: Procedure and risks were explained. Informed consent was obtained. A final timeout was com pleted. The patient was placed prone on the fluoroscopic exam table. The lower lumbar region was prep ped and draped in sterile fashion. 1% lidocaine was utilized for skin anesthesia. Utilizing fluoroscopic guidance, a 20-gauge spinal needle was advanced into the intrathecal space at the L3-4 disc space level. Fluoroscopic spot images were obtained. Opening pressure was measured at 1 2 cm H20. Approximately 8 mL of clear CSF was removed and sent to the lab for analysis. The needle wa s removed and Band-Aid applied. The patient tolerated the procedure well. Vital signs will be monitor ed postprocedure. Fluoroscopy time 43 seconds. Study dosed is 76.7 mGy. IMPRESSION: Lumbar puncture as above. Performed, dictated, and signed by Pio Casper PA-C; to be co-signed by Dr. Ankit Gutiérrez. Electronically signed by: Ankit Gutiérrez M.D. 08/15/2025 12:56 PM
[2025-08-15 12:10] LABS: CSF Count Tube # 3; CSF Xanthrochromic No xanthochromia; Red Blood Cell CSF Manual 6 (0); White Blood Cell CSF Manual 1 (0-5)
[2025-08-15] MEDS: ACETAMINOPHEN 1,000 MG/100 ML VIAL IV STA (14:54)
[2025-08-15] MEDS: LACTATED RINGER'S 1,000 ML IV ONE ×2 (19:50→21:12)
[2025-08-15] MEDS: ALBUMIN 25% 25 GM/100 ML VIAL IV ONE (21:13)
[2025-08-16 06:43] LABS: Hematocrit (blood only) 33.6 % (37.0-47.0); Hemoglobin 11.2 g/dL (12.0-16.0); Mean Corpuscular Hemoglobin 29.7 pg (25.0-34.0); Mean Corpuscular Volume 89.1 fL (80.0-100.0); Platelet Count 112 K/uL (130-400); RDW Standard Deviation 45.9 fL (36.4-46.3); Red Blood Count 3.77 M/uL (4.20-5.40); White Blood Count 6.83 K/ul (4.8-10.8)
[2025-08-16 07:13] LABS: INR 1.4 (0.9-1.1); Prothrombin Time 14.9 Seconds (9.0-12.0)
[2025-08-16 07:21] LABS: Anion Gap 7.0 (3-11); Blood Urea Nitrogen 14.0 mg/dl (6-23); Calcium 8.4 mg/dl (8.6-10.3); Carbon Dioxide 24.0 mmol/L (21-32); Chloride 106.0 mmol/L (98-107); Creatinine Clr Calc Pharmacy 75.1 ml/min; Glucose 86.0 mg/dl (70-99(Fasting)); Potassium 3.7 mmol/L (3.5-5.1); Sodium 137.0 mmol/L (136-145)
--- NOTE | 2025-08-16 14:39 | Ultrasound Report ---
Examination: Doppler venous ultrasound of the upper extremity Comparison: None Technique: Grayscale evaluation with compression, spectral flow, and color Doppler assessment of the deep venous system of the upper extremity Findings: Normal blood flow and waveforms are demonstrated in the internal jugular, subclavian, and axillary veins. Normal compressibility of the brachial, basilic veins, radial and ulnar veins. A peripheral IV is seen in the left upper arm cephalic vein. At the forearm, the cephalic vein is noncompressible due to thrombus, involving a length of approximately 9.8 cm, which is the patient's region of interest. There is some preserved flow in the cephalic vein. Impression: No evidence for DVT of the left upper extremity Occlusive thrombus in the cephalic vein at the forearm. Electronically signed by Mook Stafford 08-16-2025 2:38 PM
[2025-08-16] MEDS: WARFARIN SOD 7.5 MG TAB PO SCH (15:32)
[2025-08-16] MEDS: LACTATED RINGER'S 1,000 ML IV SCH (15:52)
[2025-08-16] MEDS ORDERED: DEXAMETHASONE SOD INJ 4 MG/ML VIAL IV STA (16:33)
[2025-08-16] MEDS: dexAMETHasone 4 MG in SYRINGE 0 ML IV SCH (17:22)
--- NOTE | 2025-08-16 18:12 | Hospitalist Progress Note ---
Date of Service August 16, 2025 Assessment & Plan (1) Migraine with status migrainosus: (2) History of DVT (deep vein thrombosis): (3) History of pulmonary embolism: (4) S/P patent foramen ovale closure: (5) GERD (gastroesophageal reflux disease): (6) PTSD (post-traumatic stress disorder): (7) History of CVA (cerebrovascular accident): (8) Hypothyroidism: (9) Cephalic vein thrombosis, left: (10) Hypotension: Plan 50yo female with history of migraines which started after a right-sided CVA in the , history of DVT/PE on chronic coumadin, history of PFO s/p closure, hypothyroidism, GERD, and PTSD who presents with 4+ weeks of ongoing migraine headache leading to multiple ER visits and multiple hospitalizations as outlined in this H/P. #Status migraine Uncertain trigger Has had only a couple of days in the last month where she felt well Prior imaging including MRI brain and MRV negative for acute findings CTA head/neck earlier in July both normal Medications tried to date: -IV steroids -IV magnesium -Multiple anti-emetics -- zofran, compazine, phenergan, etc. -Multiple muscle relaxers -- baclofen, flexeril, etc. -Nurtec ODT -Fioricet prn -Tylenol -Toradol -IV depakote loading -DHE (adverse reaction; led to "horrific headache") Remains on topamax & magnesium orally for prophylaxis Continue Compazine 5 mg IV with Benadryl 25 mg IV q6h as this has been most effective for treatment of her status migraines in the past Given obesity, lumbar puncture performed on 08/15 r/o pseudotumor cerebri Platelet count okay at 146 Warfarin has been on hold since 08/13; INR is 1.7 on the morning of 08/15 (this was discussed with IR); despite INR >1.5, IR feel comfortable proceeding with LP at current INR level (will defer vitamin K reversal) IR consult appreciated Opening pressure measurement = 12cm (WNL) CSF fluid analysis is still currently pending Reviewed most recent head CT 07/22 and brain MRI 07/26 While prior h/o stroke, no h/o tumors, hydrocephalus, and large ventricles, midline shift, or intracerebral masses; clinically, no AMS Following lumbar puncture, patient should remain on bedrest x min 4 hours, and patient should lay flat for 60 minutes following procedure She has not had fevers or other infectious symptoms to suggest meningitis/encephalitis/infectious process - but she has had HSV fever blisters in the past (LP could not exclude such) Previously seen by pain management on 07/22, but it was not felt she was a candidate for nerve blocks as she was not tender in typical regions for such Note: Patient does follow with an intranasal ketamine clinic on Tuesdays and ([facility] in [place], [place]), but has been unable to attend over the past month due to recurrent hospitalizations Reached out to pain management on 08/15 regarding potential IV ketamine infusion; however, this would require patient to be transferred to ICU ICU feels that - with twice weekly ketamine utilization - this could represent a treatment failure on ketamine, and would favor doing a lidocaine infusion instead, as this is not been attempted before Touched base with neurology; not as familiar with lidocaine infusions as an off label therapy for status migraines; would recommend transfer for long-term management Discussed transfer with patient on the evening of 08/16; she declined transfer to [facility] at this time as she does not want to be far from her family Did offer to reach out to tertiary care facilities that were closer (such as [place] and [facility]); while patient would like to defer at this time, she we will plan to speak with her , as we have exhausted most options at present; unclear at this time if IM or intranasal ketamine would be an option Botox not done as an inpatient (outpatient) #Hypotension Intermittent hypotension throughout the day on 08/15 and 08/16 No currently on antihypertensive medications ? Adrenal insufficiency in the setting of IV steroids over the past month LR at 80 mL/hr x 1 L overnight Restart Decadron 4 mg IV BID Close monitoring of hemoglobin levels in the setting of LP with recent warfarin use (note: Patient's back was assessed on 08/16, and she does not exhibit any signs of active bleed on clinical exam) #Occlusive thrombus in the cephalic vein of the left forearm Noted on LUE Doppler on 08/16 Superficial vein; no acute intravascular intervention at this time However, we will plan to remove patient's ultrasound-guided IV that is currently in the left upper arm (attempted to contact IV team, but was unable to reach) Warm compress application to the site Supportive care #H/o prior DVT/PE Regular INR goal range: 2-3 Coumadin held 24 hours before, and 24 hours after LP INR 1.4 on the morning of 08/16 Plan to restart Coumadin at this time Trend H&H + PT/INR #Prediabetes 07/2025 Hba1c 5.8% c/w the mildest of pre-DM No Rx needed #Obesity BMI 38 Overnight pulse oximetry study ordered; ?component of hypoxia / sleep apnea #GERD Continue pepcid #Hypothyroidism TSH 0.7 - 07/2025 Continue synthroid #Mental health/PTSD Continue all home meds, including topamax #History of stroke Right pontine as seen on prior imaging Hold Coumadin (as above) Disposition: Continued stay on MedSurg telemetry VTE PPx: Restart coumadin Admission and Anticipated Discharge Date Admission Date: August 14, 2025 Supervising Physician Co-Signing Physician Notes Attending Attestation - Chart reviewed in detail, care plan d/w ZULEMA Friedman. I agree w/ the jimenez components of his documentation. Acute left cephalic vein thrombosis - remove u/s-guided IV in the area. Warm compresses. Resume coumadin. Cont Rx of status migraine. Agree with discussions with patient/pt's spouse about transfer to tertiary care. We have exhausted all Rx options at [facility]. Headache present x 30+ days at this point. Riley Cordon MD Subjective Mrs. Pereira is still having 8 of 10 headache this morning. The distribution of her headache remains the same as yesterday (bilateral starting at the temples and traveling superiorly over the top of the skull towards the occipital lobe). The pain is a constant "throbbing" pain. Patient's at bedside provides additional history. She reports that patient has been traveling to the [facility] in [place], [place] (1h NW of here) to have intranasal ketamine twice per week. She was doing well on this. She has only had IM/IV ketamine once or twice before in the [facility] ER. This was most recently done in January [address] Benoit. She has never had a lidocaine infusion before. Additionally, she was previously on Aimovig (CGRP) once monthly but switched to Emgality mid July of this past month. She does not believe the Emgality has been working. She reports minimal to no lower back pain following her LP. Her only other concern at this time is that she has pain/swelling/redness in her left forearm, and the dorsal aspect of her left hand. She does have a history of blood clots (DVT/PE in 2018), and is normally on warfarin, but this was held prior to LP. The pain in her left forearm is new over the past 24 hours. In regard to droperidol, she reports that she got severe akathisia's after taking. Her triptan rescue at home has not been working. She did not use p.o. Benadryl over the past few. ROS: Patient endorses severe/intractable headache, nausea, and visual changes (double vision) Patient denies fever overnight, chest pain, SOB, abdominal pain, vomiting, or changes in urinary/bowel habits. Review of Systems Review of Systems: See HPI above Physical Exam Physical Exam: General: no acute distress; pleasant affect; /daughters at bedside; non- toxic appearing; cooperative; SpO2 95% on RA HEENT: normocephalic, atraumatic; temples are NTP; PERRLA with EOMs intact; hearing intact Neck: supple; trachea midline Skin: warm, dry without signs of tenting; no cyanosis; no rashes, bruising, lesions, or erythema noted CV: chest wall NTP; RRR; pulses intact and symmetric at radial, DP, and PT Lungs: no acute respiratory distress; symmetrical chest wall expansion; clear breath sounds across all lung justice w/o adventitious sounds; no wheezing ABD: Soft, NTP; BS present; no rebound/guarding; no distention MSK: no tics or fasciculations; no edema noted in the LEs b/l, nonerythematous; 5/5 popcorn candy maker strength bilaterally Back: Upper spine is mildly TTP; lower spine around the LP site is NTP; no signs of hematoma, bruise, or acute bleed on the lower back or flanks bilaterally Neuro: A&Ox3; normal mood and affect; fluent speech; sensation intact and symmetric in the LEs b/l Results & Data Results & Data Vital Signs (Past 12 Hours) Vital Signs Temp Pulse Pulse Resp BP BP Pulse Ox 08/16/25 15:35 37 C 95 H 18 89/62 L 97 08/16/25 14:06 97 H 08/16/25 11:24 36.6 C 83 20 125/79 95 08/16/25 07:39 36.7 C 76 16 102/68 95 08/16/25 07:03 82 O2 Del Method 08/16/25 15:35 Room Air 08/16/25 14:06 08/16/25 11:24 Room Air 08/16/25 07:39 Room Air 08/16/25 07:03 PG Care Time/CCT Total # of Minutes Spent Total Time Spent with Patient: Total time spent is greater than 50% in coordination of care (as documented) at patient's floor/unit and/or counseling patient: Coding [place] [address] SUB INP/OBS CARE 3/50MIN Patient Type Established Medical Decision Making High Complexity Diagnoses Intractable chronic migraine with aura with status migrainosus G43.901 History of DVT (deep vein thrombosis) Z86.718 History of pulmonary embolism Z86.711 S/P patent foramen ovale closure Z87.74 GERD (gastroesophageal reflux disease) K21.9 PTSD (post-traumatic stress disorder) F43.10 History of CVA (cerebrovascular accident) Z86.73 Hypothyroidism E03.9 Cephalic vein thrombosis, left I82.612 Hypotension I95.9
[2025-08-17 08:29] LABS: Hematocrit (blood only) 38.0 % (37.0-47.0); Hemoglobin 12.5 g/dL (12.0-16.0); Immature Granulocytes # (auto) 0.07 K/uL (0.01-0.20); Immature Granulocytes % (auto) 0.6 %; Mean Corpuscular Hemoglobin 29.5 pg (25.0-34.0); Mean Corpuscular Volume 89.6 fL (80.0-100.0); Platelet Count 156 K/uL (130-400); RDW Standard Deviation 43.2 fL (36.4-46.3); Red Blood Count 4.24 M/uL (4.20-5.40); White Blood Count 11.37 K/ul (4.8-10.8)
[2025-08-17 08:44] LABS: Anion Gap 7.0 (3-11); Blood Urea Nitrogen 13.0 mg/dl (6-23); Calcium 9.3 mg/dl (8.6-10.3); Carbon Dioxide 23.0 mmol/L (21-32); Chloride 108.0 mmol/L (98-107); Creatinine Clr Calc Pharmacy 94.8 ml/min; Glucose 109.0 mg/dl (70-99(Fasting)); Potassium 4.2 mmol/L (3.5-5.1); Sodium 138.0 mmol/L (136-145)
[2025-08-17] MEDS ORDERED: DEXAMETHASONE SOD INJ 4 MG/ML VIAL IV SCH (09:00)
[2025-08-17 09:02] LABS: INR 1.2 (0.9-1.1); Prothrombin Time 13.0 Seconds (9.0-12.0)
[2025-08-17] MEDS: RIMEGEPANT SULFATE 75 MG OD TAB PO ONE (10:45)
--- NOTE | 2025-08-17 19:33 | Hospitalist Progress Note ---
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 #Status migraine Uncertain trigger Has had only a couple of days in the last month where she felt well Prior imaging including MRI brain and MRV negative for acute findings CTA head/neck earlier in July both normal Medications tried to date: -IV steroids -IV magnesium -Multiple anti-emetics -- zofran, compazine, phenergan, etc. -Multiple muscle relaxers -- baclofen, flexeril, etc. -Nurtec ODT -Fioricet prn -Tylenol -Toradol -IV depakote loading -DHE (adverse reaction; led to "horrific headache") Remains on topamax & magnesium orally for prophylaxis Continue Compazine 5 mg IV with Benadryl 25 mg IV q6h as this has been most effective for treatment of her status migraines in the past Given obesity, lumbar puncture performed on 08/15 r/o pseudotumor cerebri Opening pressure measurement = 12cm (WNL) CSF fluid analysis does not reveal evidence of acute infection Reviewed most recent head CT 07/22 and brain MRI 07/26 While prior h/o stroke, no prior h/o tumors, hydrocephalus, and large ventricles, midline shift, or intracerebral masses; clinically, no AMS Previously seen by pain management on 07/22, but it was not felt she was a candidate for nerve blocks as she was not tender in typical regions for such Note: Patient does follow with an intranasal ketamine clinic on Tuesdays and ([facility] in [place], [place]), but has been unable to attend over the past month due to recurrent hospitalizations Reached out to pain management on 08/15 regarding potential IV ketamine infusion; however, this would require patient to be transferred to ICU ICU feels that - with twice weekly ketamine utilization - this could represent a treatment failure on ketamine, and would favor doing a lidocaine infusion instead, as this is not been attempted before Touched base with neurology; not as familiar with lidocaine infusions as an off label therapy for status migraines; would recommend transfer for long-term management Discussed transfer with patient on the evening of 08/16 and 08/17; she is resistant to this idea she declined transfer to [facility] as she does not want to be far from her family Did offer to reach out to tertiary care facilities that were closer (such as [place] and [facility]); again patient declined, hoping that her current regimen will eventually improve her symptoms enough so that she can get home #Hypotension Intermittent hypotension throughout the day on 08/15 and 08/16 No currently on antihypertensive medications ? Adrenal insufficiency in the setting of IV steroids over the past month LR at 80 mL/hr x 1 L overnight Restart Decadron 4 mg IV BID Patient may require Solu-Medrol Dosepak upon discharge #Occlusive thrombus in the cephalic vein of the left forearm Noted on LUE Doppler on 08/16 Superficial vein; no acute intravascular intervention at this time However, we will plan to remove patient's ultrasound-guided IV that is currently in the left upper arm (attempted to contact IV team, but was unable to reach) Warm compress application to the site Supportive care #H/o prior DVT/PE Regular INR goal range: 2-3 Coumadin held 24 hours before, and 24 hours after LP INR 1.2 on the morning of 08/17 Continue Coumadin Trend H&H + PT/INR #Prediabetes 07/2025 Hba1c 5.8% c/w the mildest of pre-DM No Rx needed #Obesity BMI 38 Overnight pulse oximetry study ordered; ?component of hypoxia / sleep apnea #GERD Continue pepcid #Hypothyroidism TSH 0.7 - 07/2025 Continue Synthroid #Mental health/PTSD Continue all home meds, including topamax #History of stroke Right pontine as seen on prior imaging Hold Coumadin (as above) Disposition: Continued stay; while patient's migraine symptoms improving on 08/17, her visual disturbances worsened. Patient eventually hoping to drive herself home; she was informed that she is not permitted to drive herself home until these visual disturbances improved. She declines transport at this time. VTE PPx: Coumadin Admission and Anticipated Discharge Date Admission Date: August 14, 2025 Supervising Physician Co-Signing Physician Notes Attending Attestation - Chart reviewed in detail, care plan d/w ZULEMA Friedman. I agree w/ the jimenez components of his documentation. Still would advise transfer to tertiary care due to her refractory status migraine. Only option would be ketamine infusion here at [facility] but uncertain if neurology/pain management/athletic gear custodian would all agreeable to this plan. Investigate again on Monday. Riley Cordon MD Subjective Mrs. Pereira reports improvement in her headache symptoms today. She reports it is a 5 out of 10, which is the best it has been so far in the hospital. However. She is having worsening visual changes today. She describes it as "flashing lights" in both of her eyes. She has been "blinking like crazy" all morning, and this has led to restlessness and difficulty sleeping. Patient is requesting Dilaudid to help her sleep. ROS: Patient endorses intractable headache, tinnitus x 1 month, and visual changes (flashing lights) Patient denies fever overnight, chest pain, SOB, abdominal pain, nausea, vomiting, or changes in urinary/bowel habits. Review of Systems Review of Systems: See HPI above Physical Exam Physical Exam: General: no acute distress; pleasant affect; /daughters at bedside; non- toxic appearing; cooperative; SpO2 95% on RA HEENT: normocephalic, atraumatic; temples are NTP; PERRLA with EOMs intact; hearing intact; TMs are pearly monroe bilaterally Neck: supple; trachea midline Skin: warm, dry without signs of tenting; no cyanosis; no rashes, bruising, lesions, or erythema noted CV: chest wall NTP; RRR; pulses intact and symmetric at radial, DP, and PT Lungs: no acute respiratory distress; symmetrical chest wall expansion; clear breath sounds across all lung justice w/o adventitious sounds; no wheezing ABD: Soft, NTP; BS present; no rebound/guarding; no distention MSK: no tics or fasciculations; no edema noted in the LEs b/l, nonerythematous; 5/5 byproducts extractor strength bilaterally Back: Upper spine is mildly TTP; lower spine around the LP site is NTP; no signs of hematoma, bruise, or acute bleed on the lower back or flanks bilaterally Neuro: A&Ox3; normal mood and affect; fluent speech; sensation intact and symmetric in the LEs b/l Results & Data Results & Data Vital Signs (Past 12 Hours) Vital Signs Temp Pulse Pulse Resp BP BP BP 08/17/25 15:38 36.4 C L 88 18 89/66 L 08/17/25 14:01 78 08/17/25 11:31 36.5 C 87 20 109/75 08/17/25 07:55 36.3 C L 72 16 117/84 Pulse Ox O2 Del Method 08/17/25 15:38 96 Room Air 08/17/25 14:01 08/17/25 11:31 97 Room Air 08/17/25 07:55 96 Room Air PG Care Time/CCT Total # of Minutes Spent Total Time Spent with Patient: Total time spent is greater than 50% in coordination of care (as documented) at patient's floor/unit and/or counseling patient: Coding [place] [address] SUB INP/OBS CARE 3/50MIN Patient Type Established Medical Decision Making High Complexity Diagnoses Intractable chronic migraine with aura with status migrainosus G43.901 History of DVT (deep vein thrombosis) Z86.718 History of pulmonary embolism Z86.711 S/P patent foramen ovale closure Z87.74 GERD (gastroesophageal reflux disease) K21.9 PTSD (post-traumatic stress disorder) F43.10 History of CVA (cerebrovascular accident) Z86.73 Hypothyroidism E03.9 Cephalic vein thrombosis, left I82.612 Hypotension I95.9
[2025-08-18 02:58] VITALS: O2SAT 96
[2025-08-18 06:51] LABS: Hematocrit (blood only) 39.9 % (37.0-47.0); Hemoglobin 12.9 g/dL (12.0-16.0); Immature Granulocytes # (auto) 0.11 K/uL (0.01-0.20); Immature Granulocytes % (auto) 0.8 %; Mean Corpuscular Hemoglobin 29.3 pg (25.0-34.0); Mean Corpuscular Volume 90.5 fL (80.0-100.0); Platelet Count 174 K/uL (130-400); RDW Standard Deviation 44.8 fL (36.4-46.3); Red Blood Count 4.41 M/uL (4.20-5.40); White Blood Count 14.64 K/ul (4.8-10.8)
[2025-08-18 07:54] LABS: INR 1.6 (0.9-1.1); Prothrombin Time 16.0 Seconds (9.0-12.0)
--- NOTE | 2025-08-18 08:21 | Hospitalist Progress Note ---
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 #Status migraine - Uncertain trigger. Prior imaging including MRI brain and MRV negative for acute findings. CTA head/neck earlier in July both normal. Medications tried to date: IV steroids ,IV magnesium, Multiple anti-emetics, multiple muscle relaxers, Nurtec ODT, Fioricet prn, Tylenol/Toradol, IV depakote loading and DHE (led to "horrific headache") Remains on topamax & magnesium orally for prophylaxis Continue Compazine 5 mg IV with Benadryl 25 mg IV q6h as this has been most effective for treatment of her status migraines in the past Lumbar puncture 08/15 r/o pseudotumor cerebri - Opening pressure measurement = 12cm (WNL), CSF fluid analysis does not reveal evidence of acute infection Previously seen by pain management on 07/22, but it was not felt she was a candidate for nerve blocks as she was not tender in typical regions for such Neurology consulted Note: Patient does follow with an intranasal ketamine clinic on Tuesdays and ([facility] in [place], [place]), but has been unable to attend over the past month due to recurrent hospitalizations Reached out to pain management on 08/15 regarding potential IV ketamine infusion; however, this would require patient to be transferred to ICU ICU feels that - with twice weekly ketamine utilization - this could represent a treatment failure on ketamine, and would favor doing a lidocaine infusion instead, as this is not been attempted before Touched base with neurology; not as familiar with lidocaine infusions as an off label therapy for status migraines; would recommend transfer for long-term management Discussed transfer with patient on the evening of 08/16 and 08/17; she is resistant to this idea she declined transfer to [facility] as she does not want to be far from her family Did offer to reach out to tertiary care facilities that were closer (such as [place] and [facility]); again patient declined, hoping that her current regimen will eventually improve her symptoms enough so that she can get home Leukocytosis likely reactive from steorids #Hypotension - No currently on antihypertensive medications ? Adrenal insufficiency in the setting of IV steroids over the past month LR at 80 mL/hr x 1 L overnight Restart Decadron 4 mg IV BID Patient may require Solu-Medrol Dosepak upon discharge #Occlusive thrombus in the cephalic vein of the left forearm - Noted on LUE Doppler on 08/16 Superficial vein; no acute intravascular intervention at this time, besides remove patient's ultrasound-guided IV that is currently in the left upper arm Supportive care: warm compress, pain control #H/o prior DVT/PE - Regular INR goal range: 2-3, held for LP but since restarted Continue Coumadin INR 1.6 today, daily INR #Prediabetes- 07/2025 Hba1c 5.8% c/w the mildest of pre-DM #Obesity - BMI 38 Overnight pulse oximetry - no desaturations. weight loss recommended #Hypothyroidism-TSH 0.7 - 07/2025 Continue Synthroid #Mental health/PTSD Continue all home meds, including topamax Disposition: Continued stay; while patient's migraine symptoms improving on 08/17, her visual disturbances worsened. Patient eventually hoping to drive herself home; she was informed that she is not permitted to drive herself home until these visual disturbances improved. She declines transport at this time. VTE PPx: Coumadin Admission and Anticipated Discharge Date Admission Date: August 14, 2025 Results & Data Results & Data Vital Signs (Past 12 Hours) Vital Signs Temp Pulse Pulse Resp BP Pulse Ox O2 Del Method 08/18/25 07:15 78 08/18/25 02:57 98.4 F 100 H 18 86/60 L 96 Room Air 08/17/25 22:50 97.7 F 80 18 89/62 L 95 Room Air 08/17/25 21:30 81 PG Care Time/CCT Total # of Minutes Spent Total Time Spent with Patient: Total time spent is greater than 50% in coordination of care (as documented) at patient's floor/unit and/or counseling patient: Coding Diagnoses Intractable chronic migraine with aura with status migrainosus G43.901 History of DVT (deep vein thrombosis) Z86.718 History of pulmonary embolism Z86.711 S/P patent foramen ovale closure Z87.74 GERD (gastroesophageal reflux disease) K21.9 PTSD (post-traumatic stress disorder) F43.10 History of CVA (cerebrovascular accident) Z86.73 Hypothyroidism E03.9 Cephalic vein thrombosis, left I82.612 Hypotension I95.9
[2025-08-18 08:39] VITALS: BP 108/74; PULSE 72; RESP 17; TEMP 98.1
--- NOTE | 2025-08-18 10:07 | Discharge Summary ---
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 Uncertain trigger - does report 1 month long episode like this once prior in her life. Prior imaging including MRI brain and MRV negative for acute findings. CTA head/neck earlier in July both normal. Medications tried to date: IV steroids ,IV magnesium, Multiple anti-emetics, multiple muscle relaxers, Nurtec ODT, Fioricet prn, Tylenol/Toradol, IV depakote loading and DHE (led to "horrific headache"). Remains on topamax & magnesium orally for prophylaxis. Lumbar puncture 08/15 r/o pseudotumor cerebri - Opening pressure measurement = 12cm (WNL), CSF fluid analysis does not reveal evidence of acute infection. Leukocytosis likely reactive from steroids. Day of discharge, feeling well, headache is almost gone, no visual symptoms, no difficulties with appetite or bowels. Discharge home and continue normal preventative management. Follow up with specialist next week as scheduled. #Hypotension - No currently on antihypertensive medications. Recieved 1L IVF. Reports that BP normal runs low, asymptomatic. Decadron was restarted IV, with continue short taper on discharge to prevent adrenal insufficency. #Occlusive thrombus in the cephalic vein of the left forearm - Noted on LUE Doppler on 08/16. Superficial vein; no acute intravascular intervention at this time, besides remove patient's ultrasound-guided IV that is currently in the left upper arm. Supportive care with heat. #H/o prior DVT/PE - Regular INR goal range: 2-3, held for LP but since restarted. Continue Coumadin. INR 1.6 today, continue home dose coumadin. #Prediabetes- 07/2025 Hba1c 5.8% c/w the mildest of pre-DM #Obesity - BMI 38. Overnight pulse oximetry - no desaturations. weight loss josé miguel mmended - okay to continue ozempic. #Hypothyroidism-TSH 0.7 - 07/2025. 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 Patient was initially hospitalized from 07/16 to 07/17 for her status migraine. After some improvement was d/c to home but returned for an acute ER visit on 07/19 for her refractory migraine. She had multiple hospitalizations after including 07/20 to 07/24, same day admit/discharge on 07/26, another admit from 08/02 to 08/05, and most recently from 08/06 to 08/11. During her most recent stay she underwent an MRV which returned negative for dural sinus thrombosis. A combination of IV benadryl and IV compazine improved her headaches down to 1/10. She felt well on the PM of 08/11 and about half the day on 08/12 but her headaches returned last evening. Headaches are frontal in location, behind both eyes, and spread to the back of the head. They are stabbing in quality. She has scomata, and she also sees flashes of light in both eyes. No diplopia. When the headache improves the ocular disturbances improve. She has had nausea but no vomiting. No vertigo. Denies motor or sensory disturbances of the arms or legs. Denies fevers or chills. Rarely gets fever blisters, and has not had one recently. Discharge Exam General: NAD, VS as above, lying in bed, appears well Resp: normal respiratory effort, lungs clear to auscultation CV: RRR, no murmur, Abd: normal bowel sounds, non tender, soft Neuro: A&O x3, Discharge Plan Discharge Items Patient Disposition: Home - Self-Care Reason For Visit: STATUS MIGRAINE Discharge Diagnosis: Migraine Condition on Discharge: Fair Activity: Resume your previous activity Driving/Machine Use: No limitations Weightbearing: Full weightbearing Non-emergency contact: Primary Care Provider and Specialist Call non-emergency contact if: you have any medication questions, your symptoms worsen and your pain is concerning for you Follow-up/Referrals: Dionne Fletcher MD [Primary Care Provider] - (Follow up within one week ) Diet: Regular Addtl Attending Provider Instructions: Shakila, You were hospitalized after recurrent migraine. You underwent a Lumbar puncture that did not show any cause for the migraine. Continue your regular migraine prevention regimen. Keep follow up with specialist as scheduled. There was also concerns about your low blood pressure which may be exacerbated by the amount of steroids you have been on. You will be discharged on a few more days of oral steroids to wean off properly. Continue Coumadin as ordered. Activity: You can do normal everyday activities as your body allows. Take rest breaks if you feel tired. Do not overexert. Stop activity if you have pain, shortness of breath or feel dizzy. Follow-up appointments: Make an appointment with your primary care physician within one week of discharge. A copy of this summary will be sent to them. Every time you see your primary care physician, or any other doctor, bring your medication list, and a list of questions. CONTACT YOUR PRIMARY CARE PROVIDER if you experience any of the following: Shortness of breath or difficulty breathing Fevers or chills Feeling tired with normal activity or experiencing dizziness or fainting Difficulty following your treatment plan, or difficulty taking medications CALL 911 OR GO TO THE EMERGENCY DEPARTMENT if you experience any of the following: Severe abdominal pain or nausea/vomiting Severe chest pain, or chest pain that radiates (moves) to your jaw or arm Sudden, severe shortness of breath or difficulty breathing Thank you for allowing us to participate in your care. Pending Studies at Discharge: No Stand-Alone Forms: My [facility] [place], Smoking Cessation Medications and DC Order Prescriptions: New dexamethasone 2 mg tablet 2 mg PO DAILY Qty: 6 0RF Rx Instructions: take 2 tabs for two days, the one tab for 2 days in the morning Continued venlafaxine [Effexor XR] 150 mg Capsule,Extended Release 24hr 300 mg PO HS topiramate 200 mg Capsule,Extended Release 24hr 200 mg PO HS alprazolam 0.25 mg tablet 0.25 mg PO DAILY PRN (Reason: Anxiety) epinephrine 0.3 mg/0.3 mL auto-injector 0.3 mg IM Q4H PRN (Reason: anaphylaxis) Qty: 2 0RF ondansetron 4 mg tablet,disintegrating 4 mg PO Q6H PRN (Reason: nausea and vomiting) Qty: 15 0RF famotidine 40 mg tablet 20 mg PO HS Ozempic 0.25 mg or 0.5 mg (2 mg/3 mL) pen injector 0.5 mg SUBCUT WK Rx Instructions: SATURDAYS diazepam 5 mg Tablet 5 mg PO BID PRN (Reason: Headache or muscle spasm) Qty: 10 0RF levothyroxine 88 mcg tablet 88 mcg PO DAILYBB magnesium oxide 400 mg (241.3 mg magnesium) Tablet 400 mg PO QAM Qty: 30 0RF prochlorperazine maleate [Compazine] 10 mg tablet 10 mg PO Q8H PRN (Reason: headache) Qty: 30 0RF riboflavin (vitamin B2) 400 mg tablet 400 mg PO DAILY Qty: 30 0RF aripiprazole 5 mg Tablet 5 mg PO HS diphenhydramine HCl [Benadryl] 25 mg capsule 50 mg PO Q8H PRN (Reason: nausea and vomiting or migraine headache) Rx Instructions: Yozi-axw-srszqpt lidocaine [Lidoderm] 5 % adhesive patch,medicated 1 patch topical DAILY PRN (Reason: Pain) Rx Instructions: leave on most painful area for up to 12 hrs warfarin 10 mg Tablet 10 mg PO 5XWK Rx Instructions: SUN, MON, WED, THUR, & FRI warfarin 7.5 mg Tablet 7.5 mg PO 2XWK Rx Instructions: ES & MON cyclobenzaprine 10 mg Tablet 10 mg PO BID PRN (Reason: tension headache) Qty: 10 0RF Discontinued methylprednisolone [Medrol (Sever[place])] 4 mg tablets,dose pack 4 mg PO DAILY Qty: 21 0RF Rx Instructions: PER PT "NEVER PICKED UP FROM PHARMACY Day 1: 24 mg (6 tablets of 4 mg each) Day 2: 20 mg (5 tablets of 4 mg each) Day 3: 16 mg (4 tablets of 4 mg each) Day 4: 12 mg (3 tablets of 4 mg each) Day 5: 8 mg (2 tablets of 4 mg each) Day 6: 4 mg (1 tablet of 4 mg) Discharge Orders: Discharge Order (Routine); Ordered 08/18/25 Ordered By: Yareli [place]/Other Patient Handouts: Dexamethasone Oral Tablet Admission Data Admit Date/Time: 08/14/25 14:57 Attending Provider: Riley Cordon Admit Provider: Riley Cordon Primary Care Provider: Dionne Fletcher Other Providers: [facility]; Julisa Stern Other Interventions: Discharge Summary Assessment (RN) Last Done: 08/18/25 10:31 Hospital Stay Data Consultations 08/13/25 17:27 ED Decision to Admit Stat 08/17/25 16:32 Consult Neurology Routine Diagnostic Imagining Performed Lumbar Puncture 08/15/25 12:00 LUMBAR PUNCTURE CLINICAL HISTORY: Headaches PROCEDURE: Procedure and risks were explained. Informed consent was obtained. A final timeout was completed. The patient was placed prone on the fluoroscopic exam table. The lower lumbar region was prepped and draped in sterile fashion. 1% lidocaine was utilized for skin anesthesia. Utilizing fluoroscopic guidance, a 20-gauge spinal needle was advanced into the intrathecal space at the L3-4 disc space level. Fluoroscopic spot images were obtained. Opening pressure was measured at 12 cm H20. Approximately 8 mL of clear CSF was removed and sent to the lab for analysis. The needle was removed and Band-Aid applied. The patient tolerated the procedure well. Vital signs will be monitored postprocedure. Fluoroscopy time 43 seconds. Study dosed is 76.7 mGy. IMPRESSION: Lumbar puncture as above. Performed, dictated, and signed by Pio Casper PA-C; to be co-signed by Dr. Ankit Gutiérrez. Electronically signed by: Ankit Gutiérrez M.D. 08/15/2025 12:56 PM Extremity Venous Study 08/16/25 12:07 Examination: Doppler venous ultrasound of the upper extremity Comparison: None Technique: Grayscale evaluation with compression, spectral flow, and color Doppler assessment of the deep venous system of the upper extremity Findings: Normal blood flow and waveforms are demonstrated in the internal jugular, subclavian, and axillary veins. Normal compressibility of the brachial, basilic veins, radial and ulnar veins. A peripheral IV is seen in the left upper arm cephalic vein. At the forearm, the cephalic vein is noncompressible due to thrombus, involving a length of approximately 9.8 cm, which is the patient's region of interest. There is some preserved flow in the cephalic vein. Impression: No evidence for DVT of the left upper extremity Occlusive thrombus in the cephalic vein at the forearm. Electronically signed by Mook Stafford 08-16-2025 2:38 PM Pending Results Patient Have Any Pending Studies at Discharge: No Discharge Instructions Given to Patient (Per Discharging Provider) Shakila, Evelio were hospitalized after recurrent migraine. You underwent a Lumbar puncture that did not show any cause for the migraine. Continue your regular migraine prevention regimen. Keep follow up with specialist as scheduled. There was also concerns about your low blood pressure which may be exacerbated by the amount of steroids you have been on. You will be discharged on a few more days of oral steroids to wean off properly. Continue Coumadin as ordered. Activity: You can do normal everyday activities as your body allows. Take rest breaks if you feel tired. Do not overexert. Stop activity if you have pain, shortness of breath or feel dizzy. Follow-up appointments: Make an appointment with your primary care physician within one week of discharge. A copy of this summary will be sent to them. Every time you see your primary care physician, or any other doctor, bring your medication list, and a list of questions. CONTACT YOUR PRIMARY CARE PROVIDER if you experience any of the following: Shortness of breath or difficulty breathing Fevers or chills Feeling tired with normal activity or experiencing dizziness or fainting Difficulty following your treatment plan, or difficulty taking medications CALL 911 OR GO TO THE EMERGENCY DEPARTMENT if you experience any of the following: Severe abdominal pain or nausea/vomiting Severe chest pain, or chest pain that radiates (moves) to your jaw or arm Sudden, severe shortness of breath or difficulty breathing Thank you for allowing us to participate in your care. Supervising Physician Co-Signing Physician Notes Attending Attestation and Discharge note: Chart reviewed in detail, discharge care plan d/w ZULEMA Pablo. I agree w/ the jimenez components of her discharge documentation. Of note - I did not perform a bedside visit or exam on day of discharge. 50yo female chronic migraines - followed by the [facility] for such. 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 Presented with 4+ weeks of ongoing migraine headache leading to multiple ER visits and multiple hospitalizations. NUMEROUS IV/PO medicines have been utilized during this time period with temporary relief of symptoms but her headaches then return prompting return to the [facility] ER. During this admission she was treated once again with various anti-emetics, IV steroids, etc. She underwent lumbar puncture to exclude signs of pseudotumor cerebri and any infectious/inflammatory etiology for her headaches. Opening pressure on the LP was wnl. Cell counts with zero WBCs. Brain MRI on 07/26/25 was wnl. MRV on 08/08/25 was wnl. CTA head/neck on 07/22/25 were both wnl. To be complete we performed an overnight oximetry study to ensure nocturnal hypoxia was not driving some of her headaches. This returned normal. Given that [facility] had exhausted nearly all avenues of Rx for her status migraine we recommended to Ms Pina to consider transfer to the [facility] or [facility] for ongoing care. During these conversations she declined such transfer. Over time her headache gradually improved to the point where it was felt she could safely return home. At discharge she will - -complete a steroid taper -f/u with the [facility] Neurology clinic for outpatient ketamine infusion therapy -- this is already scheduled for shortly after discharge Despite improving she is at high risk of recurrent admission. Riley Cordon MD Total Time Total Time Spent Total Time Spent (In Minutes): Time spent day of discharge 35 minutes including direct patient care, medication reconciliation, documentation, review of labs and images, and coordination of care. Coding Level of Care Code 30568 INP/OBS DISCH >30 MIN Diagnoses Intractable chronic migraine with aura with status migrainosus G43.901 History of DVT (deep vein thrombosis) Z86.718 History of pulmonary embolism Z86.711 S/P patent foramen ovale closure Z87.74 GERD (gastroesophageal reflux disease) K21.9 PTSD (post-traumatic stress disorder) F43.10 History of CVA (cerebrovascular accident) Z86.73 Hypothyroidism E03.9 Cephalic vein thrombosis, left I82.612 Hypotension I95.9
== END 2025-08-18 10:52 | disposition home or self-care (01) | DRG 103 ==
LOC: ED 15:04 → 2N 15:04

== ENCOUNTER 2025-09-04 16:29 | Observation (INO) ==
--- NOTE | 2025-09-04 16:52 | Emergency Department Note ---
Impression & Plan Intractable migraine ED Provider Note HISTORY OF PRESENT ILLNESS: Patient is a 50-year-old female presenting with a headache. Patient reports she has been having a persistent migraine for the last 2 months. She was just discharged from the hospital 4 days ago. She states that this recurrence of her migraines started 2 days ago. Reports that she seeing flashing lights and "sees bright lights in my vision even when my eyes are closed." She states that she tried taking Zofran and her triptan medication at home with little relief in her symptoms. She denies any recent falls or head injuries. Denies any fevers or chills. ROS: as above PHYSICAL EXAM: Constitutional: Patient appears in no acute distress. HENT: Head: Normocephalic and atraumatic. Eyes: EOMI, PERRL Mouth/Throat: Mucous membranes moist. Neck: Trachea midline. Neck supple. Cardiovascular: RRR, No murmurs, rubs or gallops. Intact distal pulses. Pulmonary/Chest: No respiratory distress. Breath sounds clear and equal bilaterally. No wheezes or rales. Abdominal: Abdomen soft, no tenderness, rebound or guarding. Musculoskeletal: No edema, tenderness or deformity noted. Skin: Warm and dry. No rash, erythema, pallor or cyanosis Psychiatric: Appropriate mood and affect for situation. Neurological: Alert and keenly responsive. CN II-XII grossly intact, moving all extremities equally and fully. MDM: - Vitals signs showed hypertension. - History obtained via patient. History as above. - Chronic conditions affecting care: CVA; recurrent migraines; hypothyroidism - Differential diagnoses include, but are not limited to: Electrolyte abnormality; viral syndrome; dehydration; intracranial hemorrhage; CVA - Order placed for continuous cardiac monitoring. At this time, monitor showed rate of 88 bpm with normal sinus rhythm, per my interpretation. - External medical records reviewed. Discharge summary dated 08/31/2025 was reviewed. Patient was admitted at that time for migraine with status migrainosus. She has had 7 hospitalizations this year for her ongoing migraine history. She had an MRV which showed no central venous thrombus. She had an LP which was negative for any acute abnormality. - IV access was obtained by IV team. However, significant delay in obtaining laboratory workup secondary to patient's vasculature. - Laboratory workup interpreted by myself showed normal WBC; stable electrolytes; normal AST/ALT - COVID/flu/RSV negative. - Patient was given 1 L normal saline, 1 g IV magnesium, 25 mg IV Benadryl and 5 mg IV Compazine on arrival. However, on reassessment she is still complaining that her headache is still the same. It has had no improvement with the IV medication interventions. Patient reports "I think I just need to be admitted to the hospital again and have a few more doses of those medicines." - Discussion was had with outpatient case manager about patient's case and need for admission - Hospitalist consulted for admission - Patient admitted to [facility] service for further evaluation and management. ASSESSMENT AND PLAN: Diagnosis: Intractable migraine Plan: Admit Past Med/Surg History Problem List (Updated 09/04/25 @ 19:21 by Valerie Jeronimo MD) Intractable migraine (Acute) Insomnia History of CVA (cerebrovascular accident) History of DVT (deep vein thrombosis) Migraine with status migrainosus Anticoagulated on Coumadin Migraine (Acute) Smell or taste sensation disturbance Headache (Acute) Phlebitis of right upper extremity (Acute) Headache (Acute) Hypokalemia due to excessive gastrointestinal loss of potassium (Acute) Old cerebrovascular accident (CVA) without late effect Medical History Hypotension Cephalic vein thrombosis, left Chronic anticoagulation Migraine with status migrainosus Intractable migraine GERD (gastroesophageal reflux disease) PTSD (post-traumatic stress disorder) Prediabetes Anticoagulation goal of INR 2 to 3 History of CVA (cerebrovascular accident) Hypothyroidism Migraine with acute onset aura History of DVT (deep vein thrombosis) History of pulmonary embolism C. difficile colitis Migraine Surgical History History of mastectomy S/P ROSALES-BSO S/P patent foramen ovale closure History of cholecystectomy History of appendectomy Family History Brother Chronic headaches Social History Smoking Status: Never smoker Second Hand Exposure: No; Do You Dip or Chew Tobacco: No; Hx Alcohol Use: No Hx Substance Use: No Preferred Language: Danish Communication Ability: Effective Wildlife And Game Protector Required: No Beliefs That Will Affect Care: None marital status: Current Living Situation: Family Current Living Situation Comment: Lives with spouse and child (15 month old daughter) current occupational status: disabled current occupation: was in the [employer] other: lives in [place] Feels Safe at Home: Yes Assistive Devices: Walker and Wheelchair Allergies Allergies Allergy/AdvReac Type Severity Reaction Status Date / Time shellfish derived Allergy Severe Swelling Verified 08/06/25 16:00 of Lip/Tongue/Throat dihydroergotamine AdvReac Intermediate Severe Verified 08/14/25 14:56 headache prochlorperazine AdvReac Intermediate caused Verified 08/06/25 16:00 [From Compazine] restless leg syndrome promethazine [From Phenergan] AdvReac Intermediate restless Verified 08/06/25 16:00 leg syndrome Home Meds Home Medications Medication Instructions Recorded Confirmed topiramate 200 mg capsule,extended 200 mg PO HS 10/07/20 08/23/25 release 24 hr venlafaxine 150 mg 300 mg PO HS 10/07/20 08/23/25 capsule,extended release 24 hr (Effexor XR) alprazolam 0.25 mg tablet 0.25 mg PO DAILY PRN Anxiety 09/01/23 08/23/25 famotidine 40 mg tablet 20 mg PO HS 03/23/24 08/23/25 semaglutide 0.25 mg or 0.5 mg (2 0.5 mg subcut WK 03/23/24 08/23/25 mg/3 mL) subcutaneous pen injector (Ozempic) aripiprazole 5 mg tablet 5 mg PO HS 06/04/24 08/23/25 diphenhydramine HCl 25 mg capsule 50 mg PO Q8H PRN nausea and 07/16/25 08/23/25 (Benadryl) vomiting or migraine headache lidocaine 5 % topical patch 1 patch topical DAILY PRN Pain 07/16/25 08/23/25 (Lidoderm) warfarin 10 mg tablet 10 mg PO 5XWK 07/16/25 08/23/25 warfarin 7.5 mg tablet 7.5 mg PO 2XWK 07/16/25 08/23/25 levothyroxine 88 mcg tablet 88 mcg PO DAILYBB 08/02/25 08/23/25 Previous Rx's Medication Instructions Recorded epinephrine 0.3 mg/0.3 mL 0.3 mg (0.3 mL) IM Q4H PRN 07/17/23 injection, auto-injector anaphylaxis #2 ea ondansetron 4 mg disintegrating 4 mg PO Q6H PRN nausea and 09/18/23 tablet vomiting #15 tabs cyclobenzaprine 10 mg tablet 10 mg PO BID PRN tension headache 07/26/25 #10 tabs magnesium oxide 400 mg (241.3 mg 400 mg PO QAM #30 tabs 08/05/25 magnesium) tablet prochlorperazine maleate 10 mg 10 mg PO Q8H PRN headache #30 tabs 08/05/25 tablet (Compazine) riboflavin (vitamin B2) 400 mg 400 mg PO DAILY #30 tabs 08/05/25 tablet trazodone 50 mg tablet 50 mg PO HS PRN insomnia #14 tabs 08/29/25 Results & Data (ED) Vital Signs Vital Signs - 24 hr 09/04/25 16:32 09/04/25 18:11 09/04/25 18:40 Temperature 36.7 C Temperature Source Temporal Artery Scan Pulse Rate 97 H 90 Pulse Rate [Apical] 88 Respiratory Rate 16 18 Respiratory Effort / Characteristics Non-Labored Spontaneous Respiratory Depth Normal Blood Pressure 117/78 Blood Pressure [Left Arm] 104/71 Blood Pressure Mean 91 Blood Pressure Mean [Left Arm] 82 Pulse Oximetry 98 94 Oxygen Delivery Method Room Air Room Air Sepsis Recent Fever Within 48 Hours No Sepsis New/Unexplained Change in Mental Status No Sepsis Action Taken by Nursing No Action Required Laboratory Data 09/04/25 18:41 09/04/25 18:41 Lab Results 09/04/25 09/04/25 Range/Units 17:26 18:41 WBC 9.43 (4.8-10.8) K/ul RBC 3.25 L (4.20-5.40) M/uL Hgb 9.5 L (12.0-16.0) g/dL Hct 29.6 L (37.0-47.0) % MCV 91.1 (80.0-100.0) fL MCH 29.2 (25.0-34.0) pg MCHC 32.1 (32.0-36.0) g/dL RDW Std Deviation 48.1 H (36.4-46.3) fL RDW Coeff of Wilmer 14.6 H (11.5-14.5) % Plt Count 159 (130-400) K/uL MPV 9.7 (9.4-12.4) fL Immature Gran % (Auto) 0.5 % Neut % (Auto) 72.2 % Lymph % (Auto) 17.7 % [place] % (Auto) 7.7 % Eos % (Auto) 1.6 % Baso % (Auto) 0.3 % Neut # (Auto) 6.80 H (1.40-6.50) K/uL Lymph # (Auto) 1.67 (1.20-3.40) K/uL [place] # (Auto) 0.73 H (0.11-0.59) K/uL Eos # (Auto) 0.15 (0.00-0.50) K/uL Baso # (Auto) 0.03 (0.00-0.20) K/uL Immature Gran # (Auto) 0.05 (0.01-0.20) K/uL Sodium 141 (136-145) mmol/L Potassium 3.8 (3.5-5.1) mmol/L Chloride 109 H (98-107) mmol/L Carbon Dioxide 26 (21-32) mmol/L Anion Gap 6 (3-11) BUN 12 (6-23) mg/dl Creatinine 1.16 (0.6-1.2) mg/dl Est Cr Clr Drug Dosing 64.9 ml/min eGFR 57.79 BUN/Creatinine Ratio 10.3 (10-20) Glucose 82 (70-99(Fasting)) mg/dl Calcium 8.7 (8.6-10.3) mg/dl Magnesium 2.4 (1.7-2.4) mg/dl Total Bilirubin 0.3 (0.2-1.0) mg/dl AST 16 (13-39) U/L ALT 42 (7-52) U/L Alkaline Phosphatase 78 (34-104) U/L Total Protein 6.9 (6.0-8.3) gm/dl Albumin 3.6 (3.4-5.0) gm/dl Globulin 3.3 (2.5-4.0) gm/dl Albumin/Globulin Ratio 1.1 (0.9-2) SARS-CoV-2 (PCR) NEGATIVE (Negative) Influenza Type A (PCR) Negative (Neg) Influenza Type B (PCR) Negative (Neg) RSV (RT-PCR) Negative (Neg) Administered Medications Discontinued Medications Diphenhydramine HCl (Diphenhydramine 50 Mg/Ml Vial) 25 mg IV NOW STA Stop: 09/04/25 16:41 Last Admin: 09/04/25 17:17 Dose: 25 mg Documented By: CEF Sodium Chloride (Nss) 1,000 mls @ 999 mls/hr IV .Q1H1M ONE Stop: 09/04/25 17:40 Last Infusion: 09/04/25 19:00 Dose: Infused Documented By: DLNita Admin: 09/04/25 17:19 Dose: 999 mls/hr Documented By: CEF Magnesium Sulfate/Dextrose (Magnesium Sulfate / D5w) 1 gm in 100 mls @ 100 mls/hr IV NOW STA Stop: 09/04/25 17:39 Last Infusion: 09/04/25 19:00 Dose: Infused Documented By: DLNita Admin: 09/04/25 17:21 Dose: 100 mls/hr Documented By: CEF Prochlorperazine (Compazine) 1 mls @ 1 mls/min IV ONE ONE Stop: 09/04/25 16:41 Last Admin: 09/04/25 17:15 Dose: 1 mls/min Documented By: CEF Discharge Plan Visit Data Chief Complaint: Headache Stated Complaint: MIGRAINE ED Provider: Valerie Jeronimo Discharge Problem: Intractable migraine Patient Disposition: Admitted As Inpatient Condition: Fair Forms Stand Alone Forms: [facility], Important Visit Information Prescriptions Prescriptions: No Action venlafaxine [Effexor XR] 150 mg Capsule,Extended Release 24hr 300 mg PO HS topiramate 200 mg Capsule,Extended Release 24hr 200 mg PO HS alprazolam 0.25 mg tablet 0.25 mg PO DAILY PRN (Reason: Anxiety) epinephrine 0.3 mg/0.3 mL auto-injector 0.3 mg IM Q4H PRN (Reason: anaphylaxis) Qty: 2 0RF ondansetron 4 mg tablet,disintegrating 4 mg PO Q6H PRN (Reason: nausea and vomiting) Qty: 15 0RF famotidine 40 mg tablet 20 mg PO HS Ozempic 0.25 mg or 0.5 mg (2 mg/3 mL) pen injector 0.5 mg SUBCUT WK Rx Instructions: SATURDAYS levothyroxine 88 mcg tablet 88 mcg PO DAILYBB magnesium oxide 400 mg (241.3 mg magnesium) Tablet 400 mg PO QAM Qty: 30 0RF prochlorperazine maleate [Compazine] 10 mg tablet 10 mg PO Q8H PRN (Reason: headache) Qty: 30 0RF riboflavin (vitamin B2) 400 mg tablet 400 mg PO DAILY Qty: 30 0RF aripiprazole 5 mg Tablet 5 mg PO HS diphenhydramine HCl [Benadryl] 25 mg capsule 50 mg PO Q8H PRN (Reason: nausea and vomiting or migraine headache) Rx Instructions: [id number] lidocaine [Lidoderm] 5 % adhesive patch,medicated 1 patch topical DAILY PRN (Reason: Pain) Rx Instructions: leave on most painful area for up to 12 hrs warfarin 10 mg Tablet 10 mg PO 5XWK Rx Instructions: SUN, MON, WED, THUR, & FRI warfarin 7.5 mg Tablet 7.5 mg PO 2XWK Rx Instructions: TUES & MON cyclobenzaprine 10 mg Tablet 10 mg PO BID PRN (Reason: tension headache) Qty: 10 0RF trazodone 50 mg tablet 50 mg PO HS PRN (Reason: insomnia) Qty: 14 0RF Rx Instructions: Take 1 tablet by mouth at bedtime as needed for insomnia Referrals Referrals: Dionne Fletcher MD [Primary Care Provider] -
[2025-09-04] MEDS: PROCHLORPERAZINE 1 ML IV ONE ×2 (17:15→20:29)
[2025-09-04] MEDS: diphenhydrAMINE 50 MG/ML VIAL IV STA ×2 (17:17→20:28)
[2025-09-04] MEDS: SODIUM CHLORIDE 0.9% 1,000 ML IV ONE (17:19)
[2025-09-04] MEDS: MAGNESIUM SULFATE / D5W 1 GM/100 ML BAG IV STA (17:21)
[2025-09-04 18:32] LABS: Influenza A virus by PCR Negative (Neg); Influenza B virus by PCR Negative (Neg); SARS CoV2 RNA(COVID-19) Ceph NEGATIVE (Negative)
[2025-09-04 19:01] LABS: Hematocrit (blood only) 29.6 % (37.0-47.0); Hemoglobin 9.5 g/dL (12.0-16.0); Immature Granulocytes # (auto) 0.05 K/uL (0.01-0.20); Immature Granulocytes % (auto) 0.5 %; Mean Corpuscular Hemoglobin 29.2 pg (25.0-34.0); Mean Corpuscular Volume 91.1 fL (80.0-100.0); Platelet Count 159 K/uL (130-400); RDW Standard Deviation 48.1 fL (36.4-46.3); Red Blood Count 3.25 M/uL (4.20-5.40); White Blood Count 9.43 K/ul (4.8-10.8)
[2025-09-04 19:19] LABS: Alanine Aminotransferase 42.0 U/L (7-52); Albumin Globulin Ratio 1.1 (0.9-2); Albumin Level 3.6 gm/dl (3.4-5.0); Alkaline Phosphatase 78.0 U/L (34-104); Anion Gap 6.0 (3-11); Bilirubin,Total 0.3 mg/dl (0.2-1.0); Blood Urea Nitrogen 12.0 mg/dl (6-23); Calcium 8.7 mg/dl (8.6-10.3); Carbon Dioxide 26.0 mmol/L (21-32); Chloride 109.0 mmol/L (98-107); Creatinine Clr Calc Pharmacy 64.9 ml/min; Globulin 3.3 gm/dl (2.5-4.0); Glucose 82.0 mg/dl (70-99(Fasting)); Magnesium 2.4 mg/dl (1.7-2.4); Potassium 3.8 mmol/L (3.5-5.1); Sodium 141.0 mmol/L (136-145); Total Protein 6.9 gm/dl (6.0-8.3)
[2025-09-04] MEDS: ACETAMINOPHEN 1,000 MG/100 ML VIAL IV STA (19:27)
--- NOTE | 2025-09-04 20:02 | History & Physical Report ---
Date of Service September 04, 2025 Assessment & Plan (1) Migraine with status migrainosus: (2) GERD (gastroesophageal reflux disease): (3) PTSD (post-traumatic stress disorder): Plan 50yo female with history of migraine with status migrainosus, prior CVA, prior DVT/PE on Coumadin, GERD and PTSD presenting with ongoing migraine for the last two months. She does have episodes of worsening as well as times of improvement, although headache never fully resolves. Worsening symptoms over the last day. #Migraine -Observation to medical -Hydration with LR at 125mL/hr x 2L -Toradol 15mg IV q 6 hours PRN -Compazine 5mg IV q 6 hours PRN -Benadryl 25mg IV q 8 hours PRN -Flexeril 10mg po BID PRN -Continue Topamax 200mg po qHS -Continue Magnesium 400mg po daily #LLE discomfort - patient reports having a peripheral IV in her left leg during her last hospital admission. States that she has some discomfort at the site as well as itching and her calf on that side feels funny. No swelling. Does not examine as phlebitis -Warm compresses for comfort -Check doppler LLE #Anemia - patient with Hgb=9.5, Hct=29.4 - decreased from 12.5 and 37.9, respectively on 08/23. No bleeding reported. Patient is on Coumadin -Check iron studies -CBC in AM #Chronic anticoagulation with Coumadin -Continue Coumadin at home regimen -Check INR in AM #GERD -Continue Pepcid 20mg po qHS #PTSD/Mental health -Continue Venlafaxine 300mg po qHS -Continue Abilify 7.5mg po qHS -Xanax 0.25mg po daily PRN #Hypothyroidism - TSH last normal at 0.734 in July -Continue Synthroid 88mcg po daily History of Present Illness Chief Complaint: migraine headache Primary Care Provider: Dionne Fletcher MD Whit Pina is a 50yo female presenting with ongoing migraine headache since June. Patient has been admitted multiple times to the hospital for the same (07/16/25, 07/20/25, 08/02/25, 08/06/25, 08/13/25, 08/23/25 and today 09/04/25). Patient follows with [facility]. She is compliant with her medications - on Topamax and Magnesium daily at home with PRN Compazine, Benadryl, Flexeril as well as Tylenol and Ibuprofen. She is seen at [facility] for intranasal Ketamine on Tuesdays and . She is scheduled to have a Botox injection on 09/23/25 - has never tried Botox before for her migraine. Patient reports ongoing headache since July 10. Headache has been constant in nature never fully resolving with acute worsening. Her pain is mainly on the right side of her head behind her right eye and down her neck. Today the pain was increased and she had flashing lights in her eyes obscuring her vision. She has had severe nausea since this morning around 0 with several episodes of vomiting. She reports taking her rescue medications - Flexeril, Benadryl, Zofran, Tylenol, Ibuprofen but vomited shortly after. No fever, chills, neck stiffness, trauma. No numbness, tingling, weakness. No additional complaints at this time. In the ER patient afebrile, HD stable ER Course: Benadryl Magnesium Compazine NSS TYlenol Allergies Allergy/AdvReac Type Severity Reaction Status Date / Time shellfish derived Allergy Severe Swelling Verified 08/06/25 16:00 of Lip/Tongue/Throat dihydroergotamine AdvReac Intermediate Severe Verified 08/14/25 14:56 headache prochlorperazine AdvReac Intermediate caused Verified 08/06/25 16:00 [From Compazine] restless leg syndrome promethazine [From Phenergan] AdvReac Intermediate restless Verified 08/06/25 16:00 leg syndrome Home Medications Medication Instructions Recorded Confirmed Type topiramate 200 mg capsule,extended 200 mg PO HS 10/07/20 09/04/25 History release 24 hr venlafaxine 150 mg 300 mg PO HS 10/07/20 09/04/25 History capsule,extended release 24 hr (Effexor XR) epinephrine 0.3 mg/0.3 mL 0.3 mg (0.3 mL) IM Q4H PRN 07/17/23 09/04/25 Rx injection, auto-injector anaphylaxis #2 ea alprazolam 0.25 mg tablet 0.25 mg PO DAILY PRN Anxiety 09/01/23 09/04/25 History ondansetron 4 mg disintegrating 4 mg PO Q6H PRN nausea and 09/18/23 09/04/25 Rx tablet vomiting #15 tabs famotidine 40 mg tablet 20 mg PO HS 03/23/24 09/04/25 History semaglutide 0.25 mg or 0.5 mg (2 0.5 mg subcut WK 03/23/24 09/04/25 History mg/3 mL) subcutaneous pen injector (Ozempic) aripiprazole 5 mg tablet 5 mg PO HS 06/04/24 09/04/25 History diphenhydramine HCl 25 mg capsule 50 mg PO Q8H PRN nausea and 07/16/25 09/04/25 History (Benadryl) vomiting or migraine headache lidocaine 5 % topical patch 1 patch topical DAILY PRN Pain 07/16/25 09/04/25 History (Lidoderm) warfarin 10 mg tablet 10 mg PO 5XWK 07/16/25 09/04/25 History warfarin 7.5 mg tablet 7.5 mg PO 2XWK 07/16/25 09/04/25 History cyclobenzaprine 10 mg tablet 10 mg PO BID PRN tension headache 07/26/25 09/04/25 Rx #10 tabs levothyroxine 88 mcg tablet 88 mcg PO DAILYBB 08/02/25 09/04/25 History magnesium oxide 400 mg (241.3 mg 400 mg PO QAM #30 tabs 08/05/25 09/04/25 Rx magnesium) tablet prochlorperazine maleate 10 mg 10 mg PO Q8H PRN headache #30 tabs 08/05/25 09/04/25 Rx tablet (Compazine) riboflavin (vitamin B2) 400 mg 400 mg PO DAILY #30 tabs 08/05/25 09/04/25 Rx tablet trazodone 50 mg tablet 50 mg PO HS PRN insomnia #14 tabs 08/29/25 09/04/25 Rx Past Med/Surg History Problem List Intractable migraine (Acute) Insomnia History of CVA (cerebrovascular accident) History of DVT (deep vein thrombosis) Migraine with status migrainosus Anticoagulated on Coumadin Migraine (Acute) Smell or taste sensation disturbance Headache (Acute) Phlebitis of right upper extremity (Acute) Headache (Acute) Hypokalemia due to excessive gastrointestinal loss of potassium (Acute) Old cerebrovascular accident (CVA) without late effect Medical History Hypocalcemia Hypotension Cephalic vein thrombosis, left Chronic anticoagulation Intractable migraine GERD (gastroesophageal reflux disease) PTSD (post-traumatic stress disorder) Prediabetes Anticoagulation goal of INR 2 to 3 Hypothyroidism Migraine with acute onset aura History of pulmonary embolism C. difficile colitis Migraine Surgical History History of mastectomy S/P ROSALES-BSO S/P patent foramen ovale closure History of cholecystectomy History of appendectomy Family History Brother Chronic headaches Social History Smoking Status: Never smoker Second Hand Exposure: No; Do You Dip or Chew Tobacco: No; Hx Alcohol Use: No Hx Substance Use: No Preferred Language: Kazakh Communication Ability: Effective Press Tender Smoke Signal Required: No Beliefs That Will Affect Care: None marital status: Current Living Situation: Family Current Living Situation Comment: Lives with spouse and child (15 month old daughter) current occupational status: disabled current occupation: was in the [employer] other: lives in [place] Feels Safe at Home: Yes Assistive Devices: Walker and Wheelchair Review of Systems Review of Systems: All systems reviewed & are unremarkable except as noted in HPI & below Physical Exam Physical Exam: General: patient resting comfortably, NAD, non-toxic in appearance, AA&O x 4 Skin: warm, dry, intact, no rashes or lesions HEENT: NC/AT, PERRL, EOMI, anicteric sclera, conjunctiva without injection, external ear normal to inspection and nontender, nares patent, moist mucus membranes, dentition intact, no oropharyngeal lesions, neck supple, trachea midline, no LAD, no thyromegaly, no JVD, no muscular tenderness in posterior cervical/occipital region Heart: +S1/S2, regular, no m/r/g Lungs: equal air entry bilaterally, no rales/rhonchi/wheezes Abd: +BS, soft, NT/ND, no masses/organomegaly/ascites Ext: warm, 2+ pulses in UE/LE bilaterally, no clubbing/cyanosis or edema Neuro: nonfocal, patient AA&O x 4, speech intact, no facial droop, moving all extremities on command with equal strength 5/5 Results & Data Results & Data Vital Signs (Past 12 Hours) Vital Signs Temp Pulse Pulse Resp BP BP Pulse Ox 09/04/25 18:40 88 18 104/71 94 09/04/25 18:11 90 09/04/25 16:32 36.7 C 97 H 16 117/78 98 O2 Del Method 09/04/25 18:40 Room Air 09/04/25 18:11 09/04/25 16:32 Room Air Laboratory Results Laboratory Results WBC 9.43 K/ul (4.8-10.8) 09/04/25 18:41 RBC 3.25 M/uL (4.20-5.40) L 09/04/25 18:41 Hgb 9.5 g/dL (12.0-16.0) L 09/04/25 18:41 Hct 29.6 % (37.0-47.0) L 09/04/25 18:41 MCV 91.1 fL (80.0-100.0) 09/04/25 18:41 MCH 29.2 pg (25.0-34.0) 09/04/25 18:41 MCHC 32.1 g/dL (32.0-36.0) 09/04/25 18:41 RDW Std Deviation 48.1 fL (36.4-46.3) H 09/04/25 18:41 RDW Coeff of Wilmer 14.6 % (11.5-14.5) H 09/04/25 18:41 Plt Count 159 K/uL (130-400) 09/04/25 18:41 MPV 9.7 fL (9.4-12.4) 09/04/25 18:41 Immature Gran % (Auto) 0.5 % 09/04/25 18:41 Neut % (Auto) 72.2 % 09/04/25 18:41 Lymph % (Auto) 17.7 % 09/04/25 18:41 [place] % (Auto) 7.7 % 09/04/25 18:41 Eos % (Auto) 1.6 % 09/04/25 18:41 Baso % (Auto) 0.3 % 09/04/25 18:41 Neut # (Auto) 6.80 K/uL (1.40-6.50) H 09/04/25 18:41 Lymph # (Auto) 1.67 K/uL (1.20-3.40) 09/04/25 18:41 [place] # (Auto) 0.73 K/uL (0.11-0.59) H 09/04/25 18:41 Eos # (Auto) 0.15 K/uL (0.00-0.50) 09/04/25 18:41 Baso # (Auto) 0.03 K/uL (0.00-0.20) 09/04/25 18:41 Immature Gran # (Auto) 0.05 K/uL (0.01-0.20) 09/04/25 18:41 Sodium 141 mmol/L (136-145) 09/04/25 18:41 Potassium 3.8 mmol/L (3.5-5.1) 09/04/25 18:41 Chloride 109 mmol/L (98-107) H 09/04/25 18:41 Carbon Dioxide 26 mmol/L (21-32) 09/04/25 18:41 Anion Gap 6 (3-11) 09/04/25 18:41 BUN 12 mg/dl (6-23) 09/04/25 18:41 Creatinine 1.16 mg/dl (0.6-1.2) 09/04/25 18:41 Est Cr Clr Drug Dosing 64.9 ml/min 09/04/25 18:41 eGFR 57.79 09/04/25 18:41 BUN/Creatinine Ratio 10.3 (10-20) 09/04/25 18:41 Glucose 82 mg/dl (70-99(Fasting)) 09/04/25 18:41 Calcium 8.7 mg/dl (8.6-10.3) 09/04/25 18:41 Magnesium 2.4 mg/dl (1.7-2.4) 09/04/25 18:41 Total Bilirubin 0.3 mg/dl (0.2-1.0) 09/04/25 18:41 AST 16 U/L (13-39) 09/04/25 18:41 ALT 42 U/L (7-52) 09/04/25 18:41 Alkaline Phosphatase 78 U/L (34-104) 09/04/25 18:41 Total Protein 6.9 gm/dl (6.0-8.3) 09/04/25 18:41 Albumin 3.6 gm/dl (3.4-5.0) 09/04/25 18:41 Globulin 3.3 gm/dl (2.5-4.0) 09/04/25 18:41 Albumin/Globulin Ratio 1.1 (0.9-2) 09/04/25 18:41 SARS-CoV-2 (PCR) NEGATIVE (Negative) 09/04/25 17:26 Influenza Type A (PCR) Negative (Neg) 09/04/25 17:26 Influenza Type B (PCR) Negative (Neg) 09/04/25 17:26 RSV (RT-PCR) Negative (Neg) 09/04/25 17:26 Diagnostic Findings Venous doppler LLE obtained - read pending Code Status & VTE Plan VTE Prophylaxis Plan VTE Prophylaxis will be ordered: Yes PG Care Time/CCT Total # of Minutes Spent Total Time Spent with Patient: Total time spent is greater than 50% in coordination of care (as documented) at patient's floor/unit and/or counseling patient: Coding Level of Care Code 10080 INT INP/OBS CARE 3MIN Diagnoses Intractable chronic migraine with aura with status migrainosus G43.901 GERD (gastroesophageal reflux disease) K21.9 PTSD (post-traumatic stress disorder) F43.10
[2025-09-04] MEDS ORDERED: DOCUSATE SODIUM 100 MG CAP PO PRN (21:40)
[2025-09-04] MEDS ORDERED: diphenhydrAMINE 50 MG/ML VIAL IV PRN (21:40)
[2025-09-04] MEDS ORDERED: CYCLOBENZAPRINE HCL 10 MG TAB PO PRN (21:40)
[2025-09-04 22:07] LABS: Iron 41.0 mcg/dl (35-150); Total Iron Binding Cap Calc 353.0 mcg/dl (250-450); Transferrin 252.0 mg/dl (200-360); Transferrin (FE) Percent Satur 12.0 % (15-50)
[2025-09-04] MEDS: LACTATED RINGER'S 1,000 ML IV SCH (22:08)
[2025-09-04] MEDS: FAMOTIDINE 20 MG TAB PO SCH (22:08)
[2025-09-04] MEDS: ARIPiprazole 5 MG TAB PO SCH (22:09)
[2025-09-04] MEDS: VENLAFAXINE HCL XR 150 MG CAPXR PO SCH (22:09)
[2025-09-04 22:28] LABS: Ferritin 53.0 ng/ml (8-388)
--- NOTE | 2025-09-04 23:42 | Ultrasound Report ---
Exam(s): US VENOUS LEFT LOWER EXTREMITY EXAM: US Duplex Left Lower Extremity Veins CLINICAL HISTORY: Reason for exam: pain ?DVT. OTHER: Other Notes: LLE pain LLE neg for thrombus TECHNIQUE: Real-time duplex ultrasound scan of the left lower extremity veins integrating B-mode two-dimensional vascular structure, Doppler spectral analysis, color flow Doppler imaging and compression. COMPARISON: No relevant prior studies available. FINDINGS: Deep veins: No DVT in the visualized common femoral, femoral, proximal deep femoral or popliteal veins. The veins demonstrate normal color flow, are normally compressible, with normal phasic flow and/or augmentation response. Superficial veins: No thrombus in the visualized great saphenous vein. Soft tissues: No acute findings. IMPRESSION: No evidence of acute DVT. Electronically signed by: Karen Bishop M.D. 09/04/25 23:41 PM
[2025-09-05] MEDS: KETOROLAC TROMETHAMINE 15 MG/ML VIAL IV PRN (01:44)
[2025-09-05] MEDS: MELATONIN 3 MG TAB PO PRN (01:44)
[2025-09-05] MEDS: diphenhydrAMINE 50 MG/ML VIAL IV PRN (02:58)
[2025-09-05] MEDS: PROCHLORPERAZINE 5 MG in SYRINGE 4 ML IV PRN (02:59)
[2025-09-05] MEDS: ACETAMINOPHEN 325 MG TAB PO PRN (05:38)
[2025-09-05] MEDS: LEVOTHYROXINE SODIUM 88 MCG TABLET PO SCH (05:38)
[2025-09-05 07:04] LABS: Hematocrit (blood only) 31.3 % (37.0-47.0); Hemoglobin 10.2 g/dL (12.0-16.0); Mean Corpuscular Hemoglobin 29.9 pg (25.0-34.0); Mean Corpuscular Volume 91.8 fL (80.0-100.0); Platelet Count 111 K/uL (130-400); RDW Standard Deviation 48.2 fL (36.4-46.3); Red Blood Count 3.41 M/uL (4.20-5.40); White Blood Count 4.27 K/ul (4.8-10.8)
[2025-09-05 07:11] LABS: INR 2.2 (0.9-1.1); Prothrombin Time 21.9 Seconds (9.0-12.0)
[2025-09-05 07:19] LABS: Anion Gap 3.0 (3-11); Blood Urea Nitrogen 10.0 mg/dl (6-23); Calcium 8.0 mg/dl (8.6-10.3); Carbon Dioxide 26.0 mmol/L (21-32); Chloride 114.0 mmol/L (98-107); Creatinine Clr Calc Pharmacy 78.8 ml/min; Glucose 100.0 mg/dl (70-99(Fasting)); Potassium 4.1 mmol/L (3.5-5.1); Sodium 143.0 mmol/L (136-145)
[2025-09-05 07:46] VITALS: BP 112/78; RESP 20; TEMP 98.1; O2SAT 99
[2025-09-05] MEDS: MAGNESIUM OXIDE 400 MG TAB PO SCH (09:27)
--- NOTE | 2025-09-05 09:57 | Discharge Summary ---
Discharge Summary Date of Service September 05, 2025 Principal Dx & Hospital Course #1 = Principal Diagnosis (1) Migraine with status migrainosus: (2) GERD (gastroesophageal reflux disease): (3) PTSD (post-traumatic stress disorder): Plan 50yo female with history of migraine with status migrainosus, prior CVA, prior DVT/PE on Coumadin, GERD and PTSD presenting with ongoing migraine for the last two months. She does have episodes of worsening as well as times of improvement, although headache never fully resolves. Worsening symptoms over the last day. #Migraine - See notes above. Persistent recurrent concerns with status migrainosus. She responded fairly well to the typical cocktail this go around. Observed as she has had several failures of initial therapy in recent weeks. Today she is doing much better. Back to her baseline. Will have her continue her baseline medications. She feels she is ready for discharge to home. Orders will be placed shortly. Encouraged her to continue to follow-up with neurology outpatient clinic for ongoing medication management, titration and evaluation #LLE discomfort - patient reports having a peripheral IV in her left leg during her last hospital admission. States that she has some discomfort at the site as well as itching and her calf on that side feels funny. No swelling. Does not examine as phlebitis - Superficial thrombophlebitis, continue with topical warm compress. Ultrasound for DVT negative no evidence of extensive superficial thrombophlebitis., #Anemia - patient with Hgb=9.5, Hct=29.4 - decreased from 12.5 and 37.9, respectively on 08/23. No bleeding reported. Patient is on Coumadin -Check iron studies -CBC stable, iron studies pending #Chronic anticoagulation with Coumadin -Continue Coumadin at home regimen -Check INR in AM #GERD -Continue Pepcid 20mg po qHS #PTSD/Mental health -Continue Venlafaxine 300mg po qHS -Continue Abilify 7.5mg po qHS -Xanax 0.25mg po daily PRN Admission HPI Per Admitting Provider Whit Pina is a 50yo female presenting with ongoing migraine headache since June. Patient has been admitted multiple times to the hospital for the same (07/16/25, 07/20/25, 08/02/25, 08/06/25, 08/13/25, 08/23/25 and today 09/04/25). Patient follows with [facility]. She is compliant with her medications - on Topamax and Magnesium daily at home with PRN Compazine, Benadryl, Flexeril as well as Tylenol and Ibuprofen. She is seen at [facility] for intranasal Ketamine on Tuesdays and . She is scheduled to have a Botox injection on 09/23/25 - has never tried Botox before for her migraine. Patient reports ongoing headache since July 10. Headache has been constant in nature never fully resolving with acute worsening. Her pain is mainly on the right side of her head behind her right eye and down her neck. Today the pain was increased and she had flashing lights in her eyes obscuring her vision. She has had severe nausea since this morning around 0400 with several episodes of vomiting. She reports taking her rescue medications - Flexeril, Benadryl, Zofran, Tylenol, Ibuprofen but vomited shortly after. No fever, chills, neck stiffness, trauma. No numbness, tingling, weakness. No additional complaints at this time. In the ER patient afebrile, HD stable ER Course: Benadryl Magnesium Compazine NSS TYlenol Discharge Exam General: patient resting comfortably, NAD, A&O x 4, openly conversant and appropriate Skin: warm, dry, intact, no rashes or lesions HEENT: NC/AT, PERRL, EOMI, anicteric sclera, conjunctiva without injection, external ear normal to inspection and nontender, nares patent, moist mucus membranes Heart: RRR NL S1/S2, regular, no m/r/g Lungs: equal air entry bilaterally, no rales/rhonchi/wheezes Abd: +BS, soft, NT/ND, no masses/organomegaly/ascites Ext: warm, 2+ pulses in UE/LE bilaterally, no clubbing/cyanosis or edema Neuro: nonfocal, patient AA&O x 4, speech intact, no dysmetria or dysarthria. Gait intact and at baseline Discharge Plan Discharge Items Patient Disposition: Home - Self-Care Reason For Visit: STATUS MIGRAINOSUS Discharge Diagnosis: Status Migrainosus Condition on Discharge: Fair Activity: Resume your previous activity Non-emergency contact: Primary Care Provider Call non-emergency contact if: you have any medication questions, your symptoms worsen and your pain is unusual for you Follow-up/Referrals: Dionne Fletcher MD [Primary Care Provider] - Diet: Regular Addtl Attending Provider Instructions: Ongoing medication management and coordination for prophylactic Pending Studies at Discharge: No Stand-Alone Forms: [facility], Smoking Cessation Medications and DC Order Prescriptions: Continued venlafaxine [Effexor XR] 150 mg Capsule,Extended Release 24hr 300 mg PO HS topiramate 200 mg Capsule,Extended Release 24hr 200 mg PO HS alprazolam 0.25 mg tablet 0.25 mg PO DAILY PRN (Reason: Anxiety) epinephrine 0.3 mg/0.3 mL auto-injector 0.3 mg IM Q4H PRN (Reason: anaphylaxis) Qty: 2 0RF ondansetron 4 mg tablet,disintegrating 4 mg PO Q6H PRN (Reason: nausea and vomiting) Qty: 15 0RF famotidine 40 mg tablet 20 mg PO HS Ozempic 0.25 mg or 0.5 mg (2 mg/3 mL) pen injector 0.5 mg SUBCUT WK Rx Instructions: SATURDAYS levothyroxine 88 mcg tablet 88 mcg PO DAILYBB magnesium oxide 400 mg (241.3 mg magnesium) Tablet 400 mg PO QAM Qty: 30 0RF prochlorperazine maleate [Compazine] 10 mg tablet 10 mg PO Q8H PRN (Reason: headache) Qty: 30 0RF riboflavin (vitamin B2) 400 mg tablet 400 mg PO DAILY Qty: 30 0RF aripiprazole 5 mg Tablet 5 mg PO HS diphenhydramine HCl [Benadryl] 25 mg capsule 50 mg PO Q8H PRN (Reason: nausea and vomiting or migraine headache) Rx Instructions: [id number] lidocaine [Lidoderm] 5 % adhesive patch,medicated 1 patch topical DAILY PRN (Reason: Pain) Rx Instructions: leave on most painful area for up to 12 hrs warfarin 10 mg Tablet 10 mg PO 5XWK Rx Instructions: SUN, MON, WED, THUR, & FRI warfarin 7.5 mg Tablet 7.5 mg PO 2XWK Rx Instructions: TUES & SAT cyclobenzaprine 10 mg Tablet 10 mg PO BID PRN (Reason: tension headache) Qty: 10 0RF trazodone 50 mg tablet 50 mg PO HS PRN (Reason: insomnia) Qty: 14 0RF Rx Instructions: Take 1 tablet by mouth at bedtime as needed for insomnia Discharge Orders: Discharge Order (Routine); Ordered 09/05/25 Ordered By: Zev Cleveland/Other Patient Handouts: Migraine Stages Tx Admission Data Admit Date/Time: 09/04/25 20:02 Attending Provider: Zev Rodrigez Admit Provider: Brenda Newberry Primary Care Provider: Dionne Fletcher Other Providers: Brenda Newberry; [facility],Hospital Hospital Stay Data Consultations 09/04/25 19:21 ED Decision to Admit Stat Diagnostic Imagining Performed 09/04/25 20:02 US venous doppler LE LT Stat Pending Results Patient Have Any Pending Studies at Discharge: No Discharge Instructions Given to Patient (Per Discharging Provider) Ongoing medication management and coordination for prophylactic Total Time Total Time Spent Total Time Spent (In Minutes): 20 minutes spent at the bedside discussing results and modifications to care plan with patient. Arrangements for prescription on discharge. Reviewing new medications, discharge planning and follow-up coordination Coding Level of Care Code 12161 IN/OBS DISCH 30 MIN/LESS Diagnoses Intractable chronic migraine with aura with status migrainosus G43.901 GERD (gastroesophageal reflux disease) K21.9 PTSD (post-traumatic stress disorder) F43.10
[2025-09-05 10:52] VITALS: PULSE 78
[2025-09-05] MEDS ORDERED: WARFARIN SOD 10 MG TAB PO SCH (16:00)
[2025-09-06] MEDS ORDERED: WARFARIN SOD 7.5 MG TAB PO SCH (16:00)
== END 2025-09-05 11:16 | disposition home or self-care (01) ==
LOC: 3N 16:29 → ED 16:29 → SUATTDRO 20:02 → 3N 21:24

== ENCOUNTER 2025-09-08 14:37 | Observation (INO) ==
[2025-09-08 16:47] LABS: Hematocrit (blood only) 36.9 % (37.0-47.0); Hemoglobin 12.2 g/dL (12.0-16.0); Immature Granulocytes # (auto) 0.04 K/uL (0.01-0.20); Immature Granulocytes % (auto) 0.6 %; Mean Corpuscular Hemoglobin 29.9 pg (25.0-34.0); Mean Corpuscular Volume 90.4 fL (80.0-100.0); Platelet Count 188 K/uL (130-400); RDW Standard Deviation 47.8 fL (36.4-46.3); Red Blood Count 4.08 M/uL (4.20-5.40); White Blood Count 7.07 K/ul (4.8-10.8)
[2025-09-08 16:56] LABS: Alanine Aminotransferase 32 U/L (7-52); Albumin Globulin Ratio 1.2 (0.9-2); Albumin Level 4.1 gm/dl (3.4-5.0); Alkaline Phosphatase 82 U/L (34-104); Anion Gap 7 (3-11); Bilirubin,Total 0.3 mg/dl (0.2-1.0); Blood Urea Nitrogen 10 mg/dl (6-23); Calcium 9.2 mg/dl (8.6-10.3); Carbon Dioxide 27 mmol/L (21-32); Chloride 108 mmol/L (98-107); Globulin 3.4 gm/dl (2.5-4.0); Glucose 90 mg/dl (70-99(Fasting)); Potassium 3.6 mmol/L (3.5-5.1); Sodium 142 mmol/L (136-145); Total Protein 7.5 gm/dl (6.0-8.3)
[2025-09-08] MEDS: diphenhydrAMINE 50 MG/ML VIAL IV STA (18:44)
[2025-09-08] MEDS: ACETAMINOPHEN 1,000 MG/100 ML VIAL IV STA (18:44)
[2025-09-08] MEDS: PROCHLORPERAZINE 2 ML IV ONE (18:44)
[2025-09-08] MEDS: KETOROLAC TROMETHAMINE 15 MG/ML VIAL IV ONE (18:44)
--- NOTE | 2025-09-08 21:04 | Emergency Department Note ---
Impression & Plan Migraine ED Provider Note NAME: FRANCISCA MAGALLANES AGE: 50 SEX: F : 1975 ARRIVES VIA: Walk-In INFORMANT: Patient, ED PROVIDER(S): Zak Bhagat MD CHIEF COMPLAINT: migraine HPI: This is a 50-year-old female presenting for migraine. Patient states that she has recurrence of her usual migraine. She notes significant photosensitivity. She states nausea due to this. She states she is unable to sleep due to the pain. She reports no change from her usual migraine. She has taken her outpatient meds without relief. No neurologic deficits. ROS: See above HPI for pertinent positives & negatives. A total of 10 systems reviewed and were otherwise negative. PAST MEDICAL HISTORY: See Below PAST SURGICAL HISTORY: See Below FAMILY HISTORY: See Below SOCIAL HISTORY: See Below HOME MEDICATIONS: See Below ALLERGIES: See Below VITALS: See Below PHYSICAL EXAMINATION: General: resting comfortably in no acute distress Head: Normocephalic and atraumatic Eyes: Normal inspection, extraocular muscles intact Ear, nose, throat: Normal external exam Neck: Normal range of motion Respiratory: lungs clear to auscultation bilaterally Cardiovascular: Regular rate/rhythm, no murmur GI: soft, nontender, no guarding or rebound Extremities: nontender, moves all extremities Neuro: The patient awake and alert, appropriately conversive, no focal deficits, symmetric faces, symmetric motor function, no strength deficit Skin: Warm, dry, and intact MEDICAL DECISION MAKING: This is a 50-year-old man presenting for migraine. Patient have seen her multiple times in the past few months for similar. She has intractable migraines. She is required admission multiple times. Will try migraine cocktail to assess for relief. She has no neurologic deficits on my examination. This is her usual migraine as per self-report. -Reviewed previous notes including discharge summaries showing a workup with MRIs, lumbar puncture, imaging - Bloodwork is reviewed showing no significant leukocytosis, anemia, electrolyte or creatinine abnormality -Patient given migraine cocktail. She is not resting for multiple hours, asleep and snoring. -Patient discharged after migraine cocktail, she states her migraine pain is persistent. She request admission. Differential diagnosis: Intractable migraine, intracranial bleeding, mass, stroke Diagnostics interpreted by me: Cardiac Monitoring: An order was placed for continuous cardiac monitoring. The monitor shows a rate of 81 with sinus rhythm. Past Med/Surg History Problem List (Updated 09/08/25 @ 22:20 by Zak Bhagat MD) Intractable migraine (Acute) Insomnia History of CVA (cerebrovascular accident) History of DVT (deep vein thrombosis) Migraine with status migrainosus Anticoagulated on Coumadin Migraine (Acute) Smell or taste sensation disturbance Headache (Acute) Phlebitis of right upper extremity (Acute) Headache (Acute) Hypokalemia due to excessive gastrointestinal loss of potassium (Acute) Old cerebrovascular accident (CVA) without late effect Medical History Hypocalcemia Hypotension Cephalic vein thrombosis, left Chronic anticoagulation Intractable migraine GERD (gastroesophageal reflux disease) PTSD (post-traumatic stress disorder) Prediabetes Anticoagulation goal of INR 2 to 3 Hypothyroidism Migraine with acute onset aura History of pulmonary embolism C. difficile colitis Migraine Surgical History History of mastectomy S/P ROSALES-BSO S/P patent foramen ovale closure History of cholecystectomy History of appendectomy Family History Brother Chronic headaches Social History Smoking Status: Never smoker Second Hand Exposure: No; Do You Dip or Chew Tobacco: No; Hx Alcohol Use: No Hx Substance Use: No Preferred Language: Georgian Communication Ability: Effective Sprinkling [employer] Required: No Beliefs That Will Affect Care: None marital status: Current Living Situation: Family Current Living Situation Comment: Lives with spouse and child (15 month old daughter) current occupational status: disabled current occupation: was in the [employer] other: lives in [place] Feels Safe at Home: Yes Assistive Devices: Glasses Allergies Allergies Allergy/AdvReac Type Severity Reaction Status Date / Time shellfish derived Allergy Severe Swelling Verified 08/06/25 16:00 of Lip/Tongue/Throat dihydroergotamine AdvReac Intermediate Severe Verified 08/14/25 14:56 headache prochlorperazine AdvReac Intermediate caused Verified 08/06/25 16:00 [From Compazine] restless leg syndrome promethazine [From Phenergan] AdvReac Intermediate restless Verified 08/06/25 16:00 leg syndrome Home Meds Home Medications Medication Instructions Recorded Confirmed topiramate 200 mg capsule,extended 200 mg PO HS 10/07/20 09/08/25 release 24 hr venlafaxine 150 mg 300 mg PO HS 10/07/20 09/08/25 capsule,extended release 24 hr (Effexor XR) alprazolam 0.25 mg tablet 0.25 mg PO DAILY PRN Anxiety 09/01/23 09/08/25 famotidine 40 mg tablet 20 mg PO HS 03/23/24 09/08/25 semaglutide 0.25 mg or 0.5 mg (2 0.5 mg subcut WK 03/23/24 09/08/25 mg/3 mL) subcutaneous pen injector (Ozempic) aripiprazole 5 mg tablet 5 mg PO HS 06/04/24 09/08/25 diphenhydramine HCl 25 mg capsule 50 mg PO Q8H PRN nausea and 07/16/25 09/08/25 (Benadryl) vomiting or migraine headache lidocaine 5 % topical patch 1 patch topical DAILY PRN Pain 07/16/25 09/08/25 (Lidoderm) warfarin 10 mg tablet 10 mg PO 5XWK 07/16/25 09/08/25 warfarin 7.5 mg tablet 7.5 mg PO 2XWK 07/16/25 09/08/25 levothyroxine 88 mcg tablet 88 mcg PO DAILYBB 08/02/25 09/08/25 Previous Rx's Medication Instructions Recorded epinephrine 0.3 mg/0.3 mL 0.3 mg (0.3 mL) IM Q4H PRN 07/17/23 injection, auto-injector anaphylaxis #2 ea ondansetron 4 mg disintegrating 4 mg PO Q6H PRN nausea and 09/18/23 tablet vomiting #15 tabs cyclobenzaprine 10 mg tablet 10 mg PO BID PRN tension headache 07/26/25 #10 tabs magnesium oxide 400 mg (241.3 mg 400 mg PO QAM #30 tabs 08/05/25 magnesium) tablet prochlorperazine maleate 10 mg 10 mg PO Q8H PRN headache #30 tabs 08/05/25 tablet (Compazine) riboflavin (vitamin B2) 400 mg 400 mg PO DAILY #30 tabs 08/05/25 tablet trazodone 50 mg tablet 50 mg PO HS PRN insomnia #14 tabs 08/29/25 Results & Data (ED) Vital Signs Vital Signs - 24 hr 09/08/25 15:13 09/08/25 18:17 09/08/25 18:26 Temperature 36.8 C Temperature Source Temporal Artery Scan Pulse Rate 99 H 87 Pulse Rate [Right Finger] 83 Pulse Rhythm [Right Finger] Regular Pulse Strength [Right Finger] Normal Respiratory Rate 20 16 Respiratory Effort / Characteristics Non-Labored Non-Labored Respiratory Depth Normal Normal Respiratory Pattern Regular Blood Pressure 107/71 Blood Pressure [Right Arm] 155/103 H Blood Pressure Mean 83 Blood Pressure Mean [Right Arm] 120 Blood Pressure Position [Right Arm] Lying Pulse Oximetry 98 100 Oxygen Delivery Method Room Air Room Air Sepsis Recent Fever Within 48 Hours No Sepsis New/Unexplained Change in Mental Status No Sepsis Action Taken by Nursing No Action Required 09/08/25 19:46 09/08/25 20:11 09/08/25 20:52 Temperature Temperature Source Pulse Rate Pulse Rate [Right Finger] 88 88 81 Pulse Rhythm [Right Finger] Pulse Strength [Right Finger] Respiratory Rate 20 20 20 Respiratory Effort / Characteristics Non-Labored Non-Labored Non-Labored Respiratory Depth Normal Normal Normal Respiratory Pattern Blood Pressure Blood Pressure [Right Arm] 105/88 121/88 159/116 H Blood Pressure Mean Blood Pressure Mean [Right Arm] 93 99 130 Blood Pressure Position [Right Arm] Pulse Oximetry 97 97 93 Oxygen Delivery Method Room Air Room Air Room Air Sepsis Recent Fever Within 48 Hours Sepsis New/Unexplained Change in Mental Status Sepsis Action Taken by Nursing 09/08/25 21:19 09/08/25 22:41 09/09/25 00:17 Temperature Temperature Source Pulse Rate Pulse Rate [Right Finger] 79 82 81 Pulse Rhythm [Right Finger] Regular Pulse Strength [Right Finger] Respiratory Rate 20 20 16 Respiratory Effort / Characteristics Non-Labored Non-Labored Respiratory Depth Normal Normal Respiratory Pattern Blood Pressure Blood Pressure [Right Arm] 153/105 H 151/103 H 111/81 Blood Pressure Mean Blood Pressure Mean [Right Arm] 121 119 91 Blood Pressure Position [Right Arm] Pulse Oximetry 98 99 96 Oxygen Delivery Method Room Air Room Air Room Air Sepsis Recent Fever Within 48 Hours Sepsis New/Unexplained Change in Mental Status Sepsis Action Taken by Nursing Laboratory Data 09/08/25 16:20 09/08/25 16:20 Lab Results 09/08/25 Range/Units 16:20 WBC 7.07 (4.8-10.8) K/ul RBC 4.08 L (4.20-5.40) M/uL Hgb 12.2 (12.0-16.0) g/dL Hct 36.9 L (37.0-47.0) % MCV 90.4 (80.0-100.0) fL MCH 29.9 (25.0-34.0) pg MCHC 33.1 (32.0-36.0) g/dL RDW Std Deviation 47.8 H (36.4-46.3) fL RDW Coeff of Wilmer 14.6 H (11.5-14.5) % Plt Count 188 (130-400) K/uL MPV 9.4 (9.4-12.4) fL Immature Gran % (Auto) 0.6 % Neut % (Auto) 73.2 % Lymph % (Auto) 18.0 % [place] % (Auto) 6.1 % Eos % (Auto) 1.8 % Baso % (Auto) 0.3 % Neut # (Auto) 5.18 (1.40-6.50) K/uL Lymph # (Auto) 1.27 (1.20-3.40) K/uL [place] # (Auto) 0.43 (0.11-0.59) K/uL Eos # (Auto) 0.13 (0.00-0.50) K/uL Baso # (Auto) 0.02 (0.00-0.20) K/uL Immature Gran # (Auto) 0.04 (0.01-0.20) K/uL Sodium 142 (136-145) mmol/L Potassium 3.6 (3.5-5.1) mmol/L Chloride 108 H (98-107) mmol/L Carbon Dioxide 27 (21-32) mmol/L Anion Gap 7 (3-11) BUN 10 (6-23) mg/dl Creatinine 1.11 (0.6-1.2) mg/dl Est Cr Clr Drug Dosing Not Reportable eGFR 60.93 BUN/Creatinine Ratio 9.0 L (10-20) Glucose 90 (70-99(Fasting)) mg/dl Calcium 9.2 (8.6-10.3) mg/dl Total Bilirubin 0.3 (0.2-1.0) mg/dl AST 15 (13-39) U/L ALT 32 (7-52) U/L Alkaline Phosphatase 82 (34-104) U/L Total Protein 7.5 (6.0-8.3) gm/dl Albumin 4.1 (3.4-5.0) gm/dl Globulin 3.4 (2.5-4.0) gm/dl Albumin/Globulin Ratio 1.2 (0.9-2) Administered Medications Discontinued Medications Diphenhydramine HCl (Diphenhydramine 50 Mg/Ml Vial) 25 mg IV NOW STA Stop: 09/08/25 18:36 Last Admin: 09/08/25 18:44 Dose: 25 mg Documented By: ABEBA Acetaminophen (Ofirmev) 1,000 mg in 100 mls @ 400 mls/hr IV NOW STA Stop: 09/08/25 18:49 Last Infusion: 09/08/25 19:15 Dose: Infused Documented By: Admin: 09/08/25 18:44 Dose: 400 mls/hr Documented By: ABEBA Prochlorperazine (Compazine) 2 mls @ 1 mls/min IV ONE ONE Stop: 09/08/25 18:36 Last Admin: 09/08/25 18:44 Dose: 1 mls/min Documented By: ABEBA Ketorolac Tromethamine (Ketorolac Tromethamine 15 Mg/Ml Vial) 15 mg IV NOW ONE Stop: 09/08/25 18:36 Last Admin: 09/08/25 18:44 Dose: 15 mg Documented By: ABEBA Discharge Plan Visit Data Chief Complaint: Headache Stated Complaint: MIGRAINE/CAN'T SEE ED Provider: Zak Bhagat Discharge Problem: Migraine Patient Disposition: Home - Self-Care Condition: Good Discharge Instructions Krames/Other Patient Handouts: ED Headache, Migraine, Classic Activity Restrictions/Additional Instructions: You are seen for your migraine. Please come back for new, worsening symptoms or symptoms that are not resolving. Come back for new neurologic symptoms such as weakness, vision changes, confusion. Follow your primary care doctor and pain management/neurologist for further treatment. Forms Stand Alone Forms: My [facility], Important Visit Information Prescriptions Prescriptions: No Action venlafaxine [Effexor XR] 150 mg Capsule,Extended Release 24hr 300 mg PO HS topiramate 200 mg Capsule,Extended Release 24hr 200 mg PO HS alprazolam 0.25 mg tablet 0.25 mg PO DAILY PRN (Reason: Anxiety) epinephrine 0.3 mg/0.3 mL auto-injector 0.3 mg IM Q4H PRN (Reason: anaphylaxis) Qty: 2 0RF ondansetron 4 mg tablet,disintegrating 4 mg PO Q6H PRN (Reason: nausea and vomiting) Qty: 15 0RF famotidine 40 mg tablet 20 mg PO HS Ozempic 0.25 mg or 0.5 mg (2 mg/3 mL) pen injector 0.5 mg SUBCUT WK Rx Instructions: SATURDAYS levothyroxine 88 mcg tablet 88 mcg PO DAILYBB magnesium oxide 400 mg (241.3 mg magnesium) Tablet 400 mg PO QAM Qty: 30 0RF prochlorperazine maleate [Compazine] 10 mg tablet 10 mg PO Q8H PRN (Reason: headache) Qty: 30 0RF riboflavin (vitamin B2) 400 mg tablet 400 mg PO DAILY Qty: 30 0RF aripiprazole 5 mg Tablet 5 mg PO HS diphenhydramine HCl [Benadryl] 25 mg capsule 50 mg PO Q8H PRN (Reason: nausea and vomiting or migraine headache) Rx Instructions: [id number] lidocaine [Lidoderm] 5 % adhesive patch,medicated 1 patch topical DAILY PRN (Reason: Pain) Rx Instructions: leave on most painful area for up to 12 hrs warfarin 10 mg Tablet 10 mg PO 5XWK Rx Instructions: SUN, MON, WED, THUR, & FRI warfarin 7.5 mg Tablet 7.5 mg PO 2XWK Rx Instructions: TUES & SAT cyclobenzaprine 10 mg Tablet 10 mg PO BID PRN (Reason: tension headache) Qty: 10 0RF trazodone 50 mg tablet 50 mg PO HS PRN (Reason: insomnia) Qty: 14 0RF Rx Instructions: Take 1 tablet by mouth at bedtime as needed for insomnia Referrals Referrals: Dionne Fletcher MD [Primary Care Provider] -
[2025-09-09] MEDS ORDERED: ACETAMINOPHEN 1,000 MG/100 ML VIAL IV PRN (00:41)
--- NOTE | 2025-09-09 00:49 | History & Physical Report ---
Date of Service September 09, 2025 Assessment & Plan (1) Intractable migraine: (2) Insomnia: (3) Moderate dehydration: (4) Anticoagulated on Coumadin: Plan The patient is a 50-year-old female with past medical history including intractable migraine, insomnia, CVA, DVT, long-term anticoagulation on Coumadin, anxiety and depression, hypothyroidism, hypomagnesemia, GERD, nausea, muscle spasm, and weight loss management. She presents to the emergency department with complaint of her usual intractable migraine symptoms. She has had frequent hospitalizations, without identifiable trigger since July: 07/16-07/17/2025, 07/20-07/24/2025, 07/26-07/26/2025, 08/02-08/05/2025, 08/06-08/11/2025, 08/13- 08/18/2025, 08/23-08/31/2025, and 09/04-09/05/2025. Laboratory evaluation has no acute findings. From the ED patient received the following: Toradol 15 mg IV, Tylenol 1 g IV, Compazine 10 mg IV, and Benadryl 25 mg IV, with no reported improvement in symptoms. She was then referred for evaluation [facility]. #Intractable migraine/anxiety and depression- Patient with multiple admissions as noted above. Will give Decadron 6 mg IV now, and every morning Continue usual medications alprazolam, Abilify, cyclobenzaprine, Compazine, trazodone, venlafaxine topiramate Acetaminophen 1 g IV every 8 hours as needed for mild pain or fever Toradol 15 mg IV every 6 hours as needed for moderate pain Change Benadryl while inpatient to 25 mg IV every 4 hours as needed Patient reports that she is scheduled on September 26 in [place] for a Botox injection She lives in an old house with her significant other. Suggested that she look around for the possibility of black mold as a contributor to her symptoms #Moderate dehydration- May be contributing to migraine. Give LR 1 L bolus, then 150 mL/h x 2 L #History of DVT/chronic anticoagulation with warfarin- INR therapeutic 4 days ago, #Weight management- On Ozempic in the outpatient setting #Hypothyroidism- Continue levothyroxine History of Present Illness Primary Care Provider: Dionne Fletcher MD The patient is a 50-year-old female with past medical history including intractable migraine, insomnia, CVA, DVT, long-term anticoagulation on Coumadin, anxiety and depression, hypothyroidism, hypomagnesemia, GERD, nausea, muscle spasm, and weight loss management. She presents to the emergency department with complaint of her usual intractable migraine symptoms. She has had frequent hospitalizations, without identifiable trigger since July: 07/16-07/17/2025, 07/20-07/24/2025, 07/26-07/26/2025, 08/02-08/05/2025, 08/06-08/11/2025, 08/13- 08/18/2025, 08/23-08/31/2025, and 09/04-09/05/2025. Laboratory evaluation has no acute findings. From the ED patient received the following: Toradol 15 mg IV, Tylenol 1 g IV, Compazine 10 mg IV, and Benadryl 25 mg IV, with no reported improvement in symptoms. She was then referred for evaluation for [facility] Allergies Allergy/AdvReac Type Severity Reaction Status Date / Time shellfish derived Allergy Severe Swelling Verified 08/06/25 16:00 of Lip/Tongue/Throat dihydroergotamine AdvReac Intermediate Severe Verified 08/14/25 14:56 headache prochlorperazine AdvReac Intermediate caused Verified 08/06/25 16:00 [From Compazine] restless leg syndrome promethazine [From Phenergan] AdvReac Intermediate restless Verified 08/06/25 16:00 leg syndrome Home Medications Medication Instructions Recorded Confirmed Type topiramate 200 mg capsule,extended 200 mg PO HS 10/07/20 09/08/25 History release 24 hr venlafaxine 150 mg 300 mg PO HS 10/07/20 09/08/25 History capsule,extended release 24 hr (Effexor XR) epinephrine 0.3 mg/0.3 mL 0.3 mg (0.3 mL) IM Q4H PRN 07/17/23 09/08/25 Rx injection, auto-injector anaphylaxis #2 ea alprazolam 0.25 mg tablet 0.25 mg PO DAILY PRN Anxiety 09/01/23 09/08/25 History ondansetron 4 mg disintegrating 4 mg PO Q6H PRN nausea and 09/18/23 09/08/25 Rx tablet vomiting #15 tabs famotidine 40 mg tablet 20 mg PO HS 03/23/24 09/08/25 History semaglutide 0.25 mg or 0.5 mg (2 0.5 mg subcut WK 03/23/24 09/08/25 History mg/3 mL) subcutaneous pen injector (Ozempic) aripiprazole 5 mg tablet 5 mg PO HS 06/04/24 09/08/25 History diphenhydramine HCl 25 mg capsule 50 mg PO Q8H PRN nausea and 07/16/25 09/08/25 History (Benadryl) vomiting or migraine headache lidocaine 5 % topical patch 1 patch topical DAILY PRN Pain 07/16/25 09/08/25 History (Lidoderm) warfarin 10 mg tablet 10 mg PO 5XWK 07/16/25 09/08/25 History warfarin 7.5 mg tablet 7.5 mg PO 2XWK 07/16/25 09/08/25 History cyclobenzaprine 10 mg tablet 10 mg PO BID PRN tension headache 07/26/25 09/08/25 Rx #10 tabs levothyroxine 88 mcg tablet 88 mcg PO DAILYBB 08/02/25 09/08/25 History magnesium oxide 400 mg (241.3 mg 400 mg PO QAM #30 tabs 08/05/25 09/08/25 Rx magnesium) tablet prochlorperazine maleate 10 mg 10 mg PO Q8H PRN headache #30 tabs 08/05/25 09/08/25 Rx tablet (Compazine) riboflavin (vitamin B2) 400 mg 400 mg PO DAILY #30 tabs 08/05/25 09/08/25 Rx tablet trazodone 50 mg tablet 50 mg PO HS PRN insomnia #14 tabs 08/29/25 09/08/25 Rx Past Med/Surg History Problem List (Updated 09/09/25 @ 03:12 by Riaz Tillman MD) Moderate dehydration Intractable migraine (Acute) Insomnia History of CVA (cerebrovascular accident) History of DVT (deep vein thrombosis) Migraine with status migrainosus Anticoagulated on Coumadin Migraine (Acute) Smell or taste sensation disturbance Headache (Acute) Phlebitis of right upper extremity (Acute) Headache (Acute) Hypokalemia due to excessive gastrointestinal loss of potassium (Acute) Old cerebrovascular accident (CVA) without late effect Medical History Hypocalcemia Hypotension Cephalic vein thrombosis, left Chronic anticoagulation Intractable migraine GERD (gastroesophageal reflux disease) PTSD (post-traumatic stress disorder) Prediabetes Anticoagulation goal of INR 2 to 3 Hypothyroidism Migraine with acute onset aura History of pulmonary embolism C. difficile colitis Migraine Surgical History History of mastectomy S/P ROSALES-BSO S/P patent foramen ovale closure History of cholecystectomy History of appendectomy Family History Brother Chronic headaches Social History Smoking Status: Never smoker Second Hand Exposure: No; Do You Dip or Chew Tobacco: No; Hx Alcohol Use: No Hx Substance Use: No Preferred Language: Albanian Communication Ability: Effective Silver Buffer Required: No Beliefs That Will Affect Care: None marital status: Current Living Situation: Family Current Living Situation Comment: Lives with spouse and child (15 month old daughter) current occupational status: disabled current occupation: was in the [employer] other: lives in [place] Feels Safe at Home: Yes Assistive Devices: Glasses Review of Systems Review of Systems: The patient denies chest pain, palpitations, shortness of breath, dyspnea on exertion, cough, lower extremity swelling, sore throat, fevers, chills, sweats, nausea, vomiting, diarrhea , constipation, abdominal pain, pelvic pain, blood in urine or stool, dysuria, urinary frequency or urgency, lightheadedness, dizziness, memory loss, loss of consciousness, rash, abnormal bruising or bleeding, imbalance, focal weakness, numbness or tingling in arms or legs, generalized arthralgias or myalgias, back or neck pain, or night sweats. The review of systems is otherwise negative other than for that already noted above, and at least 10 systems have been reviewed. Physical Exam Physical Exam: The patient is awake, alert and oriented 3, well developed and well nourished, normocephalic and atraumatic, lying in bed, with a towel over her head, and in no acute distress. HEENT--PERRL, EOMI, mucous membranes and oropharynx moderately dry. Neck--supple. No JVD. No bruits. Thyroid normal, trachea midline, no adenopathy. Heart--normal S1 and S2. No murmurs, rubs or gallops. Lungs--clear bilaterally, no respiratory distress, no accessory muscle use. Abdomen--normal bowel sounds and soft. Nontender. Nondistended, no hernias or m asses, no organomegaly. Extremities--no cyanosis or clubbing. No edema. Dermatologic--normal skin turgor, normal color, no abnormal lymph nodes, no rash. Neurologic--cranial nerves II through XII grossly intact. Rheumatologic--normal range of motion. Psychiatric--normal affect. Results & Data Results & Data Vital Signs (Past 12 Hours) Vital Signs Temp Pulse Pulse Resp BP BP Pulse Ox 09/09/25 00:17 81 16 111/81 96 09/08/25 22:41 82 20 151/103 H 99 09/08/25 21:19 79 20 153/105 H 98 09/08/25 20:52 81 20 159/116 H 93 09/08/25 20:11 88 20 121/88 97 09/08/25 19:46 88 20 105/88 97 09/08/25 18:26 87 09/08/25 18:17 83 16 155/103 H 100 09/08/25 15:13 36.8 C 99 H 20 107/71 98 O2 Del Method 09/09/25 00:17 Room Air 09/08/25 22:41 Room Air 09/08/25 21:19 Room Air 09/08/25 20:52 Room Air 09/08/25 20:11 Room Air 09/08/25 19:46 Room Air 09/08/25 18:26 09/08/25 18:17 Room Air 09/08/25 15:13 Room Air Laboratory Results Laboratory Results WBC 7.07 K/ul (4.8-10.8) 09/08/25 16:20 RBC 4.08 M/uL (4.20-5.40) L 09/08/25 16:20 Hgb 12.2 g/dL (12.0-16.0) 09/08/25 16:20 Hct 36.9 % (37.0-47.0) L 09/08/25 16:20 MCV 90.4 fL (80.0-100.0) 09/08/25 16:20 MCH 29.9 pg (25.0-34.0) 09/08/25 16:20 MCHC 33.1 g/dL (32.0-36.0) 09/08/25 16:20 RDW Std Deviation 47.8 fL (36.4-46.3) H 09/08/25 16:20 RDW Coeff of Wilmer 14.6 % (11.5-14.5) H 09/08/25 16:20 Plt Count 188 K/uL (130-400) 09/08/25 16:20 MPV 9.4 fL (9.4-12.4) 09/08/25 16:20 Immature Gran % (Auto) 0.6 % 09/08/25 16:20 Neut % (Auto) 73.2 % 09/08/25 16:20 Lymph % (Auto) 18.0 % 09/08/25 16:20 Fajardo % (Auto) 6.1 % 09/08/25 16:20 Eos % (Auto) 1.8 % 09/08/25 16:20 Baso % (Auto) 0.3 % 09/08/25 16:20 Neut # (Auto) 5.18 K/uL (1.40-6.50) 09/08/25 16:20 Lymph # (Auto) 1.27 K/uL (1.20-3.40) 09/08/25 16:20 Fajardo # (Auto) 0.43 K/uL (0.11-0.59) 09/08/25 16:20 Eos # (Auto) 0.13 K/uL (0.00-0.50) 09/08/25 16:20 Baso # (Auto) 0.02 K/uL (0.00-0.20) 09/08/25 16:20 Immature Gran # (Auto) 0.04 K/uL (0.01-0.20) 09/08/25 16:20 Sodium 142 mmol/L (136-145) 09/08/25 16:20 Potassium 3.6 mmol/L (3.5-5.1) 09/08/25 16:20 Chloride 108 mmol/L (98-107) H 09/08/25 16:20 Carbon Dioxide 27 mmol/L (21-32) 09/08/25 16:20 Anion Gap 7 (3-11) 09/08/25 16:20 BUN 10 mg/dl (6-23) 09/08/25 16:20 Creatinine 1.11 mg/dl (0.6-1.2) 09/08/25 16:20 Est Cr Clr Drug Dosing Not Reportable 09/08/25 16:20 eGFR 60.93 09/08/25 16:20 BUN/Creatinine Ratio 9.0 (10-20) L 09/08/25 16:20 Glucose 90 mg/dl (70-99(Fasting)) 09/08/25 16:20 Calcium 9.2 mg/dl (8.6-10.3) 09/08/25 16:20 Total Bilirubin 0.3 mg/dl (0.2-1.0) 09/08/25 16:20 AST 15 U/L (13-39) 09/08/25 16:20 ALT 32 U/L (7-52) 09/08/25 16:20 Alkaline Phosphatase 82 U/L (34-104) 09/08/25 16:20 Total Protein 7.5 gm/dl (6.0-8.3) 09/08/25 16:20 Albumin 4.1 gm/dl (3.4-5.0) 09/08/25 16:20 Globulin 3.4 gm/dl (2.5-4.0) 09/08/25 16:20 Albumin/Globulin Ratio 1.2 (0.9-2) 09/08/25 16:20 Code Status & VTE Plan Code Status Full code VTE Prophylaxis Plan VTE Prophylaxis will be ordered: Yes PG Care Time/CCT Total # of Minutes Spent Total Time Spent with Patient: Total time spent is greater than 50% in coordination of care (as documented) at patient's floor/unit and/or counseling patient: Coding Level of Care Code 35743 INT INP/OBS CARE 3/75MIN Diagnoses Intractable migraine G43.919 Insomnia G47.00 Moderate dehydration E86.0 Anticoagulated on Coumadin Z79.01
[2025-09-09] MEDS: DEXAMETHASONE SOD INJ 4 MG/ML VIAL IV STA (01:11)
[2025-09-09] MEDS: LACTATED RINGER'S 1,000 ML IV SCH (01:12)
[2025-09-09] MEDS: LACTATED RINGER'S 1,000 ML IV ONE (01:12)
[2025-09-09] MEDS ORDERED: ACETAMINOPHEN 325 MG TAB PO PRN (01:42)
[2025-09-09] MEDS ORDERED: ONDANSETRON 4 MG OD TAB PO PRN (01:42)
[2025-09-09] MEDS ORDERED: LIDOCAINE 5% 1 PATCH TD PRN (01:42)
[2025-09-09] MEDS ORDERED: PROCHLORPERAZINE MALEATE 10 MG TAB PO PRN (01:42)
[2025-09-09] MEDS ORDERED: diphenhydrAMINE Capsule 25 MG CAP PO PRN (01:42)
[2025-09-09] MEDS ORDERED: CYCLOBENZAPRINE HCL 10 MG TAB PO PRN (01:42)
[2025-09-09] MEDS: KETOROLAC TROMETHAMINE 15 MG/ML VIAL IV PRN (01:55)
[2025-09-09] MEDS ORDERED: PROCHLORPERAZINE 10 MG in SYRINGE 8 ML IV PRN (04:00)
[2025-09-09] MEDS: diphenhydrAMINE 50 MG/ML VIAL IV PRN (04:30)
[2025-09-09] MEDS: PROCHLORPERAZINE 10 MG in SYRINGE 8 ML IV PRN (04:41)
[2025-09-09 05:45] LABS: INR 2.1 (0.9-1.1); Prothrombin Time 21.4 Seconds (9.0-12.0)
[2025-09-09] MEDS: dexAMETHasone 6 MG in SYRINGE 0 ML IV SCH (07:40)
[2025-09-09] MEDS: MAGNESIUM OXIDE 400 MG TAB PO SCH (07:40)
[2025-09-09] MEDS: LEVOTHYROXINE SODIUM 88 MCG TABLET PO SCH (07:40)
[2025-09-09] MEDS: PANTOprazole 40 MG/10 ML SYR IV SCH (07:41)
[2025-09-09] MEDS: WARFARIN SOD 7.5 MG TAB PO SCH (16:32)
[2025-09-09] MEDS ORDERED: diphenhydrAMINE 50 MG/ML VIAL IV PRN (17:23)
[2025-09-09] MEDS: diphenhydrAMINE 50 MG/ML VIAL IV SCH ×2 (19:56→23:03)
[2025-09-09] MEDS: ARIPiprazole 5 MG TAB PO SCH (21:10)
[2025-09-09] MEDS: VENLAFAXINE HCL XR 150 MG CAPXR PO SCH (21:10)
[2025-09-09] MEDS: TOPIRAMATE 100 MG TAB PO SCH (21:10)
[2025-09-09] MEDS: FAMOTIDINE 20 MG TAB PO SCH (21:10)
[2025-09-09] MEDS: REMOVE LIDODERM PATCH SCH (22:18)
[2025-09-09 22:21] VITALS: O2SAT 97
[2025-09-10 08:18] VITALS: BP 124/83; PULSE 100; RESP 18; TEMP 98.1
--- NOTE | 2025-09-10 08:50 | Discharge Summary ---
Discharge Summary Date of Service September 10, 2025 Principal Dx & Hospital Course #1 = Principal Diagnosis (1) Intractable migraine: RESOLVED 100% on discharge date/time, 09/10/2025, 8:41am. Patient requests to go home right now. Hence, I complied with patient's request. Patient reports that she will see her own neurologist at [facility] in [place], [place] on September 26, 2025 for botox injection treatment #1 to address her multiple (e.g., 9 separate admissions to [facility]: 07/16-07/17/2025, 07/20- 07/24/2025, 07/26-07/26/2025, 08/02-08/05/2025, 08/06-08/11/2025, 08/13-08/18/2025, 08/23-08/31/2025, 09/04-09/05/2025, and now 09/09-) admissions to [facility] for acute exacerbations of her chronic/intractable migraine headache. In the interim, no changes to her home-scheduled migraine headache medication regimen were made on hospital discharge back to patient's home on 09/10/2025, 8:41am, as per patient's request. (2) Insomnia: Asymptomatic. Patient has no complaints of insomnia on discharge date/time, 09/10/2025, 8:41am. (3) Moderate dehydration: RESOLVED 100% on discharge date/time, 09/10/2025, 8:41am. Patient requests to go home right now. Hence, I complied with patient's request. Patient reports that she will see her own PCP Dr. Dionne Fletcher within 5-7 days of hospital discharge for routine follow up visit. In the interim, patient was advised to drink at least 8 ounces of water for each hour while awake in order to stay hydrated. Patient reports that she will comply with this recommendation. (4) Anticoagulated on Coumadin: Therapeutic with INR 2.1 (09/09/2025, 4:26am). Patient continued to receive her home-scheduled coumadin 7.5mg PO qTuesday and qSaturday; patient continued to receive her home-scheduled coumadin 10mg PO qMonday, qWednesday, qThursday, qFriday, and qSund while in [facility] on 09/09/2025. Patient will continue this same home-scheduled coumadin schedule on hospital discharge back to her home on 09/10/2025 as patient strives to maintain a therapeutic INR range of 2.0 to 3.0 given her prior history of DVT and acute, non-hemorrhagic, ischemic CVA at 36 years of age. Plan The patient is a 50-year-old female with past medical history including intractable migraine, insomnia, CVA, DVT, long-term anticoagulation on Coumadin, anxiety and depression, hypothyroidism, hypomagnesemia, GERD, nausea, muscle spasm, and weight loss management. She presents to the emergency department with complaint of her usual intractable migraine symptoms. She has had frequent hospitalizations, without identifiable trigger since July: 07/16-07/17/2025, 07/20-07/24/2025, 07/26-07/26/2025, 08/02-08/05/2025, 08/06-08/11/2025, 08/13- 08/18/2025, 08/23-08/31/2025, and 09/04-09/05/2025. Laboratory evaluation has no acute findings. From the ED patient received the following: Toradol 15 mg IV, Tylenol 1 g IV, Compazine 10 mg IV, and Benadryl 25 mg IV, with no reported improvement in symptoms. She was then referred for evaluation for admission to the [facility]. #Intractable migraine/anxiety and depression- Patient with multiple admissions as noted above. Will give Decadron 6 mg IV now, and every morning Continue usual medications alprazolam, Abilify, cyclobenzaprine, Compazine, trazodone, venlafaxine topiramate Acetaminophen 1 g IV every 8 hours as needed for mild pain or fever Toradol 15 mg IV every 6 hours as needed for moderate pain Change Benadryl while inpatient to 25 mg IV every 4 hours as needed Patient reports that she is scheduled on September 26 in [place] for a Botox injection She lives in an old house with her significant other. Suggested that she look around for the possibility of black mold as a contributor to her symptoms #Moderate dehydration- May be contributing to migraine. Give LR 1 L bolus, then 150 mL/h x 2 L #History of DVT/chronic anticoagulation with warfarin- INR therapeutic 4 days ago, #Weight management- On Ozempic in the outpatient setting #Hypothyroidism- Continue levothyroxine Admission HPI Per Admitting Provider The patient is a 50-year-old female with past medical history including intractable migraine, insomnia, CVA, DVT, long-term anticoagulation on Coumadin, anxiety and depression, hypothyroidism, hypomagnesemia, GERD, nausea, muscle spasm, and weight loss management. She presents to the emergency department with complaint of her usual intractable migraine symptoms. She has had frequent hospitalizations, without identifiable trigger since July: 07/16-07/17/2025, 07/20-07/24/2025, 07/26-07/26/2025, 08/02-08/05/2025, 08/06-08/11/2025, 08/13-, 08/23-08/31/2025, and 09/04-09/05/2025. Laboratory evaluation has no acute findings. From the ED patient received the following: Toradol 15 mg IV, Tylenol 1 g IV, Compazine 10 mg IV, and Benadryl 25 mg IV, with no reported improvement in symptoms. She was then referred for evaluation for admission to the [facility] Discharge Exam Constitutional General: comfortable, coherent, cooperative. Wide awake and alert. Not confused, lethargic, or obtunded. Patient speaks in complete, fluent, and articulate sentences without pause, interruption, cough, or wheeze. HEENT: normocephalic, atraumatic. EOMI. PERRL. No nystagmus, gaze paresis, anisocoria, miosis, mydriasis, hyphema, scleral injection, conjunctivitis, or pterygium. No otorrhea. No rhinorrhea. No pharyngeal erythema, edema, or discharge. Neck: supple, no stridor, bruit, goiter, JVD. Jugular venous pressure is estimated to be 3 cm above the sternal angle of Adan, which in turn, is 5 cm above the level of the right atrium; hence, jugular venous pressure is estimated to be 8 cm H2O, which is normal. Lymph: no anterior/posterior cervical, supraclavicular, infraclavicular, axillary, epitrochlear, or inguinal lymphadenopathy. Chest: symmetric rise and falls with respirations. Non-tender to palpation. Lungs: clear to auscultation and percussion; no audible expiratory wheeze, egophony, pectoriloquy, increase in tactile fremitus, or flatness/dullness to percussion at the bases. Heart: RRR, S1 and S2 noted. No S3 or S4 summation gallop. No tripartite friction rub. Grade II/ early systolic murmur @ LLSB without radiation to the carotids, axilla, or back, and which remains invariant in regards to the respiratory cycle. Abdomen: soft, non-tender, non-distended. No rebound, guarding, Real's sign, or organomegaly. Bowel sounds auscultated in all 4 quadrants. Extremity: no clubbing, cyanosis, or edema. 2+ pedal pulses bilaterally. Skin: no decubitus ulcer, exanthem, or enanthem. Neuro: alert and oriented in regards to person, place, time, and situation. DTR+. 5/5 motor strength in all 4 extremities, both proximally and distally. Psychiatric: no flat affect. Smiles appropriately. Discharge Plan Discharge Items Patient Disposition: Home - Self-Care Reason For Visit: INTRACTABLE MIGRAINE Discharge Diagnosis: Acute exacerbation of intractable migraine headache, RESOLVED 100% on 09/10/2025, 8:41am. Condition on Discharge: Good Activity: Resume your previous activity Lifting: Gradually increase as tolerated Bathing: No limitations Sexual Activity: When tolerated Driving/Machine Use: No limitations Weightbearing: Full weightbearing Non-emergency contact: Primary Care Provider Call non-emergency contact if: you have any medication questions Follow-up/Referrals: Dionne Fletcher MD [Primary Care Provider] - Diet: Heart Healthy Addtl Attending Provider Instructions: See your PCP Dr. Dionne Fletcher within 5-7 days of hospital discharge for routine follow up visit. See your Neurologist @ [facility] in [place], [place], within 5-7 days of hospital discharge for routine follow up visit and discussion of chronic migraine headache management including botox injection treatment scheduled for September 26, 2025. Pending Studies at Discharge: No Stand-Alone Forms: [email or web address], Smoking Cessation Medications and DC Order Prescriptions: Continued venlafaxine [Effexor XR] 150 mg Capsule,Extended Release 24hr 300 mg PO HS topiramate 200 mg Capsule,Extended Release 24hr 200 mg PO HS alprazolam 0.25 mg tablet 0.25 mg PO DAILY PRN (Reason: Anxiety) epinephrine 0.3 mg/0.3 mL auto-injector 0.3 mg IM Q4H PRN (Reason: anaphylaxis) Qty: 2 0RF ondansetron 4 mg tablet,disintegrating 4 mg PO Q6H PRN (Reason: nausea and vomiting) Qty: 15 0RF famotidine 40 mg tablet 20 mg PO HS Ozempic 0.25 mg or 0.5 mg (2 mg/3 mL) pen injector 0.5 mg SUBCUT WK Rx Instructions: SATURDAYS levothyroxine 88 mcg tablet 88 mcg PO DAILYBB magnesium oxide 400 mg (241.3 mg magnesium) Tablet 400 mg PO QAM Qty: 30 0RF prochlorperazine maleate [Compazine] 10 mg tablet 10 mg PO Q8H PRN (Reason: headache) Qty: 30 0RF riboflavin (vitamin B2) 400 mg tablet 400 mg PO DAILY Qty: 30 0RF aripiprazole 5 mg Tablet 5 mg PO HS diphenhydramine HCl [Benadryl] 25 mg capsule 50 mg PO Q8H PRN (Reason: nausea and vomiting or migraine headache) Rx Instructions: [id number] lidocaine [Lidoderm] 5 % adhesive patch,medicated 1 patch topical DAILY PRN (Reason: Pain) Rx Instructions: leave on most painful area for up to 12 hrs warfarin 10 mg Tablet 10 mg PO 5XWK Rx Instructions: SUN, MON, WED, , & FRI warfarin 7.5 mg Tablet 7.5 mg PO 2XWK Rx Instructions: & MON cyclobenzaprine 10 mg Tablet 10 mg PO BID PRN (Reason: tension headache) Qty: 10 0RF trazodone 50 mg tablet 50 mg PO HS PRN (Reason: insomnia) Qty: 14 0RF Rx Instructions: Take 1 tablet by mouth at bedtime as needed for insomnia Discharge Orders: Discharge Order (Routine); Ordered 09/10/25 Ordered By: Jayy Cleveland/Other Patient Handouts: Dehydration, Migraine Triggers, Migraine Prevention Admission Data Admit Date/Time: 09/09/25 00:48 Attending Provider: Jayy Dominique Admit Provider: Riaz Tillman Primary Care Provider: Dionne Fletcher Other Providers: Riaz Tillman; [facility] Hospital Stay Data Consultations 09/08/25 23:33 ED Decision to Admit Stat Pending Results Patient Have Any Pending Studies at Discharge: No Discharge Instructions Given to Patient (Per Discharging Provider) See your PCP Dr. Dionne Fletcher within 5-7 days of hospital discharge for routine follow up visit. See your Neurologist @ [facility] in [place], [place], within 5-7 days of hospital discharge for routine follow up visit and discussion of chronic migraine headache management including botox injection treatment scheduled for September 26, 2025. Total Time Total Time Spent Total Time Spent (In Minutes): 35 minutes. Of this time periood, 19 minutes were spent in coordinating patient's discharge. Coding Level of Care Code 42164 INP/OBS DISCH >30 MIN Diagnoses Intractable migraine G43.919 Insomnia G47.00 Moderate dehydration E86.0 Anticoagulated on Coumadin Z79.01
[2025-09-10 08:53] LABS: Hematocrit (blood only) 33.7 % (37.0-47.0); Hemoglobin 11.1 g/dL (12.0-16.0); Immature Granulocytes # (auto) 0.04 K/uL (0.01-0.20); Immature Granulocytes % (auto) 0.5 %; Mean Corpuscular Hemoglobin 29.6 pg (25.0-34.0); Mean Corpuscular Volume 89.9 fL (80.0-100.0); Platelet Count 156 K/uL (130-400); RDW Standard Deviation 46.9 fL (36.4-46.3); Red Blood Count 3.75 M/uL (4.20-5.40); White Blood Count 8.14 K/ul (4.8-10.8)
[2025-09-10 09:21] LABS: INR 1.6 (0.9-1.1); Prothrombin Time 16.8 Seconds (9.0-12.0)
[2025-09-10 09:28] LABS: Anion Gap 8.0 (3-11); Blood Urea Nitrogen 13.0 mg/dl (6-23); Carbon Dioxide 22.0 mmol/L (21-32); Chloride 112.0 mmol/L (98-107); Potassium 3.7 mmol/L (3.5-5.1); Sodium 142.0 mmol/L (136-145); Total Protein 6.0 gm/dl (6.0-8.3)
[2025-09-10 09:29] LABS: Alanine Aminotransferase 26.0 U/L (7-52); Albumin Globulin Ratio 1.2 (0.9-2); Albumin Level 3.3 gm/dl (3.4-5.0); Alkaline Phosphatase 62.0 U/L (34-104); Bilirubin,Total 0.3 mg/dl (0.2-1.0); Calcium 8.4 mg/dl (8.6-10.3); Creatinine Clr Calc Pharmacy 88.0 ml/min; Globulin 2.7 gm/dl (2.5-4.0); Glucose 91.0 mg/dl (70-99(Fasting)); Magnesium 2.0 mg/dl (1.7-2.4)
[2025-09-10] MEDS ORDERED: WARFARIN SOD 10 MG TAB PO SCH (16:00)
== END 2025-09-10 09:46 | disposition home or self-care (01) ==
LOC: SUATTDRO → EDINP 14:37 → ED 14:37 → SUATTDRO 09-09 00:48 → 3N 09-09 01:42